=== PATIENT | female | born 1940 | race Hispanic/Latino ===

== ENCOUNTER 2017-03-04 10:47 | Inpatient (IN) | payer MEDICARE, MEDICAID ==
[2017-03-04 10:52] VITALS: BMI 25.7
[2017-03-04] MEDS ORDERED: Albuterol-Ipratrop 3 mg / 0.5 (3 ml) UD IH STA ×2 (10:59→11:00)
--- NOTE | 2017-03-04 11:05 | ED PDOC ---
HPI: SOB/CHF/COPD Time Seen by Provider: 03/04/17 10:54 Chief Complaint (Provider): shortness of breath History Per: Patient History/Exam Limitations: no limitations Additional Complaint(s): Jennifer Mendez is a 76 year old female, with a previous medical history of COPD, pneumonia, diabetes and cellulitis, who presents to the ED via EMS with complaints of shortness of breath associated with a cough productive of yellow sputum. Patient denies any fever, chills or chest pain. PMD: none provided Past Medical History Reviewed: Historical Data, Nursing Documentation, Vital Signs Vital Signs: Last Vital Signs Temp 98.7 F 03/04/17 10:52 Pulse 93 H 03/04/17 10:52 Resp 19 03/04/17 10:52 BP 161/71 H 03/04/17 10:52 Pulse Ox 95 03/04/17 11:09 - Medical History PMH: Arthritis, Asthma, Bronchitis, CAD, CHF, COPD, CVA, Diabetes, Emphysema, Fractures (Right arm fx), HTN, Hypercholesterolemia, TIA Denies: Chronic Kidney Disease - Surgical History Surgical History: Back Surgery (discectomy x 2), CABG (x 5; 2009), Cholecystectomy (), Coronary Stent - Family History Family History: States: Hypertension - Immunization History Hx Tetanus Toxoid Vaccination: No Hx Influenza Vaccination: No Hx Pneumococcal Vaccination: No - Home Medications Home Medications: Ambulatory Orders Medication Instructions Recorded ALPRAZolam [Xanax] 0.25 mg PO Q8H PRN 03/04/17 Acetaminophen [Tylenol 325mg tab] 650 mg PO Q4H PRN 03/04/17 Acetaminophen [Tylenol 325mg tab] 650 mg PO Q6H PRN 03/04/17 Albuterol 0.083% [Albuterol 0.083% 3 ml IH Q6H PRN 03/04/17 Inhal Suzan (2.5 mg/3 ml) UD] Arformoterol [Brovana] 15 mcg IH Q12H 03/04/17 Aspirin [Aspirin EC] 325 mg PO DAILY 03/04/17 Atorvastatin [Lipitor] 80 mg PO DAILY 03/04/17 Budesonide [Pulmicort Respules] 0.5 mg IH Q12H 03/04/17 Carvedilol [Coreg] 3.125 mg PO BID 03/04/17 Escitalopram [Lexapro] 10 mg PO DAILY 03/04/17 Ferrous Gluconate [Fergon] 324 mg PO DAILY 03/04/17 Furosemide [Lasix] 20 mg PO DAILY 03/04/17 Gabapentin [Neurontin] 100 mg PO TID 03/04/17 Heparin [Heparin (RENAL)] 5,000 unit SC Q12H 03/04/17 Insulin Detemir [Levemir] 20 unit SC Q12H 03/04/17 Insulin Human Regular [HumuLIN R] 1 - 7 unit SC QID 03/04/17 Lisinopril [Zestril] 2.5 mg PO DAILY 03/04/17 Loperamide HCl [Loperamide] 2 mg PO Q6H PRN 03/04/17 Loperamide HCl [Loperamide] 4 mg PO ONCE PRN 03/04/17 Mag Hydrox/Aluminum Hyd/Simeth 30 ml PO Q4H PRN 03/04/17 [Maalox Advanced Suspension] Magnesium Hydroxide [Milk Of 30 ml PO HS PRN 03/04/17 Magnesia] Meclizine [Antivert] 12.5 mg PO Q6H PRN 03/04/17 Ondansetron [Zofran Tab] 4 mg PO Q4H PRN 03/04/17 Pantoprazole Sodium [Protonix] 40 mg PO DAILY 03/04/17 Phenyleph/Mineral Oil/Petrolat 1 appl [place] TID PRN 03/04/17 [Preparation H Ointment] QUEtiapine [SEROquel] 50 mg PO HS 03/04/17 Quetiapine Fumarate [Seroquel] 50 mg PO BID 03/04/17 Tiotropium [Spiriva] 18 mcg IH DAILY 03/04/17 - Allergies Allergies/Adverse Reactions: Allergies Allergy/AdvReac Type Severity Reaction Status Date / Time shellfish derived Allergy SHORTNESS Verified 09/30/16 20:48 OF BREATH Review of Systems ROS Statement: Except As Marked, All Systems Reviewed And Found Negative Constitutional: Negative for: Fever, Chills Cardiovascular: Negative for: Chest Pain Respiratory: Positive for: Cough, Shortness of Breath, Sputum (yellow ) Physical Exam - Reviewed Nursing Documentation Reviewed: Yes Vital Signs Reviewed: Yes - Physical Exam Appears: Positive for: Non-toxic, In Acute Distress (respiratory ) Head Exam: Positive for: ATRAUMATIC, NORMAL INSPECTION, NORMOCEPHALIC Skin: Positive for: Normal Color, Warm, Dry Neck: Positive for: Normal, Painless ROM, Supple Cardiovascular/Chest: Positive for: Tachycardia Respiratory: Positive for: Rhonchi, Wheezing (expiratory), Respiratory Distress Gastrointestinal/Abdominal: Positive for: Normal Exam, Bowel Sounds, Soft Back: Positive for: Normal Inspection Extremity: Positive for: Normal ROM, Capillary Refill (< 2 seconds ), Other ( pretibial erythema. 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 Provider Scribe Attestation: All medical record entries made by the Scribe were at my direction and personally dictated by me. I have reviewed the chart and agree that the record accurately reflects my personal performance of the history, physical exam, medical decision making, and the department course for this patient. I have also personally directed, reviewed, and agree with the discharge instructions and disposition. Disposition - Clinical Impression Clinical Impression: CHF (congestive heart failure), COPD exacerbation, Pneumonia - Patient ED Disposition Is Patient to be Admitted: Yes - Disposition Disposition Time: 11:51 Condition: FAIR - Pt Status Changed To: Hospital Disposition Of: Inpatient - Admit Certification Admit to Inpatient:: After my assessment, the patient will require hospitalization for at least two midnights. This is because of the severity of symptoms shown, intensity of services needed, and/or the medical risk in this patient being treated as an outpatient. - POA Present On Arrival: None
[2017-03-04 11:35] LABS: HEMATOCRIT 38.9 % (34.0-47.0); LYMPH # 0.3 K/uL (1.0-4.3); LYMPH % 2.4 % (20.0-40.0); MEAN CELL VOLUME 89.7 fl (81.0-99.0); MEAN CORPUSCULAR HEMOGLOBIN 29.1 pg (27.0-31.0); MEAN CORPUSCULAR HGB CONC 32.5 g/dL (33.0-37.0); MEAN PLATELET VOLUME 9.1 fl (7.2-11.7); MONO # 0.9 K/uL (0.0-0.8); MONO % 7.8 % (0.0-10.0); NEUT # 10.6 K/uL (1.8-7.0); NEUT % 89.8 % (50.0-75.0); PLATELET COUNT 264 K/uL (130-400); RED CELL DISTRIBUTION WIDTH 16.7 % (11.5-14.5); WHITE BLOOD COUNT 11.8 K/uL (4.8-10.8)
[2017-03-04 11:45] LABS: ABG ALLEN TEST YES; ARTERIAL BLOOD GAS HCO3 32.7 mmol/L (21-28); ARTERIAL BLOOD GAS PO2 58 mm/Hg (80-100)
[2017-03-04] MEDS ORDERED: Piperacillin/Tazobact 3.375 GM in Sodium Chloride 0.9% 100 ML IVPB STA (11:46)
[2017-03-04] MEDS ORDERED: Albuterol-Ipratrop 3 mg / 0.5 (3 ml) UD ONE (12:09)
[2017-03-04] MEDS ORDERED: Vancomycin 1 g Inj ONE (12:09)
--- NOTE | 2017-03-04 12:13 | RAD ---
HISTORY: cough COMPARISON: 09/30/2016. FINDINGS: LUNGS: There is confluent airspace disease in the right upper lobe. There is also patchy airspace disease in the right lower lobe and left lung. PLEURA: Small right effusion. No significant left pleural effusion. No pneumothorax apparent. CARDIOVASCULAR: The heart is normal in size. Status post CABG. OSSEOUS STRUCTURES: No significant abnormalities. VISUALIZED UPPER ABDOMEN: Normal. OTHER FINDINGS: None. IMPRESSION: Findings are most compatible with multifocal pneumonia, worse in the right upper lobe. Small right pleural effusion. Follow-up after medical management is recommended to ensure complete resolution.
[2017-03-04 12:28] LABS: ALKALINE PHOSPHATASE 275 U/L (38-126); ALT/SGPT 208 U/L (9-52); AST/SGOT 185 U/L (14-36); BILIRUBIN,TOTAL 0.3 mg/dl (0.2-1.3); BLOOD UREA NITROGEN 43 mg/dl (7-17); CALCIUM 8.2 mg/dL (8.4-10.2); CARBON DIOXIDE 33 mmol/L (22-30); CHLORIDE 105 mmol/L (98-107); GFR AFRICAN-AMERICAN > 60; GLUCOSE,RANDOM 186 mg/dL (65-105); POTASSIUM 3.8 MMOL/L (3.6-5.0); SODIUM 143 mmol/l (132-148); TOTAL PROTEIN 5.6 G/DL (6.3-8.2)
[2017-03-04 12:54] LABS: NEUTROPHIL 87 % (42-75); TOTAL CELLS COUNTED 100
[2017-03-04 12:56] LABS: LARGE PLATELETS PRESENT
[2017-03-04] MEDS ORDERED: Piperacillin/Tazobact 3.375 gm Inj IVPB ONE (14:06)
[2017-03-04] MEDS ORDERED: Sodium Chloride 3% for Inhalation 4 ML VIAL.NEB IH PRN (15:53)
[2017-03-04] MEDS: Piperacillin/Tazobact 3.375 GM in Sodium Chloride 0.9% 100 ML IVPB SCH ×2 (16:32→21:34)
[2017-03-04] MEDS: Insulin Lispro (humaLOG) 100 Units/ml Inj SC SCH ×2 (16:56→21:44)
[2017-03-04] MEDS: Albuterol-Ipratrop 3 mg / 0.5 (3 ml) UD INH SCH (19:01)
[2017-03-04] MEDS ORDERED: Budesonide 0.5 mg/2 ml Inhal Susp UD IH SCH (23:45)
[2017-03-04] MEDS ORDERED: Alum-Mag Hydrox-Simethicone Susp (30 mL) PO PRN (23:53)
[2017-03-04] MEDS ORDERED: Magnesium Hydroxide Susp 30 ml UD PO PRN (23:53)
[2017-03-04] MEDS ORDERED: Albuterol 0.083% Inhal Sol (2.5 mg/3 mL) UD IH PRN (23:53)
[2017-03-04] MEDS ORDERED: [UNRECOGNIZED DRUG - OTHER] PR PRN (23:53)
[2017-03-04] MEDS ORDERED: PHENYLEPH PR PRN (23:53)
[2017-03-04] MEDS ORDERED: LOPERAMIDE HCL 2 MG PO PRN (23:53)
[2017-03-04] MEDS ORDERED: MINERAL OIL PR PRN (23:53)
[2017-03-05] MEDS: Insulin Detemir 100 Units/ml Inj SC SCH ×2 (01:15→12:43)
[2017-03-05] MEDS: Piperacillin/Tazobact 3.375 GM in Sodium Chloride 0.9% 100 ML IVPB SCH ×2 (04:56→09:35)
[2017-03-05] MEDS: Budesonide 0.5 mg/2 ml Inhal Susp UD IH SCH ×2 (07:16→19:06)
[2017-03-05] MEDS: Albuterol-Ipratrop 3 mg / 0.5 (3 ml) UD INH SCH ×3 (07:17→19:06)
[2017-03-05 07:19] LABS: HEMATOCRIT 38.3 % (34.0-47.0); LYMPH # 0.3 K/uL (1.0-4.3); LYMPH % 4.6 % (20.0-40.0); MEAN CELL VOLUME 90.2 fl (81.0-99.0); MEAN CORPUSCULAR HEMOGLOBIN 28.9 pg (27.0-31.0); MEAN PLATELET VOLUME 9.3 fl (7.2-11.7); MONO # 0.5 K/uL (0.0-0.8); MONO % 6.5 % (0.0-10.0); NEUT # 6.7 K/uL (1.8-7.0); NEUT % 88.9 % (50.0-75.0); RED CELL DISTRIBUTION WIDTH 16.7 % (11.5-14.5); WHITE BLOOD COUNT 7.6 K/uL (4.8-10.8)
[2017-03-05 07:27] LABS: BILIRUBIN,TOTAL 0.5 mg/dl (0.2-1.3); POTASSIUM 3.6 MMOL/L (3.6-5.0); TOTAL PROTEIN 5.2 G/DL (6.3-8.2)
[2017-03-05] MEDS: Aspirin 325 mg EC Tablets PO SCH (09:06)
[2017-03-05] MEDS: Pantoprazole 40 mg EC Tab PO SCH (09:07)
[2017-03-05] MEDS: Tiotropium 18 mcg Cap For Inhalation IH SCH (09:08)
[2017-03-05] MEDS: Insulin Regular 100 units/ml SC SCH ×2 (09:09→11:19)
--- NOTE | 2017-03-05 13:38 | CP.PCM.CON ---
History of Present Illness - History of Present Illness History of Present Illness: I was asked to evaluate patient by Dr. Zapata. Patient is a 76 year old female with PMH HTN, CAD s/p CABG, Diastolic dysfunction PAD, who presents with productive cough and dyspnea. The patient devleoped progressive symptoms over the last 2 to 3 days. She had a productive cough. There was yellowish sputum production. The patient's pro BNP was markedly elevated. Review of Systems - Constitutional Constitutional: absent: As Per HPI, Anorexia, Chills, Daytime Sleepiness, Excessive Sweating, Fatigue, Fever, Frequent Falls, Headache, Increased Appetite , Lethargy, Malaise, Night Sweats, Snoring, Sleep Apnea, Weight Gain, Weight Loss, Weakness, Other - EENT Eyes: absent: As Per HPI, Blind Spots, Blurred Vision, Change in Vision, Decreased Night Vision, Diplopia, Discharge, Dry Eye, Exophthalmos, Floaters, Irritation, Itchy Eyes, Loss of Peripheral Vision, Pain, Photophobia, Requires Corrective Lenses, Sees Flashes, Spots in Vision, Tunnel Vision, Other Visual Disturbances, Loss of Vision, Other Ears: absent: As Per HPI, Decreased Hearing, Ear Discharge, Ear Pain, Tinnitus, Abnormal Hearing, Disequilibrium, Dizziness, Other Nose/Mouth/Throat: absent: As Per HPI, Epistaxis, Nasal Congestion, Nasal Discharge, Nasal Obstruction, Nasal Trauma, Nose Pain, Post Nasal Drip, Sinus Pain, Sinus Pressure, Bleeding Gums, Change in Voice, Dental Pain, Dry Mouth, Dysphagia, Halitosis, Hoarsness, Lip Swelling, Mouth Lesions, Mouth Pain, Odynophagia, Sore Throat, Throat Swelling, Tongue Swelling, Facial Pain, Neck Pain, Neck Mass, Other - Breasts Breasts: absent: As Per HPI, Change in Shape, Mass, Pain, Nipple Discharge, Nipple Inversion, Skin Changes, Swelling, Other - Cardiovascular Cardiovascular: Dyspnea - Respiratory Respiratory: Cough, Dyspnea - Gastrointestinal Gastrointestinal: absent: As Per HPI, Abdominal Pain, Belching, Bloating, Change in Bowel Habits, Change in Stool Character, Coffee Ground Emesis, Constipation, Cramping, Diarrhea, Dyspepsia, Dysphagia, Early Satiety, Excessive Flatus, Fecal Incontinence, Heartburn, Hematemesis, Hematochezia, Loose Stools, Melena, Nausea, Odynophagia, Temesmus, Vomiting, Other - Genitourinary Genitourinary: absent: As Per HPI, Change in Urinary Stream, Difficulty Urinating, Dysuria, Flank Pain, Hematuria, Pyuria, Nocturia, Urinary Incontinence, Urinary Frequency, Urinary Hesitance, Urinary Urgency, Voiding Freq/Small Amts, Freq UTI, Hx Renal/Bladder Calculi, Hx /Renal Surgery, Bladder Distension, Other - Musculoskeletal Musculoskeletal: absent: As Per HPI, Abnormal Gait, Arthralgias, Atrophy, Back Pain, Deformity, Joint Swelling, Limited Range of Motion, Loss of Height, Muscle Cramps, Muscle Weakness, Myalgias, Neck Pain, Numbness, Radiating Pain into Limb, Stiffness, Tingling, Other - Integumentary Integumentary: absent: As Per HPI, Acne, Alopecia, Bleeding Lesions, Change in Hair, Change in Nails, Change in Pigmentation, Changing Lesions, Dry Skin, Erythema, Furuncle, Hirsutism, Lesions, New Lesions, Non-Healing Lesions, Photosensitivity, Pruritus, Rash, Skin Pain, Skin Ulcer, Sores, Striae, Swelling , Unusual Bruising, Wounds, Jaundice, Other - Neurological Neurological: absent: As Per HPI, Abnormal Gait, Abnormal Hearing, Abnormal Movements, Abnormal Speech, Behavioral Changes, Burning Sensations, Confusion, Convulsions, Disequilibrium, Dizziness, Numbness, Focal Weakness, Frequent Falls , Headaches, Lack of Coordination, Loss of Vision, Memory Loss, Paresthesias, Radicular Pain, Restless Legs, Sensory Deficit, Syncope, Tingling, Tremor, Vertigo, Weakness, Other Visual Disturbances, Other - Psychiatric Psychiatric: absent: As Per HPI, Abnormal Sleep Pattern, Anhedonia, Anxiety, Auditory Hallucinations, Behavioral Changes, Change in Appetite, Change in Libido, Confusion, Depression, Difficulty Concentrating, Hallucinations, Homicidal Ideation, Hopelessness, Irritability, Memory Loss, Mood Swings, Panic Attacks, Paranoia, Suicidal Ideation, Visual Hallucinations, Tactile Hallucinations, Other - Endocrine Endocrine: absent: As Per HPI, Change in Body Appearance, Change in Libido, Cold Intolorance, Deepening of Voice, Excessive Sweating, Fatigue, Flushing, Heat Intolorance, Increase in Ring/Shoe/Hat Size, Palpitations, Polydipsia, Polyphagia, Polyuria, Other - Hematologic/Lymphatic Hematologic: absent: As Per HPI, Easy Bleeding, Easy Bruising, Lymphadenopathy, Other Past Patient History - Infectious Disease Hx of Infectious Diseases: None - Past Medical History & Family History Past Medical History?: Yes - Past Social History Smoking Status: Former Smoker - CARDIAC Hx Congestive Heart Failure: Yes Hx Hypercholesterolemia: Yes Hx Hypertension: Yes - PULMONARY Hx Asthma: Yes Hx Bronchitis: Yes Hx Chronic Obstructive Pulmonary Disease (COPD): Yes Hx Emphysema: Yes - NEUROLOGICAL Hx Transient Ischemic Attacks (TIA): Yes - HEENT Hx HEENT Problems: Yes (Wears glasses) Hx Deafness: Yes ([place]: has hearing aids) - RENAL Hx Chronic Kidney Disease: No - ENDOCRINE/METABOLIC Hx Diabetes Mellitus Type 1: Yes - HEMATOLOGICAL/ONCOLOGICAL Hx Blood Disorders: No - INTEGUMENTARY Hx Dermatological Problems: Yes Hx Cellulitis: Yes (Since -August 2016) - MUSCULOSKELETAL/RHEUMATOLOGICAL Hx Arthritis: Yes Hx Falls: No Hx Fractures: Yes (Right arm fx) - GASTROINTESTINAL Hx Gastrointestinal Disorders: No - GENITOURINARY/GYNECOLOGICAL Hx Genitourinary Disorders: No - PSYCHIATRIC Hx Psychophysiologic Disorder: No Hx Substance Use: No - SURGICAL HISTORY Hx Cholecystectomy: Yes () Hx Coronary Artery Bypass Graft: Yes (x 5; 2009) Hx Coronary Stent: Yes - ANESTHESIA Hx Anesthesia Reactions: No Hx Malignant Hyperthermia: No Meds Allergies/Adverse Reactions: Allergies Allergy/AdvReac Type Severity Reaction Status Date / Time shellfish derived Allergy SHORTNESS Verified 09/30/16 20:48 OF BREATH - Medications Medications: Current Medications Acetaminophen (Tylenol 325mg Tab) 650 mg PO Q4H PRN PRN Reason: Temp 101 and above Al Hydrox/Mg Hydrox/Simethicone (Maalox Plus 30 Ml) 30 ml PO Q4H PRN PRN Reason: heartburn, nausea, indigestion Albuterol Sulfate (Albuterol 0.083% Inhal Suzan (2.5 Mg/3 Ml) Ud) 2.5 mg IH Q6H PRN PRN Reason: Shortness of Breath Albuterol/Ipratropium (Duoneb 3 Mg/0.5 Mg (3 Ml) Ud) 3 ml INH RTID TERRANCE Last Admin: 03/05/17 13:09 Dose: 3 ml Alprazolam (Xanax) 0.25 mg PO Q8H PRN PRN Reason: Anxiety Stop: 03/11/17 15:47 Last Admin: 03/04/17 23:13 Dose: 0.25 mg Aspirin (Ecotrin) 325 mg PO DAILY ON LICENSE OF [facility] Last Admin: 03/05/17 09:06 Dose: 325 mg Atorvastatin Calcium (Lipitor) 80 mg PO DAILY ON LICENSE OF [facility] Last Admin: 03/05/17 09:05 Dose: 80 mg Budesonide (Pulmicort Respules) 0.5 mg IH RBID ON LICENSE OF [facility] Last Admin: 03/05/17 07:16 Dose: 0.5 mg Carvedilol (Coreg) 3.125 mg PO BID ON LICENSE OF [facility] Last Admin: 03/05/17 09:05 Dose: 3.125 mg Escitalopram Oxalate (Lexapro) 10 mg PO DAILY ON LICENSE OF [facility] Last Admin: 03/05/17 09:05 Dose: 10 mg Ferrous Gluconate (Fergon) 324 mg PO DAILY ON LICENSE OF [facility] Last Admin: 03/05/17 09:05 Dose: 324 mg Furosemide (Lasix) 20 mg PO DAILY ON LICENSE OF [facility] Last Admin: 03/05/17 09:06 Dose: 20 mg Gabapentin (Neurontin) 100 mg PO TID ON LICENSE OF [facility] Last Admin: 03/05/17 12:43 Dose: 100 mg Heparin Sodium (Porcine) (Heparin) 5,000 units SC Q12H ON LICENSE OF [facility] PRN Reason: Protocol Last Admin: 03/05/17 04:57 Dose: 5,000 units Home Med (Arformoterol [Brovana]) 15 mcg IH Q12H ON LICENSE OF [facility] Home Med (Phenyleph/Mineral Oil/Petrolat [Preparation H Ointment]) 1 appl [place] TID PRN PRN Reason: Hemorrhoids Vancomycin HCl 1 gm/ Sodium (Chloride) 250 mls @ 166.667 mls/hr IVPB DAILY ON LICENSE OF [facility] Last Admin: 03/05/17 09:12 Dose: 166.667 mls/hr Piperacillin Sod/Tazobactam Sod (Zosyn 3.375 Gm Iv Premix) 3.375 gm in 50 mls @ 50 mls/hr IVPB Q6 ON LICENSE OF [facility] Insulin Detemir (Levemir) 20 units SC Q12H ON LICENSE OF [facility] Last Admin: 03/05/17 12:43 Dose: 20 u Insulin Human Lispro (Humalog) 0 units SC [facility] ON LICENSE OF [facility] PRN Reason: Protocol Last Admin: 03/04/17 21:44 Dose: Not Given Insulin Human Regular (Humulin R) 0 units SC [facility] ON LICENSE OF [facility] PRN Reason: Protocol Last Admin: 03/05/17 11:19 Dose: 6 units Lisinopril (Zestril) 2.5 mg PO DAILY ON LICENSE OF [facility] Last Admin: 03/05/17 09:13 Dose: 2.5 mg Loperamide HCl (Imodium) 2 mg PO Q6H PRN PRN Reason: Diarrhea Magnesium Hydroxide (Milk Of Magnesia) 30 ml PO HS PRN PRN Reason: Constipation Meclizine HCl (Antivert) 12.5 mg PO Q6H PRN PRN Reason: Dizziness Ondansetron HCl (Zofran Tab) 4 mg PO Q4H PRN PRN Reason: Nausea/Vomiting Pantoprazole Sodium (Protonix Ec Tab) 40 mg PO DAILY ON LICENSE OF [facility] Last Admin: 03/05/17 09:07 Dose: 40 mg Quetiapine Fumarate (Seroquel) 50 mg PO HS ON LICENSE OF [facility] Last Admin: 03/04/17 21:35 Dose: 50 mg Quetiapine Fumarate (Seroquel) 50 mg PO BID ON LICENSE OF [facility] Last Admin: 03/05/17 09:10 Dose: 50 mg Tiotropium [place] (Spiriva) 18 mcg IH DAILY ON LICENSE OF [facility] Last Admin: 03/05/17 09:08 Dose: 18 mcg Physical Exam - Constitutional Appears: Non-toxic - Head Exam Head Exam: NORMAL INSPECTION - Eye Exam Eye Exam: Normal appearance - ENT Exam ENT Exam: Mucous Membranes Moist - Neck Exam Neck exam: Positive for: Full Rom - Respiratory Exam Respiratory Exam: Decreased Breath Sounds - Cardiovascular Exam Cardiovascular Exam: REGULAR RHYTHM - GI/Abdominal Exam GI & Abdominal Exam: Normal Bowel Sounds - Rectal Exam Rectal Exam: Deferred - Extremities Exam Extremities exam: Positive for: pedal edema - Back Exam Back exam: NORMAL INSPECTION - Neurological Exam Neurological exam: Alert, Oriented x3 - Psychiatric Exam Psychiatric exam: Normal Affect - Skin Skin Exam: Normal Color Results - Vital Signs Recent Vital Signs: Last Vital Signs Temp 98.6 F 03/05/17 12:23 Pulse 82 03/05/17 12:23 Resp 19 03/05/17 13:10 BP 145/84 03/05/17 12:23 Pulse Ox 98 03/05/17 12:23 - Labs Result Diagrams: 03/05/17 05:30 03/05/17 05:30 Labs: Laboratory Results - last 24 hr 03/04/17 03/04/17 03/05/17 16:53 21:41 05:23 WBC RBC Hgb Hct MCV MCH MCHC RDW Plt Count MPV Neut % (Auto) Lymph % (Auto) Holt % (Auto) Eos % (Auto) Baso % (Auto) Neut # Lymph # Holt # Eos # Baso # Sodium Potassium Chloride Carbon Dioxide Anion Gap BUN Creatinine Est GFR ( Amer) Est GFR (Non-Af Amer) POC Glucose (mg/dL) 278 H 297 H 338 H Random Glucose Calcium Total Bilirubin AST ALT Alkaline Phosphatase Total Protein Albumin Globulin Albumin/Globulin Ratio 03/05/17 03/05/17 03/05/17 05:30 05:30 11:01 WBC 7.6 RBC 4.24 Hgb 12.2 Hct 38.3 MCV 90.2 MCH 28.9 MCHC 32.0 L RDW 16.7 H Plt Count 257 MPV 9.3 Neut % (Auto) 88.9 H Lymph % (Auto) 4.6 L Holt % (Auto) 6.5 Eos % (Auto) 0.0 Baso % (Auto) 0.0 Neut # 6.7 Lymph # 0.3 L Holt # 0.5 Eos # 0.0 Baso # 0.0 Sodium 142 Potassium 3.6 Chloride 104 Carbon Dioxide 32 H Anion Gap 10 BUN 47 H Creatinine 1.3 H Est GFR ( Amer) 48 Est GFR (Non-Af Amer) 40 POC Glucose (mg/dL) 334 H Random Glucose 295 H Calcium 8.0 L Total Bilirubin 0.5 AST 60 H D ALT 155 H D Alkaline Phosphatase 245 H Total Protein 5.2 L Albumin 2.6 L Globulin 2.6 Albumin/Globulin Ratio 1.0 - EKG Data EKG Interpreted by: Myself EKG shows normal: Sinus rhythm Assessment & Plan (1) CHF (congestive heart failure) Assessment and Plan: will need to assess systolic function givne elevated pro BNP. will schedule echocardiogram. continue diuresis and blood pressure control. Status: Acute (2) Coronary artery disease Assessment and Plan: previous cardiac cath reviewed. patent JHA to LAD. COntinue antiplatelet therapy Status: Acute (3) Diabetes mellitus Assessment and Plan: glucose management Status: Acute (4) Hypertension Assessment and Plan: blood pressure control Status: Acute
--- NOTE | 2017-03-05 13:50 | CARD ---
APPROVED REPORT EKG Measurement Heart [id number] MD [id number] <Conclusion> Sinus rhythm with occasional premature ventricular complexes Possible Left atrial enlargement Nonspecific ST abnormality Abnormal ECG
[2017-03-05] MEDS: Insulin Lispro (humaLOG) 100 Units/ml Inj SC SCH ×3 (16:50→22:00)
[2017-03-05] MEDS: Piperacill/Tazo 3.375gm in Dex 3.375 GM/50 ML BAG IVPB SCH ×2 (16:51→22:07)
--- NOTE | 2017-03-05 19:41 | CP.PCM.HP ---
History of Present Illness - History of Present Illness History of Present Illness: Jennifer Mendez is a 76 year old female, with a previous medical history of COPD, pneumonia, diabetes and cellulitis, who presents to the ED via EMS with complaints of shortness of breath associated with a cough productive of yellow sputum. Patient denies any fever, chills or chest pain. Present on Admission - Present on Admission Any Indicators Present on Admission: Yes Decubitus Ulcer Present: Yes Decubitus Ulcer Stage: Unstageable Review of Systems - Constitutional Constitutional: absent: As Per HPI, Anorexia, Chills, Daytime Sleepiness, Excessive Sweating, Fatigue, Fever, Frequent Falls, Headache, Increased Appetite , Lethargy, Malaise, Night Sweats, Snoring, Sleep Apnea, Weight Gain, Weight Loss, Weakness, Other - EENT Eyes: absent: As Per HPI, Blind Spots, Blurred Vision, Change in Vision, Decreased Night Vision, Diplopia, Discharge, Dry Eye, Exophthalmos, Floaters, Irritation, Itchy Eyes, Loss of Peripheral Vision, Pain, Photophobia, Requires Corrective Lenses, Sees Flashes, Spots in Vision, Tunnel Vision, Other Visual Disturbances, Loss of Vision, Other Ears: absent: As Per HPI, Decreased Hearing, Ear Discharge, Ear Pain, Tinnitus, Abnormal Hearing, Disequilibrium, Dizziness, Other - Cardiovascular Cardiovascular: absent: As Per HPI, Acrocyanosis, Chest Pain, Chest Pain at Rest , Chest Pain with Activity, Claudication, Diaphoresis, Dyspnea, Dyspnea on Exertion, Edema, Irregular Heart Rhythm, Pain Radiating to Arm/Neck/Jaw, Leg Edema, Leg Ulcers, Lightheadedness, Orthopnea, Palpitations, Paroxysmal Nocturnal Dyspnea, Pedal Edema, Radiating Pain, Rapid Heart Rate, Slow Heart Rate, Syncope, Other - Respiratory Respiratory: Dyspnea - Gastrointestinal Gastrointestinal: absent: As Per HPI, Abdominal Pain, Belching, Bloating, Change in Bowel Habits, Change in Stool Character, Coffee Ground Emesis, Constipation, Cramping, Diarrhea, Dyspepsia, Dysphagia, Early Satiety, Excessive Flatus, Fecal Incontinence, Heartburn, Hematemesis, Hematochezia, Loose Stools, Melena, Nausea, Odynophagia, Temesmus, Vomiting, Other - Musculoskeletal Musculoskeletal: absent: As Per HPI, Abnormal Gait, Arthralgias, Atrophy, Back Pain, Deformity, Joint Swelling, Limited Range of Motion, Loss of Height, Muscle Cramps, Muscle Weakness, Myalgias, Neck Pain, Numbness, Radiating Pain into Limb, Stiffness, Tingling, Other - Neurological Neurological: absent: As Per HPI, Abnormal Gait, Abnormal Hearing, Abnormal Movements, Abnormal Speech, Behavioral Changes, Burning Sensations, Confusion, Convulsions, Disequilibrium, Dizziness, Numbness, Focal Weakness, Frequent Falls , Headaches, Lack of Coordination, Loss of Vision, Memory Loss, Paresthesias, Radicular Pain, Restless Legs, Sensory Deficit, Syncope, Tingling, Tremor, Vertigo, Weakness, Other Visual Disturbances, Other Past Patient History - Infectious Disease Hx of Infectious Diseases: None - Past Medical History & Family History Past Medical History?: Yes - Past Social History Smoking Status: Former Smoker - CARDIAC Hx Congestive Heart Failure: Yes Hx Hypercholesterolemia: Yes Hx Hypertension: Yes - PULMONARY Hx Asthma: Yes Hx Bronchitis: Yes Hx Chronic Obstructive Pulmonary Disease (COPD): Yes Hx Emphysema: Yes - NEUROLOGICAL Hx Transient Ischemic Attacks (TIA): Yes - HEENT Hx HEENT Problems: Yes (Wears glasses) Hx Deafness: Yes ([place]: has hearing aids) - RENAL Hx Chronic Kidney Disease: No - ENDOCRINE/METABOLIC Hx Diabetes Mellitus Type 1: Yes - HEMATOLOGICAL/ONCOLOGICAL Hx Blood Disorders: No - INTEGUMENTARY Hx Dermatological Problems: Yes Hx Cellulitis: Yes (Since -August 2016) - MUSCULOSKELETAL/RHEUMATOLOGICAL Hx Arthritis: Yes Hx Falls: No Hx Fractures: Yes (Right arm fx) - GASTROINTESTINAL Hx Gastrointestinal Disorders: No - GENITOURINARY/GYNECOLOGICAL Hx Genitourinary Disorders: No - PSYCHIATRIC Hx Psychophysiologic Disorder: No Hx Substance Use: No - SURGICAL HISTORY Hx Cholecystectomy: Yes () Hx Coronary Artery Bypass Graft: Yes (x 5; 2009) Hx Coronary Stent: Yes - ANESTHESIA Hx Anesthesia Reactions: No Hx Malignant Hyperthermia: No Meds Allergies/Adverse Reactions: Allergies Allergy/AdvReac Type Severity Reaction Status Date / Time shellfish derived Allergy SHORTNESS Verified 09/30/16 20:48 OF BREATH Physical Exam - Constitutional Appears: Well, Non-toxic - Head Exam Head Exam: NORMAL INSPECTION - Eye Exam Eye Exam: Normal appearance Pupil Exam: NORMAL ACCOMODATION - ENT Exam ENT Exam: Mucous Membranes Moist - Respiratory Exam Respiratory Exam: Rales, Rhonchi - Cardiovascular Exam Cardiovascular Exam: REGULAR RHYTHM - GI/Abdominal Exam GI & Abdominal Exam: Normal Bowel Sounds, Soft - Skin Additional comments: 12/26 dec ulcer, unstageable Results - Vital Signs Recent Vital Signs: Last Vital Signs Temp 98.2 F 03/05/17 15:52 Pulse 75 03/05/17 16:49 Resp 17 03/05/17 19:06 BP 137/75 03/05/17 16:49 Pulse Ox 98 03/05/17 15:52 - Labs Result Diagrams: 03/05/17 05:30 03/05/17 05:30 Labs: Laboratory Results - last 24 hr 03/04/17 03/05/17 03/05/17 21:41 05:23 05:30 WBC RBC Hgb Hct MCV MCH MCHC RDW Plt Count MPV Neut % (Auto) Lymph % (Auto) [place] % (Auto) Eos % (Auto) Baso % (Auto) Neut # Lymph # [place] # Eos # Baso # Sodium 142 Potassium 3.6 Chloride 104 Carbon Dioxide 32 H Anion Gap 10 BUN 47 H Creatinine 1.3 H Est GFR ( Amer) 48 Est GFR (Non-Af Amer) 40 POC Glucose (mg/dL) 297 H 338 H Random Glucose 295 H Calcium 8.0 L Total Bilirubin 0.5 AST 60 H D ALT 155 H D Alkaline Phosphatase 245 H Total Protein 5.2 L Albumin 2.6 L Globulin 2.6 Albumin/Globulin Ratio 1.0 03/05/17 03/05/17 03/05/17 05:30 11:01 15:57 WBC 7.6 RBC 4.24 Hgb 12.2 Hct 38.3 MCV 90.2 MCH 28.9 MCHC 32.0 L RDW 16.7 H Plt Count 257 MPV 9.3 Neut % (Auto) 88.9 H Lymph % (Auto) 4.6 L [place] % (Auto) 6.5 Eos % (Auto) 0.0 Baso % (Auto) 0.0 Neut # 6.7 Lymph # 0.3 L [place] # 0.5 Eos # 0.0 Baso # 0.0 Sodium Potassium Chloride Carbon Dioxide Anion Gap BUN Creatinine Est GFR ( Amer) Est GFR (Non-Af Amer) POC Glucose (mg/dL) 334 H 254 H Random Glucose Calcium Total Bilirubin AST ALT Alkaline Phosphatase Total Protein Albumin Globulin Albumin/Globulin Ratio Assessment & Plan - Assessment and Plan (Free Text) Assessment: Jennifer Mendez is a 76 year old female, with a previous medical history of COPD, pneumonia, diabetes and cellulitis, who presents to the ED via EMS with complaints of shortness of breath associated with a cough productive of yellow sputum. Patient denies any fever, chills or chest pain. 1. Pneumonia cont vanc and zosyn follow labs repeat cxr on tuesday 2. CHF elev pro bnp cardio consulted echo ordered 3. copd cont meds 4. dm riss cont home meds 5. dvt px scd 6. dec ulcer wound care
[2017-03-05] MEDS ORDERED: Insulin Detemir 100 Units/ml Inj SC SCH (22:00)
[2017-03-06] MEDS: Piperacill/Tazo 3.375gm in Dex 3.375 GM/50 ML BAG IVPB SCH ×4 (03:52→21:30)
--- NOTE | 2017-03-06 04:10 | CON ---
DATE: HISTORY OF PRESENT ILLNESS: Ms. Mendez is a 76-year-old female who was admitted to telemetry because of shortness of breath, cough productive of yellow sputum, fever, but no chills or febrile episode prior to presentation. She does not offer much history. She is dyspneic at rest. PAST MEDICAL HISTORY: As per medical records, past medical history is remarkable for COPD, recurrent pneumonia, diabetes mellitus, and cellulitis of lower extremities. She also has a history of hypertension, coronary artery disease, and congestive heart failure. No other history is obtained. PHYSICAL EXAMINATION GENERAL: The patient is dyspneic at rest. VITAL SIGNS: Blood pressure 161/71 with a pulse of 93, respiratory rate 19 per minute, O2 sat 95% on high flow O2, temperature 98.7 degrees Fahrenheit. SKIN: Shows fair turgor. There is redness and cellulitis of lower extremities. HEENT: Mouth, fair hygiene with mucous engorgement of pharynx. NECK: JVP flat. LUNGS: Coarse rales. Scar of prior surgery over the anterior chest wall area. HEART: Regular. ABDOMEN: Soft, nontender, no organomegaly. EXTREMITIES: Shows cellulitis of lower extremities. CENTRAL NERVOUS SYSTEM: On exam, patient is responsive to verbal commands, able to answer yes to questions, but otherwise no gross deficits appreciated. LABORATORY DATA: Chest x-ray shows bilateral pneumonia. WBC 11.8, hemoglobin 12.6, platelet count of 264,000. Sodium 143, potassium 3.8, BUN 43, creatinine 1.0. AST 185, ALT 208. ProBNP 6400 EKG, apparently not present. IMPRESSION: Bilateral pneumonia, chronic obstructive pulmonary disease with exacerbation, cellulitis of lower extremities. One also has to rule out mild congestive heart failure in view of elevated proBNP. PLAN: Intravenous antibiotics, oxygen therapy. We will place patient on high flow oxygen because of hypoxemia, sputum culture is already ordered. Blood cultures also ordered. Aerosolized bronchodilators already given. I agree with cardiology evaluation. We will continue therapy as ordered. Final workup will depend on findings. Bairon Aggarwal MD
[2017-03-06] MEDS: Albuterol-Ipratrop 3 mg / 0.5 (3 ml) UD INH SCH ×3 (07:51→19:26)
[2017-03-06] MEDS: Budesonide 0.5 mg/2 ml Inhal Susp UD IH SCH ×2 (07:52→19:27)
[2017-03-06] MEDS: Aspirin 325 mg EC Tablets PO SCH (08:44)
[2017-03-06] MEDS: Insulin Lispro (humaLOG) 100 Units/ml Inj SC SCH ×6 (08:47→21:31)
[2017-03-06] MEDS: Pantoprazole 40 mg EC Tab PO SCH (08:49)
[2017-03-06] MEDS: Tiotropium 18 mcg Cap For Inhalation IH SCH (08:50)
[2017-03-06 08:57] LABS: BILIRUBIN,TOTAL 0.3 mg/dl (0.2-1.3); CALCIUM 7.9 mg/dL (8.4-10.2); MAGNESIUM 2.2 MG/DL (1.6-2.3); TOTAL PROTEIN 4.8 G/DL (6.3-8.2)
[2017-03-06 09:16] LABS: THYROID STIMULATING HORMONE 0.3 mIU/ML (0.46-4.68)
--- NOTE | 2017-03-06 09:30 | CP.PCM.PN ---
Subjective - Date & Time of Evaluation Date of Evaluation: 03/06/17 Time of Evaluation: 09:31 - Subjective Subjective: MORE AWAKE AND ALERT TODAY SOB IMPROVED O2 SAT ADEQUATE ON 60%FIO2 HIGH FLOW Objective - Vital Signs/Intake and Output Vital Signs (last 24 hours): Temp Pulse Resp BP Pulse Ox 97.9 F 61 20 149/70 98 03/06/17 08:08 03/06/17 08:46 03/06/17 08:10 03/06/17 08:49 03/06/17 08:08 - Medications Medications: Current Medications Acetaminophen (Tylenol 325mg Tab) 650 mg PO Q4H PRN PRN Reason: Temp 101 and above Al Hydrox/Mg Hydrox/Simethicone (Maalox Plus 30 Ml) 30 ml PO Q4H PRN PRN Reason: heartburn, nausea, indigestion Albuterol Sulfate (Albuterol 0.083% Inhal Suzan (2.5 Mg/3 Ml) Ud) 2.5 mg IH Q6H PRN PRN Reason: Shortness of Breath Albuterol/Ipratropium (Duoneb 3 Mg/0.5 Mg (3 Ml) Ud) 3 ml INH RTID [facility] Last Admin: 03/06/17 07:51 Dose: 3 ml Alprazolam (Xanax) 0.25 mg PO Q8H PRN PRN Reason: Anxiety Stop: 03/11/17 15:47 Last Admin: 03/04/17 23:13 Dose: 0.25 mg Aspirin (Ecotrin) 325 mg PO DAILY [facility] Last Admin: 03/06/17 08:44 Dose: 325 mg Atorvastatin Calcium (Lipitor) 80 mg PO DAILY [facility] Last Admin: 03/06/17 08:45 Dose: 80 mg Budesonide (Pulmicort Respules) 0.5 mg IH RBID [facility] Last Admin: 03/06/17 07:52 Dose: 0.5 mg Carvedilol (Coreg) 3.125 mg PO BID [facility] Last Admin: 03/06/17 08:46 Dose: 3.125 mg Escitalopram Oxalate (Lexapro) 10 mg PO DAILY [facility] Last Admin: 03/06/17 08:45 Dose: 10 mg Ferrous Gluconate (Fergon) 324 mg PO DAILY [facility] Last Admin: 03/06/17 08:45 Dose: 324 mg Furosemide (Lasix) 20 mg PO DAILY [facility] Last Admin: 03/06/17 08:49 Dose: 20 mg Gabapentin (Neurontin) 100 mg PO TID [facility] Last Admin: 03/06/17 08:45 Dose: 100 mg Heparin Sodium (Porcine) (Heparin) 5,000 units SC Q12H [facility] PRN Reason: Protocol Last Admin: 03/06/17 07:21 Dose: Not Given Home Med (Arformoterol [Brovana]) 15 mcg IH Q12H [facility] Home Med (Phenyleph/Mineral Oil/Petrolat [Preparation H Ointment]) 1 appl AL TID PRN PRN Reason: Hemorrhoids Vancomycin HCl 1 gm/ Sodium (Chloride) 250 mls @ 166.667 mls/hr IVPB DAILY [facility] Last Admin: 03/06/17 08:50 Dose: 166.667 mls/hr Piperacillin Sod/Tazobactam Sod (Zosyn 3.375 Gm Iv Premix) 3.375 gm in 50 mls @ 50 mls/hr IVPB Q6 [facility] Last Admin: 03/06/17 09:05 Dose: 50 mls/hr Insulin Detemir (Levemir) 40 units SC [facility] Last Admin: 03/05/17 22:08 Dose: 40 unit Insulin Human Lispro (Humalog) 12 units SC AC [facility] Last Admin: 03/06/17 08:47 Dose: 12 units Insulin Human Lispro (Humalog) 0 units SC [facility] PRN Reason: Protocol Last Admin: 03/06/17 08:48 Dose: Not Given Lisinopril (Zestril) 2.5 mg PO DAILY [facility] Last Admin: 03/05/17 09:13 Dose: 2.5 mg Loperamide HCl (Imodium) 2 mg PO Q6H PRN PRN Reason: Diarrhea Magnesium Hydroxide (Milk Of Magnesia) 30 ml PO HS PRN PRN Reason: Constipation Meclizine HCl (Antivert) 12.5 mg PO Q6H PRN PRN Reason: Dizziness Ondansetron HCl (Zofran Tab) 4 mg PO Q4H PRN PRN Reason: Nausea/Vomiting Pantoprazole Sodium (Protonix Ec Tab) 40 mg PO DAILY [facility] Last Admin: 03/06/17 08:49 Dose: 40 mg Quetiapine Fumarate (Seroquel) 50 mg PO [facility] Last Admin: 03/05/17 22:08 Dose: 50 mg Quetiapine Fumarate (Seroquel) 50 mg PO BID [facility] Last Admin: 03/06/17 08:46 Dose: 50 mg Tiotropium [place] (Spiriva) 18 mcg IH DAILY [facility] Last Admin: 03/06/17 08:50 Dose: 18 mcg - Labs Labs: 03/05/17 05:30 03/06/17 05:30 - Constitutional Appears: Chronically Ill - Head Exam Head Exam: ATRAUMATIC, NORMAL INSPECTION, NORMOCEPHALIC - Eye Exam Eye Exam: EOMI, Normal appearance, PERRL Pupil Exam: NORMAL ACCOMODATION, PERRL - ENT Exam ENT Exam: Mucous Membranes Moist, Normal Exam - Neck Exam Neck Exam: Full ROM, Normal Inspection. absent: Lymphadenopathy - Respiratory Exam Respiratory Exam: Decreased Breath Sounds, Prolonged Expiratory Phase, Rales, NORMAL BREATHING PATTERN - Cardiovascular Exam Cardiovascular Exam: REGULAR RHYTHM, +S1, +S2. absent: Murmur - GI/Abdominal Exam GI & Abdominal Exam: Soft, Normal Bowel Sounds. absent: Tenderness - Rectal Exam Rectal Exam: NORMAL INSPECTION - Extremities Exam Extremities Exam: Full ROM, Normal Capillary Refill, Normal Inspection. absent : Joint Swelling, Pedal Edema - Back Exam Back Exam: NORMAL INSPECTION - Neurological Exam Neurological Exam: Alert, Awake, CN II-XII Intact, Oriented x3 - Psychiatric Exam Psychiatric exam: Flat Affect - Skin Skin Exam: Dry, Intact, Normal Color, Warm Assessment and Plan - Assessment and Plan (Free Text) Assessment: PNEUMONIA HYPOXEMIA-IMPROVING HYPOKALEMIA Plan: CONTINUE SAME RX K+SUPPLEMENT
[2017-03-06] MEDS ORDERED: Potassium Chloride 20 mEq ER Tab PO ONE ×3 (09:31→14:32)
[2017-03-06] MEDS ORDERED: Insulin Lispro (humaLOG) 100 Units/ml Inj SC SCH (11:30)
--- NOTE | 2017-03-06 11:30 | CP.PCM.PN ---
Subjective - Date & Time of Evaluation Date of Evaluation: 03/06/17 Time of Evaluation: 11:20 - Subjective Subjective: patient is resting comfortably Objective - Vital Signs/Intake and Output Vital Signs (last 24 hours): Temp Pulse Resp BP Pulse Ox 97.9 F 61 20 149/70 98 03/06/17 08:08 03/06/17 09:36 03/06/17 08:10 03/06/17 09:36 03/06/17 08:08 - Medications Medications: Current Medications Acetaminophen (Tylenol 325mg Tab) 650 mg PO Q4H PRN PRN Reason: Temp 101 and above Al Hydrox/Mg Hydrox/Simethicone (Maalox Plus 30 Ml) 30 ml PO Q4H PRN PRN Reason: heartburn, nausea, indigestion Albuterol Sulfate (Albuterol 0.083% Inhal [place] (2.5 Mg/3 Ml) Ud) 2.5 mg IH Q6H PRN PRN Reason: Shortness of Breath Albuterol/Ipratropium (Duoneb 3 Mg/0.5 Mg (3 Ml) Ud) 3 ml INH RTID [facility] Last Admin: 03/06/17 07:51 Dose: 3 ml Alprazolam (Xanax) 0.25 mg PO Q8H PRN PRN Reason: Anxiety Stop: 03/11/17 15:47 Last Admin: 03/04/17 23:13 Dose: 0.25 mg Aspirin (Ecotrin) 325 mg PO DAILY [facility] Last Admin: 03/06/17 08:44 Dose: 325 mg Atorvastatin Calcium (Lipitor) 80 mg PO DAILY [facility] Last Admin: 03/06/17 08:45 Dose: 80 mg Budesonide (Pulmicort Respules) 0.5 mg IH RBID [facility] Last Admin: 03/06/17 07:52 Dose: 0.5 mg Carvedilol (Coreg) 3.125 mg PO BID [facility] Last Admin: 03/06/17 08:46 Dose: 3.125 mg Escitalopram Oxalate (Lexapro) 10 mg PO DAILY [facility] Last Admin: 03/06/17 08:45 Dose: 10 mg Ferrous Gluconate (Fergon) 324 mg PO DAILY [facility] Last Admin: 03/06/17 08:45 Dose: 324 mg Furosemide (Lasix) 20 mg PO DAILY [facility] Last Admin: 03/06/17 08:49 Dose: 20 mg Gabapentin (Neurontin) 100 mg PO TID [facility] Last Admin: 03/06/17 08:45 Dose: 100 mg Heparin Sodium (Porcine) (Heparin) 5,000 units SC Q12H [facility] PRN Reason: Protocol Last Admin: 03/06/17 07:21 Dose: Not Given Home Med (Arformoterol [Brovana]) 15 mcg IH Q12H [facility] Home Med (Phenyleph/Mineral Oil/Petrolat [Preparation H Ointment]) 1 appl MT TID PRN PRN Reason: Hemorrhoids Vancomycin HCl 1 gm/ Sodium (Chloride) 250 mls @ 166.667 mls/hr IVPB DAILY [facility] Last Admin: 03/06/17 08:50 Dose: 166.667 mls/hr Piperacillin Sod/Tazobactam Sod (Zosyn 3.375 Gm Iv Premix) 3.375 gm in 50 mls @ 50 mls/hr IVPB Q6 [facility] Last Admin: 03/06/17 09:05 Dose: 50 mls/hr Insulin Detemir (Levemir) [address] [facility] Insulin Human Lispro (Humalog) 0 units SC ACHS [facility] PRN Reason: Protocol Last Admin: 03/06/17 08:48 Dose: Not Given Insulin Human Lispro (Humalog) 8 units SC [facility] Lisinopril (Zestril) 2.5 mg PO DAILY [facility] Last Admin: 03/06/17 09:36 Dose: 2.5 mg Loperamide HCl (Imodium) 2 mg PO Q6H PRN PRN Reason: Diarrhea Magnesium Hydroxide (Milk Of Magnesia) 30 ml PO HS PRN PRN Reason: Constipation Meclizine HCl (Antivert) 12.5 mg PO Q6H PRN PRN Reason: Dizziness Ondansetron HCl (Zofran Tab) 4 mg PO Q4H PRN PRN Reason: Nausea/Vomiting Pantoprazole Sodium (Protonix Ec Tab) 40 mg PO DAILY [facility] Last Admin: 03/06/17 08:49 Dose: 40 mg Quetiapine Fumarate (Seroquel) 50 mg PO HS [facility] Last Admin: 03/05/17 22:08 Dose: 50 mg Quetiapine Fumarate (Seroquel) 50 mg PO BID [facility] Last Admin: 07/16/17 08:46 Dose: 50 mg Tiotropium [place] (Spiriva) 18 mcg IH DAILY [facility] Last Admin: 03/06/17 08:50 Dose: 18 mcg - Labs Labs: 03/05/17 05:30 03/06/17 05:30 - Constitutional Appears: Non-toxic - Head Exam Head Exam: NORMAL INSPECTION - Eye Exam Eye Exam: Normal appearance - ENT Exam ENT Exam: Mucous Membranes Moist - Neck Exam Neck Exam: Full ROM - Respiratory Exam Respiratory Exam: Decreased Breath Sounds - Cardiovascular Exam Cardiovascular Exam: REGULAR RHYTHM - GI/Abdominal Exam GI & Abdominal Exam: Normal Bowel Sounds - Rectal Exam Rectal Exam: Deferred - Extremities Exam Extremities Exam: absent: Pedal Edema - Back Exam Back Exam: NORMAL INSPECTION - Neurological Exam Neurological Exam: Alert - Psychiatric Exam Psychiatric exam: Normal Affect - Skin Skin Exam: Normal Color Assessment and Plan (1) CHF (congestive heart failure) Assessment & Plan: acute on chronic diastolic dysfunction. will need reevaluation of systolic function. await echocardiogram Status: Acute (2) Coronary artery disease Assessment & Plan: no angina Status: Acute (3) Diabetes mellitus Assessment & Plan: glucose control Status: Acute (4) Hypertension Assessment & Plan: increase Zestril Status: Acute
--- NOTE | 2017-03-06 14:00 | CP.PCM.PN ---
Subjective - Date & Time of Evaluation Date of Evaluation: 03/06/17 Time of Evaluation: 05:00 - Subjective Subjective: pt examined at bedside. sob improving no new complaints Objective - Vital Signs/Intake and Output Vital Signs (last 24 hours): Temp Pulse Resp BP Pulse Ox 98.3 F 62 20 127/69 97 03/06/17 12:03 03/06/17 12:03 03/06/17 13:41 03/06/17 12:03 03/06/17 12:03 - Medications Medications: Current Medications Acetaminophen (Tylenol 325mg Tab) 650 mg PO Q4H PRN PRN Reason: Temp 101 and above Al Hydrox/Mg Hydrox/Simethicone (Maalox Plus 30 Ml) 30 ml PO Q4H PRN PRN Reason: heartburn, nausea, indigestion Albuterol Sulfate (Albuterol 0.083% Inhal [place] (2.5 Mg/3 Ml) Ud) 2.5 mg IH Q6H PRN PRN Reason: Shortness of Breath Albuterol/Ipratropium (Duoneb 3 Mg/0.5 Mg (3 Ml) Ud) 3 ml INH RTID [facility] Last Admin: 03/06/17 13:33 Dose: 3 ml Alprazolam (Xanax) 0.25 mg PO Q8H PRN PRN Reason: Anxiety Stop: 03/11/17 15:47 Last Admin: 03/04/17 23:13 Dose: 0.25 mg Aspirin (Ecotrin) 325 mg PO DAILY [facility] Last Admin: 03/06/17 08:44 Dose: 325 mg Atorvastatin Calcium (Lipitor) 80 mg PO DAILY [facility] Last Admin: 03/06/17 08:45 Dose: 80 mg Budesonide (Pulmicort Respules) 0.5 mg IH RBID [facility] Last Admin: 03/06/17 07:52 Dose: 0.5 mg Carvedilol (Coreg) 3.125 mg PO BID [facility] Last Admin: 03/06/17 08:46 Dose: 3.125 mg Escitalopram Oxalate (Lexapro) 10 mg PO DAILY [facility] Last Admin: 03/06/17 08:45 Dose: 10 mg Ferrous Gluconate (Fergon) 324 mg PO DAILY [facility] Last Admin: 03/06/17 08:45 Dose: 324 mg Furosemide (Lasix) 20 mg PO DAILY [facility] Last Admin: 03/06/17 08:49 Dose: 20 mg Gabapentin (Neurontin) 100 mg PO TID [facility] Last Admin: 03/06/17 12:01 Dose: 100 mg Heparin Sodium (Porcine) (Heparin) 5,000 units SC Q12H [facility] PRN Reason: Protocol Last Admin: 03/06/17 07:21 Dose: Not Given Home Med (Arformoterol [Brovana]) 15 mcg IH Q12H [facility] Home Med (Phenyleph/Mineral Oil/Petrolat [Preparation H Ointment]) 1 appl NE TID PRN PRN Reason: Hemorrhoids Vancomycin HCl 1 gm/ Sodium (Chloride) 250 mls @ 166.667 mls/hr IVPB DAILY [facility] Last Admin: 03/06/17 08:50 Dose: 166.667 mls/hr Piperacillin Sod/Tazobactam Sod (Zosyn 3.375 Gm Iv Premix) 3.375 gm in 50 mls @ 50 mls/hr IVPB Q6 [facility] Last Admin: 03/06/17 09:05 Dose: 50 mls/hr Insulin Detemir (Levemir) 30 units SC [facility] Insulin Human Lispro (Humalog) 0 units SC ACHS [facility] PRN Reason: Protocol Last Admin: 03/06/17 11:54 Dose: Not Given Insulin Human Lispro (Humalog) 8 units SC [facility] Last Admin: 03/06/17 11:55 Dose: 8 units Lisinopril (Zestril) 2.5 mg PO DAILY [facility] Last Admin: 03/06/17 09:36 Dose: 2.5 mg Lisinopril (Zestril) 10 mg PO DAILY [facility] Last Admin: 03/06/17 11:56 Dose: 10 mg Loperamide HCl (Imodium) 2 mg PO Q6H PRN PRN Reason: Diarrhea Magnesium Hydroxide (Milk Of Magnesia) 30 ml PO HS PRN PRN Reason: Constipation Meclizine HCl (Antivert) 12.5 mg PO Q6H PRN PRN Reason: Dizziness Ondansetron HCl (Zofran Tab) 4 mg PO Q4H PRN PRN Reason: Nausea/Vomiting Pantoprazole Sodium (Protonix Ec Tab) 40 mg PO DAILY [facility] Last Admin: 03/06/17 08:49 Dose: 40 mg Quetiapine Fumarate (Seroquel) 50 mg PO HS [facility] Quetiapine Fumarate (Seroquel) 50 mg PO BID [facility] Tiotropium [place] (Spiriva) 18 mcg IH DAILY [facility] Last Admin: 03/06/17 08:50 Dose: 18 mcg - Labs Labs: 03/05/17 05:30 03/06/17 05:30 - Constitutional Appears: Well, Non-toxic - Head Exam Head Exam: ATRAUMATIC, NORMAL INSPECTION - Eye Exam Eye Exam: Normal appearance Pupil Exam: NORMAL ACCOMODATION - ENT Exam ENT Exam: Mucous Membranes Moist - Respiratory Exam Respiratory Exam: Rhonchi - Cardiovascular Exam Cardiovascular Exam: REGULAR RHYTHM, +S1, +S2 - GI/Abdominal Exam GI & Abdominal Exam: Normal Bowel Sounds - Extremities Exam Extremities Exam: Normal Inspection Additional comments: b/l edema - Skin Additional comments: pos decub ulcer 12/26 Assessment and Plan - Assessment and Plan (Free Text) Assessment: 1. Pneumonia cont abx cont nebs pt improving pulm on consult 2. CHF cont same meds echo pending f/u cardio 3. COPD cont nebs 4. DM cont same meds 5. hypoKalemia K supp 6. decub ulcer cont wound care 7. dvt px cont heparin.
[2017-03-06] MEDS ORDERED: Insulin Detemir 100 Units/ml Inj SC SCH ×2 (22:00)
--- NOTE | 2017-03-07 03:40 | PN ---
DATE: 03/06/2017 ROOM: 417, [facility]. This is a 76-year-old female with recent uncontrolled type 2 insulin-requiring diabetes, presenting here with an acute pneumonia and is now being followed closely for metabolic management. Her glycemic levels are fluctuating as her oral intake remains quite variable at this time. Her latest TSH level is 0.30 with chemistry values showing a BUN of 47, sodium 142, potassium 3.0, chloride 104, CO2 of 33, glucose 79 and creatinine of 1.2. Her glucose values have ranged from 69 to 125 and 195 mg/dL. So, at this time, we will modify her basal and bolus insulin regimen and lower the Levemir to 20 units subcutaneous at 10 a.m. daily at bedtime. We will also continue the low-dose correction scale using Humalog insulin as given to *------* hypoglycemia and detail orders have been given. We will also lower the Humalog, given preprandially at a dose of 4 units subcutaneous t.i.d. before meals is given. We will obtain serum chemistries and supplement accordingly as needed. We will follow. Oma Martines MD
[2017-03-07] MEDS: Piperacill/Tazo 3.375gm in Dex 3.375 GM/50 ML BAG IVPB SCH ×4 (03:45→22:21)
[2017-03-07] MEDS ORDERED: Dextrose 50% SYRINGE Inj (50 ml) ONE (04:21)
[2017-03-07] MEDS ORDERED: Dextrose 50% SYRINGE Inj (50 ml) IVP ONE (04:27)
[2017-03-07] MEDS: Insulin Lispro (humaLOG) 100 Units/ml Inj SC SCH ×5 (06:32→22:44)
[2017-03-07 06:56] LABS: BASO % 0.1 % (0.0-2.0); EOS # 0.4 K/uL (0.0-0.7); HEMATOCRIT 36.8 % (34.0-47.0); LYMPH # 1.1 K/uL (1.0-4.3); LYMPH % 8.7 % (20.0-40.0); MEAN CELL VOLUME 88.2 fl (81.0-99.0); MEAN CORPUSCULAR HEMOGLOBIN 29.1 pg (27.0-31.0); MEAN PLATELET VOLUME 8.6 fl (7.2-11.7); MONO # 1.1 K/uL (0.0-0.8); MONO % 8.9 % (0.0-10.0); NEUT # 9.9 K/uL (1.8-7.0); NEUT % 79.3 % (50.0-75.0); RED CELL DISTRIBUTION WIDTH 16.3 % (11.5-14.5); WHITE BLOOD COUNT 12.5 K/uL (4.8-10.8)
[2017-03-07 07:23] LABS: ALB/GLOB RATIO 0.9 (1.0-2.1); BILIRUBIN,TOTAL 0.3 mg/dl (0.2-1.3); CALCIUM 7.6 mg/dL (8.4-10.2); TOTAL PROTEIN 4.6 G/DL (6.3-8.2)
[2017-03-07] MEDS: Albuterol-Ipratrop 3 mg / 0.5 (3 ml) UD INH SCH ×3 (08:26→19:51)
[2017-03-07] MEDS: Budesonide 0.5 mg/2 ml Inhal Susp UD IH SCH ×2 (08:28→19:51)
--- NOTE | 2017-03-07 08:34 | CP.PCM.PN ---
Subjective - Date & Time of Evaluation Date of Evaluation: 03/07/17 Time of Evaluation: 08:32 - Subjective Subjective: pt lethargic, nonverbal but opens eyes to verbal/tactile stimuli. no f/c, n/v/ d. no complaitns. bw noted. elev lft and low k noted. hypoglycemia overnight noted. pt is us for elev lft Objective - Vital Signs/Intake and Output Vital Signs (last 24 hours): Temp Pulse Resp BP Pulse Ox 98.2 F 71 18 135/82 96 03/07/17 05:28 03/07/17 05:28 03/07/17 08:30 03/07/17 05:28 03/07/17 05:28 Intake and Output: 03/07/17 03/07/17 06:59 18:59 Output Total 600 Balance -600 - Medications Medications: Current Medications Acetaminophen (Tylenol 325mg Tab) 650 mg PO Q4H PRN PRN Reason: Temp 101 and above Al Hydrox/Mg Hydrox/Simethicone (Maalox Plus 30 Ml) 30 ml PO Q4H PRN PRN Reason: heartburn, nausea, indigestion Albuterol Sulfate (Albuterol 0.083% Inhal Suzan (2.5 Mg/3 Ml) Ud) 2.5 mg IH Q6H PRN PRN Reason: Shortness of Breath Albuterol/Ipratropium (Duoneb 3 Mg/0.5 Mg (3 Ml) Ud) 3 ml INH RTID [facility] Last Admin: 03/07/17 08:26 Dose: 3 ml Alprazolam (Xanax) 0.25 mg PO Q8H PRN PRN Reason: Anxiety Stop: 03/11/17 15:47 Last Admin: 03/04/17 23:13 Dose: 0.25 mg Aspirin (Ecotrin) 325 mg PO DAILY [facility] Last Admin: 03/06/17 08:44 Dose: 325 mg Atorvastatin Calcium (Lipitor) 80 mg PO DAILY [facility] Last Admin: 03/06/17 08:45 Dose: 80 mg Budesonide (Pulmicort Respules) 0.5 mg IH RBID [facility] Last Admin: 03/07/17 08:28 Dose: 0.5 mg Carvedilol (Coreg) 3.125 mg PO BID [facility] Last Admin: 03/06/17 16:25 Dose: 3.125 mg Escitalopram Oxalate (Lexapro) 10 mg PO DAILY [facility] Last Admin: 03/06/17 08:45 Dose: 10 mg Ferrous Gluconate (Fergon) 324 mg PO DAILY [facility] Last Admin: 03/06/17 08:45 Dose: 324 mg Furosemide (Lasix) 20 mg PO DAILY [facility] Last Admin: 03/06/17 08:49 Dose: 20 mg Gabapentin (Neurontin) 100 mg PO TID [facility] Last Admin: 03/06/17 16:24 Dose: 100 mg Heparin Sodium (Porcine) (Heparin) 5,000 units SC Q12H [facility] PRN Reason: Protocol Last Admin: 03/07/17 03:45 Dose: 5,000 units Home Med (Arformoterol [Brovana]) 15 mcg IH Q12H [facility] Home Med (Phenyleph/Mineral Oil/Petrolat [Preparation H Ointment]) 1 appl [place] TID PRN PRN Reason: Hemorrhoids Vancomycin HCl 1 gm/ Sodium (Chloride) 250 mls @ 166.667 mls/hr IVPB DAILY [facility] Last Admin: 03/06/17 08:50 Dose: 166.667 mls/hr Piperacillin Sod/Tazobactam Sod (Zosyn 3.375 Gm Iv Premix) 3.375 gm in 50 mls @ 50 mls/hr IVPB Q6 [facility] Last Admin: 03/07/17 03:45 Dose: 50 mls/hr Insulin Detemir (Levemir) 20 units SC HS [facility] Last Admin: 03/06/17 21:36 Dose: 20 units Insulin Human Lispro (Humalog) 0 units SC [facility] PRN Reason: Protocol Last Admin: 03/07/17 06:32 Dose: Not Given Insulin Human Lispro (Humalog) 4 units SC AC [facility] Last Admin: 03/06/17 16:24 Dose: 4 unit Lisinopril (Zestril) 2.5 mg PO DAILY [facility] Last Admin: 03/06/17 09:36 Dose: 2.5 mg Lisinopril (Zestril) 10 mg PO DAILY [facility] Last Admin: 03/06/17 11:56 Dose: 10 mg Loperamide HCl (Imodium) 2 mg PO Q6H PRN PRN Reason: Diarrhea Magnesium Hydroxide (Milk Of Magnesia) 30 ml PO HS PRN PRN Reason: Constipation Meclizine HCl (Antivert) 12.5 mg PO Q6H PRN PRN Reason: Dizziness Ondansetron HCl (Zofran Tab) 4 mg PO Q4H PRN PRN Reason: Nausea/Vomiting Pantoprazole Sodium (Protonix Ec Tab) 40 mg PO DAILY [facility] Last Admin: 03/06/17 08:49 Dose: 40 mg Potassium Chloride (K-Dur 20 Meq Er Tab) 40 meq PO DAILY [facility] Quetiapine Fumarate (Seroquel) 50 mg PO HS [facility] Last Admin: 03/06/17 21:30 Dose: 50 mg Quetiapine Fumarate (Seroquel) 50 mg PO BID [facility] Last Admin: 03/06/17 16:42 Dose: 50 mg Tiotropium [place] (Spiriva) 18 mcg IH DAILY [facility] Last Admin: 03/06/17 08:50 Dose: 18 mcg - Labs Labs: 03/07/17 05:45 03/07/17 05:45 - Constitutional Appears: Non-toxic, No Acute Distress, Confused, Chronically Ill - Head Exam Head Exam: ATRAUMATIC, NORMAL INSPECTION, NORMOCEPHALIC - Eye Exam Eye Exam: EOMI, Normal appearance, PERRL Pupil Exam: NORMAL ACCOMODATION, PERRL - ENT Exam ENT Exam: Mucous Membranes Moist, Normal Exam - Neck Exam Neck Exam: Full ROM, Normal Inspection. absent: Lymphadenopathy - Respiratory Exam Respiratory Exam: Clear to Ausculation Bilateral, NORMAL BREATHING PATTERN - Cardiovascular Exam Cardiovascular Exam: REGULAR RHYTHM, RRR, +S1, +S2. absent: Murmur - GI/Abdominal Exam GI & Abdominal Exam: Soft, Normal Bowel Sounds. absent: Tenderness - Extremities Exam Extremities Exam: Full ROM, Normal Capillary Refill, Normal Inspection. absent : Joint Swelling, Pedal Edema - Back Exam Back Exam: NORMAL INSPECTION - Neurological Exam Neurological Exam: Abnormal Gait, Altered, Awake, CN II-XII Intact - Psychiatric Exam Psychiatric exam: Flat Affect - Skin Skin Exam: Dry, Intact, Normal Color, Warm Assessment and Plan (1) CHF (congestive heart failure) Assessment & Plan: cardio cont meds lasix Status: Acute (2) COPD exacerbation Assessment & Plan: pulm anbx neb tx high flow o2 Status: Acute (3) Pneumonia Assessment & Plan: zosyn, vanco, high flow o2, pulm consult Status: Acute (4) DVT prophylaxis Assessment & Plan: scd and ae hose heparin Status: Acute (5) Type 2 diabetes mellitus with hyperglycemia Assessment & Plan: riss, homemeds, endo consult, fsbg Status: Acute
[2017-03-07] MEDS: Aspirin 325 mg EC Tablets PO SCH (09:15)
[2017-03-07] MEDS: Potassium Chloride 20 mEq ER Tab PO SCH (09:17)
[2017-03-07] MEDS: Pantoprazole 40 mg EC Tab PO SCH (09:19)
[2017-03-07] MEDS: Tiotropium 18 mcg Cap For Inhalation IH SCH (09:22)
--- NOTE | 2017-03-07 10:37 | US ---
HISTORY: lft COMPARISON: None. TECHNIQUE: Sonographic evaluation of the abdomen. Please note that the examination is technically limited. Patient was unable to cooperate for positioning or for deep or suspended respiration. FINDINGS: LIVER: Measures 16.7 cm. Diffusely increased echogenicity of the liver parenchyma. No mass. No intrahepatic bile duct dilatation. GALLBLADDER: Not visualized. Question is raised as to prior cholecystectomy. COMMON BILE DUCT: Measures 4 mm. No stones. No dilatation. PANCREAS: Limited visualization RIGHT KIDNEY: Measures 12.0cm. Normal cortical thickness and echogenicity. No calculus or hydronephrosis. Upper pole simple cortical cyst, 2.4 x 2.9 x 2.9 cm. No solid mass. LEFT KIDNEY: Could not be evaluated this limited examination. SPLEEN: Could not be evaluated in this limited examination. AORTA: Could not be visualized IVC: Unremarkable. OTHER FINDINGS: None. IMPRESSION: Limited examination. Spleen and left kidney could not be adequately evaluated. Mild fatty infiltration of the liver. 2.9 cm right upper pole renal cortical cyst. Nonvisualized gallbladder. Question is raised as to prior cholecystectomy. No biliary dilatation.
[2017-03-07] MEDS: Potassium CL 10mEq/100ml 100 ML IVPB SCH ×2 (12:38→16:52)
--- NOTE | 2017-03-07 12:43 | PQF GENQUE ---
This form is a permanent part of the medical record 03/07/17 David Hwang APN, Would you please clarify if there is an additional diagnosis to go along with the deaf interpreter findings. H&P with unstageable decubitus ulcer. Wound RN -Asked to assess patient who presented to unit with discoloration around buttocks. Assessment revealed, DTI to gluteal cleft region, purple base.Recommending nutrashield protective ointment to be applied 3x/day as a protective measure and to reposition frequently to optimize offloading Clarification of your documentation is requested to better reflect the severity of illness and intensity of treatment of your patient. Indicators present [] Specify: [] [] Specify: [] [] Specify: [] [] Specify: [] Location in the medical record that reflects the above clinical findings: [] Treatment Provided: [] PHYSICIAN'S RESPONSE Based on your medical judgment of the clinical indicators outlined above please clarify the following: [x] Practitioner response wound as noted by deaf interpreter [] If unable to determine, please check the box, sign and date. Present On Admission (POA) Indicator: [x] Present at the time of admission [] Not present at the time of admission [] Clinically Undetermined In responding to this query, please exercise your independent professional judgment. The fact that a question is asked does not imply that any particular answer is desired or expected. Thank you for your clarification on this documentation. If you have any questions please call:ext [phone] * Thank you, Keshia Vasquez RN [facility]
--- NOTE | 2017-03-07 14:03 | CP.PCM.PN ---
Subjective - Date & Time of Evaluation Date of Evaluation: 03/06/17 Time of Evaluation: 15:00 - Subjective Subjective: no overnight events Objective - Vital Signs/Intake and Output Vital Signs (last 24 hours): Temp Pulse Resp BP Pulse Ox 98.1 F 76 18 114/63 98 03/07/17 11:49 03/07/17 12:37 03/07/17 13:41 03/07/17 12:37 03/07/17 09:00 Intake and Output: 03/07/17 03/07/17 06:59 18:59 Intake Total 290 Output Total 600 Balance -600 290 - Medications Medications: Current Medications Acetaminophen (Tylenol 325mg Tab) 650 mg PO Q4H PRN PRN Reason: Temp 101 and above Al Hydrox/Mg Hydrox/Simethicone (Maalox Plus 30 Ml) 30 ml PO Q4H PRN PRN Reason: heartburn, nausea, indigestion Albuterol Sulfate (Albuterol 0.083% Inhal Suzan (2.5 Mg/3 Ml) Ud) 2.5 mg IH Q6H PRN PRN Reason: Shortness of Breath Albuterol/Ipratropium (Duoneb 3 Mg/0.5 Mg (3 Ml) Ud) 3 ml INH RTID [facility] Last Admin: 03/07/17 13:40 Dose: 3 ml Alprazolam (Xanax) 0.25 mg PO Q8H PRN PRN Reason: Anxiety Stop: 03/11/17 15:47 Last Admin: 03/04/17 23:13 Dose: 0.25 mg Aspirin (Ecotrin) 325 mg PO DAILY [facility] Last Admin: 03/07/17 09:15 Dose: 325 mg Atorvastatin Calcium (Lipitor) 80 mg PO DAILY [facility] Last Admin: 03/07/17 09:18 Dose: 80 mg Budesonide (Pulmicort Respules) 0.5 mg IH RBID [facility] Last Admin: 03/07/17 08:28 Dose: 0.5 mg Carvedilol (Coreg) 3.125 mg PO BID [facility] Last Admin: 03/07/17 09:14 Dose: 3.125 mg Escitalopram Oxalate (Lexapro) 10 mg PO DAILY [facility] Last Admin: 03/07/17 09:18 Dose: 10 mg Ferrous Gluconate (Fergon) 324 mg PO DAILY [facility] Last Admin: 03/07/17 09:15 Dose: 324 mg Furosemide (Lasix) 20 mg PO DAILY [facility] Last Admin: 03/07/17 09:17 Dose: 20 mg Gabapentin (Neurontin) 100 mg PO TID [facility] Last Admin: 03/07/17 12:40 Dose: 100 mg Heparin Sodium (Porcine) (Heparin) 5,000 units SC Q12H [facility] PRN Reason: Protocol Last Admin: 03/07/17 03:45 Dose: 5,000 units Home Med (Arformoterol [Brovana]) 15 mcg IH Q12H [facility] Home Med (Phenyleph/Mineral Oil/Petrolat [Preparation H Ointment]) 1 appl [place] TID PRN PRN Reason: Hemorrhoids Vancomycin HCl 1 gm/ Sodium (Chloride) 250 mls @ 166.667 mls/hr IVPB DAILY [facility] Last Admin: 03/07/17 12:36 Dose: 166.667 mls/hr Piperacillin Sod/Tazobactam Sod (Zosyn 3.375 Gm Iv Premix) 3.375 gm in 50 mls @ 50 mls/hr IVPB Q6 [facility] Last Admin: 03/07/17 09:23 Dose: 50 mls/hr Insulin Detemir (Levemir) 20 units SC HS [facility] Last Admin: 03/06/17 21:36 Dose: 20 units Insulin Human Lispro (Humalog) 0 units SC ACHS [facility] PRN Reason: Protocol Last Admin: 03/07/17 06:32 Dose: Not Given Insulin Human Lispro (Humalog) 4 units SC AC [facility] Last Admin: 03/07/17 12:39 Dose: 4 unit Lisinopril (Zestril) 10 mg PO DAILY [facility] Last Admin: 03/07/17 12:37 Dose: 10 mg Loperamide HCl (Imodium) 2 mg PO Q6H PRN PRN Reason: Diarrhea Magnesium Hydroxide (Milk Of Magnesia) 30 ml PO HS PRN PRN Reason: Constipation Meclizine HCl (Antivert) 12.5 mg PO Q6H PRN PRN Reason: Dizziness Ondansetron HCl (Zofran Tab) 4 mg PO Q4H PRN PRN Reason: Nausea/Vomiting Pantoprazole Sodium (Protonix Ec Tab) 40 mg PO DAILY [facility] Last Admin: 03/07/17 09:19 Dose: 40 mg Potassium Chloride (K-Dur 20 Meq Er Tab) 40 meq PO DAILY [facility] Last Admin: 03/07/17 09:17 Dose: 40 meq Quetiapine Fumarate (Seroquel) 50 mg PO HS [facility] Last Admin: 03/06/17 21:30 Dose: 50 mg Quetiapine Fumarate (Seroquel) 50 mg PO BID [facility] Last Admin: 03/07/17 09:22 Dose: 50 mg Tiotropium [place] (Spiriva) 18 mcg IH DAILY [facility] Last Admin: 03/07/17 09:22 Dose: 18 mcg - Labs Labs: 03/07/17 05:45 03/07/17 05:45 - GI/Abdominal Exam GI & Abdominal Exam: Soft, Normal Bowel Sounds Assessment and Plan - Assessment and Plan (Free Text) Assessment: 76 yo female with elevated lft likely congestive hepatopathy versus medication hep panel sonogram
--- NOTE | 2017-03-07 18:48 | CP.PCM.PN ---
Subjective - Date & Time of Evaluation Date of Evaluation: 03/08/17 Time of Evaluation: 18:00 - Subjective Subjective: Patient remains lethargic. Objective - Vital Signs/Intake and Output Vital Signs (last 24 hours): Temp Pulse Resp BP Pulse Ox 97.2 F L 68 20 122/74 93 L 03/07/17 15:51 03/07/17 16:49 03/07/17 15:51 03/07/17 16:49 03/07/17 15:51 Intake and Output: 03/07/17 03/07/17 06:59 18:59 Intake Total 540 Output Total 600 800 Balance -600 -260 - Medications Medications: Current Medications Acetaminophen (Tylenol 325mg Tab) 650 mg PO Q4H PRN PRN Reason: Temp 101 and above Al Hydrox/Mg Hydrox/Simethicone (Maalox Plus 30 Ml) 30 ml PO Q4H PRN PRN Reason: heartburn, nausea, indigestion Albuterol Sulfate (Albuterol 0.083% Inhal Suzan (2.5 Mg/3 Ml) Ud) 2.5 mg IH Q6H PRN PRN Reason: Shortness of Breath Albuterol/Ipratropium (Duoneb 3 Mg/0.5 Mg (3 Ml) Ud) 3 ml INH RTID [facility] Last Admin: 03/07/17 13:40 Dose: 3 ml Alprazolam (Xanax) 0.25 mg PO Q8H PRN PRN Reason: Anxiety Stop: 03/11/17 15:47 Last Admin: 03/04/17 23:13 Dose: 0.25 mg Aspirin (Ecotrin) 325 mg PO DAILY [facility] Last Admin: 03/07/17 09:15 Dose: 325 mg Atorvastatin Calcium (Lipitor) 80 mg PO DAILY [facility] Last Admin: 03/07/17 09:18 Dose: 80 mg Budesonide (Pulmicort Respules) 0.5 mg IH RBID [facility] Last Admin: 03/07/17 08:28 Dose: 0.5 mg Carvedilol (Coreg) 3.125 mg PO BID [facility] Last Admin: 03/07/17 16:49 Dose: 3.125 mg Escitalopram Oxalate (Lexapro) 10 mg PO DAILY [facility] Last Admin: 03/07/17 09:18 Dose: 10 mg Ferrous Gluconate (Fergon) 324 mg PO DAILY [facility] Last Admin: 03/07/17 09:15 Dose: 324 mg Furosemide (Lasix) 20 mg PO DAILY [facility] Last Admin: 03/07/17 09:17 Dose: 20 mg Gabapentin (Neurontin) 100 mg PO TID [facility] Last Admin: 03/07/17 16:51 Dose: 100 mg Heparin Sodium (Porcine) (Heparin) 5,000 units SC Q12H [facility] PRN Reason: Protocol Last Admin: 03/07/17 16:50 Dose: 5,000 units Home Med (Arformoterol [Brovana]) 15 mcg IH Q12H [facility] Home Med (Phenyleph/Mineral Oil/Petrolat [Preparation H Ointment]) 1 appl [place] TID PRN PRN Reason: Hemorrhoids Vancomycin HCl 1 gm/ Sodium (Chloride) 250 mls @ 166.667 mls/hr IVPB DAILY [facility] Last Admin: 03/07/17 12:36 Dose: 166.667 mls/hr Piperacillin Sod/Tazobactam Sod (Zosyn 3.375 Gm Iv Premix) 3.375 gm in 50 mls @ 50 mls/hr IVPB Q6 [facility] Last Admin: 03/07/17 16:54 Dose: 50 mls/hr Insulin Detemir (Levemir) 10 units SC [facility] Insulin Human Lispro (Humalog) 0 units SC ACHS [facility] PRN Reason: Protocol Last Admin: 03/07/17 16:50 Dose: Not Given Lisinopril (Zestril) 10 mg PO DAILY [facility] Last Admin: 03/07/17 12:37 Dose: 10 mg Loperamide HCl (Imodium) 2 mg PO Q6H PRN PRN Reason: Diarrhea Magnesium Hydroxide (Milk Of Magnesia) 30 ml PO HS PRN PRN Reason: Constipation Meclizine HCl (Antivert) 12.5 mg PO Q6H PRN PRN Reason: Dizziness Ondansetron HCl (Zofran Tab) 4 mg PO Q4H PRN PRN Reason: Nausea/Vomiting Pantoprazole Sodium (Protonix Ec Tab) 40 mg PO DAILY [facility] Last Admin: 03/07/17 09:19 Dose: 40 mg Potassium Chloride (K-Dur 20 Meq Er Tab) 40 meq PO DAILY [facility] Last Admin: 03/07/17 09:17 Dose: 40 meq Quetiapine Fumarate (Seroquel) 50 mg PO HS [facility] Last Admin: 03/06/17 21:30 Dose: 50 mg Quetiapine Fumarate (Seroquel) 50 mg PO BID [facility] Last Admin: 03/07/17 16:52 Dose: 50 mg Tiotropium [place] (Spiriva) 18 mcg IH DAILY [facility] Last Admin: 03/07/17 09:22 Dose: 18 mcg - Labs Labs: 03/07/17 05:45 03/07/17 05:45 - Constitutional Appears: Chronically Ill - Head Exam Head Exam: NORMAL INSPECTION - Eye Exam Eye Exam: Normal appearance - ENT Exam ENT Exam: Mucous Membranes Moist - Neck Exam Neck Exam: Full ROM - Respiratory Exam Respiratory Exam: Decreased Breath Sounds - Cardiovascular Exam Cardiovascular Exam: REGULAR RHYTHM - GI/Abdominal Exam GI & Abdominal Exam: Normal Bowel Sounds - Rectal Exam Rectal Exam: Deferred - Extremities Exam Extremities Exam: absent: Pedal Edema - Back Exam Back Exam: NORMAL INSPECTION - Neurological Exam Neurological Exam: Alert - Psychiatric Exam Psychiatric exam: Normal Affect - Skin Skin Exam: Normal Color Assessment and Plan (1) CHF (congestive heart failure) Assessment & Plan: Patient remains euvolemic. normal LV function Status: Acute (2) Coronary artery disease Assessment & Plan: no angina Status: Acute (3) Diabetes mellitus Assessment & Plan: glucose control Status: Acute (4) Hypertension Assessment & Plan: blood pressure control Status: Acute
--- NOTE | 2017-03-07 19:24 | CARD ---
APPROVED REPORT EXAM: Two-dimensional and M-mode echocardiogram with Doppler and color Doppler. Other Information Quality : AverageRhythm : NSR INDICATION Cardiac Disease: CAD Congestive Heart Failure Surgery/Intervention CABD DIMENSIONS IVSd1.08 (0.7-1.1cm)LVDd4.53 (3.9-5.9cm) PWd1.05 (0.7-1.1cm)IVSs1.07 (0.8-1.2cm) LVDs3.23 (2.5-4.0cm)FS (%) 28.7 % PWs1.15 (0.8-1.2cm)LVEF (%)55.0 (>50%) Mitral Valve E/A ratio0.0 TDI E/Lateral E'0.0E/Medial E'0.0 LEFT VENTRICLE The left ventricle is normal size. There is mild concentric left ventricular hypertrophy. The left ventricular function is normal. The left ventricular ejection fraction is within the normal range. There is normal LV segmental wall motion. Transmitral Doppler flow pattern is Grade I-abnormal relaxation pattern. RIGHT VENTRICLE The right ventricle is normal size. There is normal right ventricular wall thickness. The right ventricular systolic function is normal. ATRIA The left atrium size is normal. The right atrium size is normal. AORTIC VALVE The aortic valve is not well visualized. There is trace aortic regurgitation. There is no aortic valvular stenosis. MITRAL VALVE The mitral valve is moderately thickened. There is no mitral valve stenosis. Mitral regurgitation is mild. TRICUSPID VALVE The tricuspid valve is normal in structure There is mild tricuspid regurgitation. There is mild pulmonary hypertension. PULMONIC VALVE The pulmonary valve is normal in structure and function. There is no pulmonic valvular regurgitation. GREAT VESSELS The aortic root displays moderate to severe sclerocalcific changes of the aortic root. The IVC was not visualized. PERICARDIAL EFFUSION The pericardium appears normal. <Conclusion> Poor Echo window The left ventricle is normal size. There is mild concentric left ventricular hypertrophy. The left ventricular function is normal. The left ventricular ejection fraction is within the normal range. There is normal LV segmental wall motion. Transmitral Doppler flow pattern is Grade I-abnormal relaxation pattern. Mitral regurgitation is mild. There is mild tricuspid regurgitation. There is mild pulmonary hypertension.
[2017-03-07] MEDS ORDERED: Insulin Detemir 100 Units/ml Inj SC SCH (22:00)
--- NOTE | 2017-03-08 03:07 | PN ---
DATE: ENDO FOLLOWUP NOTE Room 417, [facility]. SUBJECTIVE: This is a 76-year-old female with recent uncontrolled type 2 insulin-requiring diabetes, being treated with acute pneumonitis and supervening congestive heart failure and is now being followed closely for metabolic management. Her oral intake has been variable, but apparently today had improved intake of her breakfast meal tray as per the nursing staff. However, she has had supervening hypoglycemic episodes overnight as noted and the glucose values today have ranged from 29 early this morning to 149 at 0500 a.m. and then it was 79 at the lunchtime today as noted. LABORATORY DATA: Her latest chemistry showed the BUN of 41, sodium 142, potassium 3.0, chloride 105, CO2 of 35, glucose 70, and creatinine 1.2. Her proBNP is 5550. ASSESSMENT AND PLAN: So at this time, we will modify her current basal and bolus insulin regimen and we will actually discontinue the Humalog given as 4 units t.i.d. before each meal as ordered. We will lower her basal insulin with Levemir given as 10 units subcutaneous at bedtime daily to start tonight. We will continue the low-dose correction scale using Humalog insulin as given. We will titrate incremental as indicated to optimize metabolic control. We will follow and advice accordingly. Oma Martines MD
[2017-03-08] MEDS: Piperacill/Tazo 3.375gm in Dex 3.375 GM/50 ML BAG IVPB SCH ×4 (04:05→21:01)
[2017-03-08 06:57] LABS: CALCIUM 7.6 mg/dL (8.4-10.2); POTASSIUM 3.7 MMOL/L (3.6-5.0)
[2017-03-08 07:08] LABS: BASO % 0.1 % (0.0-2.0); EOS # 0.2 K/uL (0.0-0.7); EOS % 1.3 % (0.0-4.0); HEMATOCRIT 36.2 % (34.0-47.0); LYMPH # 0.9 K/uL (1.0-4.3); MEAN CELL VOLUME 88.8 fl (81.0-99.0); MEAN CORPUSCULAR HEMOGLOBIN 28.6 pg (27.0-31.0); MEAN CORPUSCULAR HGB CONC 32.2 g/dL (33.0-37.0); MEAN PLATELET VOLUME 8.7 fl (7.2-11.7); MONO # 0.6 K/uL (0.0-0.8); MONO % 4.5 % (0.0-10.0); NEUT # 11.4 K/uL (1.8-7.0); NEUT % 87.1 % (50.0-75.0); PLATELET COUNT 264 K/uL (130-400); RED CELL DISTRIBUTION WIDTH 16.2 % (11.5-14.5); WHITE BLOOD COUNT 13.1 K/uL (4.8-10.8)
--- NOTE | 2017-03-08 07:28 | CP.PCM.PN ---
Subjective - Date & Time of Evaluation Date of Evaluation: 03/08/17 Time of Evaluation: 07:28 - Subjective Subjective: pt appears more lethargic and pale. no distress. resps slightly labored but w/o distress. minimal urinary outpt. nof/c, n/v/d. bw noted. case d/c w/ son and dr knutson. Objective - Vital Signs/Intake and Output Vital Signs (last 24 hours): Temp Pulse Resp BP Pulse Ox 98 F 64 18 141/80 97 03/08/17 05:03 03/08/17 05:03 03/08/17 05:03 03/08/17 05:03 03/08/17 05:03 - Medications Medications: Current Medications Acetaminophen (Tylenol 325mg Tab) 650 mg PO Q4H PRN PRN Reason: Temp 101 and above Al Hydrox/Mg Hydrox/Simethicone (Maalox Plus 30 Ml) 30 ml PO Q4H PRN PRN Reason: heartburn, nausea, indigestion Albuterol Sulfate (Albuterol 0.083% Inhal Suzan (2.5 Mg/3 Ml) Ud) 2.5 mg IH Q6H PRN PRN Reason: Shortness of Breath Last Admin: 03/07/17 21:53 Dose: 2.5 mg Albuterol/Ipratropium (Duoneb 3 Mg/0.5 Mg (3 Ml) Ud) 3 ml INH RTID [facility] Last Admin: 03/07/17 19:51 Dose: 3 ml Alprazolam (Xanax) 0.25 mg PO Q8H PRN PRN Reason: Anxiety Stop: 03/11/17 15:47 Last Admin: 03/04/17 23:13 Dose: 0.25 mg Aspirin (Ecotrin) 325 mg PO DAILY [facility] Last Admin: 03/07/17 09:15 Dose: 325 mg Atorvastatin Calcium (Lipitor) 80 mg PO DAILY [facility] Last Admin: 03/07/17 09:18 Dose: 80 mg Budesonide (Pulmicort Respules) 0.5 mg IH RBID [facility] Last Admin: 03/07/17 19:51 Dose: 0.5 mg Carvedilol (Coreg) 3.125 mg PO BID [facility] Last Admin: 03/07/17 16:49 Dose: 3.125 mg Escitalopram Oxalate (Lexapro) 10 mg PO DAILY [facility] Last Admin: 03/07/17 09:18 Dose: 10 mg Ferrous Gluconate (Fergon) 324 mg PO DAILY [facility] Last Admin: 03/07/17 09:15 Dose: 324 mg Furosemide (Lasix) 20 mg PO DAILY [facility] Last Admin: 03/07/17 09:17 Dose: 20 mg Gabapentin (Neurontin) 100 mg PO TID [facility] Last Admin: 03/07/17 16:51 Dose: 100 mg Heparin Sodium (Porcine) (Heparin) 5,000 units SC Q12H [facility] PRN Reason: Protocol Last Admin: 03/08/17 04:06 Dose: 5,000 units Home Med (Arformoterol [Brovana]) 15 mcg IH Q12H [facility] Home Med (Phenyleph/Mineral Oil/Petrolat [Preparation H Ointment]) 1 appl [place] TID PRN PRN Reason: Hemorrhoids Vancomycin HCl 1 gm/ Sodium (Chloride) 250 mls @ 166.667 mls/hr IVPB DAILY [facility] Last Admin: 03/07/17 12:36 Dose: 166.667 mls/hr Piperacillin Sod/Tazobactam Sod (Zosyn 3.375 Gm Iv Premix) 3.375 gm in 50 mls @ 50 mls/hr IVPB Q6 [facility] Last Admin: 03/08/17 04:05 Dose: 50 mls/hr Insulin Detemir (Levemir) 10 units SC HS [facility] Last Admin: 03/07/17 22:22 Dose: 10 unit Insulin Human Lispro (Humalog) 0 units SC ACHS [facility] PRN Reason: Protocol Last Admin: 03/07/17 22:44 Dose: Not Given Lisinopril (Zestril) 10 mg PO DAILY [facility] Last Admin: 03/07/17 12:37 Dose: 10 mg Loperamide HCl (Imodium) 2 mg PO Q6H PRN PRN Reason: Diarrhea Magnesium Hydroxide (Milk Of Magnesia) 30 ml PO HS PRN PRN Reason: Constipation Meclizine HCl (Antivert) 12.5 mg PO Q6H PRN PRN Reason: Dizziness Ondansetron HCl (Zofran Tab) 4 mg PO Q4H PRN PRN Reason: Nausea/Vomiting Pantoprazole Sodium (Protonix Ec Tab) 40 mg PO DAILY [facility] Last Admin: 03/07/17 09:19 Dose: 40 mg Potassium Chloride (K-Dur 20 Meq Er Tab) 40 meq PO DAILY [facility] Last Admin: 03/07/17 09:17 Dose: 40 meq Quetiapine Fumarate (Seroquel) 50 mg PO BID [facility] Last Admin: 03/07/17 16:52 Dose: 50 mg Quetiapine Fumarate (Seroquel) 50 mg PO HS [facility] Last Admin: 03/08/17 01:53 Dose: 50 mg Tiotropium [place] (Spiriva) 18 mcg IH DAILY [facility] Last Admin: 03/07/17 09:22 Dose: 18 mcg - Labs Labs: 03/08/17 05:10 03/08/17 05:10 - Constitutional Appears: Chronically Ill - Head Exam Head Exam: ATRAUMATIC, NORMAL INSPECTION, NORMOCEPHALIC - Eye Exam Eye Exam: EOMI, Normal appearance, PERRL Pupil Exam: NORMAL ACCOMODATION, PERRL - ENT Exam ENT Exam: Mucous Membranes Moist, Normal Exam - Neck Exam Neck Exam: Full ROM, Normal Inspection. absent: Lymphadenopathy - Respiratory Exam Respiratory Exam: Clear to Ausculation Bilateral, NORMAL BREATHING PATTERN - Cardiovascular Exam Cardiovascular Exam: REGULAR RHYTHM, RRR, +S1, +S2. absent: Murmur - GI/Abdominal Exam GI & Abdominal Exam: Soft, Normal Bowel Sounds. absent: Tenderness - Extremities Exam Extremities Exam: Full ROM, Normal Capillary Refill, Normal Inspection. absent : Joint Swelling, Pedal Edema - Back Exam Back Exam: NORMAL INSPECTION - Neurological Exam Neurological Exam: Abnormal Gait, Awake, CN II-XII Intact - Psychiatric Exam Psychiatric exam: Normal Affect, Normal Mood - Skin Skin Exam: Dry, Intact, Normal Color, Warm Assessment and Plan (1) CHF (congestive heart failure) Status: Acute (2) COPD exacerbation Status: Acute (3) Pneumonia Status: Acute (4) DVT prophylaxis Status: Acute (5) Type 2 diabetes mellitus with hyperglycemia Status: Acute - Assessment and Plan (Free Text) Assessment: (1) CHF (congestive heart failure) Assessment & Plan: cardio cont meds lasix Status: Acute (2) COPD exacerbation Assessment & Plan: pulm anbx neb tx high flow o2 Status: Acute (3) Pneumonia Assessment & Plan: zosyn, vanco, high flow o2, pulm consult, Id consult Status: Acute (4) DVT prophylaxis Assessment & Plan: scd and ae hose heparin Status: Acute (5) Type 2 diabetes mellitus with hyperglycemia Assessment & Plan: riss, homemeds, endo consult, fsbg Status: Acute [id number], ct head [id number], echo noted, tsh
[2017-03-08] MEDS: Budesonide 0.5 mg/2 ml Inhal Susp UD IH SCH ×2 (07:50→19:19)
[2017-03-08] MEDS: Albuterol-Ipratrop 3 mg / 0.5 (3 ml) UD INH SCH ×3 (07:50→19:19)
[2017-03-08] MEDS: Insulin Lispro (humaLOG) 100 Units/ml Inj SC SCH ×4 (08:42→21:36)
[2017-03-08] MEDS: Tiotropium 18 mcg Cap For Inhalation IH SCH (09:03)
[2017-03-08] MEDS: Aspirin 325 mg EC Tablets PO SCH (09:03)
[2017-03-08] MEDS: Pantoprazole 40 mg EC Tab PO SCH (09:03)
--- NOTE | 2017-03-08 09:26 | CP.PCM.PN ---
Subjective - Date & Time of Evaluation Date of Evaluation: 03/08/17 Time of Evaluation: 09:26 - Subjective Subjective: LETHARGIC EASILY AROUSABLE MILD RESPIRATORY DISTRESS STILL ON HIGH FLOW O2 Objective - Vital Signs/Intake and Output Vital Signs (last 24 hours): Temp Pulse Resp BP Pulse Ox 97.7 F 67 18 161/80 H 97 03/08/17 08:17 03/08/17 09:03 03/08/17 08:17 03/08/17 09:03 03/08/17 08:17 - Medications Medications: Current Medications Acetaminophen (Tylenol 325mg Tab) 650 mg PO Q4H PRN PRN Reason: Temp 101 and above Al Hydrox/Mg Hydrox/Simethicone (Maalox Plus 30 Ml) 30 ml PO Q4H PRN PRN Reason: heartburn, nausea, indigestion Albuterol Sulfate (Albuterol 0.083% Inhal Suzan (2.5 Mg/3 Ml) Ud) 2.5 mg IH Q6H PRN PRN Reason: Shortness of Breath Last Admin: 03/07/17 21:53 Dose: 2.5 mg Albuterol/Ipratropium (Duoneb 3 Mg/0.5 Mg (3 Ml) Ud) 3 ml INH RTID [facility] Last Admin: 03/08/17 07:50 Dose: 3 ml Alprazolam (Xanax) 0.25 mg PO Q8H PRN PRN Reason: Anxiety Stop: 03/11/17 15:47 Last Admin: 03/04/17 23:13 Dose: 0.25 mg Aspirin (Ecotrin) 325 mg PO DAILY [facility] Last Admin: 03/08/17 09:03 Dose: 325 mg Atorvastatin Calcium (Lipitor) 80 mg PO DAILY [facility] Last Admin: 03/08/17 09:02 Dose: 80 mg Budesonide (Pulmicort Respules) 0.5 mg IH RBID [facility] Last Admin: 03/07/17 19:51 Dose: 0.5 mg Carvedilol (Coreg) 3.125 mg PO BID [facility] Last Admin: 03/08/17 09:01 Dose: 3.125 mg Escitalopram Oxalate (Lexapro) 10 mg PO DAILY [facility] Last Admin: 03/08/17 08:58 Dose: 10 mg Ferrous Gluconate (Fergon) 324 mg PO DAILY [facility] Last Admin: 03/08/17 09:02 Dose: 324 mg Furosemide (Lasix) 20 mg PO DAILY [facility] Last Admin: 03/08/17 08:59 Dose: 20 mg Gabapentin (Neurontin) 100 mg PO TID [facility] Last Admin: 03/08/17 09:02 Dose: 100 mg Heparin Sodium (Porcine) (Heparin) 5,000 units SC Q12H [facility] PRN Reason: Protocol Last Admin: 03/08/17 04:06 Dose: 5,000 units Home Med (Arformoterol [Brovana]) 15 mcg IH Q12H [facility] Home Med (Phenyleph/Mineral Oil/Petrolat [Preparation H Ointment]) 1 appl [place] TID PRN PRN Reason: Hemorrhoids Vancomycin HCl 1 gm/ Sodium (Chloride) 250 mls @ 166.667 mls/hr IVPB DAILY [facility] Last Admin: 03/08/17 08:22 Dose: Not Given Piperacillin Sod/Tazobactam Sod (Zosyn 3.375 Gm Iv Premix) 3.375 gm in 50 mls @ 50 mls/hr IVPB Q6 [facility] Last Admin: 03/08/17 04:05 Dose: 50 mls/hr Insulin Detemir (Levemir) 10 units SC HS [facility] Last Admin: 03/07/17 22:22 Dose: 10 unit Insulin Human Lispro (Humalog) 0 units SC ACHS [facility] PRN Reason: Protocol Last Admin: 03/08/17 08:42 Dose: Not Given Lisinopril (Zestril) 10 mg PO DAILY [facility] Last Admin: 03/08/17 09:03 Dose: 10 mg Loperamide HCl (Imodium) 2 mg PO Q6H PRN PRN Reason: Diarrhea Magnesium Hydroxide (Milk Of Magnesia) 30 ml PO HS PRN PRN Reason: Constipation Meclizine HCl (Antivert) 12.5 mg PO Q6H PRN PRN Reason: Dizziness Ondansetron HCl (Zofran Tab) 4 mg PO Q4H PRN PRN Reason: Nausea/Vomiting Pantoprazole Sodium (Protonix Ec Tab) 40 mg PO DAILY [facility] Last Admin: 03/08/17 09:03 Dose: 40 mg Potassium Chloride (K-Dur 20 Meq Er Tab) 40 meq PO DAILY [facility] Last Admin: 03/07/17 09:17 Dose: 40 meq Quetiapine Fumarate (Seroquel) 50 mg PO BID [facility] Last Admin: 03/07/17 16:52 Dose: 50 mg Quetiapine Fumarate (Seroquel) 50 mg PO HS [facility] Last Admin: 03/08/17 01:53 Dose: 50 mg Tiotropium [place] (Spiriva) 18 mcg IH DAILY [facility] Last Admin: 03/08/17 09:03 Dose: 18 mcg - Labs Labs: 03/08/17 05:10 03/08/17 05:10 - Constitutional Appears: Chronically Ill - Head Exam Head Exam: ATRAUMATIC, NORMAL INSPECTION, NORMOCEPHALIC - Eye Exam Eye Exam: EOMI, Normal appearance, PERRL Pupil Exam: NORMAL ACCOMODATION, PERRL - ENT Exam ENT Exam: Mucous Membranes Moist, Normal Exam - Neck Exam Neck Exam: Full ROM, Normal Inspection. absent: Lymphadenopathy - Respiratory Exam Respiratory Exam: Decreased Breath Sounds, Prolonged Expiratory Phase, Rales - Cardiovascular Exam Cardiovascular Exam: REGULAR RHYTHM, +S1, +S2. absent: Murmur - GI/Abdominal Exam GI & Abdominal Exam: Soft, Normal Bowel Sounds. absent: Tenderness - Rectal Exam Rectal Exam: NORMAL INSPECTION - Extremities Exam Extremities Exam: Full ROM, Normal Capillary Refill, Normal Inspection, Pedal Edema. absent: Joint Swelling - Back Exam Back Exam: NORMAL INSPECTION - Psychiatric Exam Psychiatric exam: Normal Affect, Normal Mood - Skin Skin Exam: Dry, Intact, Normal Color, Warm Assessment and Plan - Assessment and Plan (Free Text) Assessment: CHF PNEUMONIA COPD Plan: CONTINUE PRESENT RX OBTAIN CXR AND ABGS PROGNOSIS IS POOR
[2017-03-08] MEDS: Potassium Chloride 20 mEq ER Tab PO SCH (09:58)
[2017-03-08 10:14] LABS: EOSINOPHIL 1 % (0-7); NEUTROPHIL 87 % (42-75); TOTAL CELLS COUNTED 100
--- NOTE | 2017-03-08 11:09 | CP.PCM.CON ---
History of Present Illness - History of Present Illness History of Present Illness: 76 yo female with complex PMH is admitted with CHF/ exac COPD and Pneumonia Has been bed bound at [facility] s/p [facility] visity 1 1/2 mos ago Unable to provide Hx Opens eyes Lethargic Recognizes visitors On high flow O2 ID consulted for antibiotic management PMH- DM CAD s/p CABG HTN Obesity OA CHF COPD Review of Systems - Review of Systems Systems not reviewed;Unavailable: Altered Mental Status - Constitutional Constitutional: As Per HPI - EENT Eyes: absent: As Per HPI, Blind Spots, Blurred Vision, Change in Vision, Decreased Night Vision, Diplopia, Discharge, Dry Eye, Exophthalmos, Floaters, Irritation, Itchy Eyes, Loss of Peripheral Vision, Pain, Photophobia, Requires Corrective Lenses, Sees Flashes, Spots in Vision, Tunnel Vision, Other Visual Disturbances, Loss of Vision, Other Ears: absent: As Per HPI, Decreased Hearing, Ear Discharge, Ear Pain, Tinnitus, Abnormal Hearing, Disequilibrium, Dizziness, Other Nose/Mouth/Throat: absent: As Per HPI, Epistaxis, Nasal Congestion, Nasal Discharge, Nasal Obstruction, Nasal Trauma, Nose Pain, Post Nasal Drip, Sinus Pain, Sinus Pressure, Bleeding Gums, Change in Voice, Dental Pain, Dry Mouth, Dysphagia, Halitosis, Hoarsness, Lip Swelling, Mouth Lesions, Mouth Pain, Odynophagia, Sore Throat, Throat Swelling, Tongue Swelling, Facial Pain, Neck Pain, Neck Mass, Other - Breasts Breasts: absent: As Per HPI, Change in Shape, Mass, Pain, Nipple Discharge, Nipple Inversion, Skin Changes, Swelling, Other - Cardiovascular Cardiovascular: As Per HPI. absent: Acrocyanosis, Chest Pain, Chest Pain at Rest, Chest Pain with Activity, Claudication, Diaphoresis, Dyspnea, Dyspnea on Exertion, Edema, Irregular Heart Rhythm, Pain Radiating to Arm/Neck/Jaw, Leg Edema, Leg Ulcers, Lightheadedness, Orthopnea, Palpitations, Paroxysmal Nocturnal Dyspnea, Pedal Edema, Radiating Pain, Rapid Heart Rate, Slow Heart Rate, Syncope, Other - Respiratory Respiratory: As Per HPI, Cough, Dyspnea, Dyspnea on Exertion, Chest Congestion. absent: Hemoptysis - Gastrointestinal Gastrointestinal: absent: As Per HPI, Abdominal Pain, Belching, Bloating, Change in Bowel Habits, Change in Stool Character, Coffee Ground Emesis, Constipation, Cramping, Diarrhea, Dyspepsia, Dysphagia, Early Satiety, Excessive Flatus, Fecal Incontinence, Heartburn, Hematemesis, Hematochezia, Loose Stools, Melena, Nausea, Odynophagia, Temesmus, Vomiting, Other - Genitourinary Genitourinary: absent: As Per HPI, Change in Urinary Stream, Difficulty Urinating, Dysuria, Flank Pain, Hematuria, Pyuria, Nocturia, Urinary Incontinence, Urinary Frequency, Urinary Hesitance, Urinary Urgency, Voiding Freq/Small Amts, Freq UTI, Hx Renal/Bladder Calculi, Hx /Renal Surgery, Bladder Distension, Other - Reproductive: Female Reproductive:Female: absent: As Per HPI, Amenorrhea, Amenorrhea/ Control, Currently Menstual, Cycle <21 Days, Cycle >35 Days, Cycle Variable, Menses 1-7 Days, Menses >/= 8 Days, Menses Variable, Cycle > 4 Weeks Between, No Menses for 6 Months, Heavy Menses, Light Menses, Normal Menses, Spotting Between Cycles , S/P Hysterectomy, Menopausal, Post Menopausal, Premenarche, Abnormal Vaginal Bleeding, Dysmenorrhea, Dyspareunia, Genital Lesions, Genital Pruritis, Pelvic Pain, Prolapse Symptoms, Sexual Dysfunction, Vaginal Discharge, Vaginal Dryness , Vaginal Odor, Vaginal Pruritis, Other - Menstruation Menstruation: absent: As Per HPI, Amenorrhea, Amenorrhea/ Control, Currently Menstual, Cycle <21 Days, Cycle >35 Days, Cycle Variable, Menses 1-7 Days, Menses >/= 8 Days, Menses Variable, Cycle > 4 Weeks Between, No Menses for 6 Months, Heavy Menses, Light Menses, Normal Menses, Spotting Between Cycles , S/P Hysterectomy, Menopausal, Post Menopausal, Premenarche, Abnormal Vaginal Bleeding, Dysmenorrhea, Other - Musculoskeletal Musculoskeletal: As Per HPI - Integumentary Integumentary: As Per HPI - Neurological Neurological: As Per HPI - Psychiatric Psychiatric: absent: As Per HPI, Abnormal Sleep Pattern, Anhedonia, Anxiety, Auditory Hallucinations, Behavioral Changes, Change in Appetite, Change in Libido, Confusion, Depression, Difficulty Concentrating, Hallucinations, Homicidal Ideation, Hopelessness, Irritability, Memory Loss, Mood Swings, Panic Attacks, Paranoia, Suicidal Ideation, Visual Hallucinations, Tactile Hallucinations, Other - Endocrine Endocrine: absent: As Per HPI, Change in Body Appearance, Change in Libido, Cold Intolorance, Deepening of Voice, Excessive Sweating, Fatigue, Flushing, Heat Intolorance, Increase in Ring/Shoe/Hat Size, Palpitations, Polydipsia, Polyphagia, Polyuria, Other - Hematologic/Lymphatic Hematologic: absent: As Per HPI, Easy Bleeding, Easy Bruising, Lymphadenopathy, Other Past Patient History - Infectious Disease Hx of Infectious Diseases: None - Past Medical History & Family History Past Medical History?: Yes - Past Social History Smoking Status: Former Smoker - CARDIAC Hx Congestive Heart Failure: Yes Hx Hypercholesterolemia: Yes Hx Hypertension: Yes - PULMONARY Hx Asthma: Yes Hx Bronchitis: Yes Hx Chronic Obstructive Pulmonary Disease (COPD): Yes Hx Emphysema: Yes - NEUROLOGICAL Hx Transient Ischemic Attacks (TIA): Yes - HEENT Hx HEENT Problems: Yes (Wears glasses) Hx Deafness: Yes ([place]: has hearing aids) - RENAL Hx Chronic Kidney Disease: No - ENDOCRINE/METABOLIC Hx Diabetes Mellitus Type 1: Yes - HEMATOLOGICAL/ONCOLOGICAL Hx Blood Disorders: No - INTEGUMENTARY Hx Dermatological Problems: Yes Hx Cellulitis: Yes (Since mid-August 2016) - MUSCULOSKELETAL/RHEUMATOLOGICAL Hx Arthritis: Yes Hx Falls: No Hx Fractures: Yes (Right arm fx) - GASTROINTESTINAL Hx Gastrointestinal Disorders: No - GENITOURINARY/GYNECOLOGICAL Hx Genitourinary Disorders: No - PSYCHIATRIC Hx Psychophysiologic Disorder: No Hx Substance Use: No - SURGICAL HISTORY Hx Cholecystectomy: Yes () Hx Coronary Artery Bypass Graft: Yes (x 5; 2009) Hx Coronary Stent: Yes - ANESTHESIA Hx Anesthesia Reactions: No Hx Malignant Hyperthermia: No Meds Allergies/Adverse Reactions: Allergies Allergy/AdvReac Type Severity Reaction Status Date / Time shellfish derived Allergy SHORTNESS Verified 09/30/16 20:48 OF BREATH - Medications Medications: Current Medications Acetaminophen (Tylenol 325mg Tab) 650 mg PO Q4H PRN PRN Reason: Temp 101 and above Al Hydrox/Mg Hydrox/Simethicone (Maalox Plus 30 Ml) 30 ml PO Q4H PRN PRN Reason: heartburn, nausea, indigestion Albuterol Sulfate (Albuterol 0.083% Inhal Suzan (2.5 Mg/3 Ml) Ud) 2.5 mg IH Q6H PRN PRN Reason: Shortness of Breath Last Admin: 03/07/17 21:53 Dose: 2.5 mg Albuterol/Ipratropium (Duoneb 3 Mg/0.5 Mg (3 Ml) Ud) 3 ml INH RTID [facility] Last Admin: 03/08/17 07:50 Dose: 3 ml Alprazolam (Xanax) 0.25 mg PO Q8H PRN PRN Reason: Anxiety Stop: 03/11/17 15:47 Last Admin: 03/04/17 23:13 Dose: 0.25 mg Aspirin (Ecotrin) 325 mg PO DAILY [facility] Last Admin: 03/08/17 09:03 Dose: 325 mg Atorvastatin Calcium (Lipitor) 80 mg PO DAILY [facility] Last Admin: 03/08/17 09:02 Dose: 80 mg Budesonide (Pulmicort Respules) 0.5 mg IH RBID [facility] Last Admin: 03/07/17 19:51 Dose: 0.5 mg Carvedilol (Coreg) 3.125 mg PO BID [facility] Last Admin: 03/08/17 09:01 Dose: 3.125 mg Escitalopram Oxalate (Lexapro) 10 mg PO DAILY [facility] Last Admin: 03/08/17 08:58 Dose: 10 mg Ferrous Gluconate (Fergon) 324 mg PO DAILY [facility] Last Admin: 03/08/17 09:02 Dose: 324 mg Furosemide (Lasix) 20 mg PO DAILY [facility] Last Admin: 03/08/17 08:59 Dose: 20 mg Gabapentin (Neurontin) 100 mg PO TID [facility] Last Admin: 03/08/17 09:02 Dose: 100 mg Heparin Sodium (Porcine) (Heparin) 5,000 units SC Q12H [facility] PRN Reason: Protocol Last Admin: 03/08/17 04:06 Dose: 5,000 units Home Med (Arformoterol [Brovana]) 15 mcg IH Q12H [facility] Home Med (Phenyleph/Mineral Oil/Petrolat [Preparation H Ointment]) 1 appl [place] TID PRN PRN Reason: Hemorrhoids Vancomycin HCl 1 gm/ Sodium (Chloride) 250 mls @ 166.667 mls/hr IVPB DAILY [facility] Last Admin: 03/08/17 08:22 Dose: Not Given Piperacillin Sod/Tazobactam Sod (Zosyn 3.375 Gm Iv Premix) 3.375 gm in 50 mls @ 50 mls/hr IVPB Q6 [facility] Last Admin: 03/08/17 04:05 Dose: 50 mls/hr Insulin Detemir (Levemir) 10 units SC [facility] Last Admin: 03/07/17 22:22 Dose: 10 unit Insulin Human Lispro (Humalog) 0 units SC ACHS [facility] PRN Reason: Protocol Last Admin: 03/08/17 08:42 Dose: Not Given Lisinopril (Zestril) 10 mg PO DAILY [facility] Last Admin: 03/08/17 09:03 Dose: 10 mg Loperamide HCl (Imodium) 2 mg PO Q6H PRN PRN Reason: Diarrhea Magnesium Hydroxide (Milk Of Magnesia) 30 ml PO HS PRN PRN Reason: Constipation Meclizine HCl (Antivert) 12.5 mg PO Q6H PRN PRN Reason: Dizziness Ondansetron HCl (Zofran Tab) 4 mg PO Q4H PRN PRN Reason: Nausea/Vomiting Pantoprazole Sodium (Protonix Ec Tab) 40 mg PO DAILY [facility] Last Admin: 03/08/17 09:03 Dose: 40 mg Potassium Chloride (K-Dur 20 Meq Er Tab) 40 meq PO DAILY [facility] Last Admin: 03/07/17 09:17 Dose: 40 meq Quetiapine Fumarate (Seroquel) 50 mg PO BID [facility] Last Admin: 03/07/17 16:52 Dose: 50 mg Quetiapine Fumarate (Seroquel) 50 mg PO HS [facility] Last Admin: 03/08/17 01:53 Dose: 50 mg Tiotropium [place] (Spiriva) 18 mcg IH DAILY [facility] Last Admin: 03/08/17 09:03 Dose: 18 mcg Physical Exam - Constitutional Appears: Non-toxic, Confused, Chronically Ill - Head Exam Head Exam: ATRAUMATIC, NORMAL INSPECTION, NORMOCEPHALIC - Eye Exam Eye Exam: EOMI, PERRL. absent: Scleral icterus - ENT Exam ENT Exam: Mucous Membranes Dry, Normal External Ear Exam, Normal Oropharynx - Neck Exam Neck exam: Negative for: Lymphadenopathy, Thyromegaly - Respiratory Exam Respiratory Exam: Decreased Breath Sounds, Prolonged Expiratory Phase, Rales, Rhonchi - Cardiovascular Exam Cardiovascular Exam: Tachycardia, REGULAR RHYTHM, +S1, +S2 - GI/Abdominal Exam GI & Abdominal Exam: Diminished Bowel Sounds, Distended, Soft. absent: Guarding , Rebound, Rigid, Tenderness - Rectal Exam Rectal Exam: Deferred - Exam Exam: NORMAL INSPECTION - Extremities Exam Extremities exam: Positive for: pedal edema, pedal pulses present. Negative for : calf tenderness, tenderness - Back Exam Back exam: absent: CVA tenderness (L), CVA tenderness (R), paraspinal tenderness - Neurological Exam Neurological exam: Alert, Altered, CN II-XII Intact, Reflexes Normal - Psychiatric Exam Psychiatric exam: Depressed - Skin Skin Exam: Dry Results - Vital Signs Recent Vital Signs: Last Vital Signs Temp 97.7 F 03/08/17 08:17 Pulse 67 03/08/17 09:03 Resp 18 03/08/17 08:17 BP 161/80 H 03/08/17 09:03 Pulse Ox 97 03/08/17 08:17 - Labs Result Diagrams: 03/08/17 05:10 03/08/17 05:10 Labs: Laboratory Results - last 24 hr 03/06/17 03/07/17 03/07/17 16:00 11:32 16:04 WBC RBC Hgb Hct MCV MCH MCHC RDW Plt Count MPV Neut % (Auto) Lymph % (Auto) [place] % (Auto) Eos % (Auto) Baso % (Auto) Neut # Lymph # [place] # Eos # Baso # Neutrophils % (Manual) Band Neutrophils % Lymphocytes % (Manual) Monocytes % (Manual) Eosinophils % (Manual) Platelet Estimate Hypochromasia (manual) Anisocytosis (manual) Ovalocytes Sodium Potassium Chloride Carbon Dioxide Anion Gap BUN Creatinine Est GFR ( Amer) Est GFR (Non-Af Amer) POC Glucose (mg/dL) 79 94 Random Glucose Calcium TSH 3rd Generation Vancomycin Trough Hepatitis A IgM Ab Negative Hep Bs Antigen Negative Hep B Core IgM Ab Negative Hepatitis C Antibody Negative 03/07/17 03/08/17 03/08/17 21:38 00:10 05:10 WBC RBC Hgb Hct MCV MCH MCHC RDW Plt Count MPV Neut % (Auto) Lymph % (Auto) [place] % (Auto) Eos % (Auto) Baso % (Auto) Neut # Lymph # [place] # Eos # Baso # Neutrophils % (Manual) Band Neutrophils % Lymphocytes % (Manual) Monocytes % (Manual) Eosinophils % (Manual) Platelet Estimate Hypochromasia (manual) Anisocytosis (manual) Ovalocytes Sodium 142 Potassium 3.7 Chloride 105 Carbon Dioxide 34 H Anion Gap 7 L BUN 35 H Creatinine 1.2 Est GFR ( Amer) 53 Est GFR (Non-Af Amer) 43 POC Glucose (mg/dL) 124 H 116 H Random Glucose 62 L Calcium 7.6 L TSH 3rd Generation Vancomycin Trough Hepatitis A IgM Ab Hep Bs Antigen Hep B Core IgM Ab Hepatitis C Antibody 03/08/17 03/08/17 03/08/17 05:10 05:10 05:30 WBC 13.1 H RBC 4.08 Hgb 11.7 L Hct 36.2 MCV 88.8 MCH 28.6 MCHC 32.2 L RDW 16.2 H Plt Count 264 MPV 8.7 Neut % (Auto) 87.1 H Lymph % (Auto) 7.0 L [place] % (Auto) 4.5 Eos % (Auto) 1.3 Baso % (Auto) 0.1 Neut # 11.4 H Lymph # 0.9 L [place] # 0.6 Eos # 0.2 Baso # 0.0 Neutrophils % (Manual) 87 H Band Neutrophils % 1 Lymphocytes % (Manual) 8 L Monocytes % (Manual) 3 Eosinophils % (Manual) 1 Platelet Estimate Normal Hypochromasia (manual) Slight Anisocytosis (manual) Slight Ovalocytes Slight Sodium Potassium Chloride Carbon Dioxide Anion Gap BUN Creatinine Est GFR ( Amer) Est GFR (Non-Af Amer) POC Glucose (mg/dL) 71 Random Glucose Calcium TSH 3rd Generation Vancomycin Trough 15.2 H Hepatitis A IgM Ab Hep Bs Antigen Hep B Core IgM Ab Hepatitis C Antibody 03/08/17 08:59 WBC RBC Hgb Hct MCV MCH MCHC RDW Plt Count MPV Neut % (Auto) Lymph % (Auto) [place] % (Auto) Eos % (Auto) Baso % (Auto) Neut # Lymph # [place] # Eos # Baso # Neutrophils % (Manual) Band Neutrophils % Lymphocytes % (Manual) Monocytes % (Manual) Eosinophils % (Manual) Platelet Estimate Hypochromasia (manual) Anisocytosis (manual) Ovalocytes Sodium Potassium Chloride Carbon Dioxide Anion Gap BUN Creatinine Est GFR ( Amer) Est GFR (Non-Af Amer) POC Glucose (mg/dL) Random Glucose Calcium TSH 3rd Generation 0.96 Vancomycin Trough Hepatitis A IgM Ab Hep Bs Antigen Hep B Core IgM Ab Hepatitis C Antibody Assessment & Plan (1) CHF (congestive heart failure) Status: Acute (2) COPD exacerbation Status: Acute (3) Pneumonia Status: Acute - Assessment and Plan (Free Text) Assessment: cont vanco /zosyn for HAP
[2017-03-08] MEDS ORDERED: Sodium Chloride 3% for Inhalation 4 ML VIAL.NEB IH PRN (11:11)
--- NOTE | 2017-03-08 11:25 | CT ---
PROCEDURE: CT HEAD WITHOUT CONTRAST. HISTORY: lethargy COMPARISON: None available. TECHNIQUE: Axial computed tomography images were obtained through the head/brain without intravenous contrast. Radiation dose: Total exam DLP = 787.12 mGy-cm. This CT exam was performed using one or more of the following dose reduction techniques: Automated exposure control, adjustment of the mA and/or kV according to patient size, and/or use of iterative reconstruction technique. FINDINGS: HEMORRHAGE: No intracranial hemorrhage. BRAIN: No mass effect or edema. Mild to moderate diffuse atrophy consistent with patient age. No evidence of acute infarct. Old left cerebellar hemispheric infarct extending in to the left cerebellar peduncle. Old lacunar infarcts in the caudate nucleus bilaterally and in the left thalamus. Moderate to severe periventricular, deep and subcortical white matter lucency consistent with age related microvascular ischemic change. VENTRICLES: Unremarkable. No hydrocephalus. CALVARIUM: No calvarial fracture. Small calcified sebaceous cyst high right frontal scalp. PARANASAL SINUSES: Unremarkable as visualized. No significant inflammatory changes. MASTOID AIR CELLS: Minimal right mastoid effusion. Small amount of fluid in right middle ear cavity. There is left mastoid effusion. There is fluid in the left middle ear cavity. Please correlate clinically. OTHER FINDINGS: None. IMPRESSION: No intracranial mass, hemorrhage or evidence of acute infarct. Extensive white matter ischemic change. 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 Bilateral old basal ganglia lacunar infarcts.
--- NOTE | 2017-03-08 12:27 | RAD ---
PROCEDURE: CHEST RADIOGRAPH, 1 VIEW HISTORY: pna COMPARISON: 03/04/2017 FINDINGS: LUNGS: Persistent confluent opacity in right apex. Opacity at right lung base new compared to prior. PLEURA: Probable small right pleural effusion. No left pleural effusion. No pneumothorax. CARDIOVASCULAR: Status post CABG. OSSEOUS STRUCTURES: No significant abnormalities. VISUALIZED UPPER ABDOMEN: Normal. OTHER FINDINGS: None. IMPRESSION: Persistent right apical opacity and new right basilar opacity. Probable small right pleural effusion.
--- NOTE | 2017-03-08 13:13 | CP.PCM.PN ---
Subjective - Date & Time of Evaluation Date of Evaluation: 03/08/17 Time of Evaluation: 13:00 - Subjective Subjective: sleeping Objective - Vital Signs/Intake and Output Vital Signs (last 24 hours): Temp Pulse Resp BP Pulse Ox 98.1 F 69 18 138/76 96 03/08/17 12:12 03/08/17 12:12 03/08/17 12:12 03/08/17 12:12 03/08/17 12:12 - Medications Medications: Current Medications Acetaminophen (Tylenol 325mg Tab) 650 mg PO Q4H PRN PRN Reason: Temp 101 and above Al Hydrox/Mg Hydrox/Simethicone (Maalox Plus 30 Ml) 30 ml PO Q4H PRN PRN Reason: heartburn, nausea, indigestion Albuterol Sulfate (Albuterol 0.083% Inhal Suzan (2.5 Mg/3 Ml) Ud) 2.5 mg IH Q6H PRN PRN Reason: Shortness of Breath Last Admin: 03/07/17 21:53 Dose: 2.5 mg Albuterol/Ipratropium (Duoneb 3 Mg/0.5 Mg (3 Ml) Ud) 3 ml INH RTID [facility] Last Admin: 03/08/17 07:50 Dose: 3 ml Alprazolam (Xanax) 0.25 mg PO Q8H PRN PRN Reason: Anxiety Stop: 03/11/17 15:47 Last Admin: 03/04/17 23:13 Dose: 0.25 mg Aspirin (Ecotrin) 325 mg PO DAILY [facility] Last Admin: 03/08/17 09:03 Dose: 325 mg Atorvastatin Calcium (Lipitor) 80 mg PO DAILY [facility] Last Admin: 03/08/17 09:02 Dose: 80 mg Budesonide (Pulmicort Respules) 0.5 mg IH RBID [facility] Last Admin: 03/08/17 07:50 Dose: 0.5 mg Carvedilol (Coreg) 3.125 mg PO BID [facility] Last Admin: 03/08/17 09:01 Dose: 3.125 mg Escitalopram Oxalate (Lexapro) 10 mg PO DAILY [facility] Last Admin: 03/08/17 08:58 Dose: 10 mg Ferrous Gluconate (Fergon) 324 mg PO DAILY [facility] Last Admin: 03/08/17 09:02 Dose: 324 mg Furosemide (Lasix) 20 mg PO DAILY [facility] Last Admin: 03/08/17 08:59 Dose: 20 mg Gabapentin (Neurontin) 100 mg PO TID [facility] Last Admin: 03/08/17 09:02 Dose: 100 mg Heparin Sodium (Porcine) (Heparin) 5,000 units SC Q12H [facility] PRN Reason: Protocol Last Admin: 03/08/17 04:06 Dose: 5,000 units Home Med (Arformoterol [Brovana]) 15 mcg IH Q12H [facility] Home Med (Phenyleph/Mineral Oil/Petrolat [Preparation H Ointment]) 1 appl [place] TID PRN PRN Reason: Hemorrhoids Vancomycin HCl 1 gm/ Sodium (Chloride) 250 mls @ 166.667 mls/hr IVPB DAILY [facility] Last Admin: 03/08/17 08:22 Dose: Not Given Piperacillin Sod/Tazobactam Sod (Zosyn 3.375 Gm Iv Premix) 3.375 gm in 50 mls @ 50 mls/hr IVPB Q6 [facility] Last Admin: 03/08/17 13:00 Dose: Not Given Insulin Detemir (Levemir) 10 units SC [facility] Last Admin: 03/07/17 22:22 Dose: 10 unit Insulin Human Lispro (Humalog) 0 units SC ACHS [facility] PRN Reason: Protocol Last Admin: 03/08/17 12:57 Dose: Not Given Lisinopril (Zestril) 10 mg PO DAILY [facility] Last Admin: 03/08/17 09:03 Dose: 10 mg Loperamide HCl (Imodium) 2 mg PO Q6H PRN PRN Reason: Diarrhea Magnesium Hydroxide (Milk Of Magnesia) 30 ml PO HS PRN PRN Reason: Constipation Meclizine HCl (Antivert) 12.5 mg PO Q6H PRN PRN Reason: Dizziness Ondansetron HCl (Zofran Tab) 4 mg PO Q4H PRN PRN Reason: Nausea/Vomiting Pantoprazole Sodium (Protonix Ec Tab) 40 mg PO DAILY [facility] Last Admin: 03/08/17 09:03 Dose: 40 mg Potassium Chloride (K-Dur 20 Meq Er Tab) 40 meq PO DAILY [facility] Last Admin: 03/08/17 09:58 Dose: 40 meq Quetiapine Fumarate (Seroquel) 50 mg PO BID [facility] Last Admin: 03/08/17 09:59 Dose: 50 mg Quetiapine Fumarate (Seroquel) 50 mg PO HS [facility] Last Admin: 03/08/17 01:53 Dose: 50 mg Tiotropium [place] (Spiriva) 18 mcg IH DAILY [facility] Last Admin: 03/08/17 09:03 Dose: 18 mcg - Labs Labs: 03/08/17 05:10 03/08/17 05:10 - GI/Abdominal Exam GI & Abdominal Exam: Soft, Normal Bowel Sounds Assessment and Plan - Assessment and Plan (Free Text) Assessment: 76 yo female with elevated lft likely secondary to hepatic congestion lft trending down
--- NOTE | 2017-03-08 14:59 | CON ---
LOCATION: Room #417, [facility] SUBJECTIVE: This is a 76-year-old female with known history of COPD and prior nicotine dependence, and has now been admitted with progressive shortness of breath and evaluated for an acute exacerbation of COPD with supervening congestive heart failure and is now being referred for diabetic evaluation and management. PAST MEDICAL HISTORY: History of type 2 insulin-requiring diabetes, on a combination of Levemir given at 20 units subcu every 12 hours with Humulin regular insulin given at a variable dose of 1 to 7 units 4 times a day as indicated. History of hypertensive cardiovascular disease and dyslipidemia, history of diabetic retinopathy and polyneuropathy, history of coronary artery disease and previous admissions for congestive heart failure with underlying ischemic cardiomyopathy, history of chronic obstructive lung disease with underlying emphysema and chronic bronchitis. FAMILY HISTORY: Positive for diabetes and hypertension. SOCIAL HISTORY: The patient has supportive family. There is positive history of nicotine dependence, but quit a few years ago. REVIEW OF SYSTEMS: As mentioned above, admits to generalized body weakness with easy fatigability and tiredness and suboptimal energy level. No chest pains, but admits to pleuritic chest pain with bronchorrhea and productive cough. Also admits to progressive shortness of breath, initially with exertion and then at rest with paroxysmal nocturnal dyspnea. Her oral intake is variable and suboptimal with nausea, dyspepsia, and vague upper abdominal pains. Also admits to marked polyuria and nocturia noted. PHYSICAL EXAMINATION GENERAL: This is an overweight female, in no apparent distress. VITAL SIGNS: Blood pressure of 150/90, pulse of 100 beats per minute and regular, temperature 99, respirations 20, height is 5 feet 7 inches, weight is 196 pounds. HEENT: Head normocephalic. Eyes anicteric with pink conjunctivae. Funduscopy not possible at this time. Ears, nose, and throat otherwise normal. NECK: Supple. Thyroid gland is normal size. No carotid bruits or any cervical adenopathy. CARDIOPULMONARY: Adynamic precordium. S1 and S2 are rapid and regular. LUNGS: Show scattered rhonchi. ABDOMEN: Flat, soft with positive bowel sounds. EXTREMITIES: No peripheral edema. Pulses are +2 bilaterally. LABORATORY DATA: Initially showed BUN of 43, sodium 143, potassium 3.8, chloride 105, CO2 of 33, glucose 186, and creatinine 1.0. Her proBNP was 6400 with elevated liver transaminases. ASSESSMENT: This is a 76-year-old female with uncontrolled and decompensated type 2 insulin-requiring diabetes with extremes of glycemic fluctuations as expected with intercurrent physical stressors which *------* increased insulin resistance and further impaired glucose tolerance thereof. Plan of management was discussed with the patient. The staff will modify her current insulin regimen. I will start her actually on basal and bolus insulin drug combination with Humalog given as 4 units subcu t.i.d. before meals and Levemir given as 20 units subcu at bedtime daily as ordered. We will titrate incremental as indicated to optimize metabolic control. Hemoglobin A1c is *------* glycemic control, and baseline thyroid function studies and lipid panel will be ordered. We will be obtain serial chemistries and supplement as needed. We will follow this. Oma Martines MD
--- NOTE | 2017-03-08 17:13 | CP.PCM.PN ---
Subjective - Date & Time of Evaluation Date of Evaluation: 03/08/17 Time of Evaluation: 17:00 - Subjective Subjective: Patient has no chest pain or dyspnea at this time Objective - Vital Signs/Intake and Output Vital Signs (last 24 hours): Temp Pulse Resp BP Pulse Ox 97.8 F 69 18 138/76 97 03/08/17 16:00 03/08/17 16:33 03/08/17 16:38 03/08/17 16:33 03/08/17 16:00 - Medications Medications: Current Medications Acetaminophen (Tylenol 325mg Tab) 650 mg PO Q4H PRN PRN Reason: Temp 101 and above Al Hydrox/Mg Hydrox/Simethicone (Maalox Plus 30 Ml) 30 ml PO Q4H PRN PRN Reason: heartburn, nausea, indigestion Albuterol Sulfate (Albuterol 0.083% Inhal Suzan (2.5 Mg/3 Ml) Ud) 2.5 mg IH Q6H PRN PRN Reason: Shortness of Breath Last Admin: 03/07/17 21:53 Dose: 2.5 mg Albuterol/Ipratropium (Duoneb 3 Mg/0.5 Mg (3 Ml) Ud) 3 ml INH RTID [facility] Last Admin: 03/08/17 14:00 Dose: 3 ml Alprazolam (Xanax) 0.25 mg PO Q8H PRN PRN Reason: Anxiety Stop: 03/11/17 15:47 Last Admin: 03/04/17 23:13 Dose: 0.25 mg Aspirin (Ecotrin) 325 mg PO DAILY [facility] Last Admin: 03/08/17 09:03 Dose: 325 mg Atorvastatin Calcium (Lipitor) 80 mg PO DAILY [facility] Last Admin: 03/08/17 09:02 Dose: 80 mg Budesonide (Pulmicort Respules) 0.5 mg IH RBID [facility] Last Admin: 03/08/17 07:50 Dose: 0.5 mg Carvedilol (Coreg) 3.125 mg PO BID [facility] Last Admin: 03/08/17 16:33 Dose: 3.125 mg Escitalopram Oxalate (Lexapro) 10 mg PO DAILY [facility] Last Admin: 03/08/17 08:58 Dose: 10 mg Ferrous Gluconate (Fergon) 324 mg PO DAILY [facility] Last Admin: 03/08/17 09:02 Dose: 324 mg Furosemide (Lasix) 20 mg PO DAILY [facility] Last Admin: 03/08/17 08:59 Dose: 20 mg Gabapentin (Neurontin) 100 mg PO TID [facility] Last Admin: 03/08/17 16:35 Dose: 100 mg Heparin Sodium (Porcine) (Heparin) 5,000 units SC Q12H [facility] PRN Reason: Protocol Last Admin: 03/08/17 16:35 Dose: 5,000 units Home Med (Arformoterol [Brovana]) 15 mcg IH Q12H [facility] Home Med (Phenyleph/Mineral Oil/Petrolat [Preparation H Ointment]) 1 appl ME TID PRN PRN Reason: Hemorrhoids Vancomycin HCl 1 gm/ Sodium (Chloride) 250 mls @ 166.667 mls/hr IVPB DAILY [facility] Last Admin: 03/08/17 08:22 Dose: Not Given Piperacillin Sod/Tazobactam Sod (Zosyn 3.375 Gm Iv Premix) 3.375 gm in 50 mls @ 50 mls/hr IVPB Q6 [facility] Last Admin: 03/08/17 16:36 Dose: 50 mls/hr Insulin Detemir (Levemir) 4 units SC HS [facility] Insulin Human Lispro (Humalog) 0 units SC ACHS [facility] PRN Reason: Protocol Last Admin: 03/08/17 16:34 Dose: Not Given Lisinopril (Zestril) 10 mg PO DAILY [facility] Last Admin: 03/08/17 09:03 Dose: 10 mg Loperamide HCl (Imodium) 2 mg PO Q6H PRN PRN Reason: Diarrhea Magnesium Hydroxide (Milk Of Magnesia) 30 ml PO HS PRN PRN Reason: Constipation Meclizine HCl (Antivert) 12.5 mg PO Q6H PRN PRN Reason: Dizziness Ondansetron HCl (Zofran Tab) 4 mg PO Q4H PRN PRN Reason: Nausea/Vomiting Pantoprazole Sodium (Protonix Ec Tab) 40 mg PO DAILY [facility] Last Admin: 03/08/17 09:03 Dose: 40 mg Potassium Chloride (K-Dur 20 Meq Er Tab) 40 meq PO DAILY [facility] Last Admin: 03/08/17 09:58 Dose: 40 meq Quetiapine Fumarate (Seroquel) 50 mg PO BID [facility] Last Admin: 03/08/17 16:35 Dose: 50 mg Quetiapine Fumarate (Seroquel) 50 mg PO HS [facility] Last Admin: 03/08/17 01:53 Dose: 50 mg Tiotropium [place] (Spiriva) 18 mcg IH DAILY [facility] Last Admin: 03/08/17 09:03 Dose: 18 mcg - Labs Labs: 03/08/17 05:10 03/08/17 05:10 - Constitutional Appears: Chronically Ill - Head Exam Head Exam: NORMAL INSPECTION - Eye Exam Eye Exam: Normal appearance - ENT Exam ENT Exam: Mucous Membranes Moist - Neck Exam Neck Exam: Full ROM - Respiratory Exam Respiratory Exam: Decreased Breath Sounds - Cardiovascular Exam Cardiovascular Exam: REGULAR RHYTHM - GI/Abdominal Exam GI & Abdominal Exam: Normal Bowel Sounds - Rectal Exam Rectal Exam: Deferred - Extremities Exam Extremities Exam: absent: Pedal Edema - Back Exam Back Exam: NORMAL INSPECTION - Neurological Exam Neurological Exam: Alert - Psychiatric Exam Psychiatric exam: Normal Affect - Skin Skin Exam: Normal Color Assessment and Plan (1) CHF (congestive heart failure) Assessment & Plan: euvolemic. normal left ventricular function Status: Acute (2) Coronary artery disease Assessment & Plan: no angina Status: Acute (3) Diabetes mellitus Assessment & Plan: control blood sugar Status: Acute (4) Hypertension Status: Acute
--- NOTE | 2017-03-08 20:21 | CON ---
NEUROLOGY CONSULTATION DATE OF SERVICE: 03/08/2017 CHIEF COMPLAINT: Altered mental status. HISTORY OF PRESENT ILLNESS: This is a 76-year-old woman with history of COPD, history of pneumonia, history of type 2 diabetes mellitus uncontrolled, history of cellulitis, history of CHF, who presented initially to the hospital with shortness of breath associated with productive yellow sputum, cough, and is currently being managed for multifocal pneumonia especially in the right upper lobe. I was consulted for increased lethargy. She had episodes of hypoglycemia. To be exact date, she had a glucose on 03/07/2017 at 4:18 a.m. of 29 and another episode of hypoglycemia on 03/08/2017 at 5:10 in the morning. Her A1c is 8.8 indicating poorly controlled diabetes and also elevated BUN and creatine indicating some mild dehydration. A CT of the head showed no acute intracranial abnormality. There are extensive chronic ischemic changes of an old left cerebellar hemispheric infarct of the cerebellar peduncle and old basal ganglial bilateral infracts. She is currently on antibiotics for her underlying pneumonia. She is more alert at this time. She is on aspirin 325 and Lipitor 80 mg for stroke prevention as well as cardiac. Her blood pressures are stable. PAST MEDICAL HISTORY: COPD, hypertension, dyslipidemia, coronary artery disease, type 2 diabetes mellitus, CHF, pneumonia. REVIEW OF SYSTEMS: A 14-point of review of systems is negative except in HPI. ALLERGIES: *------* FAMILY HISTORY: Noncontributory. MEDICATIONS: Reviewed by nurse practitioner, see reconciliation sheet. PHYSICAL EXAMINATION: GENERAL: The patient is seen up in bed, in no acute distress, mildly drowsy but following commands. VITAL SIGNS: Temperature 97.8, pulse rate is 69, blood pressure 138/76, respiratory rate of 18. HEENT: Head is atraumatic and normocephalic. PERRLA. Extraocular muscles are intact. NECK: Supple. No JVD. No adenopathy noted. LUNGS: Clear to auscultation. No adventitious sounds. HEART: S1 and S2, normal rate and rhythm. No murmurs, rubs, or gallops. ABDOMEN: Soft, nontender, and nondistended. Bowel sounds are present. EXTREMITIES: No clubbing. No cyanosis. Peripheral pulses are 2+ felt bilaterally. NEUROLOGIC: The patient is drowsy, in no acute distress. Speech is fluent without any errors. She is hard of hearing at baseline. Cranial nerves II through XII are intact. She has poor attention span. Motor, moves all extremities equally. Slight increased tone on the left compared to the right. Sensory, withdraws to localized noxious stimulus. Light touch and pinprick decreased up to the calves bilaterally. Decreased vibration of the toes. DTRs are 1+ and absent at the knees and ankles. Coordination, [id number] intact. No tremors noted. Gait deferred for now. LABORATORY DATA: Sodium is 142, potassium 3.7, chloride 105, carbon dioxide 34, BUN of 35, creatinine 1.2, and random glucose 62. ASSESSMENT: This is a 76-year-old woman with history of coronary artery disease, hypertension, dyslipidemia, congestive heart failure, uncontrolled diabetes, history of pneumonia, and chronic obstructive pulmonary disease, who presented to the hospital with shortness of breath and productive yellow sputum, has multifocal pneumonia especially in the right upper lobe, is currently on antibiotics. I was consulted for lethargy. She was found to have hypoglycemic episode with blood glucose of 29 as well as blood glucose of 62,as well as mildly dehydrated. At this time, CT head showed no acute intracranial abnormalities. There are chronic ischemic changes and bilateral old chronic lacunar infarcts. Increased lethargy is secondary to toxic metabolic encephalopathy likely from hypoglycemic episodes as well as underlying pneumonia. RECOMMENDATIONS: At this time: 1. Monitor electrolytes and correct accordingly and gentle hydration. 2. Monitor blood glucose levels and keep her blood sugars between 140 to 180 and avoid hypoglycemic events. She needs diabetic education and medication adjustments given that she has uncontrolled diabetes with A1c of 8.8. 3. Continue with aspirin 325 mg and Lipitor of 80 for stroke prevention. 4. Get PT assessment. At this time, continue current present medical management. No further neurological workup at this time. She is neurologically stable. Thank you for this consult. Ronald Monroe MD
[2017-03-08] MEDS ORDERED: Insulin Detemir 100 Units/ml Inj SC SCH (22:00)
--- NOTE | 2017-03-09 03:01 | CON ---
DATE: 03/04/2017 REFERRING DOCTOR: Dr. Hwang REASON FOR CONSULTATION: Elevated LFTs. HISTORY OF PRESENT ILLNESS: This is a very abhijeet 76-year-old female who essentially comes in with shortness of breath and productive cough, history of COPD, pneumonia, diabetes, and cellulitis. Essentially, GI is called for elevation of LFTs. The patient is a poor historian. History was obtained via the chart and staff. Currently, the patient is lethargic, lying in bed comfortably, in no apparent distress. PAST MEDICAL HISTORY: As above. PAST SURGICAL HISTORY: As above. MEDICATIONS: Have been reviewed. REVIEW OF SYSTEMS: Unable to obtain as the patient is a poor historian. PHYSICAL EXAMINATION: GENERAL: A pleasant, elderly-looking female, lying in bed comfortably, in no apparent distress. VITAL SIGNS: During the hospitalization, grossly unremarkable. HEENT: Head, normocephalic, atraumatic. Eyes: Pupils are equally reactive to light. No conjunctival pallor or icterus. NECK: Supple. Normal range of motion. No lymphadenopathy appreciated. LUNGS: Coarse breath sounds bilaterally. HEART: S1 and S2. Regular rate and rhythm. No murmurs appreciated. ABDOMEN: Soft and nondistended. Bowel sounds present *------*. RECTAL: Deferred. EXTREMITIES: Pulses present bilaterally. SKIN: Warm, dry, and intact. NEUROLOGIC: A and O x2. LABORATORY DATA: Reviewed. WBC 11.0, hemoglobin 12.6, hematocrit of 38.9. BUN is 43. Bilirubin is 0.3, AST and ALT 185 and 208, alk phos of 278. BNP is 6400. ASSESSMENT AND PLAN: This is a 76-year-old female with elevated LFTs. I suspect this is all secondary to congestive hepatopathy given her history of congestive heart failure. I will get a hepatitis A, B and C panel, as well as an ultrasound. Trend LFTs for now and avoid hepatotoxic drugs. Thank you for the consult. Donavan Vasques MD/ PhD cc: Dr. Hwang
[2017-03-09] MEDS: Piperacill/Tazo 3.375gm in Dex 3.375 GM/50 ML BAG IVPB SCH ×4 (03:47→21:24)
--- NOTE | 2017-03-09 06:03 | PN ---
DATE: ROOM: [facility], [facility]. SUBJECTIVE: This is a 76-year-old female with recent uncontrolled type 2 insulin requiring diabetes presenting here with an acute pneumonitis and supervening congestive heart failure and is now being referred closely both clinically and hemodynamically as noted. Her glycemic levels are on the low side of normal. Her oral intake is very poor and suboptimal at this time. Her glucose levels have ranged from 71 to 73 and 116 mg/dL. Her latest chemistry showed the BUN of 35, sodium 142, potassium 3.7, chloride 105, CO2 is 34, glucose 62, creatinine 1.2. Her pro-BNP is 5550. At this time, we will modify her basal and bolus insulin regimen and actually discontinued Humalog, which was given as 4 units t.i.d. and also discontinue the Levemir, which was given as 10 units subcutaneous at bedtime daily. We will observe the glycemic fluctuation and restart her on a smaller dose of basal and bolus insulin regimen as her oral intake improves there. We will obtain chemistry and supplement accordingly as needed. We will follow her. Oma Martines MD
[2017-03-09] MEDS: Insulin Lispro (humaLOG) 100 Units/ml Inj SC SCH ×4 (06:34→22:12)
[2017-03-09 07:36] LABS: BASO % 0.1 % (0.0-2.0); EOS % 0.2 % (0.0-4.0); LYMPH # 0.8 K/uL (1.0-4.3); MEAN CELL VOLUME 88.5 fl (81.0-99.0); MEAN CORPUSCULAR HGB CONC 32.8 g/dL (33.0-37.0); MEAN PLATELET VOLUME 8.9 fl (7.2-11.7); MONO # 0.4 K/uL (0.0-0.8); MONO % 3.2 % (0.0-10.0); NEUT # 11.8 K/uL (1.8-7.0); NEUT % 90.5 % (50.0-75.0); PLATELET COUNT 312 K/uL (130-400); RED CELL DISTRIBUTION WIDTH 16.1 % (11.5-14.5)
[2017-03-09 07:58] LABS: ALB/GLOB RATIO 0.9 (1.0-2.1); ALKALINE PHOSPHATASE 207 U/L (38-126); ALT/SGPT 87 U/L (9-52); AST/SGOT 55 U/L (14-36); BILIRUBIN,TOTAL 0.3 mg/dl (0.2-1.3); BLOOD UREA NITROGEN 29 mg/dl (7-17); CALCIUM 7.6 mg/dL (8.4-10.2); CARBON DIOXIDE 34 mmol/L (22-30); CHLORIDE 104 mmol/L (98-107); GFR AFRICAN-AMERICAN > 60; GLUCOSE,RANDOM 166 mg/dL (65-105); POTASSIUM 3.6 MMOL/L (3.6-5.0); SODIUM 142 mmol/l (132-148); TOTAL PROTEIN 4.9 G/DL (6.3-8.2)
[2017-03-09] MEDS: Albuterol-Ipratrop 3 mg / 0.5 (3 ml) UD INH SCH ×3 (08:00→19:29)
[2017-03-09] MEDS: Budesonide 0.5 mg/2 ml Inhal Susp UD IH SCH ×2 (08:00→19:45)
[2017-03-09] MEDS: Pantoprazole 40 mg EC Tab PO SCH ×2 (09:00→12:30)
[2017-03-09] MEDS: Potassium Chloride 20 mEq ER Tab PO SCH ×2 (09:00→12:23)
[2017-03-09] MEDS: Tiotropium 18 mcg Cap For Inhalation IH SCH (09:02)
--- NOTE | 2017-03-09 09:51 | CP.PCM.PN ---
Subjective - Date & Time of Evaluation Date of Evaluation: 03/09/17 Time of Evaluation: 09:50 - Subjective Subjective: pt still lethargic. had luicd period yesterday. no f/c, n/v/d. bw noted. worsening kidney/liver function noted. all consults appriciated. will d/c poc w/ family. case d/c w/ all speicialists and family Objective - Vital Signs/Intake and Output Vital Signs (last 24 hours): Temp Pulse Resp BP Pulse Ox 98.6 F 79 18 109/71 96 03/09/17 08:20 03/09/17 08:20 03/09/17 08:20 03/09/17 08:20 03/09/17 08:20 - Medications Medications: Current Medications Acetaminophen (Tylenol 325mg Tab) 650 mg PO Q4H PRN PRN Reason: Temp 101 and above Al Hydrox/Mg Hydrox/Simethicone (Maalox Plus 30 Ml) 30 ml PO Q4H PRN PRN Reason: heartburn, nausea, indigestion Albuterol Sulfate (Albuterol 0.083% Inhal Suzan (2.5 Mg/3 Ml) Ud) 2.5 mg IH Q6H PRN PRN Reason: Shortness of Breath Last Admin: 03/07/17 21:53 Dose: 2.5 mg Albuterol/Ipratropium (Duoneb 3 Mg/0.5 Mg (3 Ml) Ud) 3 ml INH RTID [facility] Last Admin: 03/09/17 08:00 Dose: 3 ml Alprazolam (Xanax) 0.25 mg PO Q8H PRN PRN Reason: Anxiety Stop: 03/11/17 15:47 Last Admin: 03/04/17 23:13 Dose: 0.25 mg Aspirin (Ecotrin) 325 mg PO DAILY [facility] Last Admin: 03/08/17 09:03 Dose: 325 mg Atorvastatin Calcium (Lipitor) 80 mg PO DAILY [facility] Last Admin: 03/08/17 09:02 Dose: 80 mg Budesonide (Pulmicort Respules) 0.5 mg IH RBID [facility] Last Admin: 03/09/17 08:00 Dose: 0.5 mg Carvedilol (Coreg) 3.125 mg PO BID [facility] Last Admin: 03/08/17 16:33 Dose: 3.125 mg Escitalopram Oxalate (Lexapro) 10 mg PO DAILY [facility] Last Admin: 03/08/17 08:58 Dose: 10 mg Ferrous Gluconate (Fergon) 324 mg PO DAILY [facility] Last Admin: 03/08/17 09:02 Dose: 324 mg Furosemide (Lasix) 20 mg PO DAILY [facility] Last Admin: 03/08/17 08:59 Dose: 20 mg Gabapentin (Neurontin) 100 mg PO TID [facility] Last Admin: 03/08/17 16:35 Dose: 100 mg Heparin Sodium (Porcine) (Heparin) 5,000 units SC Q12H [facility] PRN Reason: Protocol Last Admin: 03/09/17 03:47 Dose: 5,000 units Home Med (Arformoterol [Brovana]) 15 mcg IH Q12H [facility] Home Med (Phenyleph/Mineral Oil/Petrolat [Preparation H Ointment]) 1 appl UT TID PRN PRN Reason: Hemorrhoids Vancomycin HCl 1 gm/ Sodium (Chloride) 250 mls @ 166.667 mls/hr IVPB DAILY [facility] Last Admin: 03/08/17 08:22 Dose: Not Given Piperacillin Sod/Tazobactam Sod (Zosyn 3.375 Gm Iv Premix) 3.375 gm in 50 mls @ 50 mls/hr IVPB Q6 [facility] Last Admin: 03/09/17 09:03 Dose: 50 mls/hr Insulin Detemir (Levemir) 4 units SC HS [facility] Last Admin: 03/08/17 21:38 Dose: 4 units Insulin Human Lispro (Humalog) 0 units SC ACHS [facility] PRN Reason: Protocol Last Admin: 03/09/17 06:34 Dose: Not Given Lisinopril (Zestril) 10 mg PO DAILY [facility] Last Admin: 03/08/17 09:03 Dose: 10 mg Loperamide HCl (Imodium) 2 mg PO Q6H PRN PRN Reason: Diarrhea Magnesium Hydroxide (Milk Of Magnesia) 30 ml PO HS PRN PRN Reason: Constipation Meclizine HCl (Antivert) 12.5 mg PO Q6H PRN PRN Reason: Dizziness Ondansetron HCl (Zofran Tab) 4 mg PO Q4H PRN PRN Reason: Nausea/Vomiting Pantoprazole Sodium (Protonix Ec Tab) 40 mg PO DAILY [facility] Last Admin: 03/08/17 09:03 Dose: 40 mg Potassium Chloride (K-Dur 20 Meq Er Tab) 40 meq PO DAILY [facility] Last Admin: 03/08/17 09:58 Dose: 40 meq Quetiapine Fumarate (Seroquel) 50 mg PO HS [facility] Last Admin: 03/08/17 21:02 Dose: 50 mg Quetiapine Fumarate (Seroquel) 50 mg PO BID [facility] Tiotropium [place] (Spiriva) 18 mcg IH DAILY [facility] Last Admin: 03/09/17 09:02 Dose: 18 mcg - Labs Labs: 03/09/17 06:50 03/09/17 06:50 - Constitutional Appears: Non-toxic, Chronically Ill - Head Exam Head Exam: ATRAUMATIC, NORMAL INSPECTION, NORMOCEPHALIC - Eye Exam Eye Exam: EOMI, Normal appearance, PERRL Pupil Exam: NORMAL ACCOMODATION, PERRL - ENT Exam ENT Exam: Mucous Membranes Moist, Normal Exam - Neck Exam Neck Exam: Full ROM, Normal Inspection. absent: Lymphadenopathy - Respiratory Exam Respiratory Exam: Clear to Ausculation Bilateral, NORMAL BREATHING PATTERN - Cardiovascular Exam Cardiovascular Exam: REGULAR RHYTHM, RRR, +S1, +S2. absent: Murmur - GI/Abdominal Exam GI & Abdominal Exam: Soft, Normal Bowel Sounds. absent: Tenderness - Extremities Exam Extremities Exam: Full ROM, Normal Capillary Refill, Normal Inspection, Pedal Edema. absent: Joint Swelling - Back Exam Back Exam: NORMAL INSPECTION - Neurological Exam Neurological Exam: CN II-XII Intact - Psychiatric Exam Psychiatric exam: Normal Affect, Normal Mood - Skin Skin Exam: Dry, Intact, Normal Color, Warm Assessment and Plan (1) CHF (congestive heart failure) Status: Acute (2) COPD exacerbation Status: Acute (3) Pneumonia Status: Acute (4) DVT prophylaxis Status: Acute (5) Type 2 diabetes mellitus with hyperglycemia Status: Acute - Assessment and Plan (Free Text) Assessment: (1) CHF (congestive heart failure) Assessment & Plan: cardio cont meds lasix Status: Acute (2) COPD exacerbation Assessment & Plan: pulm anbx neb tx high flow o2 Status: Acute (3) Pneumonia Assessment & Plan: zosyn, vanco, high flow o2, pulm consult, Id consult Status: Acute (4) DVT prophylaxis Assessment & Plan: scd and ae hose heparin Status: Acute (5) Type 2 diabetes mellitus with hyperglycemia Assessment & Plan: riss, homemeds, endo consult, fsbg Status: Acute [id number], ct head-negative [id number], echo noted, tsh prognosis poor, pt w/ periods of lethargy. woke up yesterday. will speak to family about poc.
[2017-03-09 09:58] LABS: NEUTROPHIL 91 % (42-75); TOTAL CELLS COUNTED 100
[2017-03-09] MEDS: Aspirin 325 mg EC Tablets PO SCH ×2 (10:00→12:20)
--- NOTE | 2017-03-09 12:33 | CP.PCM.PN ---
Subjective - Date & Time of Evaluation Date of Evaluation: 03/09/17 Time of Evaluation: 08:00 - Subjective Subjective: afebrile less cough and less sob cultures neg thus far iv rx renewed Objective - Vital Signs/Intake and Output Vital Signs (last 24 hours): Temp Pulse Resp BP Pulse Ox 98.6 F 83 22 164/84 H 96 03/09/17 08:20 03/09/17 12:30 03/09/17 10:00 03/09/17 12:30 03/09/17 08:20 - Medications Medications: Current Medications Acetaminophen (Tylenol 325mg Tab) 650 mg PO Q4H PRN PRN Reason: Temp 101 and above Al Hydrox/Mg Hydrox/Simethicone (Maalox Plus 30 Ml) 30 ml PO Q4H PRN PRN Reason: heartburn, nausea, indigestion Albuterol Sulfate (Albuterol 0.083% Inhal Suzan (2.5 Mg/3 Ml) Ud) 2.5 mg IH Q6H PRN PRN Reason: Shortness of Breath Last Admin: 03/07/17 21:53 Dose: 2.5 mg Albuterol/Ipratropium (Duoneb 3 Mg/0.5 Mg (3 Ml) Ud) 3 ml INH RTID [facility] Last Admin: 03/09/17 08:00 Dose: 3 ml Alprazolam (Xanax) 0.25 mg PO Q8H PRN PRN Reason: Anxiety Stop: 03/11/17 15:47 Last Admin: 03/04/17 23:13 Dose: 0.25 mg Aspirin (Ecotrin) 325 mg PO DAILY [facility] Last Admin: 03/09/17 12:20 Dose: 325 mg Atorvastatin Calcium (Lipitor) 80 mg PO DAILY [facility] Last Admin: 03/09/17 12:28 Dose: 80 mg Budesonide (Pulmicort Respules) 0.5 mg IH RBID [facility] Last Admin: 03/09/17 08:00 Dose: 0.5 mg Carvedilol (Coreg) 3.125 mg PO BID [facility] Last Admin: 03/09/17 09:00 Dose: Not Given Escitalopram Oxalate (Lexapro) 10 mg PO DAILY [facility] Last Admin: 03/09/17 12:27 Dose: 10 mg Ferrous Gluconate (Fergon) 324 mg PO DAILY [facility] Last Admin: 03/09/17 12:22 Dose: 324 mg Furosemide (Lasix) 20 mg PO DAILY [facility] Last Admin: 03/09/17 12:24 Dose: 20 mg Gabapentin (Neurontin) 100 mg PO TID [facility] Last Admin: 03/09/17 12:29 Dose: 100 mg Heparin Sodium (Porcine) (Heparin) 5,000 units SC Q12H [facility] PRN Reason: Protocol Last Admin: 03/09/17 03:47 Dose: 5,000 units Home Med (Arformoterol [Brovana]) 15 mcg IH Q12H [facility] Home Med (Phenyleph/Mineral Oil/Petrolat [Preparation H Ointment]) 1 appl [place] TID PRN PRN Reason: Hemorrhoids Vancomycin HCl 1 gm/ Sodium (Chloride) 250 mls @ 166.667 mls/hr IVPB DAILY [facility] Last Admin: 03/08/17 08:22 Dose: Not Given Piperacillin Sod/Tazobactam Sod (Zosyn 3.375 Gm Iv Premix) 3.375 gm in 50 mls @ 50 mls/hr IVPB Q6 [facility] Last Admin: 03/09/17 09:03 Dose: 50 mls/hr Insulin Detemir (Levemir) 4 units SC HS [facility] Last Admin: 03/08/17 21:38 Dose: 4 units Insulin Human Lispro (Humalog) 0 units SC ACHS [facility] PRN Reason: Protocol Last Admin: 03/09/17 12:13 Dose: Not Given Lisinopril (Zestril) 10 mg PO DAILY [facility] Last Admin: 03/09/17 12:30 Dose: 10 mg Loperamide HCl (Imodium) 2 mg PO Q6H PRN PRN Reason: Diarrhea Magnesium Hydroxide (Milk Of Magnesia) 30 ml PO HS PRN PRN Reason: Constipation Meclizine HCl (Antivert) 12.5 mg PO Q6H PRN PRN Reason: Dizziness Ondansetron HCl (Zofran Tab) 4 mg PO Q4H PRN PRN Reason: Nausea/Vomiting Pantoprazole Sodium (Protonix Ec Tab) 40 mg PO DAILY [facility] Last Admin: 03/09/17 12:30 Dose: 40 mg Potassium Chloride (K-Dur 20 Meq Er Tab) 40 meq PO DAILY [facility] Last Admin: 03/09/17 09:00 Dose: Not Given Quetiapine Fumarate (Seroquel) 50 mg PO HS [facility] Last Admin: 03/08/17 21:02 Dose: 50 mg Quetiapine Fumarate (Seroquel) 50 mg PO BID [facility] Last Admin: 03/09/17 09:00 Dose: Not Given Tiotropium [place] (Spiriva) 18 mcg IH DAILY [facility] Last Admin: 03/09/17 09:02 Dose: 18 mcg - Labs Labs: 03/09/17 06:50 03/09/17 06:50 - Constitutional Appears: Non-toxic, Chronically Ill - Head Exam Head Exam: NORMOCEPHALIC - Eye Exam Eye Exam: PERRL - ENT Exam ENT Exam: Mucous Membranes Dry, Normal External Ear Exam - Neck Exam Neck Exam: absent: Lymphadenopathy - Respiratory Exam Respiratory Exam: Decreased Breath Sounds, Rhonchi - Cardiovascular Exam Cardiovascular Exam: REGULAR RHYTHM - GI/Abdominal Exam GI & Abdominal Exam: Distended, Soft Assessment and Plan (1) CHF (congestive heart failure) Status: Acute (2) COPD exacerbation Status: Acute (3) Pneumonia Status: Acute
--- NOTE | 2017-03-09 17:04 | CP.PCM.PN ---
Subjective - Date & Time of Evaluation Date of Evaluation: 03/09/17 Time of Evaluation: 17:00 - Subjective Subjective: more alert today Objective - Vital Signs/Intake and Output Vital Signs (last 24 hours): Temp Pulse Resp BP Pulse Ox 97.0 F L 80 20 125/75 94 L 03/09/17 16:08 03/09/17 16:31 03/09/17 16:08 03/09/17 16:31 03/09/17 16:08 - Medications Medications: Current Medications Acetaminophen (Tylenol 325mg Tab) 650 mg PO Q4H PRN PRN Reason: Temp 101 and above Al Hydrox/Mg Hydrox/Simethicone (Maalox Plus 30 Ml) 30 ml PO Q4H PRN PRN Reason: heartburn, nausea, indigestion Albuterol Sulfate (Albuterol 0.083% Inhal Suzan (2.5 Mg/3 Ml) Ud) 2.5 mg IH Q6H PRN PRN Reason: Shortness of Breath Last Admin: 03/07/17 21:53 Dose: 2.5 mg Albuterol/Ipratropium (Duoneb 3 Mg/0.5 Mg (3 Ml) Ud) 3 ml INH RTID [facility] Last Admin: 03/09/17 14:35 Dose: 3 ml Alprazolam (Xanax) 0.25 mg PO Q8H PRN PRN Reason: Anxiety Stop: 03/11/17 15:47 Last Admin: 03/04/17 23:13 Dose: 0.25 mg Aspirin (Ecotrin) 325 mg PO DAILY [facility] Last Admin: 03/09/17 12:20 Dose: 325 mg Atorvastatin Calcium (Lipitor) 80 mg PO DAILY [facility] Last Admin: 03/09/17 12:28 Dose: 80 mg Budesonide (Pulmicort Respules) 0.5 mg IH RBID [facility] Last Admin: 03/09/17 08:00 Dose: 0.5 mg Carvedilol (Coreg) 3.125 mg PO BID [facility] Last Admin: 03/09/17 16:31 Dose: 3.125 mg Escitalopram Oxalate (Lexapro) 10 mg PO DAILY [facility] Last Admin: 03/09/17 12:27 Dose: 10 mg Ferrous Gluconate (Fergon) 324 mg PO DAILY [facility] Last Admin: 03/09/17 12:22 Dose: 324 mg Furosemide (Lasix) 20 mg PO DAILY [facility] Last Admin: 03/09/17 12:24 Dose: 20 mg Gabapentin (Neurontin) 100 mg PO TID [facility] Last Admin: 03/09/17 16:33 Dose: 100 mg Heparin Sodium (Porcine) (Heparin) 5,000 units SC Q12H [facility] PRN Reason: Protocol Last Admin: 03/09/17 16:31 Dose: 5,000 units Home Med (Arformoterol [Brovana]) 15 mcg IH Q12H [facility] Home Med (Phenyleph/Mineral Oil/Petrolat [Preparation H Ointment]) 1 appl LA TID PRN PRN Reason: Hemorrhoids Vancomycin HCl 1 gm/ Sodium (Chloride) 250 mls @ 166.667 mls/hr IVPB DAILY [facility] Last Admin: 03/08/17 08:22 Dose: Not Given Piperacillin Sod/Tazobactam Sod (Zosyn 3.375 Gm Iv Premix) 3.375 gm in 50 mls @ 50 mls/hr IVPB Q6 [facility] Last Admin: 03/09/17 16:37 Dose: 50 mls/hr Insulin Detemir (Levemir) 6 units SC HS [facility] Insulin Human Lispro (Humalog) 0 units SC [facility] PRN Reason: Protocol Last Admin: 03/09/17 16:32 Dose: Not Given Lisinopril (Zestril) 10 mg PO DAILY [facility] Last Admin: 03/09/17 12:30 Dose: 10 mg Loperamide HCl (Imodium) 2 mg PO Q6H PRN PRN Reason: Diarrhea Magnesium Hydroxide (Milk Of Magnesia) 30 ml PO HS PRN PRN Reason: Constipation Meclizine HCl (Antivert) 12.5 mg PO Q6H PRN PRN Reason: Dizziness Ondansetron HCl (Zofran Tab) 4 mg PO Q4H PRN PRN Reason: Nausea/Vomiting Pantoprazole Sodium (Protonix Ec Tab) 40 mg PO DAILY [facility] Last Admin: 03/09/17 12:30 Dose: 40 mg Potassium Chloride (K-Dur 20 Meq Er Tab) 40 meq PO DAILY [facility] Last Admin: 03/09/17 09:00 Dose: Not Given Quetiapine Fumarate (Seroquel) 50 mg PO [facility] Last Admin: 03/08/17 21:02 Dose: 50 mg Quetiapine Fumarate (Seroquel) 50 mg PO BID [facility] Last Admin: 03/09/17 16:34 Dose: 50 mg Tiotropium [place] (Spiriva) 18 mcg IH DAILY [facility] Last Admin: 03/09/17 09:02 Dose: 18 mcg - Labs Labs: 03/09/17 06:50 03/09/17 06:50 - GI/Abdominal Exam GI & Abdominal Exam: Soft Assessment and Plan - Assessment and Plan (Free Text) Assessment: 76 yo female with elevated lft trend lft doing better
--- NOTE | 2017-03-09 20:32 | PN ---
DATE: SUBJECTIVE: This is a 76-year-old female with recent uncontrolled type 2 insulin requiring diabetes now being followed closely for metabolic management. She also has ongoing IV antibiotics for a recent pneumonitis and is improving both physically and hemodynamically as noted thereof. LABORATORY DATA: Her latest chemistry showed a BUN of 29, sodium 142, potassium 3.6, chloride 104, CO2 of 34, glucose 166 and creatinine 1.0. Her glucose levels ranged from 170 to 184 mg/dL. ASSESSMENT AND PLAN: So, at this time, we will continue the very low dose basal insulin with Levemir to be modified to 6 units subcutaneous at bedtime daily to start tonight. We will also continue the low dose correction scale using Humalog insulin as given. We will also obtain serial chemistries and supplement ____ as needed. We will follow and advise accordingly. Oma Martines MD
[2017-03-09] MEDS ORDERED: Insulin Detemir 100 Units/ml Inj SC SCH (22:00)
[2017-03-10] MEDS: Piperacill/Tazo 3.375gm in Dex 3.375 GM/50 ML BAG IVPB SCH ×2 (04:07→09:44)
[2017-03-10] MEDS: Insulin Lispro (humaLOG) 100 Units/ml Inj SC SCH ×5 (06:36→22:06)
--- NOTE | 2017-03-10 07:12 | CP.PCM.PN ---
Subjective - Date & Time of Evaluation Date of Evaluation: 03/10/17 Time of Evaluation: 07:11 - Subjective Subjective: pt remains lethargic w/ periods of lucidity. no f/c, n/v/d. am labs reviewed. no new complaitns. still on high flow o2. Objective - Vital Signs/Intake and Output Vital Signs (last 24 hours): Temp Pulse Resp BP Pulse Ox 99.3 F 90 20 130/85 95 03/10/17 05:00 03/10/17 05:00 03/10/17 05:00 03/10/17 05:00 03/10/17 05:00 Intake and Output: 03/10/17 03/10/17 06:59 18:59 Intake Total 220 Output Total 800 Balance -580 - Medications Medications: Current Medications Acetaminophen (Tylenol 325mg Tab) 650 mg PO Q4H PRN PRN Reason: Temp 101 and above Al Hydrox/Mg Hydrox/Simethicone (Maalox Plus 30 Ml) 30 ml PO Q4H PRN PRN Reason: heartburn, nausea, indigestion Albuterol Sulfate (Albuterol 0.083% Inhal Suzan (2.5 Mg/3 Ml) Ud) 2.5 mg IH Q6H PRN PRN Reason: Shortness of Breath Last Admin: 03/07/17 21:53 Dose: 2.5 mg Albuterol/Ipratropium (Duoneb 3 Mg/0.5 Mg (3 Ml) Ud) 3 ml INH RTID [facility] Last Admin: 03/09/17 19:29 Dose: 3 ml Alprazolam (Xanax) 0.25 mg PO Q8H PRN PRN Reason: Anxiety Stop: 03/11/17 15:47 Last Admin: 03/04/17 23:13 Dose: 0.25 mg Aspirin (Ecotrin) 325 mg PO DAILY [facility] Last Admin: 03/09/17 12:20 Dose: 325 mg Atorvastatin Calcium (Lipitor) 80 mg PO DAILY [facility] Last Admin: 03/09/17 12:28 Dose: 80 mg Budesonide (Pulmicort Respules) 0.5 mg IH RBID [facility] Last Admin: 03/09/17 08:00 Dose: 0.5 mg Carvedilol (Coreg) 3.125 mg PO BID [facility] Last Admin: 03/09/17 16:31 Dose: 3.125 mg Escitalopram Oxalate (Lexapro) 10 mg PO DAILY [facility] Last Admin: 03/09/17 12:27 Dose: 10 mg Ferrous Gluconate (Fergon) 324 mg PO DAILY [facility] Last Admin: 03/09/17 12:22 Dose: 324 mg Furosemide (Lasix) 20 mg PO DAILY [facility] Last Admin: 03/09/17 12:24 Dose: 20 mg Gabapentin (Neurontin) 100 mg PO TID [facility] Last Admin: 03/09/17 16:33 Dose: 100 mg Heparin Sodium (Porcine) (Heparin) 5,000 units SC Q12H [facility] PRN Reason: Protocol Last Admin: 03/10/17 04:07 Dose: 5,000 units Home Med (Arformoterol [Brovana]) 15 mcg IH Q12H [facility] Home Med (Phenyleph/Mineral Oil/Petrolat [Preparation H Ointment]) 1 appl NM TID PRN PRN Reason: Hemorrhoids Vancomycin HCl 1 gm/ Sodium (Chloride) 250 mls @ 166.667 mls/hr IVPB DAILY [facility] Last Admin: 03/08/17 08:22 Dose: Not Given Piperacillin Sod/Tazobactam Sod (Zosyn 3.375 Gm Iv Premix) 3.375 gm in 50 mls @ 50 mls/hr IVPB Q6 [facility] Last Admin: 03/10/17 04:07 Dose: 50 mls/hr Insulin Detemir (Levemir) 6 units SC HS [facility] Last Admin: 03/09/17 21:30 Dose: 6 units Insulin Human Lispro (Humalog) 0 units SC ACHS [facility] PRN Reason: Protocol Last Admin: 03/10/17 06:36 Dose: 4 units Lisinopril (Zestril) 10 mg PO DAILY [facility] Last Admin: 03/09/17 12:30 Dose: 10 mg Loperamide HCl (Imodium) 2 mg PO Q6H PRN PRN Reason: Diarrhea Magnesium Hydroxide (Milk Of Magnesia) 30 ml PO HS PRN PRN Reason: Constipation Meclizine HCl (Antivert) 12.5 mg PO Q6H PRN PRN Reason: Dizziness Ondansetron HCl (Zofran Tab) 4 mg PO Q4H PRN PRN Reason: Nausea/Vomiting Pantoprazole Sodium (Protonix Ec Tab) 40 mg PO DAILY [facility] Last Admin: 03/09/17 12:30 Dose: 40 mg Potassium Chloride (K-Dur 20 Meq Er Tab) 40 meq PO DAILY [facility] Last Admin: 03/09/17 09:00 Dose: Not Given Quetiapine Fumarate (Seroquel) 50 mg PO HS [facility] Last Admin: 03/09/17 21:25 Dose: 50 mg Quetiapine Fumarate (Seroquel) 50 mg PO BID [facility] Last Admin: 03/09/17 16:34 Dose: 50 mg Tiotropium [place] (Spiriva) 18 mcg IH DAILY [facility] Last Admin: 03/09/17 09:02 Dose: 18 mcg - Labs Labs: 03/09/17 06:50 03/09/17 06:50 - Constitutional Appears: Non-toxic, No Acute Distress, Chronically Ill - Head Exam Head Exam: ATRAUMATIC, NORMAL INSPECTION, NORMOCEPHALIC - Eye Exam Eye Exam: EOMI, Normal appearance, PERRL Pupil Exam: NORMAL ACCOMODATION, PERRL - ENT Exam ENT Exam: Mucous Membranes Moist, Normal Exam - Neck Exam Neck Exam: Full ROM, Normal Inspection. absent: Lymphadenopathy - Respiratory Exam Respiratory Exam: Clear to Ausculation Bilateral, NORMAL BREATHING PATTERN - Cardiovascular Exam Cardiovascular Exam: REGULAR RHYTHM, RRR, +S1, +S2. absent: Murmur - GI/Abdominal Exam GI & Abdominal Exam: Soft, Normal Bowel Sounds. absent: Tenderness - Extremities Exam Extremities Exam: Full ROM, Normal Capillary Refill, Normal Inspection, Pedal Edema. absent: Joint Swelling Additional comments: difuse body edema - Back Exam Back Exam: NORMAL INSPECTION - Neurological Exam Neurological Exam: Abnormal Gait, Altered, CN II-XII Intact - Psychiatric Exam Psychiatric exam: Normal Affect, Normal Mood - Skin Skin Exam: Dry, Intact, Normal Color, Warm Assessment and Plan (1) CHF (congestive heart failure) Status: Acute (2) COPD exacerbation Status: Acute (3) Pneumonia Status: Acute (4) DVT prophylaxis Status: Acute (5) Type 2 diabetes mellitus with hyperglycemia Status: Acute - Assessment and Plan (Free Text) Assessment: (1) CHF (congestive heart failure) Assessment & Plan: cardio cont meds lasix Status: Acute (2) COPD exacerbation Assessment & Plan: pulm anbx neb tx high flow o2 Status: Acute (3) Pneumonia Assessment & Plan: zosyn, vanco, high flow o2, pulm consult, Id consult Status: Acute (4) DVT prophylaxis Assessment & Plan: scd and ae hose heparin Status: Acute (5) Type 2 diabetes mellitus with hyperglycemia Assessment & Plan: riss, homemeds, endo consult, fsbg Status: Acute [id number], ct head-negative [id number], echo noted, tsh-wnl prognosis poor, pt w/ periods of lethargy. woke up yesterday. will speak to family about poc.
[2017-03-10 07:13] LABS: HEMATOCRIT 40.1 % (34.0-47.0); MEAN CELL VOLUME 88.1 fl (81.0-99.0); MEAN CORPUSCULAR HEMOGLOBIN 28.8 pg (27.0-31.0); MEAN CORPUSCULAR HGB CONC 32.7 g/dL (33.0-37.0); RED CELL DISTRIBUTION WIDTH 16.1 % (11.5-14.5); WHITE BLOOD COUNT 12.8 K/uL (4.8-10.8)
[2017-03-10 07:26] LABS: BLOOD UREA NITROGEN 31 mg/dl (7-17); CALCIUM 7.7 mg/dL (8.4-10.2); CARBON DIOXIDE 35 mmol/L (22-30); CHLORIDE 102 mmol/L (98-107); GFR AFRICAN-AMERICAN > 60; GLUCOSE,RANDOM 376 mg/dL (65-105); POTASSIUM 3.5 MMOL/L (3.6-5.0); SODIUM 142 mmol/l (132-148)
[2017-03-10] MEDS: Albuterol-Ipratrop 3 mg / 0.5 (3 ml) UD INH SCH ×3 (07:48→20:19)
[2017-03-10] MEDS: Budesonide 0.5 mg/2 ml Inhal Susp UD IH SCH ×2 (08:04→20:19)
--- NOTE | 2017-03-10 09:26 | CP.PCM.PN ---
Subjective - Date & Time of Evaluation Date of Evaluation: 03/10/17 Time of Evaluation: 09:27 - Subjective Subjective: STILL LETHARGIC SOB PERSISTS ON HIGH FLOW O2 DIFFUSE EDEMA OF EXTREMITIES Objective - Vital Signs/Intake and Output Vital Signs (last 24 hours): Temp Pulse Resp BP Pulse Ox 98.5 F 91 H 18 118/75 97 03/10/17 08:14 03/10/17 08:14 03/10/17 08:14 03/10/17 08:14 03/10/17 08:14 Intake and Output: 03/10/17 03/10/17 06:59 18:59 Intake Total 220 Output Total 800 Balance -580 - Medications Medications: Current Medications Acetaminophen (Tylenol 325mg Tab) 650 mg PO Q4H PRN PRN Reason: Temp 101 and above Al Hydrox/Mg Hydrox/Simethicone (Maalox Plus 30 Ml) 30 ml PO Q4H PRN PRN Reason: heartburn, nausea, indigestion Albuterol Sulfate (Albuterol 0.083% Inhal Suzan (2.5 Mg/3 Ml) Ud) 2.5 mg IH Q6H PRN PRN Reason: Shortness of Breath Last Admin: 03/07/17 21:53 Dose: 2.5 mg Albuterol/Ipratropium (Duoneb 3 Mg/0.5 Mg (3 Ml) Ud) 3 ml INH RTID [facility] Last Admin: 03/10/17 07:48 Dose: 3 ml Alprazolam (Xanax) 0.25 mg PO Q8H PRN PRN Reason: Anxiety Stop: 03/11/17 15:47 Last Admin: 03/04/17 23:13 Dose: 0.25 mg Aspirin (Ecotrin) 325 mg PO DAILY [facility] Last Admin: 03/09/17 12:20 Dose: 325 mg Atorvastatin Calcium (Lipitor) 80 mg PO DAILY [facility] Last Admin: 03/09/17 12:28 Dose: 80 mg Budesonide (Pulmicort Respules) 0.5 mg IH RBID [facility] Last Admin: 03/10/17 08:04 Dose: 0.5 mg Carvedilol (Coreg) 3.125 mg PO BID [facility] Last Admin: 03/09/17 16:31 Dose: 3.125 mg Escitalopram Oxalate (Lexapro) 10 mg PO DAILY [facility] Last Admin: 03/09/17 12:27 Dose: 10 mg Ferrous Gluconate (Fergon) 324 mg PO DAILY [facility] Last Admin: 03/09/17 12:22 Dose: 324 mg Furosemide (Lasix) 20 mg PO DAILY [facility] Last Admin: 03/09/17 12:24 Dose: 20 mg Gabapentin (Neurontin) 100 mg PO TID [facility] Last Admin: 03/09/17 16:33 Dose: 100 mg Heparin Sodium (Porcine) (Heparin) 5,000 units SC Q12H [facility] PRN Reason: Protocol Last Admin: 03/10/17 04:07 Dose: 5,000 units Home Med (Arformoterol [Brovana]) 15 mcg IH Q12H [facility] Home Med (Phenyleph/Mineral Oil/Petrolat [Preparation H Ointment]) 1 appl OR TID PRN PRN Reason: Hemorrhoids Vancomycin HCl 1 gm/ Sodium (Chloride) 250 mls @ 166.667 mls/hr IVPB DAILY [facility] Last Admin: 03/08/17 08:22 Dose: Not Given Piperacillin Sod/Tazobactam Sod (Zosyn 3.375 Gm Iv Premix) 3.375 gm in 50 mls @ 50 mls/hr IVPB Q6 [facility] Last Admin: 03/10/17 04:07 Dose: 50 mls/hr Insulin Detemir (Levemir) 6 units SC HS [facility] Last Admin: 03/09/17 21:30 Dose: 6 units Insulin Human Lispro (Humalog) 0 units SC ACHS [facility] PRN Reason: Protocol Last Admin: 03/10/17 06:36 Dose: 4 units Lisinopril (Zestril) 10 mg PO DAILY [facility] Last Admin: 03/09/17 12:30 Dose: 10 mg Loperamide HCl (Imodium) 2 mg PO Q6H PRN PRN Reason: Diarrhea Magnesium Hydroxide (Milk Of Magnesia) 30 ml PO HS PRN PRN Reason: Constipation Meclizine HCl (Antivert) 12.5 mg PO Q6H PRN PRN Reason: Dizziness Ondansetron HCl (Zofran Tab) 4 mg PO Q4H PRN PRN Reason: Nausea/Vomiting Pantoprazole Sodium (Protonix Ec Tab) 40 mg PO DAILY [facility] Last Admin: 03/09/17 12:30 Dose: 40 mg Potassium Chloride (K-Dur 20 Meq Er Tab) 40 meq PO DAILY [facility] Last Admin: 03/09/17 09:00 Dose: Not Given Quetiapine Fumarate (Seroquel) 50 mg PO HS [facility] Last Admin: 03/09/17 21:25 Dose: 50 mg Quetiapine Fumarate (Seroquel) 50 mg PO BID [facility] Last Admin: 03/09/17 16:34 Dose: 50 mg Tiotropium [employer] (Spiriva) 18 mcg IH DAILY [facility] Last Admin: 03/09/17 09:02 Dose: 18 mcg - Labs Labs: 03/10/17 05:00 03/10/17 05:00 - Constitutional Appears: Chronically Ill - Head Exam Head Exam: ATRAUMATIC, NORMAL INSPECTION, NORMOCEPHALIC - Eye Exam Eye Exam: EOMI, Normal appearance, PERRL Pupil Exam: NORMAL ACCOMODATION, PERRL - ENT Exam ENT Exam: Mucous Membranes Moist, Normal Exam - Neck Exam Neck Exam: Full ROM, Normal Inspection. absent: Lymphadenopathy - Respiratory Exam Respiratory Exam: Decreased Breath Sounds, Prolonged Expiratory Phase, Rales, Wheezes - Cardiovascular Exam Cardiovascular Exam: REGULAR RHYTHM, +S1, +S2. absent: Murmur - GI/Abdominal Exam GI & Abdominal Exam: Soft, Normal Bowel Sounds. absent: Tenderness - Rectal Exam Rectal Exam: NORMAL INSPECTION - Extremities Exam Extremities Exam: Full ROM, Normal Capillary Refill, Normal Inspection, Pedal Edema. absent: Joint Swelling - Back Exam Back Exam: NORMAL INSPECTION - Skin Skin Exam: Dry, Intact, Normal Color, Warm Assessment and Plan - Assessment and Plan (Free Text) Assessment: CHF ?SUPERIMPOSED PNEUMONIA Plan: CONTINUE O2,DIURESES AND ANTIBIOTIC RX PROGNOSIS IS POOR
[2017-03-10] MEDS: Tiotropium 18 mcg Cap For Inhalation IH SCH ×2 (09:45→10:06)
[2017-03-10] MEDS: Pantoprazole 40 mg EC Tab PO SCH (09:46)
[2017-03-10] MEDS: Potassium Chloride 20 mEq ER Tab PO SCH (09:47)
[2017-03-10] MEDS ORDERED: Potassium Chloride 20 mEq/15 ml LIQ UD PO ONE (10:00)
--- NOTE | 2017-03-10 10:41 | CON ---
DATE: ROOM 417. HISTORY OF PRESENT ILLNESS: This is a 76-year-old female with diabetes and also *------*concern *------*. *------* who presents with progressive shortness of breath and associated productive cough and has been evaluated for acute pneumonia, with concomitant congestive heart failure, and remarkably elevated Pro-BNP levels as noted. She has been referred now for diabetic evaluation because of *------* hyperglycemic episode *------*. PAST MEDICAL HISTORY: History of type 2 insulin requiring diabetes, currently on combination with Levemir of 10 units subcu q. 12h. with regular insulin, ------ dose of 1 to 7 units *------*. *------* dyslipidemia, history of chronic obstructive lung disease with ankle edema and chronic bronchitis, history of coronary artery disease *------* coronary artery bypass graft surgery, also history of *------*. FAMILY HISTORY: Positive for diabetes, hypertension. SOCIAL HISTORY: The patient *------*. PHYSICAL EXAMINATION: GENERAL: *------* female in no apparent distress. VITAL SIGNS: Blood pressure 160/100, pulse of 106 per minute and regular, temperature *------*. NECK: *------*. CARDIOPULMONARY: *------*. LUNGS: *------*. ABDOMEN: *------*. EXTREMITIES: *------*. LABORATORY DATA: *------*. ASSESSMENT AND PLAN: *------*. Oma Martines MD cc:
[2017-03-10] MEDS: Ferrous Sulfate 300 mg/5 mL Liq UD PO SCH (11:47)
[2017-03-10] MEDS ORDERED: Sodium Chloride 3% for Inhalation 4 ML VIAL.NEB IH PRN (12:58)
[2017-03-10] MEDS ORDERED: Barium Sulfate Susp 0.1% w/v, 0.1% w/w 450 mL Bottle PO ONE (13:25)
--- NOTE | 2017-03-10 14:03 | RAD ---
HISTORY: fever COMPARISON: 03/08/2017 TECHNIQUE: Chest PA and lateral FINDINGS: LUNGS: No significant change in the right basilar and right apical infiltrates. The left lung is clear PLEURA: No significant pleural effusion identified. No pneumothorax apparent. CARDIOVASCULAR: Normal. OSSEOUS STRUCTURES: Sternal wires VISUALIZED UPPER ABDOMEN: Normal. OTHER FINDINGS: None. IMPRESSION: No significant change in right basilar and right apical infiltrates
--- NOTE | 2017-03-10 14:56 | PN ---
ENDOCRINOLOGY FOLLOWUP NOTE DATE: LOCATION: Room 417. This is a 76-year-old female with recent uncontrolled type II insulin requiring diabetes, now with supervening marked hyperglycemic accelerations overnight and glucose values raising from 405 to 463 mg/dL. Her latest chemistry showed a BUN of 31, sodium 142, potassium 3.5, chloride 102, CO2 35, glucose 376 and creatinine 1.0. So at this time, we will modify her current insulin regimen and switch her over to a more physiologic basal and bolus insulin regimen and add Humalog 10 units subQ t.i.d. before meals to start at dinnertime as ordered. We will also increase the Levemir to 20 units subQ at bedtime daily to start tonight. We will titrate incremental optimize metabolic control. We will also continue the IV hydration that was given to optimize the fluid and electrolyte losses as noted. We will follow her and advise accordingly. Oma Martines MD
[2017-03-10 16:18] LABS: ABG ALLEN TEST YES; ABG MECHANICAL RATE 18; ARTERIAL BLOOD GAS MODE BiPAP; ARTERIAL BLOOD GAS O2 CAPACITY 5.2 mL/dL (16-24); ARTERIAL BLOOD GAS O2 CONTENT 5.2 ML/dL (15-23); ARTERIAL BLOOD GAS PH 7.59 (7.35-7.45); ARTERIAL BLOOD GAS PO2 77 mm/Hg (80-100); ARTERIAL BLOOD HGB O2 SAT 95.8 % (95.0-98.0); CARBOXYHEMOGLOBIN 1.6 % (0.5-1.5); HHB 0.8 % (0.0-5.0); METHEMOGLOBIN 1.8 % (0.0-3.0)
[2017-03-10 17:17] LABS: ABG ALLEN TEST YES; ARTERIAL BLOOD FLOW 40; ARTERIAL BLOOD GAS HCO3 36.9 mmol/L (21-28); ARTERIAL BLOOD GAS MODE HIGH FLOW LPM; ARTERIAL BLOOD GAS O2 CONTENT 17.5 ML/dL (15-23); ARTERIAL BLOOD GAS PH 7.55 (7.35-7.45); ARTERIAL BLOOD GAS PO2 53 mm/Hg (80-100); ARTERIAL BLOOD HGB O2 SAT 89.2 % (95.0-98.0); CARBOXYHEMOGLOBIN 1.5 % (0.5-1.5); HHB 7.6 % (0.0-5.0); METHEMOGLOBIN 1.7 % (0.0-3.0)
[2017-03-10 17:21] LABS: ABG ALLEN TEST YES; ARTERIAL BLOOD GAS HCO3 35.2 mmol/L (21-28); ARTERIAL BLOOD GAS MODE HIGH FLOW LPM40; ARTERIAL BLOOD GAS PH 7.54 (7.35-7.45); ARTERIAL BLOOD GAS PO2 55 mm/Hg (80-100)
[2017-03-10] MEDS: Meropenem 500 MG in Sodium Chloride 0.9% 100 ML IVPB SCH ×2 (17:21→22:07)
--- NOTE | 2017-03-10 17:53 | PCM.RRTMUL ---
RN POST PARTUM Nurse Assessment - Situation RN POST PARTUM Responder Arrival Time:: 16:57 Location:: [address] [place] [address] Room Number:: 417 RN POST PARTUM Reason for Call: Change in Mental Status RN POST PARTUM Called By: RN - IV IV Inserted during RN POST PARTUM?: No IV Fluids Initiated During RN POST PARTUM?: No - Respiratory Oxygen Delivery Method:: Nasal Cannula Received Nebulizer Treatments:: No Was the Patient Ventilated with Bag/Mask 100% O2?: No - Ventilator Settings FIO2 (% Oxygen):: 35 - Diagnostic Test Ordered EKG:: No Chest X-Ray:: No CT Scan:: No Other Diagnostic Test Ordered:: ABG - Stat Labs Ordered RN POST PARTUM Stat Labs Ordered:: ABG CPR started during RN POST PARTUM?: No - Vital Signs Blood Pressure:: 116/69 Pulse Rate:: 75 - Alysia Coma Scale Coma Scale Eye Opening:: Spontaneous Coma Scale Motor:: Obeys Commands Movement - Time RN POST PARTUM Ended Time RN POST PARTUM Ended:: 17:20 - Vital Signs at end of RN POST PARTUM Blood Pressure:: 116/67 Pulse Rate:: 75 Respiratory Rate:: 20 - Recommendations 5) RN POST PARTUM Level of Care Recommendations: Transfer to ICU I.Reason for RN POST PARTUM - A) Acute Change in Patient: Subjective: Pt is unresponsive - A) Initial Vital Signs: Blood Pressure: 116/67 Pulse Rate: 75 Respiratory Rate: 20 Finger Stick Blood Glucose: 421 - B) Neurological Status (Select all that apply): Lethargic - C) Respiratory Oxygen Delivery Method: Nasal Cannula @L/min - Constitutional Appears: Toxic - Head Head Exam: NORMOCEPHALIC - Respiratory Exam Respiratory Exam: Rhonchi - Cardiovascular Exam Cardiovascular Exam: REGULAR RHYTHM, +S1, +S2 - Neurological Exam Neurological Exam: absent: Awake - Extremities Exam Extremities Exam: Pedal Edema Plan - A. End of RN POST PARTUM Vital Signs: Blood Pressure: 116/67 Pulse Rate: 75 Respiratory Rate: 20 - B. Assessment of Findings&Treatment Plan 76 y/o male with an extensive medical history admitted for pneumonia, now unresponsive on telemetry. pt is now being transferred to ICU awaiting ABG results
--- NOTE | 2017-03-10 18:59 | CP.PCM.PN ---
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- febrile and hypoxic IV Merrem added Objective - Vital Signs/Intake and Output Vital Signs (last 24 hours): Temp Pulse Resp BP Pulse Ox 100.6 F H 75 20 116/67 100 03/10/17 18:00 03/10/17 18:05 03/10/17 18:05 03/10/17 18:05 03/10/17 18:00 Intake and Output: 03/10/17 03/10/17 06:59 18:59 Intake Total 220 Output Total 800 Balance -580 - Medications Medications: Current Medications Acetaminophen (Tylenol 325mg Tab) 650 mg PO Q4H PRN PRN Reason: Temp 101 and above Last Admin: 03/10/17 11:44 Dose: 650 mg Acetaminophen (Tylenol 325 Mg Supp) 325 mg [place] Q4 PRN PRN Reason: Fever >100.4 F Al Hydrox/Mg Hydrox/Simethicone (Maalox Plus 30 Ml) 30 ml PO Q4H PRN PRN Reason: heartburn, nausea, indigestion Albuterol Sulfate (Albuterol 0.083% Inhal Suzan (2.5 Mg/3 Ml) Ud) 2.5 mg IH Q6H PRN PRN Reason: Shortness of Breath Last Admin: 03/07/17 21:53 Dose: 2.5 mg Albuterol/Ipratropium (Duoneb 3 Mg/0.5 Mg (3 Ml) Ud) 3 ml INH RTID [facility] Last Admin: 03/10/17 07:48 Dose: 3 ml Alprazolam (Xanax) 0.25 mg PO Q8H PRN PRN Reason: Anxiety Stop: 03/11/17 15:47 Last Admin: 03/04/17 23:13 Dose: 0.25 mg Aspirin (Aspirin) 325 mg PO DAILY [facility] Last Admin: 03/10/17 11:58 Dose: 325 mg Atorvastatin Calcium (Lipitor) 80 mg PO DAILY [facility] Last Admin: 03/10/17 09:46 Dose: 80 mg Budesonide (Pulmicort Respules) 0.5 mg IH RBID [facility] Last Admin: 03/10/17 08:04 Dose: 0.5 mg Carvedilol (Coreg) 3.125 mg PO BID [facility] Last Admin: 03/10/17 16:40 Dose: Not Given Escitalopram Oxalate (Lexapro) 10 mg PO DAILY [facility] Last Admin: 03/10/17 09:46 Dose: 10 mg Ferrous Sulfate (Feosol Liq) 300 mg PO DAILY [facility] Last Admin: 03/10/17 11:47 Dose: 300 mg Furosemide (Lasix) 20 mg PO DAILY [facility] Last Admin: 03/10/17 09:47 Dose: 20 mg Gabapentin (Neurontin) 100 mg PO TID [facility] Last Admin: 03/10/17 16:43 Dose: Not Given Heparin Sodium (Porcine) (Heparin) 5,000 units SC Q12H [facility] PRN Reason: Protocol Last Admin: 03/10/17 16:39 Dose: 5,000 units Home Med (Arformoterol [Brovana]) 15 mcg IH Q12H [facility] Home Med (Phenyleph/Mineral Oil/Petrolat [Preparation H Ointment]) 1 appl MI TID PRN PRN Reason: Hemorrhoids Vancomycin HCl 1 gm/ Sodium (Chloride) 250 mls @ 166.667 mls/hr IVPB DAILY [facility] Last Admin: 03/10/17 09:49 Dose: 166.667 mls/hr Meropenem 500 mg/ Sodium (Chloride) 100 mls @ 100 mls/hr IVPB Q6 [facility] Last Admin: 03/10/17 17:21 Dose: 100 mls/hr Insulin Detemir (Levemir) 20 units SC HS [facility] Insulin Human Lispro (Humalog) 0 units SC ACHS [facility] PRN Reason: Protocol Last Admin: 03/10/17 16:41 Dose: 4 units Insulin Human Lispro (Humalog) 10 units SC AC [facility] Last Admin: 03/10/17 16:42 Dose: 10 units Lisinopril (Zestril) 10 mg PO DAILY [facility] Last Admin: 03/10/17 09:43 Dose: 10 mg Loperamide HCl (Imodium) 2 mg PO Q6H PRN PRN Reason: Diarrhea Magnesium Hydroxide (Milk Of Magnesia) 30 ml PO HS PRN PRN Reason: Constipation Meclizine HCl (Antivert) 12.5 mg PO Q6H PRN PRN Reason: Dizziness Ondansetron HCl (Zofran Tab) 4 mg PO Q4H PRN PRN Reason: Nausea/Vomiting Pantoprazole Sodium (Protonix Ec Tab) 40 mg PO DAILY [facility] Last Admin: 03/10/17 09:46 Dose: 40 mg Potassium Chloride (K-Dur 20 Meq Er Tab) 40 meq PO DAILY [facility] Last Admin: 03/10/17 09:47 Dose: Not Given Quetiapine Fumarate (Seroquel) 50 mg PO HS [facility] Last Admin: 03/09/17 21:25 Dose: 50 mg Quetiapine Fumarate (Seroquel) 50 mg PO BID [facility] Last Admin: 03/10/17 16:43 Dose: Not Given Tiotropium [place] (Spiriva) 18 mcg IH DAILY [facility] Last Admin: 03/10/17 10:06 Dose: Not Given - Labs Labs: 03/10/17 05:00 03/10/17 05:00 Assessment and Plan (1) CHF (congestive heart failure) Status: Acute (2) COPD exacerbation Status: Acute (3) Pneumonia Status: Acute
--- NOTE | 2017-03-10 19:10 | CP.CCUPN ---
CCU Subjective - Physician Review Subjective (Free Text): Consultation for ICU Transfer and management: 76F transferred form [place] 6 days ago for SOB and found to have multifocal pneumonia, and CHF. 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 Responsive with facial grimacing only to deep pain stimuli and moving arms purposeflully. ROS: as above, other symptoms unobtainable due to sedation. Other PMFSH: HTN, CAD/CABG 2009-5 vessel, with diastolic dysfx, COPD, TIA. Otherwise, unobtainable, All other Nursing and Physician documentation reviewed and no new pertinent information relevant to current problems. CXR: (my interp)- Bibasilar interstitial changes, worse on the Right. 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 EKG: sinus 89, no acute ischemic changes. ECHO 03/07 results reviewed. Abd US: no remarkable findings. MAJOR IMPRESSIONS / PLAN: 1. AMS 2 Sedative-Hypnotic meds 2. Acute Resp insuff 2 Hypercarbia and Pneumonia 3. Dehydration 4. Uncontrolled DM II 5. Dementia with hyperactive psychomotor activity PLAN: 1. Neurochecks, seizure precutions. 2. Stop Lexapro and Seroquel. Cautiously resume at a later time if severe psychomotor agitations apparent. Gabapentin may need discontinuation as well since it has CONTENT ASSISTANT effects. 3. Jefferson MV support for airway protection. Too lethargic for BiPAP. Will continue with HFNC support. 4. IVF hydration, ECHO normal. Make Lasix prn. 5. Follow serial Lactates. 6. Maintain normoglycemia. 7. Clarify and Advance Directives. So far, Full Code status noted, but family wishes to not have tube feeds. CCU Objective - Vital Signs / Intake & Output Vital Signs (Last 4 hours): Vital Signs Temp Pulse Resp BP Pulse Ox 03/10/17 18:51 100.6 F H 77 10 L 100 03/10/17 18:05 75 20 116/67 03/10/17 18:00 100.6 F H 81 10 L 149/71 100 03/10/17 16:40 75 116/69 03/10/17 16:33 100.4 F H 75 20 116/69 03/10/17 16:27 88 03/10/17 15:43 100.4 F H 75 20 116/69 93 L Intake and Output (Last 8hrs): Intake & Output 03/10/17 03/10/17 03/10/17 06:59 14:59 22:59 Intake Total 220 Output Total 800 Balance -580 Weight 197 lb 197 lb Intake: Intake, Piggyback 100 Oral 120 Output: Urine 800 Urethral (Sanders) 800 - Physical Exam Physical Exam Limitations: Positive for: Altered Mental Status Head: Positive for: Normocephalic Pupils: Positive for: PERRL Extroacular Muscles: Positive for: EOMI. Negative for: Gaze Palsy Conjunctiva: Negative for: Injected, Icteric Ears: Positive for: Normal Mouth: Positive for: Moist Mucous Membranes Neck: Positive for: Normal Range of Motion. Negative for: Meningeal Signs, JVD , Lymphadenopathy Respiratory/Chest: Positive for: Decreased Breath Sounds. Negative for: Wheezes , Rhonchi Cardiovascular: Positive for: Regular Rate and Rhythm. Negative for: Murmurs, Rub Abdomen: Positive for: Normal Bowel Sounds. Negative for: Tenderness, Distention Upper Extremity: Positive for: Edema Lower Extremity: Positive for: Edema (+2), NORMAL PULSES. Negative for: CALF TENDERNESS (GCS= 5 (E1 V1 M3)), Cyanosis Skin: Positive for: Warm. Negative for: Rashes - Medications Active Medications: Active Medications Generic Name Dose Route Start Last Admin Trade Name Freq PRN Reason Stop Dose Admin Acetaminophen 650 mg 03/04/17 15:46 03/10/17 11:44 Tylenol 325mg Tab PO 650 mg Q4H PRN Administration Temp 101 and above Acetaminophen 325 mg 03/10/17 14:33 Tylenol 325 Mg Supp TN Q4 PRN Fever >100.4 F Al Hydrox/Mg Hydrox/Simethicone 30 ml 03/04/17 23:53 Maalox Plus 30 Ml PO Q4H PRN heartburn, nausea, indigestion Albuterol Sulfate 2.5 mg 03/04/17 23:53 03/07/17 21:53 Albuterol 0.083% Inhal Suzan (2.5 Mg/3 Ml) Ud IH 2.5 mg Q6H PRN Administration Shortness of Breath Albuterol/Ipratropium 3 ml 03/04/17 20:00 03/10/17 07:48 Duoneb 3 Mg/0.5 Mg (3 Ml) Ud INH 3 ml RTID [facility] Administration Alprazolam 0.25 mg 03/04/17 15:46 03/04/17 23:13 Xanax PO 03/11/17 15:47 0.25 mg Q8H PRN Administration Anxiety Aspirin 325 mg 03/10/17 10:00 03/10/17 11:58 Aspirin PO 325 mg DAILY [facility] Administration Atorvastatin Calcium 80 mg 03/05/17 09:00 03/10/17 09:46 Lipitor PO 80 mg DAILY [facility] Administration Budesonide 0.5 mg 03/05/17 08:00 03/10/17 08:04 Pulmicort Respules IH 0.5 mg RBID [facility] Administration Carvedilol 3.125 mg 03/04/17 17:00 03/10/17 16:40 Coreg PO Not Given BID [facility] Escitalopram Oxalate 10 mg 03/05/17 09:00 03/10/17 09:46 Lexapro PO 10 mg DAILY [facility] Administration Ferrous Sulfate 300 mg 03/10/17 10:15 03/10/17 11:47 Feosol Liq PO 300 mg DAILY [facility] Administration Furosemide 20 mg 03/05/17 09:00 03/10/17 09:47 Lasix PO 20 mg DAILY [facility] Administration Gabapentin 100 mg 03/04/17 17:00 03/10/17 16:43 Neurontin PO Not Given TID [facility] Heparin Sodium (Porcine) 5,000 units 03/04/17 16:00 03/10/17 16:39 Heparin SC 5,000 units Q12H [facility] Administration Protocol Home Med 15 mcg 03/04/17 23:45 Arformoterol [Brovana] IH Q12H [facility] Home Med 1 appl 03/04/17 23:53 Phenyleph/Mineral Oil/Petrolat [Preparation H Ointment] TN TID PRN Hemorrhoids Vancomycin HCl 1 gm/ Sodium 250 mls @ 166.667 mls/hr 03/05/17 09:00 03/10/17 09:49 Chloride IVPB 166.667 mls/hr DAILY [facility] Administration Meropenem 500 mg/ Sodium 100 mls @ 100 mls/hr 03/10/17 16:00 03/10/17 17:21 Chloride IVPB 100 mls/hr Q6 [facility] Administration Insulin Detemir 20 units 03/10/17 22:00 Levemir SC HS [facility] Insulin Human Lispro 0 units 03/05/17 16:30 03/10/17 16:41 Humalog SC 4 units ACHS [facility] Administration Protocol Insulin Human Lispro 10 units 03/10/17 16:30 03/10/17 16:42 Humalog SC 10 units AC [facility] Administration Lisinopril 10 mg 03/06/17 11:30 03/10/17 09:43 Zestril PO 10 mg DAILY [facility] Administration Loperamide HCl 2 mg 03/05/17 00:01 Imodium PO Q6H PRN Diarrhea Magnesium Hydroxide 30 ml 03/04/17 23:53 Milk Of Magnesia PO HS PRN Constipation Meclizine HCl 12.5 mg 03/04/17 15:46 Antivert PO Q6H PRN Dizziness Ondansetron HCl 4 mg 03/04/17 15:46 Zofran Tab PO Q4H PRN Nausea/Vomiting Pantoprazole Sodium 40 mg 03/05/17 09:00 03/10/17 09:46 Protonix Ec Tab PO 40 mg DAILY [facility] Administration Potassium Chloride 40 meq 03/07/17 09:00 03/10/17 09:47 K-Dur 20 Meq Er Tab PO Not Given DAILY [facility] Quetiapine Fumarate 50 mg 03/08/17 00:15 03/09/17 21:25 Seroquel PO 50 mg HS [facility] Administration Quetiapine Fumarate 50 mg 03/09/17 09:00 03/10/17 16:43 Seroquel PO Not Given BID [facility] Tiotropium [place] 18 mcg 03/05/17 09:00 03/10/17 10:06 Spiriva IH Not Given DAILY [facility] - Patient Studies Lab Studies: Lab Studies 03/10/17 03/10/17 03/10/17 Range/Units 17:10 17:10 16:13 WBC (4.8-10.8) K/uL RBC (3.80-5.20) Mil/uL Hgb (12.0-16.0) g/dL Hct (34.0-47.0) % MCV (81.0-99.0) fl MCH (27.0-31.0) pg MCHC (33.0-37.0) g/dL RDW (11.5-14.5) % Plt Count (130-400) K/uL pCO2 46 H 44 43 (35-45) mm/Hg pO2 53 L 55 L 77 L (80-100) mm/Hg HCO3 36.9 H 35.2 H 39.0 H (21-28) mmol/L ABG pH 7.55 H 7.54 H 7.59 H (7.35-7.45) ABG Total CO2 41.6 H 39.0 H 42.6 H (22-28) mmol/L ABG O2 Saturation 92.1 L 92.0 L 99.2 H (95-98) % ABG O2 Content 17.5 5.2 L (15-23) ML/dL ABG Base Excess 15.7 H 13.4 H 18.0 H (-2.0-3.0) mmol/L ABG Hemoglobin 14.0 3.7 L (11.7-17.4) g/dL ABG Carboxyhemoglobin 1.5 1.6 H (0.5-1.5) % POC ABG HHb (Measured) 7.6 H 0.8 (0.0-5.0) % ABG Methemoglobin 1.7 1.8 (0.0-3.0) % ABG O2 Capacity 19.0 5.2 L (16-24) mL/dL Rock Test Yes Yes Yes ABG Potassium 3.5 L (3.6-5.2) mmol/L A-a O2 Difference 139.0 140.0 119.0 mm/Hg Hgb O2 Saturation 89.2 L 95.8 (95.0-98.0) % Glucose 421 H* D (65-105) mg/dL Lactate 1.6 (0.7-2.1) mmol/L Liter Flow 40 Vent Mode High flow lpm High flow lpm40 Bipap Mechanical Rate 18 FiO2 35.0 35.0 35.0 % Inspiratory BiPAP 12 Expiratory BiPAP 6 Blood Gas Comments Hand delivered Crit Value Called To Dr nohelia rodas Crit Value Called By Isma Crit Value Read Back Y Blood Gas Notified Time 9305 Sodium 143.0 (132-148) mmol/l Potassium (3.6-5.0) MMOL/L Chloride 104.0 (98-107) mmol/L Carbon Dioxide (22-30) mmol/L Anion Gap (10-20) BUN (7-17) mg/dl Creatinine (0.7-1.2) mg/dL Est GFR ( Amer) Est GFR (Non-Af Amer) POC Glucose (mg/dL) (65-110) mg/dL Random Glucose (65-105) mg/dL Calcium (8.4-10.2) mg/dL Arterial Blood Potassium 3.5 L (3.6-5.2) mmol/L 03/10/17 03/10/17 03/10/17 Range/Units 16:08 13:52 11:26 WBC (4.8-10.8) K/uL RBC (3.80-5.20) Mil/uL Hgb (12.0-16.0) g/dL Hct (34.0-47.0) % MCV (81.0-99.0) fl MCH (27.0-31.0) pg MCHC (33.0-37.0) g/dL RDW (11.5-14.5) % Plt Count (130-400) K/uL pCO2 (35-45) mm/Hg pO2 (80-100) mm/Hg HCO3 (21-28) mmol/L ABG pH (7.35-7.45) ABG Total CO2 (22-28) mmol/L ABG O2 Saturation (95-98) % ABG O2 Content (15-23) ML/dL ABG Base Excess (-2.0-3.0) mmol/L ABG Hemoglobin (11.7-17.4) g/dL ABG Carboxyhemoglobin (0.5-1.5) % POC ABG HHb (Measured) (0.0-5.0) % ABG Methemoglobin (0.0-3.0) % ABG O2 Capacity (16-24) mL/dL Rock Test ABG Potassium (3.6-5.2) mmol/L A-a O2 Difference mm/Hg Hgb O2 Saturation (95.0-98.0) % Glucose (65-105) mg/dL Lactate (0.7-2.1) mmol/L Liter Flow Vent Mode Mechanical Rate FiO2 % Inspiratory BiPAP Expiratory BiPAP Blood Gas Comments Crit Value Called To Crit Value Called By Crit Value Read Back Blood Gas Notified Time Sodium (132-148) mmol/l Potassium (3.6-5.0) MMOL/L Chloride (98-107) mmol/L Carbon Dioxide (22-30) mmol/L Anion Gap (10-20) BUN (7-17) mg/dl Creatinine (0.7-1.2) mg/dL Est GFR ( Amer) Est GFR (Non-Af Amer) POC Glucose (mg/dL) 421 H* 387 H 478 H* (65-110) mg/dL Random Glucose (65-105) mg/dL Calcium (8.4-10.2) mg/dL Arterial Blood Potassium (3.6-5.2) mmol/L 03/10/17 03/10/17 03/10/17 Range/Units 05:27 05:00 05:00 WBC 12.8 H (4.8-10.8) K/uL RBC 4.55 (3.80-5.20) Mil/uL Hgb 13.1 (12.0-16.0) g/dL Hct 40.1 (34.0-47.0) % MCV 88.1 (81.0-99.0) fl MCH 28.8 (27.0-31.0) pg MCHC 32.7 L (33.0-37.0) g/dL RDW 16.1 H (11.5-14.5) % Plt Count 352 (130-400) K/uL pCO2 (35-45) mm/Hg pO2 (80-100) mm/Hg HCO3 (21-28) mmol/L ABG pH (7.35-7.45) ABG Total CO2 (22-28) mmol/L ABG O2 Saturation (95-98) % ABG O2 Content (15-23) ML/dL ABG Base Excess (-2.0-3.0) mmol/L ABG Hemoglobin (11.7-17.4) g/dL ABG Carboxyhemoglobin (0.5-1.5) % POC ABG HHb (Measured) (0.0-5.0) % ABG Methemoglobin (0.0-3.0) % ABG O2 Capacity (16-24) mL/dL Rock Test ABG Potassium (3.6-5.2) mmol/L A-a O2 Difference mm/Hg Hgb O2 Saturation (95.0-98.0) % Glucose (65-105) mg/dL Lactate (0.7-2.1) mmol/L Liter Flow Vent Mode Mechanical Rate FiO2 % Inspiratory BiPAP Expiratory BiPAP Blood Gas Comments Crit Value Called To Crit Value Called By Crit Value Read Back Blood Gas Notified Time Sodium 142 (132-148) mmol/l Potassium 3.5 L (3.6-5.0) MMOL/L Chloride 102 (98-107) mmol/L Carbon Dioxide 35 H (22-30) mmol/L Anion Gap 9 L (10-20) BUN 31 H (7-17) mg/dl Creatinine 1.0 (0.7-1.2) mg/dL Est GFR ( Amer) > 60 Est GFR (Non-Af Amer) 54 POC Glucose (mg/dL) 405 H* (65-110) mg/dL Random Glucose 376 H (65-105) mg/dL Calcium 7.7 L (8.4-10.2) mg/dL Arterial Blood Potassium (3.6-5.2) mmol/L 03/09/17 Range/Units 21:49 WBC (4.8-10.8) K/uL RBC (3.80-5.20) Mil/uL Hgb (12.0-16.0) g/dL Hct (34.0-47.0) % MCV (81.0-99.0) fl MCH (27.0-31.0) pg MCHC (33.0-37.0) g/dL RDW (11.5-14.5) % Plt Count (130-400) K/uL pCO2 (35-45) mm/Hg pO2 (80-100) mm/Hg HCO3 (21-28) mmol/L ABG pH (7.35-7.45) ABG Total CO2 (22-28) mmol/L ABG O2 Saturation (95-98) % ABG O2 Content (15-23) ML/dL ABG Base Excess (-2.0-3.0) mmol/L ABG Hemoglobin (11.7-17.4) g/dL ABG Carboxyhemoglobin (0.5-1.5) % POC ABG HHb (Measured) (0.0-5.0) % ABG Methemoglobin (0.0-3.0) % ABG O2 Capacity (16-24) mL/dL Rock Test ABG Potassium (3.6-5.2) mmol/L A-a O2 Difference mm/Hg Hgb O2 Saturation (95.0-98.0) % Glucose (65-105) mg/dL Lactate (0.7-2.1) mmol/L Liter Flow Vent Mode Mechanical Rate FiO2 % Inspiratory BiPAP Expiratory BiPAP Blood Gas Comments Crit Value Called To Crit Value Called By Crit Value Read Back Blood Gas Notified Time Sodium (132-148) mmol/l Potassium (3.6-5.0) MMOL/L Chloride (98-107) mmol/L Carbon Dioxide (22-30) mmol/L Anion Gap (10-20) BUN (7-17) mg/dl Creatinine (0.7-1.2) mg/dL Est GFR ( Amer) Est GFR (Non-Af Amer) POC Glucose (mg/dL) 463 H* (65-110) mg/dL Random Glucose (65-105) mg/dL Calcium (8.4-10.2) mg/dL Arterial Blood Potassium (3.6-5.2) mmol/L Laboratory Results - last 24 hr 03/09/17 03/10/17 03/10/17 21:49 05:00 05:00 WBC 12.8 H RBC 4.55 Hgb 13.1 Hct 40.1 MCV 88.1 MCH 28.8 MCHC 32.7 L RDW 16.1 H Plt Count 352 pCO2 pO2 HCO3 ABG pH ABG Total CO2 ABG O2 Saturation ABG O2 Content ABG Base Excess ABG Hemoglobin ABG Carboxyhemoglobin POC ABG HHb (Measured) ABG Methemoglobin ABG O2 Capacity [place]ck Test ABG Potassium A-a O2 Difference Hgb O2 Saturation Glucose Lactate Liter Flow Vent Mode Mechanical Rate FiO2 Inspiratory BiPAP Expiratory BiPAP Blood Gas Comments Crit Value Called To Crit Value Called By Crit Value Read Back Blood Gas Notified Time Sodium 142 Potassium 3.5 L Chloride 102 Carbon Dioxide 35 H Anion Gap 9 L BUN 31 H Creatinine 1.0 Est GFR ( Amer) > 60 Est GFR (Non-Af Amer) 54 POC Glucose (mg/dL) 463 H* Random Glucose 376 H Calcium 7.7 L Arterial Blood Potassium 03/10/17 03/10/17 03/10/17 05:27 11:26 13:52 WBC RBC Hgb Hct MCV MCH MCHC RDW Plt Count pCO2 pO2 HCO3 ABG pH ABG Total CO2 ABG O2 Saturation ABG O2 Content ABG Base Excess ABG Hemoglobin ABG Carboxyhemoglobin POC ABG HHb (Measured) ABG Methemoglobin ABG O2 Capacity Rock Test ABG Potassium A-a O2 Difference Hgb O2 Saturation Glucose Lactate Liter Flow Vent Mode Mechanical Rate FiO2 Inspiratory BiPAP Expiratory BiPAP Blood Gas Comments Crit Value Called To Crit Value Called By Crit Value Read Back Blood Gas Notified Time Sodium Potassium Chloride Carbon Dioxide Anion Gap BUN Creatinine Est GFR ( Amer) Est GFR (Non-Af Amer) POC Glucose (mg/dL) 405 H* 478 H* 387 H Random Glucose Calcium Arterial Blood Potassium 03/10/17 03/10/17 03/10/17 16:08 16:13 17:10 WBC RBC Hgb Hct MCV MCH MCHC RDW Plt Count pCO2 43 44 pO2 77 L 55 L HCO3 39.0 H 35.2 H ABG pH 7.59 H 7.54 H ABG Total CO2 42.6 H 39.0 H ABG O2 Saturation 99.2 H 92.0 L ABG O2 Content 5.2 L ABG Base Excess 18.0 H 13.4 H ABG Hemoglobin 3.7 L ABG Carboxyhemoglobin 1.6 H POC ABG HHb (Measured) 0.8 ABG Methemoglobin 1.8 ABG O2 Capacity 5.2 L Rock Test Yes Yes ABG Potassium 3.5 L A-a O2 Difference 119.0 140.0 Hgb O2 Saturation 95.8 Glucose 421 H* D Lactate 1.6 Liter Flow Vent Mode Bipap High flow lpm40 Mechanical Rate 18 FiO2 35.0 35.0 Inspiratory BiPAP 12 Expiratory BiPAP 6 Blood Gas Comments Hand delivered Crit Value Called To Dr nohelia rodas Crit Value Called By 62 Crit Value Read Back Y Blood Gas Notified Time 1715 Sodium 143.0 Potassium Chloride 104.0 Carbon Dioxide Anion Gap BUN Creatinine Est GFR ( Amer) Est GFR (Non-Af Amer) POC Glucose (mg/dL) 421 H* Random Glucose Calcium Arterial Blood Potassium 3.5 L 03/10/17 17:10 WBC RBC Hgb Hct MCV MCH MCHC RDW Plt Count pCO2 46 H pO2 53 L HCO3 36.9 H ABG pH 7.55 H ABG Total CO2 41.6 H ABG O2 Saturation 92.1 L ABG O2 Content 17.5 ABG Base Excess 15.7 H ABG Hemoglobin 14.0 ABG Carboxyhemoglobin 1.5 POC ABG HHb (Measured) 7.6 H ABG Methemoglobin 1.7 ABG O2 Capacity 19.0 Rock Test Yes ABG Potassium A-a O2 Difference 139.0 Hgb O2 Saturation 89.2 L Glucose Lactate Liter Flow 40 Vent Mode High flow lpm Mechanical Rate FiO2 35.0 Inspiratory BiPAP Expiratory BiPAP Blood Gas Comments Crit Value Called To Crit Value Called By Crit Value Read Back Blood Gas Notified Time Sodium Potassium Chloride Carbon Dioxide Anion Gap BUN Creatinine Est GFR ( Amer) Est GFR (Non-Af Amer) POC Glucose (mg/dL) Random Glucose Calcium Arterial Blood Potassium Fingerstick Blood Sugar Results: 421 Critical Care Progress Note - Extremities/Vascular Does the Patient have a Central Venous Catheter?: No Does the Patient need a Central Venous Catheter?: No Does the Patient have a Sanders Catheter?: Yes Does the Patient need a Sanders Catheter?: Yes Catheter Insertion Criteria: Need for accurate measurement of output in critically ill patient - Prophylaxis GI Prophylaxis GI: PPI - Prophylaxis DVT Prophylaxis DVT: Heparin SQ - Nutrition Nutrition: Nutrition Category Date Time Status Dysphagia/Modified Consistency Diet [DIET] Diets 03/09/17 Breakfast Active
[2017-03-10] MEDS ORDERED: Insulin Detemir 100 Units/ml Inj SC SCH (22:00)
[2017-03-11] MEDS: Meropenem 500 MG in Sodium Chloride 0.9% 100 ML IVPB SCH ×4 (03:57→21:12)
[2017-03-11 05:37] LABS: BASO % 0.2 % (0.0-2.0); HEMATOCRIT 43.3 % (34.0-47.0); LYMPH # 0.9 K/uL (1.0-4.3); MEAN CELL VOLUME 88.6 fl (81.0-99.0); MEAN CORPUSCULAR HEMOGLOBIN 28.6 pg (27.0-31.0); MEAN CORPUSCULAR HGB CONC 32.3 g/dL (33.0-37.0); MEAN PLATELET VOLUME 8.5 fl (7.2-11.7); MONO # 0.4 K/uL (0.0-0.8); MONO % 3.6 % (0.0-10.0); NEUT % 89.2 % (50.0-75.0); RED CELL DISTRIBUTION WIDTH 15.9 % (11.5-14.5); WHITE BLOOD COUNT 12.4 K/uL (4.8-10.8)
[2017-03-11 05:38] LABS: ABG ALLEN TEST YES; ARTERIAL BLOOD FLOW 40; ARTERIAL BLOOD GAS HCO3 36.8 mmol/L (21-28); ARTERIAL BLOOD GAS O2 CAPACITY 19.9 mL/dL (16-24); ARTERIAL BLOOD GAS PH 7.54 (7.35-7.45); ARTERIAL BLOOD GAS PO2 64 mm/Hg (80-100); ARTERIAL BLOOD HGB O2 SAT 92.4 % (95.0-98.0); CARBOXYHEMOGLOBIN 1.8 % (0.5-1.5); HHB 4.4 % (0.0-5.0); METHEMOGLOBIN 1.4 % (0.0-3.0)
[2017-03-11 05:41] LABS: ALB/GLOB RATIO 0.9 (1.0-2.1); BILIRUBIN,TOTAL 0.4 mg/dl (0.2-1.3); CALCIUM 7.6 mg/dL (8.4-10.2); POTASSIUM 3.1 MMOL/L (3.6-5.0); TOTAL PROTEIN 5.2 G/DL (6.3-8.2)
[2017-03-11] MEDS: Insulin Lispro (humaLOG) 100 Units/ml Inj SC SCH ×6 (06:44→21:18)
[2017-03-11] MEDS: Albuterol-Ipratrop 3 mg / 0.5 (3 ml) UD INH SCH ×3 (07:21→19:24)
[2017-03-11] MEDS: Budesonide 0.5 mg/2 ml Inhal Susp UD IH SCH ×2 (07:24→19:24)
[2017-03-11] MEDS ORDERED: Enoxaparin 40 mg Syringe SC SCH (09:00)
[2017-03-11] MEDS: Ferrous Sulfate 300 mg/5 mL Liq UD PO SCH (10:45)
[2017-03-11] MEDS: Potassium Chloride 20 mEq ER Tab PO SCH (10:46)
[2017-03-11] MEDS: Pantoprazole 40 mg EC Tab PO SCH (10:48)
[2017-03-11] MEDS: Tiotropium 18 mcg Cap For Inhalation IH SCH (10:49)
--- NOTE | 2017-03-11 10:50 | RAD ---
HISTORY: f/u [facility] COMPARISON: 03/10/2017 FINDINGS: LUNGS: Minimal bibasilar infiltrates. No significant change PLEURA: No significant pleural effusion identified, no pneumothorax apparent. CARDIOVASCULAR: Normal. OSSEOUS STRUCTURES: Sternal wires VISUALIZED UPPER ABDOMEN: Normal. OTHER FINDINGS: None. IMPRESSION: Minimal bibasilar infiltrates
--- NOTE | 2017-03-11 11:27 | CP.PCM.PN ---
Subjective - Date & Time of Evaluation Date of Evaluation: 03/11/17 Time of Evaluation: 11:24 - Subjective Subjective: pt moved to icu for incr persistent lethargy. still w/ low grade fevers. no n/v/ d. on high flow at 45%. spoke w/ daughters who are considering hospice but son who is poa is not available. pt is full code as per documentation. per social director there was hospice discussion yesterday all naprapath medication was d/c yesterday Objective - Vital Signs/Intake and Output Vital Signs (last 24 hours): Temp Pulse Resp BP Pulse Ox 100.5 F H 86 24 139/82 99 03/11/17 08:00 03/11/17 10:49 03/11/17 08:00 03/11/17 10:49 03/11/17 08:00 Intake and Output: 03/11/17 03/11/17 06:59 18:59 Intake Total 890 Output Total 1050 Balance -160 - Medications Medications: Current Medications Acetaminophen (Tylenol 325mg Tab) 650 mg PO Q4H PRN PRN Reason: Temp 101 and above Last Admin: 03/10/17 11:44 Dose: 650 mg Acetaminophen (Tylenol 325 Mg Supp) 325 mg [place] Q4 PRN PRN Reason: Fever >100.4 F Last Admin: 03/11/17 05:54 Dose: 325 mg Al Hydrox/Mg Hydrox/Simethicone (Maalox Plus 30 Ml) 30 ml PO Q4H PRN PRN Reason: heartburn, nausea, indigestion Albuterol Sulfate (Albuterol 0.083% Inhal Suzan (2.5 Mg/3 Ml) Ud) 2.5 mg IH Q6H PRN PRN Reason: Shortness of Breath Last Admin: 03/07/17 21:53 Dose: 2.5 mg Albuterol/Ipratropium (Duoneb 3 Mg/0.5 Mg (3 Ml) Ud) 3 ml INH RTID [facility] Last Admin: 03/11/17 07:21 Dose: 3 ml Aspirin (Aspirin) 325 mg PO DAILY [facility] Last Admin: 03/11/17 10:44 Dose: Not Given Atorvastatin Calcium (Lipitor) 80 mg PO DAILY [facility] Last Admin: 03/11/17 10:47 Dose: Not Given Budesonide (Pulmicort Respules) 0.5 mg IH RBID [facility] Last Admin: 03/11/17 07:24 Dose: 0.5 mg Carvedilol (Coreg) 3.125 mg PO BID [facility] Last Admin: 03/11/17 10:44 Dose: Not Given Enoxaparin Sodium (Lovenox) 40 mg SC DAILY [facility] PRN Reason: Protocol Last Admin: 03/11/17 10:48 Dose: Not Given Ferrous Sulfate (Feosol Liq) 300 mg PO DAILY [facility] Last Admin: 03/11/17 10:45 Dose: Not Given Furosemide (Lasix) 20 mg PO DAILY [facility] Last Admin: 03/11/17 10:47 Dose: Not Given Heparin Sodium (Porcine) (Heparin) 5,000 units SC Q12H [facility] PRN Reason: Protocol Last Admin: 03/11/17 03:56 Dose: 5,000 units Home Med (Arformoterol [Brovana]) 15 mcg IH Q12H [facility] Home Med (Phenyleph/Mineral Oil/Petrolat [Preparation H Ointment]) 1 appl [place] TID PRN PRN Reason: Hemorrhoids Vancomycin HCl 1 gm/ Sodium (Chloride) 250 mls @ 166.667 mls/hr IVPB DAILY [facility] Last Admin: 03/11/17 08:21 Dose: 166.667 mls/hr Meropenem 500 mg/ Sodium (Chloride) 100 mls @ 100 mls/hr IVPB Q6 [facility] Last Admin: 03/11/17 03:57 Dose: 100 mls/hr Insulin Detemir (Levemir) 20 units SC HS [facility] Last Admin: 03/10/17 22:05 Dose: 20 units Insulin Human Lispro (Humalog) 0 units SC ACHS [facility] PRN Reason: Protocol Last Admin: 03/11/17 06:44 Dose: 3 units Insulin Human Lispro (Humalog) 10 units SC AC [facility] Last Admin: 03/11/17 10:45 Dose: Not Given Lisinopril (Zestril) 10 mg PO DAILY [facility] Last Admin: 03/11/17 10:49 Dose: Not Given Loperamide HCl (Imodium) 2 mg PO Q6H PRN PRN Reason: Diarrhea Magnesium Hydroxide (Milk Of Magnesia) 30 ml PO HS PRN PRN Reason: Constipation Meclizine HCl (Antivert) 12.5 mg PO Q6H PRN PRN Reason: Dizziness Ondansetron HCl (Zofran Tab) 4 mg PO Q4H PRN PRN Reason: Nausea/Vomiting Pantoprazole Sodium (Protonix Ec Tab) 40 mg PO DAILY [facility] Last Admin: 03/11/17 10:48 Dose: Not Given Potassium Chloride (K-Dur 20 Meq Er Tab) 40 meq PO DAILY [facility] Last Admin: 03/11/17 10:46 Dose: Not Given Tiotropium [place] (Spiriva) 18 mcg IH DAILY [facility] Last Admin: 03/11/17 10:49 Dose: Not Given - Labs Labs: 03/11/17 04:40 03/11/17 04:40 - Constitutional Appears: No Acute Distress, Older Than Stated Age, Chronically Ill - Head Exam Head Exam: ATRAUMATIC, NORMAL INSPECTION, NORMOCEPHALIC - Eye Exam Eye Exam: EOMI, Normal appearance, PERRL Pupil Exam: NORMAL ACCOMODATION, PERRL - ENT Exam ENT Exam: Mucous Membranes Moist, Normal Exam - Neck Exam Neck Exam: Full ROM, Normal Inspection. absent: Lymphadenopathy - Respiratory Exam Respiratory Exam: Clear to Ausculation Bilateral, NORMAL BREATHING PATTERN - Cardiovascular Exam Cardiovascular Exam: REGULAR RHYTHM, RRR, +S1, +S2. absent: Murmur - GI/Abdominal Exam GI & Abdominal Exam: Soft, Normal Bowel Sounds. absent: Tenderness - Rectal Exam Rectal Exam: NORMAL INSPECTION - Extremities Exam Extremities Exam: Full ROM, Normal Capillary Refill, Normal Inspection. absent : Joint Swelling, Pedal Edema - Back Exam Back Exam: Full ROM, NORMAL INSPECTION - Neurological Exam Neurological Exam: Abnormal Gait, Altered, CN II-XII Intact - Psychiatric Exam Psychiatric exam: Normal Affect, Normal Mood - Skin Skin Exam: Dry, Intact, Normal Color, Warm Assessment and Plan (1) CHF (congestive heart failure) Status: Acute (2) COPD exacerbation Status: Acute (3) Pneumonia Status: Acute (4) DVT prophylaxis Status: Acute (5) Type 2 diabetes mellitus with hyperglycemia Status: Acute - Assessment and Plan (Free Text) Assessment: (1) CHF (congestive heart failure) Assessment & Plan: cardio cont meds lasix Status: Acute (2) COPD exacerbation Assessment & Plan: pulm anbx neb tx high flow o2 Status: Acute (3) Pneumonia Assessment & Plan: zosyn, vanco, high flow o2, pulm consult, Id consult, merrem added yesterday Status: Acute (4) DVT prophylaxis Assessment & Plan: scd and ae hose heparin Status: Acute (5) Type 2 diabetes mellitus with hyperglycemia Assessment & Plan: riss, homemeds, endo consult, fsbg Status: Acute [id number], ct head-negative [id number], echo noted, tsh-wnl prognosis poor, pt w/ periods of lethargy all naprapath meds held. woke up yesterday. will speak to family about poc. finalidze code status, ?? hospice
--- NOTE | 2017-03-11 12:14 | CP.PCM.PN ---
Subjective - Date & Time of Evaluation Date of Evaluation: 03/11/17 Time of Evaluation: 12:15 - Subjective Subjective: STILL LETHARGIC RESPONDS TO PAINFUL STIMULI ON HIGH FLOW O2 Objective - Vital Signs/Intake and Output Vital Signs (last 24 hours): Temp Pulse Resp BP Pulse Ox 100.5 F H 100 H 89 H 109/60 100 03/11/17 12:00 03/11/17 12:00 03/11/17 12:00 03/11/17 12:00 03/11/17 12:00 Intake and Output: 03/11/17 03/11/17 06:59 18:59 Intake Total 890 0 Output Total 1050 60 Balance -160 -60 - Medications Medications: Current Medications Acetaminophen (Tylenol 325mg Tab) 650 mg PO Q4H PRN PRN Reason: Temp 101 and above Last Admin: 03/10/17 11:44 Dose: 650 mg Acetaminophen (Tylenol 325 Mg Supp) 325 mg [place] Q4 PRN PRN Reason: Fever >100.4 F Last Admin: 03/11/17 05:54 Dose: 325 mg Al Hydrox/Mg Hydrox/Simethicone (Maalox Plus 30 Ml) 30 ml PO Q4H PRN PRN Reason: heartburn, nausea, indigestion Albuterol Sulfate (Albuterol 0.083% Inhal Suzan (2.5 Mg/3 Ml) Ud) 2.5 mg IH Q6H PRN PRN Reason: Shortness of Breath Last Admin: 03/07/17 21:53 Dose: 2.5 mg Albuterol/Ipratropium (Duoneb 3 Mg/0.5 Mg (3 Ml) Ud) 3 ml INH RTID [facility] Last Admin: 03/11/17 07:21 Dose: 3 ml Aspirin (Aspirin) 325 mg PO DAILY [facility] Last Admin: 03/11/17 10:44 Dose: Not Given Atorvastatin Calcium (Lipitor) 80 mg PO DAILY [facility] Last Admin: 03/11/17 10:47 Dose: Not Given Budesonide (Pulmicort Respules) 0.5 mg IH RBID [facility] Last Admin: 03/11/17 07:24 Dose: 0.5 mg Carvedilol (Coreg) 3.125 mg PO BID [facility] Last Admin: 03/11/17 10:44 Dose: Not Given Enoxaparin Sodium (Lovenox) 40 mg SC DAILY [facility] PRN Reason: Protocol Last Admin: 03/11/17 10:48 Dose: Not Given Ferrous Sulfate (Feosol Liq) 300 mg PO DAILY [facility] Last Admin: 03/11/17 10:45 Dose: Not Given Furosemide (Lasix) 20 mg PO DAILY [facility] Last Admin: 03/11/17 10:47 Dose: Not Given Heparin Sodium (Porcine) (Heparin) 5,000 units SC Q12H [facility] PRN Reason: Protocol Last Admin: 03/11/17 03:56 Dose: 5,000 units Home Med (Arformoterol [Brovana]) 15 mcg IH Q12H [facility] Home Med (Phenyleph/Mineral Oil/Petrolat [Preparation H Ointment]) 1 appl [place] TID PRN PRN Reason: Hemorrhoids Vancomycin HCl 1 gm/ Sodium (Chloride) 250 mls @ 166.667 mls/hr IVPB DAILY [facility] Last Admin: 03/11/17 08:21 Dose: 166.667 mls/hr Meropenem 500 mg/ Sodium (Chloride) 100 mls @ 100 mls/hr IVPB Q6 [facility] Last Admin: 03/11/17 03:57 Dose: 100 mls/hr Insulin Detemir (Levemir) 26 units SC HS [facility] Insulin Human Lispro (Humalog) 0 units SC ACHS [facility] PRN Reason: Protocol Last Admin: 03/11/17 11:56 Dose: Not Given Insulin Human Lispro (Humalog) 14 units SC AC [facility] Lisinopril (Zestril) 10 mg PO DAILY [facility] Last Admin: 03/11/17 10:49 Dose: Not Given Loperamide HCl (Imodium) 2 mg PO Q6H PRN PRN Reason: Diarrhea Magnesium Hydroxide (Milk Of Magnesia) 30 ml PO HS PRN PRN Reason: Constipation Meclizine HCl (Antivert) 12.5 mg PO Q6H PRN PRN Reason: Dizziness Ondansetron HCl (Zofran Tab) 4 mg PO Q4H PRN PRN Reason: Nausea/Vomiting Pantoprazole Sodium (Protonix Ec Tab) 40 mg PO DAILY [facility] Last Admin: 03/11/17 10:48 Dose: Not Given Potassium Chloride (K-Dur 20 Meq Er Tab) 40 meq PO DAILY [facility] Last Admin: 03/11/17 10:46 Dose: Not Given Tiotropium [place] (Spiriva) 18 mcg IH DAILY [facility] Last Admin: 03/11/17 10:49 Dose: Not Given - Labs Labs: 03/11/17 04:40 03/11/17 04:40 - Constitutional Appears: Chronically Ill - Head Exam Head Exam: ATRAUMATIC, NORMAL INSPECTION, NORMOCEPHALIC - Eye Exam Eye Exam: EOMI, Normal appearance, PERRL Pupil Exam: NORMAL ACCOMODATION, PERRL - ENT Exam ENT Exam: Mucous Membranes Moist, Normal Exam - Neck Exam Neck Exam: Full ROM, Normal Inspection. absent: Lymphadenopathy - Respiratory Exam Respiratory Exam: Decreased Breath Sounds, Rales, Respiratory Distress - Cardiovascular Exam Cardiovascular Exam: REGULAR RHYTHM, +S1, +S2. absent: Murmur - GI/Abdominal Exam GI & Abdominal Exam: Soft, Normal Bowel Sounds. absent: Tenderness - Rectal Exam Rectal Exam: NORMAL INSPECTION - Extremities Exam Extremities Exam: Pedal Edema. absent: Joint Swelling - Back Exam Back Exam: NORMAL INSPECTION - Skin Skin Exam: Dry, Intact, Normal Color, Warm Assessment and Plan - Assessment and Plan (Free Text) Assessment: CHF PNEUMONIA RESPIRATORY FAILURE Plan: SUGGEST SUPPORTIVE CARE PROGNOSIS IS POOR
[2017-03-11] MEDS: Potassium CL 10mEq/100ml 100 ML IVPB SCH ×3 (13:30→18:02)
--- NOTE | 2017-03-11 13:46 | CP.PCM.PN ---
Subjective - Date & Time of Evaluation Date of Evaluation: 03/11/17 Time of Evaluation: 08:00 - Subjective Subjective: REMAINS RESPONSIVE ONLY TO PAIN FEVERS PERSIST CXR SHOWING BIBASILAR INFILTRATES CULTURES NEG THUS FAR ADDED COVERAGE FOR [employer] Objective - Vital Signs/Intake and Output Vital Signs (last 24 hours): Temp Pulse Resp BP Pulse Ox 100.5 F H 100 H 89 H 109/60 100 03/11/17 12:00 03/11/17 12:00 03/11/17 12:00 03/11/17 12:00 03/11/17 12:00 Intake and Output: 03/11/17 03/11/17 06:59 18:59 Intake Total 890 350 Output Total 1050 180 Balance -160 170 - Medications Medications: Current Medications Acetaminophen (Tylenol 325mg Tab) 650 mg PO Q4H PRN PRN Reason: Temp 101 and above Last Admin: 03/10/17 11:44 Dose: 650 mg Acetaminophen (Tylenol 325 Mg Supp) 325 mg [place] Q4 PRN PRN Reason: Fever >100.4 F Last Admin: 03/11/17 05:54 Dose: 325 mg Albuterol Sulfate (Albuterol 0.083% Inhal Suzan (2.5 Mg/3 Ml) Ud) 2.5 mg IH Q6H PRN PRN Reason: Shortness of Breath Last Admin: 03/07/17 21:53 Dose: 2.5 mg Albuterol/Ipratropium (Duoneb 3 Mg/0.5 Mg (3 Ml) Ud) 3 ml INH RTID [facility] Last Admin: 03/11/17 13:35 Dose: 3 ml Aspirin (Aspirin) 325 mg PO DAILY [facility] Last Admin: 03/11/17 10:44 Dose: Not Given Atorvastatin Calcium (Lipitor) 80 mg PO DAILY [facility] Last Admin: 03/11/17 10:47 Dose: Not Given Budesonide (Pulmicort Respules) 0.5 mg IH RBID [facility] Last Admin: 03/11/17 07:24 Dose: 0.5 mg Carvedilol (Coreg) 3.125 mg PO BID [facility] Last Admin: 03/11/17 10:44 Dose: Not Given Enoxaparin Sodium (Lovenox) 40 mg SC DAILY [facility] PRN Reason: Protocol Last Admin: 03/11/17 10:48 Dose: Not Given Ferrous Sulfate (Feosol Liq) 300 mg PO DAILY [facility] Last Admin: 03/11/17 10:45 Dose: Not Given Heparin Sodium (Porcine) (Heparin) 5,000 units SC Q12H [facility] PRN Reason: Protocol Last Admin: 03/11/17 03:56 Dose: 5,000 units Home Med (Arformoterol [Brovana]) 15 mcg IH Q12H [facility] Home Med (Phenyleph/Mineral Oil/Petrolat [Preparation H Ointment]) 1 appl [place] TID PRN PRN Reason: Hemorrhoids Vancomycin HCl 1 gm/ Sodium (Chloride) 250 mls @ 166.667 mls/hr IVPB DAILY [facility] Last Admin: 03/11/17 08:21 Dose: 166.667 mls/hr Meropenem 500 mg/ Sodium (Chloride) 100 mls @ 100 mls/hr IVPB Q6 [facility] Last Admin: 03/11/17 12:32 Dose: 100 mls/hr Potassium Chloride (Potassium Chloride 10 Meq/100 Ml) 100 mls @ 100 mls/hr IVPB Q1 [facility] Stop: 03/11/17 15:59 Insulin Detemir (Levemir) 26 units SC HS [facility] Insulin Human Lispro (Humalog) 0 units SC ACHS [facility] PRN Reason: Protocol Last Admin: 03/11/17 11:56 Dose: Not Given Insulin Human Lispro (Humalog) 14 units SC AC [facility] Lisinopril (Zestril) 10 mg PO DAILY [facility] Last Admin: 03/11/17 10:49 Dose: Not Given Loperamide HCl (Imodium) 2 mg PO Q6H PRN PRN Reason: Diarrhea Magnesium Hydroxide (Milk Of Magnesia) 30 ml PO HS PRN PRN Reason: Constipation Meclizine HCl (Antivert) 12.5 mg PO Q6H PRN PRN Reason: Dizziness Ondansetron HCl (Zofran Tab) 4 mg PO Q4H PRN PRN Reason: Nausea/Vomiting Tiotropium [place] (Spiriva) 18 mcg IH DAILY [facility] Last Admin: 03/11/17 10:49 Dose: Not Given - Labs Labs: 03/11/17 04:40 03/11/17 04:40 - Constitutional Appears: Non-toxic, Confused, Chronically Ill - Head Exam Head Exam: ATRAUMATIC, NORMAL INSPECTION, NORMOCEPHALIC - Eye Exam Eye Exam: PERRL. absent: Scleral icterus - ENT Exam ENT Exam: Mucous Membranes Dry - Neck Exam Neck Exam: absent: Lymphadenopathy, Thyromegaly - Respiratory Exam Respiratory Exam: Decreased Breath Sounds, Prolonged Expiratory Phase, Rhonchi - Cardiovascular Exam Cardiovascular Exam: REGULAR RHYTHM, +S1, +S2 - GI/Abdominal Exam GI & Abdominal Exam: Distended, Soft. absent: Tenderness - Rectal Exam Rectal Exam: Deferred - Exam Exam: NORMAL INSPECTION - Extremities Exam Extremities Exam: Pedal Edema. absent: Calf Tenderness, Tenderness - Back Exam Back Exam: absent: CVA tenderness (L), CVA tenderness (R) - Neurological Exam Neurological Exam: Altered - Psychiatric Exam Psychiatric exam: Depressed - Skin Skin Exam: Dry Assessment and Plan (1) CHF (congestive heart failure) Status: Acute (2) COPD exacerbation Status: Acute (3) Pneumonia Status: Acute - Assessment and Plan (Free Text) Assessment: AWAIT MRI BRAIN ADD [employer] COVERAGE OVERALL POOR PROGNOSIS CONSIDER EEG , LP IF MRI NEG AND FEVER PERSISTS
--- NOTE | 2017-03-11 15:47 | PN ---
LOCATION: Room #425 This is a 76-year-old female with recent uncontrolled type 2 insulin requiring diabetes, now being managed for acute pneumonitis and is also being followed closely for metabolic management. Her glycemic levels are fluctuating as noted and have ranged from 276 to 350 mg/dL today as noted. Her latest chemistry showed a BUN of 36, sodium 146, potassium 3.1, chloride 107, CO2 of 34, glucose 321 and creatinine 1.1. So at this time, we will modify her basal and bolus insulin regimen and increase the Levemir to 26 units subQ at bedtime daily to start tonight as ordered. We will also add Humalog given at 14 units subQ t.i.d. before meals to start at dinner time today as ordered. We will titrate incremental as indicated to optimize metabolic control. We will follow. Oma Martines MD
--- NOTE | 2017-03-11 15:57 | MRI ---
PROCEDURE: MRI BRAIN WITHOUT CONTRAST HISTORY: ams COMPARISON: None. TECHNIQUE: Multiplanar, multisequence MR images of the brain were obtained without intravenous contrast enhancement. FINDINGS: HEMORRHAGE: Likely chronic hematoma of the left cerebellar peduncle and left cerebellum where hemosiderin is quite prominent on the gradient echo axial series. An element of restricted diffusion difficult to exclude here and may reflect superimposed acute to subacute brain. DWI: Described in separate section below. BRAIN PARENCHYMA: A tiny acute lacunar infarct in the left temporoparietal region lateral to the left lateral ventricle atrium with no definite additional acute infarction identified otherwise. There is no mass effect. There is no suspicious extra-axial fluid collection identified. Expanded ventricular sulcal sternal spaces are identified compatible diffuse cerebral atrophy and there is extensive chronic microangiopathy appreciated as well. A chronic lacune is seen at the left frontal lobe with additional chronic lacune is seen at the epps radiata at the parietal lobe superiorly. VENTRICLES: Unremarkable. No hydrocephalus. CRANIUM: Unremarkable. ORBITS: Grossly unremarkable. PARANASAL SINUSES/MASTOIDS: Clear VASCULAR SYSTEM: Skull base flow voids intact. OTHER FINDINGS: Partially calcified space cyst is seen at the right frontal scalp at the vertex, better proven in prior CT than the current MR sequences. IMPRESSION: 1. Cystic encephalomalacia at the left cerebellar peduncle and anterior to central left cerebellum associated with chronic hemorrhage. Hemosiderin distorts the diffusion-weighted examination here however an element of acute or subacute infarction is not excluded here. An acute lacune infarctions identified at the left temporoparietal region lateral to the left lateral ventricle atrium. 2. Relatively extensive age-related neuro degenerative changes, likely age-appropriate.
[2017-03-11] MEDS ORDERED: Insulin Lispro (humaLOG) 100 Units/ml Inj SC SCH (16:30)
--- NOTE | 2017-03-11 17:27 | US ---
PROCEDURE: Bilateral lower extremity venous duplex Doppler. HISTORY: Assess for DVT COMPARISON: None available. TECHNIQUE: Bilateral common femoral, superficial femoral, popliteal and posterior tibial veins were evaluated. Flow was assessed with color Doppler, compressibility, assessment of phasic flow and augmentation response. FINDINGS: COMMON FEMORAL VEIN: Right CFV: Unremarkable. Left CFV: Unremarkable. SUPERFICIAL FEMORAL VEIN: Right SFV: Unremarkable. Please note that distal aspect of right superior femoral vein could not be adequately visualized. Left SFV: Unremarkable. POPLITEAL VEIN: Right Popliteal: Unremarkable. Left Popliteal: Unremarkable. POSTERIOR TIBIAL VEIN: Right PTV: Unremarkable. Left PTV: Unremarkable. OTHER FINDINGS: Bilateral diffuse subcutaneous edema, nonspecific. IMPRESSION: No evidence of deep venous thrombosis of the right or left lower extremity. .
--- NOTE | 2017-03-11 17:45 | CP.CCUPN ---
CCU Subjective - Physician Review Subjective (Free Text): Remains lethargic, on HFNC, has facial grimacing only to deep pain stimuli, but moving arms purposefully; when awakened, will not open eyes, but answers yes or no, otherwise not much more interactive than this. Does not appear distressed, SPO2 100% on HFNC ROS: as above, other symptoms unobtainable due to sedation. Other PMFSH: All other Nursing and Physician documentation reviewed and no new pertinent information relevant to current problems. MAJOR IMPRESSIONS / PLAN: 1. AMS 2 Sedative-Hypnotic meds, r/o Acute CVA 2. Acute Resp insuff 2 Hypercarbia and Pneumonia 3. Dehydration 4. Uncontrolled DM II 5. h/o Dementia with hyperactive psychomotor activity- none manifest now. PLAN: 1. Neurochecks, seizure precutions. Neurology F/U. Consider MRU Brain imaging. 2. Stop Lexapro and Seroquel; Gabapentin all have adverse [employer] OPERATOR effects. 3. [place] MV support for airway protection. Too lethargic for BiPAP. Will continue with HFNC support. 4. IVF hydration, ECHO normal. Make Lasix prn. 5. Follow serial Lactates. 6. Maintain normoglycemia. 7. Clarify and Advance Directives. Discussed with PMD: Hospice eval already ordered yesterday. CCU Objective - Vital Signs / Intake & Output Intake and Output (Last 8hrs): Intake & Output 03/11/17 03/11/17 03/11/17 06:59 14:59 22:59 Intake Total 100 350 Output Total 550 180 Balance -450 170 Intake: IV 350 Intake, Piggyback 100 Oral 0 0 Output: Urine 550 180 Urethral (Sanders) 550 180 - Physical Exam Head: Positive for: Normocephalic Pupils: Positive for: PERRL Extroacular Muscles: Positive for: EOMI. Negative for: Gaze Palsy Conjunctiva: Negative for: Injected, Icteric Ears: Positive for: Normal Mouth: Positive for: Moist Mucous Membranes Neck: Positive for: Normal Range of Motion. Negative for: Meningeal Signs, JVD , Lymphadenopathy Respiratory/Chest: Positive for: Decreased Breath Sounds. Negative for: Wheezes , Rhonchi Cardiovascular: Positive for: Regular Rate and Rhythm. Negative for: Murmurs, Rub Abdomen: Positive for: Normal Bowel Sounds. Negative for: Tenderness, Distention Upper Extremity: Positive for: Edema Lower Extremity: Positive for: Edema (+2), NORMAL PULSES. Negative for: CALF TENDERNESS (GCS= 5 (E1 V1 M3)), Cyanosis Skin: Positive for: Warm. Negative for: Rashes Psychiatric: Positive for: Lethargic - Medications Active Medications: Active Medications Generic Name Dose Route Start Last Admin Trade Name Freq PRN Reason Stop Dose Admin Acetaminophen 650 mg 03/04/17 15:46 03/10/17 11:44 Tylenol 325mg Tab PO 650 mg Q4H PRN Administration Temp 101 and above Acetaminophen 325 mg 03/10/17 14:33 03/11/17 05:54 Tylenol 325 Mg Supp [place] 325 mg Q4 PRN Administration Fever >100.4 F Albuterol Sulfate 2.5 mg 03/04/17 23:53 03/07/17 21:53 Albuterol 0.083% Inhal Suzan (2.5 Mg/3 Ml) Ud IH 2.5 mg Q6H PRN Administration Shortness of Breath Albuterol/Ipratropium 3 ml 03/04/17 20:00 03/11/17 13:35 Duoneb 3 Mg/0.5 Mg (3 Ml) Ud INH 3 ml RTID [facility] Administration Aspirin 325 mg 03/10/17 10:00 03/11/17 10:44 Aspirin PO Not Given DAILY [facility] Atorvastatin Calcium 80 mg 03/05/17 09:00 03/11/17 10:47 Lipitor PO Not Given DAILY [facility] Budesonide 0.5 mg 03/05/17 08:00 03/11/17 07:24 Pulmicort Respules IH 0.5 mg RBID [facility] Administration Carvedilol 3.125 mg 03/04/17 17:00 03/11/17 10:44 Coreg PO Not Given BID [facility] Enoxaparin Sodium 40 mg 03/11/17 09:00 03/11/17 10:48 Lovenox SC Not Given DAILY [facility] Protocol Ferrous Sulfate 300 mg 03/10/17 10:15 03/11/17 10:45 Feosol Liq PO Not Given DAILY [facility] Heparin Sodium (Porcine) 5,000 units 03/04/17 16:00 03/11/17 17:31 Heparin SC 5,000 units Q12H [facility] Administration Protocol Home Med 15 mcg 03/04/17 23:45 Arformoterol [Brovana] IH Q12H [facility] Home Med 1 appl 03/04/17 23:53 Phenyleph/Mineral Oil/Petrolat [Preparation H Ointment] NV TID PRN Hemorrhoids Vancomycin HCl 1 gm/ Sodium 250 mls @ 166.667 mls/hr 03/05/17 09:00 03/11/17 08:21 Chloride IVPB 166.667 mls/hr DAILY [facility] Administration Meropenem 500 mg/ Sodium 100 mls @ 100 mls/hr 03/10/17 16:00 03/11/17 17:33 Chloride IVPB 100 mls/hr Q6 [facility] Administration Acyclovir 500 mg/ Sodium 100 mls @ 100 mls/hr 03/11/17 14:00 Chloride IVPB Q12H [facility] Azithromycin 500 mg/ Sodium 250 mls @ 250 mls/hr 03/11/17 14:00 Chloride IVPB DAILY [facility] Insulin Detemir 26 units 03/11/17 22:00 Levemir SC HS [facility] Insulin Human Lispro 0 units 03/05/17 16:30 03/11/17 17:31 Humalog SC Not Given ACHS [facility] Protocol Insulin Human Lispro 14 units 03/11/17 16:30 03/11/17 17:32 Humalog SC Not Given AC [facility] Lisinopril 10 mg 03/06/17 11:30 03/11/17 10:49 Zestril PO Not Given DAILY [facility] Loperamide HCl 2 mg 03/05/17 00:01 Imodium PO Q6H PRN Diarrhea Magnesium Hydroxide 30 ml 03/04/17 23:53 Milk Of Magnesia PO HS PRN Constipation Meclizine HCl 12.5 mg 03/04/17 15:46 Antivert PO Q6H PRN Dizziness Tiotropium [place] 18 mcg 03/05/17 09:00 03/11/17 10:49 Spiriva IH Not Given DAILY [facility] - Patient Studies Lab Studies: Microbiology Studies 03/10/17 18:19 Urine Culture - Final Urine,Sanders No Growth (<1,000 CFU/ML) 03/10/17 03:10 Blood Culture - Preliminary Blood NO GROWTH AFTER 24 HOURS 03/10/17 02:45 Blood Culture - Preliminary Blood NO GROWTH AFTER 24 HOURS Lab Studies 03/11/17 03/11/17 03/11/17 Range/Units 17:03 14:42 11:28 WBC (4.8-10.8) K/uL RBC (3.80-5.20) Mil/uL Hgb (12.0-16.0) g/dL Hct (34.0-47.0) % MCV (81.0-99.0) fl MCH (27.0-31.0) pg MCHC (33.0-37.0) g/dL RDW (11.5-14.5) % Plt Count (130-400) K/uL MPV (7.2-11.7) fl Neut % (Auto) (50.0-75.0) % Lymph % (Auto) (20.0-40.0) % [place] % (Auto) (0.0-10.0) % Eos % (Auto) (0.0-4.0) % Baso % (Auto) (0.0-2.0) % Neut # (1.8-7.0) K/uL Lymph # (1.0-4.3) K/uL [place] # (0.0-0.8) K/uL Eos # (0.0-0.7) K/uL Baso # (0.0-0.2) K/uL pCO2 (35-45) mm/Hg pO2 (80-100) mm/Hg HCO3 (21-28) mmol/L ABG pH (7.35-7.45) ABG Total CO2 (22-28) mmol/L ABG O2 Saturation (95-98) % ABG O2 Content (15-23) ML/dL ABG Base Excess (-2.0-3.0) mmol/L ABG Hemoglobin (11.7-17.4) g/dL ABG Carboxyhemoglobin (0.5-1.5) % POC ABG HHb (Measured) (0.0-5.0) % ABG Methemoglobin (0.0-3.0) % ABG O2 Capacity (16-24) mL/dL Rock Test A-a O2 Difference mm/Hg Hgb O2 Saturation (95.0-98.0) % Liter Flow FiO2 % Sodium (132-148) mmol/l Potassium (3.6-5.0) MMOL/L Chloride (98-107) mmol/L Carbon Dioxide (22-30) mmol/L Anion Gap (10-20) BUN (7-17) mg/dl Creatinine (0.7-1.2) mg/dL Est GFR ( Amer) Est GFR (Non-Af Amer) POC Glucose (mg/dL) 291 H 271 H (65-110) mg/dL Random Glucose (65-105) mg/dL Serum Osmolality (272-300) mosm/kg Lactic Acid (0.7-2.1) MMOL/L Calcium (8.4-10.2) mg/dL Total Bilirubin (0.2-1.3) mg/dl AST (14-36) U/L ALT (9-52) U/L Alkaline Phosphatase (38-126) U/L Ammonia 21 (11-51) umo/L Total Protein (6.3-8.2) G/DL Albumin (3.5-5.0) g/dL Globulin (2.2-3.9) gm/dL Albumin/Globulin Ratio (1.0-2.1) 03/11/17 03/11/17 03/11/17 Range/Units 05:44 05:34 04:40 WBC (4.8-10.8) K/uL RBC (3.80-5.20) Mil/uL Hgb (12.0-16.0) g/dL Hct (34.0-47.0) % MCV (81.0-99.0) fl MCH (27.0-31.0) pg MCHC (33.0-37.0) g/dL RDW (11.5-14.5) % Plt Count (130-400) K/uL MPV (7.2-11.7) fl Neut % (Auto) (50.0-75.0) % Lymph % (Auto) (20.0-40.0) % [place] % (Auto) (0.0-10.0) % Eos % (Auto) (0.0-4.0) % Baso % (Auto) (0.0-2.0) % Neut # (1.8-7.0) K/uL Lymph # (1.0-4.3) K/uL [place] # (0.0-0.8) K/uL Eos # (0.0-0.7) K/uL Baso # (0.0-0.2) K/uL pCO2 47 H (35-45) mm/Hg pO2 64 L (80-100) mm/Hg HCO3 36.8 H (21-28) mmol/L ABG pH 7.54 H (7.35-7.45) ABG Total CO2 41.6 H (22-28) mmol/L ABG O2 Saturation 95.5 (95-98) % ABG O2 Content 19.0 (15-23) ML/dL ABG Base Excess 15.4 H (-2.0-3.0) mmol/L ABG Hemoglobin 14.6 (11.7-17.4) g/dL ABG Carboxyhemoglobin 1.8 H (0.5-1.5) % POC ABG HHb (Measured) 4.4 (0.0-5.0) % ABG Methemoglobin 1.4 (0.0-3.0) % ABG O2 Capacity 19.9 (16-24) mL/dL Rock Test Yes A-a O2 Difference 127.0 mm/Hg Hgb O2 Saturation 92.4 L (95.0-98.0) % Liter Flow 40 FiO2 35.0 % Sodium (132-148) mmol/l Potassium (3.6-5.0) MMOL/L Chloride (98-107) mmol/L Carbon Dioxide (22-30) mmol/L Anion Gap (10-20) BUN (7-17) mg/dl Creatinine (0.7-1.2) mg/dL Est GFR ( Amer) Est GFR (Non-Af Amer) POC Glucose (mg/dL) 350 H (65-110) mg/dL Random Glucose (65-105) mg/dL Serum Osmolality (272-300) mosm/kg Lactic Acid 1.0 (0.7-2.1) MMOL/L Calcium (8.4-10.2) mg/dL Total Bilirubin (0.2-1.3) mg/dl AST (14-36) U/L ALT (9-52) U/L Alkaline Phosphatase (38-126) U/L Ammonia (11-51) umo/L Total Protein (6.3-8.2) G/DL Albumin (3.5-5.0) g/dL Globulin (2.2-3.9) gm/dL Albumin/Globulin Ratio (1.0-2.1) 03/11/17 03/11/17 03/11/17 Range/Units 04:40 04:40 04:40 WBC 12.4 H (4.8-10.8) K/uL RBC 4.89 (3.80-5.20) Mil/uL Hgb 14.0 (12.0-16.0) g/dL Hct 43.3 (34.0-47.0) % MCV 88.6 (81.0-99.0) fl MCH 28.6 (27.0-31.0) pg MCHC 32.3 L (33.0-37.0) g/dL RDW 15.9 H (11.5-14.5) % Plt Count 359 (130-400) K/uL MPV 8.5 (7.2-11.7) fl Neut % (Auto) 89.2 H (50.0-75.0) % Lymph % (Auto) 7.0 L (20.0-40.0) % [place] % (Auto) 3.6 (0.0-10.0) % Eos % (Auto) 0.0 (0.0-4.0) % Baso % (Auto) 0.2 (0.0-2.0) % Neut # 11.0 H (1.8-7.0) K/uL Lymph # 0.9 L (1.0-4.3) K/uL [place] # 0.4 (0.0-0.8) K/uL Eos # 0.0 (0.0-0.7) K/uL Baso # 0.0 (0.0-0.2) K/uL pCO2 (35-45) mm/Hg pO2 (80-100) mm/Hg HCO3 (21-28) mmol/L ABG pH (7.35-7.45) ABG Total CO2 (22-28) mmol/L ABG O2 Saturation (95-98) % ABG O2 Content (15-23) ML/dL ABG Base Excess (-2.0-3.0) mmol/L ABG Hemoglobin (11.7-17.4) g/dL ABG Carboxyhemoglobin (0.5-1.5) % POC ABG HHb (Measured) (0.0-5.0) % ABG Methemoglobin (0.0-3.0) % ABG O2 Capacity (16-24) mL/dL Rock Test A-a O2 Difference mm/Hg Hgb O2 Saturation (95.0-98.0) % Liter Flow FiO2 % Sodium 146 (132-148) mmol/l Potassium 3.1 L (3.6-5.0) MMOL/L Chloride 107 (98-107) mmol/L Carbon Dioxide 34 H (22-30) mmol/L Anion Gap 8 L (10-20) BUN 36 H (7-17) mg/dl Creatinine 1.1 (0.7-1.2) mg/dL Est GFR ( Amer) 58 Est GFR (Non-Af Amer) 48 POC Glucose (mg/dL) (65-110) mg/dL Random Glucose 321 H (65-105) mg/dL Serum Osmolality 332 H (272-300) mosm/kg Lactic Acid (0.7-2.1) MMOL/L Calcium 7.6 L (8.4-10.2) mg/dL Total Bilirubin 0.4 (0.2-1.3) mg/dl AST 64 H (14-36) U/L ALT 82 H (9-52) U/L Alkaline Phosphatase 274 H D (38-126) U/L Ammonia (11-51) umo/L Total Protein 5.2 L (6.3-8.2) G/DL Albumin 2.4 L (3.5-5.0) g/dL Globulin 2.8 (2.2-3.9) gm/dL Albumin/Globulin Ratio 0.9 L (1.0-2.1) 03/10/17 Range/Units 21:37 WBC (4.8-10.8) K/uL RBC (3.80-5.20) Mil/uL Hgb (12.0-16.0) g/dL Hct (34.0-47.0) % MCV (81.0-99.0) fl MCH (27.0-31.0) pg MCHC (33.0-37.0) g/dL RDW (11.5-14.5) % Plt Count (130-400) K/uL MPV (7.2-11.7) fl Neut % (Auto) (50.0-75.0) % Lymph % (Auto) (20.0-40.0) % [place] % (Auto) (0.0-10.0) % Eos % (Auto) (0.0-4.0) % Baso % (Auto) (0.0-2.0) % Neut # (1.8-7.0) K/uL Lymph # (1.0-4.3) K/uL [place] # (0.0-0.8) K/uL Eos # (0.0-0.7) K/uL Baso # (0.0-0.2) K/uL pCO2 (35-45) mm/Hg pO2 (80-100) mm/Hg HCO3 (21-28) mmol/L ABG pH (7.35-7.45) ABG Total CO2 (22-28) mmol/L ABG O2 Saturation (95-98) % ABG O2 Content (15-23) ML/dL ABG Base Excess (-2.0-3.0) mmol/L ABG Hemoglobin (11.7-17.4) g/dL ABG Carboxyhemoglobin (0.5-1.5) % POC ABG HHb (Measured) (0.0-5.0) % ABG Methemoglobin (0.0-3.0) % ABG O2 Capacity (16-24) mL/dL Rock Test A-a O2 Difference mm/Hg Hgb O2 Saturation (95.0-98.0) % Liter Flow FiO2 % Sodium (132-148) mmol/l Potassium (3.6-5.0) MMOL/L Chloride (98-107) mmol/L Carbon Dioxide (22-30) mmol/L Anion Gap (10-20) BUN (7-17) mg/dl Creatinine (0.7-1.2) mg/dL Est GFR ( Amer) Est GFR (Non-Af Amer) POC Glucose (mg/dL) 326 H (65-110) mg/dL Random Glucose (65-105) mg/dL Serum Osmolality (272-300) mosm/kg Lactic Acid (0.7-2.1) MMOL/L Calcium (8.4-10.2) mg/dL Total Bilirubin (0.2-1.3) mg/dl AST (14-36) U/L ALT (9-52) U/L Alkaline Phosphatase (38-126) U/L Ammonia (11-51) umo/L Total Protein (6.3-8.2) G/DL Albumin (3.5-5.0) g/dL Globulin (2.2-3.9) gm/dL Albumin/Globulin Ratio (1.0-2.1) Laboratory Results - last 24 hr 03/10/17 03/11/17 03/11/17 21:37 04:40 04:40 WBC 12.4 H RBC 4.89 Hgb 14.0 Hct 43.3 MCV 88.6 MCH 28.6 MCHC 32.3 L RDW 15.9 H Plt Count 359 MPV 8.5 Neut % (Auto) 89.2 H Lymph % (Auto) 7.0 L [place] % (Auto) 3.6 Eos % (Auto) 0.0 Baso % (Auto) 0.2 Neut # 11.0 H Lymph # 0.9 L [place] # 0.4 Eos # 0.0 Baso # 0.0 pCO2 pO2 HCO3 ABG pH ABG Total CO2 ABG O2 Saturation ABG O2 Content ABG Base Excess ABG Hemoglobin ABG Carboxyhemoglobin POC ABG HHb (Measured) ABG Methemoglobin ABG O2 Capacity Rock Test A-a O2 Difference Hgb O2 Saturation Liter Flow FiO2 Sodium 146 Potassium 3.1 L Chloride 107 Carbon Dioxide 34 H Anion Gap 8 L BUN 36 H Creatinine 1.1 Est GFR ( Amer) 58 Est GFR (Non-Af Amer) 48 POC Glucose (mg/dL) 326 H Random Glucose 321 H Serum Osmolality Lactic Acid Calcium 7.6 L Total Bilirubin 0.4 AST 64 H ALT 82 H Alkaline Phosphatase 274 H D Ammonia Total Protein 5.2 L Albumin 2.4 L Globulin 2.8 Albumin/Globulin Ratio 0.9 L 03/11/17 03/11/17 03/11/17 04:40 04:40 05:34 WBC RBC Hgb Hct MCV MCH MCHC RDW Plt Count MPV Neut % (Auto) Lymph % (Auto) [place] % (Auto) Eos % (Auto) Baso % (Auto) Neut # Lymph # [place] # Eos # Baso # pCO2 47 H pO2 64 L HCO3 36.8 H ABG pH 7.54 H ABG Total CO2 41.6 H ABG O2 Saturation 95.5 ABG O2 Content 19.0 ABG Base Excess 15.4 H ABG Hemoglobin 14.6 ABG Carboxyhemoglobin 1.8 H POC ABG HHb (Measured) 4.4 ABG Methemoglobin 1.4 ABG O2 Capacity 19.9 Rock Test Yes A-a O2 Difference 127.0 Hgb O2 Saturation 92.4 L Liter Flow 40 FiO2 35.0 Sodium Potassium Chloride Carbon Dioxide Anion Gap BUN Creatinine Est GFR ( Amer) Est GFR (Non-Af Amer) POC Glucose (mg/dL) Random Glucose Serum Osmolality 332 H Lactic Acid 1.0 Calcium Total Bilirubin AST ALT Alkaline Phosphatase Ammonia Total Protein Albumin Globulin Albumin/Globulin Ratio 03/11/17 03/11/17 03/11/17 05:44 11:28 14:42 WBC RBC Hgb Hct MCV MCH MCHC RDW Plt Count MPV Neut % (Auto) Lymph % (Auto) [place] % (Auto) Eos % (Auto) Baso % (Auto) Neut # Lymph # [place] # Eos # Baso # pCO2 pO2 HCO3 ABG pH ABG Total CO2 ABG O2 Saturation ABG O2 Content ABG Base Excess ABG Hemoglobin ABG Carboxyhemoglobin POC ABG HHb (Measured) ABG Methemoglobin ABG O2 Capacity Rock Test A-a O2 Difference Hgb O2 Saturation Liter Flow FiO2 Sodium Potassium Chloride Carbon Dioxide Anion Gap BUN Creatinine Est GFR ( Amer) Est GFR (Non-Af Amer) POC Glucose (mg/dL) 350 H 271 H Random Glucose Serum Osmolality Lactic Acid Calcium Total Bilirubin AST ALT Alkaline Phosphatase Ammonia 21 Total Protein Albumin Globulin Albumin/Globulin Ratio 03/11/17 17:03 WBC RBC Hgb Hct MCV MCH MCHC RDW Plt Count MPV Neut % (Auto) Lymph % (Auto) [place] % (Auto) Eos % (Auto) Baso % (Auto) Neut # Lymph # [place] # Eos # Baso # pCO2 pO2 HCO3 ABG pH ABG Total CO2 ABG O2 Saturation ABG O2 Content ABG Base Excess ABG Hemoglobin ABG Carboxyhemoglobin POC ABG HHb (Measured) ABG Methemoglobin ABG O2 Capacity Rock Test A-a O2 Difference Hgb O2 Saturation Liter Flow FiO2 Sodium Potassium Chloride Carbon Dioxide Anion Gap BUN Creatinine Est GFR ( Amer) Est GFR (Non-Af Amer) POC Glucose (mg/dL) 291 H Random Glucose Serum Osmolality Lactic Acid Calcium Total Bilirubin AST ALT Alkaline Phosphatase Ammonia Total Protein Albumin Globulin Albumin/Globulin Ratio Fingerstick Blood Sugar Results: 291 Critical Care Progress Note - Nutrition Nutrition: Nutrition Category Date Time Status Dysphagia/Modified Consistency Diet [DIET] Diets 03/09/17 Breakfast Active
[2017-03-11] MEDS: Azithromycin 500 MG in Sodium Chloride 0.9% 250 ML IVPB SCH (18:00)
[2017-03-11] MEDS: Acyclovir 500 MG in Sodium Chloride 0.9% 100 ML IVPB SCH (18:01)
[2017-03-11] MEDS ORDERED: Insulin Lispro (humaLOG) 100 Units/ml Inj SC ONE (18:45)
[2017-03-11] MEDS ORDERED: Sodium Chloride 0.45% 1,000 ML IV SCH (21:00)
[2017-03-11] MEDS: Insulin Detemir 100 Units/ml Inj SC SCH (21:14)
[2017-03-11] MEDS ORDERED: Insulin Detemir 100 Units/ml Inj SC SCH (22:00)
[2017-03-12] MEDS: Acyclovir 500 MG in Sodium Chloride 0.9% 100 ML IVPB SCH ×2 (01:16→17:17)
[2017-03-12] MEDS: Meropenem 500 MG in Sodium Chloride 0.9% 100 ML IVPB SCH ×4 (03:17→21:10)
[2017-03-12 04:30] LABS: ABG ALLEN TEST YES; ARTERIAL BLOOD GAS HCO3 37.5 mmol/L (21-28); ARTERIAL BLOOD GAS MODE HIGH FLOW LPM; ARTERIAL BLOOD GAS PH 7.57 (7.35-7.45); ARTERIAL BLOOD GAS PO2 60 mm/Hg (80-100)
[2017-03-12] MEDS: Insulin Lispro (humaLOG) 100 Units/ml Inj SC SCH ×4 (06:44→22:00)
[2017-03-12 07:17] LABS: BASO % 0.1 % (0.0-2.0); LYMPH % 7.6 % (20.0-40.0); MEAN CELL VOLUME 88.5 fl (81.0-99.0); MEAN CORPUSCULAR HEMOGLOBIN 28.8 pg (27.0-31.0); MEAN CORPUSCULAR HGB CONC 32.5 g/dL (33.0-37.0); MEAN PLATELET VOLUME 8.6 fl (7.2-11.7); MONO # 0.7 K/uL (0.0-0.8); MONO % 5.4 % (0.0-10.0); NEUT # 11.2 K/uL (1.8-7.0); NEUT % 86.9 % (50.0-75.0); NRBC % 0.1 % (0.0-0.0); PLATELET COUNT 281 K/uL (130-400); RED CELL DISTRIBUTION WIDTH 16.2 % (11.5-14.5); WHITE BLOOD COUNT 12.9 K/uL (4.8-10.8)
[2017-03-12 07:29] LABS: ALB/GLOB RATIO 0.9 (1.0-2.1); ALKALINE PHOSPHATASE 217 U/L (38-126); ALT/SGPT 87 U/L (9-52); AST/SGOT 76 U/L (14-36); BILIRUBIN,TOTAL 0.4 mg/dl (0.2-1.3); BLOOD UREA NITROGEN 36 mg/dl (7-17); CALCIUM 7.4 mg/dL (8.4-10.2); CARBON DIOXIDE 34 mmol/L (22-30); CHLORIDE 111 mmol/L (98-107); GFR AFRICAN-AMERICAN > 60; GLUCOSE,RANDOM 188 mg/dL (65-105); SODIUM 147 mmol/l (132-148); TOTAL PROTEIN 4.5 G/DL (6.3-8.2)
--- NOTE | 2017-03-12 07:34 | CP.PCM.PN ---
Subjective - Date & Time of Evaluation Date of Evaluation: 03/12/17 Time of Evaluation: 07:33 - Subjective Subjective: still very somnolent, no awoken by tactile/verbal stimuli. still w/ low grade temps. no n/v/d sats low 90s on high flow. remains icu mri demonstrates acute infarts as per neuro son unwilling to sign onto hospice at this time Objective - Vital Signs/Intake and Output Vital Signs (last 24 hours): Temp Pulse Resp BP Pulse Ox 100.5 F H 85 19 113/71 99 03/12/17 04:00 03/12/17 06:00 03/12/17 06:00 03/12/17 06:00 03/12/17 06:00 Intake and Output: 03/12/17 03/12/17 06:59 18:59 Intake Total 900 Output Total 450 Balance 450 - Medications Medications: Current Medications Acetaminophen (Tylenol 325mg Tab) 650 mg PO Q4H PRN PRN Reason: Temp 101 and above Last Admin: 03/10/17 11:44 Dose: 650 mg Acetaminophen (Tylenol 325 Mg Supp) 325 mg ND Q4 PRN PRN Reason: Fever >100.4 F Last Admin: 03/11/17 05:54 Dose: 325 mg Albuterol Sulfate (Albuterol 0.083% Inhal Suzan (2.5 Mg/3 Ml) Ud) 2.5 mg IH Q6H PRN PRN Reason: Shortness of Breath Last Admin: 03/07/17 21:53 Dose: 2.5 mg Albuterol/Ipratropium (Duoneb 3 Mg/0.5 Mg (3 Ml) Ud) 3 ml INH RTID [facility] Last Admin: 03/11/17 19:24 Dose: 3 ml Aspirin (Aspirin) 325 mg PO DAILY [facility] Last Admin: 03/11/17 10:44 Dose: Not Given Atorvastatin Calcium (Lipitor) 80 mg PO DAILY [facility] Last Admin: 03/11/17 10:47 Dose: Not Given Budesonide (Pulmicort Respules) 0.5 mg IH RBID [facility] Last Admin: 03/11/17 19:24 Dose: 0.5 mg Carvedilol (Coreg) 3.125 mg PO BID [facility] Last Admin: 03/11/17 10:44 Dose: Not Given Ferrous Sulfate (Feosol Liq) 300 mg PO DAILY [facility] Last Admin: 03/11/17 10:45 Dose: Not Given Heparin Sodium (Porcine) (Heparin) 5,000 units SC Q12H [facility] PRN Reason: Protocol Last Admin: 03/12/17 03:16 Dose: 5,000 units Home Med (Arformoterol [Brovana]) 15 mcg IH Q12H [facility] Home Med (Phenyleph/Mineral Oil/Petrolat [Preparation H Ointment]) 1 appl ND TID PRN PRN Reason: Hemorrhoids Vancomycin HCl 1 gm/ Sodium (Chloride) 250 mls @ 166.667 mls/hr IVPB DAILY [facility] Last Admin: 03/11/17 08:21 Dose: 166.667 mls/hr Meropenem 500 mg/ Sodium (Chloride) 100 mls @ 100 mls/hr IVPB Q6 [facility] Last Admin: 03/12/17 03:17 Dose: 100 mls/hr Acyclovir 500 mg/ Sodium (Chloride) 100 mls @ 100 mls/hr IVPB Q12H [facility] Last Admin: 03/12/17 01:16 Dose: 100 mls/hr Azithromycin 500 mg/ Sodium (Chloride) 250 mls @ 250 mls/hr IVPB DAILY [facility] Last Admin: 03/11/17 18:00 Dose: 250 mls/hr Insulin Detemir (Levemir) 30 units SC Q12 [facility] Last Admin: 03/11/17 21:14 Dose: 30 units Insulin Human Lispro (Humalog) 0 units SC ACHS [facility] PRN Reason: Protocol Last Admin: 03/12/17 06:44 Dose: Not Given Lisinopril (Zestril) 10 mg PO DAILY [facility] Last Admin: 03/11/17 10:49 Dose: Not Given Loperamide HCl (Imodium) 2 mg PO Q6H PRN PRN Reason: Diarrhea Magnesium Hydroxide (Milk Of Magnesia) 30 ml PO HS PRN PRN Reason: Constipation Meclizine HCl (Antivert) 12.5 mg PO Q6H PRN PRN Reason: Dizziness Tiotropium [place] (Spiriva) 18 mcg IH DAILY [facility] Last Admin: 03/11/17 10:49 Dose: Not Given - Labs Labs: 03/12/17 06:56 03/11/17 04:40 - Constitutional Appears: No Acute Distress, Chronically Ill - Head Exam Head Exam: ATRAUMATIC, NORMAL INSPECTION, NORMOCEPHALIC - Eye Exam Eye Exam: EOMI, Normal appearance, PERRL Pupil Exam: NORMAL ACCOMODATION, PERRL - ENT Exam ENT Exam: Mucous Membranes Moist, Normal Exam - Neck Exam Neck Exam: Full ROM, Normal Inspection. absent: Lymphadenopathy - Respiratory Exam Respiratory Exam: Rhonchi, NORMAL BREATHING PATTERN - Cardiovascular Exam Cardiovascular Exam: REGULAR RHYTHM, RRR, +S1, +S2. absent: Murmur - GI/Abdominal Exam GI & Abdominal Exam: Soft, Normal Bowel Sounds. absent: Tenderness - Extremities Exam Extremities Exam: Full ROM, Normal Capillary Refill, Normal Inspection. absent : Joint Swelling, Pedal Edema - Back Exam Back Exam: NORMAL INSPECTION - Neurological Exam Neurological Exam: Alert, Awake, CN II-XII Intact, Normal Gait, Oriented x3 - Psychiatric Exam Psychiatric exam: Normal Affect, Normal Mood - Skin Skin Exam: Dry, Intact, Normal Color, Warm Assessment and Plan (1) CHF (congestive heart failure) Status: Acute (2) COPD exacerbation Status: Acute (3) Pneumonia Status: Acute (4) DVT prophylaxis Status: Acute (5) Type 2 diabetes mellitus with hyperglycemia Status: Acute - Assessment and Plan (Free Text) Assessment: (1) CHF (congestive heart failure) Assessment & Plan: cardio cont meds lasix Status: Acute (2) COPD exacerbation Assessment & Plan: pulm anbx neb tx high flow o2 Status: Acute (3) Pneumonia Assessment & Plan: zosyn, vanco, high flow o2, pulm consult, Id consult, merrem added yesterday, acyclovir added- Status: Acute (4) DVT prophylaxis Assessment & Plan: scd and ae hose heparin Status: Acute (5) Type 2 diabetes mellitus with hyperglycemia Assessment & Plan: riss, homemeds, endo consult, fsbg, tight glycemic control Status: Acute [id number], ct head-negative [id number], echo noted, tsh-wnl prognosis poor, pt 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 woke up yesterday. will speak to family about poc. finalidze code status, ?? hospice-son refused 8-acute infarct id by dr de la paz, pr asa started.
[2017-03-12] MEDS: Albuterol-Ipratrop 3 mg / 0.5 (3 ml) UD INH SCH ×3 (07:44→19:08)
[2017-03-12] MEDS: Budesonide 0.5 mg/2 ml Inhal Susp UD IH SCH ×2 (07:44→19:08)
[2017-03-12] MEDS: Insulin Detemir 100 Units/ml Inj SC SCH (08:47)
--- NOTE | 2017-03-12 09:51 | CP.CCUPN ---
CCU Subjective - Physician Review Events Since Last Encounter (Free Text): 03/12/17 09:46 Pt remain unresponsive, BP has been stable , son wants full code and everything to be done, MRI was done, nuerologist following. P/E Neck No JVD Lungs: rt basal crackles Abdomen soft Ext: No edema Heart: no gallop Neuro; unresponsive. CCU Objective - Vital Signs / Intake & Output Vital Signs (Last 4 hours): Vital Signs Temp Pulse Resp BP Pulse Ox 03/12/17 08:15 99.1 F 86 17 107/64 98 03/12/17 07:44 14 03/12/17 06:00 85 19 113/71 99 Intake and Output (Last 8hrs): Intake & Output 03/11/17 03/12/17 03/12/17 22:59 06:59 14:59 Intake Total 750 800 Output Total 720 450 Balance 30 350 Intake: IV 100 600 Intake, Piggyback 650 200 Oral 0 Output: Urine 720 450 Urethral (Sanders) 720 450 Other: # Bowel Movements 1 1 - Physical Exam Physical Exam Limitations: Positive for: Altered Mental Status Head: Positive for: Normocephalic Pupils: Positive for: PERRL, Other Extroacular Muscles: Positive for: EOMI. Negative for: Gaze Palsy Conjunctiva: Negative for: Injected, Icteric Ears: Positive for: Normal Mouth: Positive for: Moist Mucous Membranes Pharnyx: Positive for: Normal Neck: Positive for: Normal Range of Motion. Negative for: Meningeal Signs, JVD , Lymphadenopathy Respiratory/Chest: Positive for: Decreased Breath Sounds. Negative for: Wheezes , Rhonchi Cardiovascular: Positive for: Regular Rate and Rhythm. Negative for: Murmurs, Rub Abdomen: Positive for: Normal Bowel Sounds. Negative for: Tenderness, Distention Upper Extremity: Positive for: Normal Inspection, Edema Lower Extremity: Positive for: Edema (+2), NORMAL PULSES. Negative for: CALF TENDERNESS (GCS= 5 (E1 V1 M3)), Cyanosis Skin: Positive for: Warm. Negative for: Rashes Psychiatric: Positive for: Lethargic - Medications Active Medications: Active Medications Generic Name Dose Route Start Last Admin Trade Name Freq PRN Reason Stop Dose Admin Acetaminophen 650 mg 03/04/17 15:46 03/10/17 11:44 Tylenol 325mg Tab PO 650 mg Q4H PRN Administration Temp 101 and above Acetaminophen 325 mg 03/10/17 14:33 03/11/17 05:54 Tylenol 325 Mg Supp SD 325 mg Q4 PRN Administration Fever >100.4 F Albuterol Sulfate 2.5 mg 03/04/17 23:53 03/07/17 21:53 Albuterol 0.083% Inhal Suzan (2.5 Mg/3 Ml) Ud IH 2.5 mg Q6H PRN Administration Shortness of Breath Albuterol/Ipratropium 3 ml 03/04/17 20:00 03/12/17 07:44 Duoneb 3 Mg/0.5 Mg (3 Ml) Ud INH 3 ml RTID [facility] Administration Aspirin 325 mg 03/10/17 10:00 03/11/17 10:44 Aspirin PO Not Given DAILY [facility] Atorvastatin Calcium 80 mg 03/05/17 09:00 03/11/17 10:47 Lipitor PO Not Given DAILY [facility] Budesonide 0.5 mg 03/05/17 08:00 03/12/17 07:44 Pulmicort Respules IH 0.5 mg RBID [facility] Administration Carvedilol 3.125 mg 03/04/17 17:00 03/11/17 10:44 Coreg PO Not Given BID [facility] Ferrous Sulfate 300 mg 03/10/17 10:15 03/11/17 10:45 Feosol Liq PO Not Given DAILY [facility] Heparin Sodium (Porcine) 5,000 units 03/04/17 16:00 03/12/17 03:16 Heparin SC 5,000 units Q12H [facility] Administration Protocol Home Med 15 mcg 03/04/17 23:45 Arformoterol [Brovana] IH Q12H [facility] Home Med 1 appl 03/04/17 23:53 Phenyleph/Mineral Oil/Petrolat [Preparation H Ointment] SD TID PRN Hemorrhoids Vancomycin HCl 1 gm/ Sodium 250 mls @ 166.667 mls/hr 03/05/17 09:00 03/12/17 08:56 Chloride IVPB 166.667 mls/hr DAILY [facility] Administration Meropenem 500 mg/ Sodium 100 mls @ 100 mls/hr 03/10/17 16:00 03/12/17 03:17 Chloride IVPB 100 mls/hr Q6 [facility] Administration Acyclovir 500 mg/ Sodium 100 mls @ 100 mls/hr 03/11/17 14:00 03/12/17 01:16 Chloride IVPB 100 mls/hr Q12H [facility] Administration Azithromycin 500 mg/ Sodium 250 mls @ 250 mls/hr 03/11/17 14:00 03/11/17 18: 00 Chloride IVPB 250 mls/hr DAILY [facility] Administration Insulin Detemir 30 units 03/11/17 21:00 03/11/17 21:14 Levemir SC 30 units Q12 [facility] Administration Insulin Human Lispro 0 units 03/05/17 16:30 03/12/17 06:44 Humalog SC Not Given ACHS [facility] Protocol Lisinopril 10 mg 03/06/17 11:30 03/11/17 10:49 Zestril PO Not Given DAILY [facility] Loperamide HCl 2 mg 03/05/17 00:01 Imodium PO Q6H PRN Diarrhea Magnesium Hydroxide 30 ml 03/04/17 23:53 Milk Of Magnesia PO HS PRN Constipation Meclizine HCl 12.5 mg 03/04/17 15:46 Antivert PO Q6H PRN Dizziness Tiotropium [place] 18 mcg 03/05/17 09:00 03/11/17 10:49 Spiriva IH Not Given DAILY [facility] - Patient Studies Lab Studies: Microbiology Studies 03/10/17 18:50 MRSA Culture (Admit) - Final Nose MRSA NOT DETECTED 03/10/17 18:19 Urine Culture - Final Urine,Sanders No Growth (<1,000 CFU/ML) 03/10/17 03:10 Blood Culture - Preliminary Blood NO GROWTH AFTER 24 HOURS 03/10/17 02:45 Blood Culture - Preliminary Blood NO GROWTH AFTER 24 HOURS Lab Studies 03/12/17 03/12/17 03/12/17 Range/Units 06:56 06:56 06:56 WBC 12.9 H (4.8-10.8) K/uL RBC 4.52 (3.80-5.20) Mil/uL Hgb 13.0 (12.0-16.0) g/dL Hct 40.0 (34.0-47.0) % MCV 88.5 (81.0-99.0) fl MCH 28.8 (27.0-31.0) pg MCHC 32.5 L (33.0-37.0) g/dL RDW 16.2 H (11.5-14.5) % Plt Count 281 (130-400) K/uL MPV 8.6 (7.2-11.7) fl Neut % (Auto) 86.9 H (50.0-75.0) % Lymph % (Auto) 7.6 L (20.0-40.0) % Wallace % (Auto) 5.4 (0.0-10.0) % Eos % (Auto) 0.0 (0.0-4.0) % Baso % (Auto) 0.1 (0.0-2.0) % Neut # 11.2 H (1.8-7.0) K/uL Lymph # 1.0 (1.0-4.3) K/uL Wallace # 0.7 (0.0-0.8) K/uL Eos # 0.0 (0.0-0.7) K/uL Baso # 0.0 (0.0-0.2) K/uL pCO2 (35-45) mm/Hg pO2 (80-100) mm/Hg HCO3 (21-28) mmol/L ABG pH (7.35-7.45) ABG Total CO2 (22-28) mmol/L ABG O2 Saturation (95-98) % ABG Base Excess (-2.0-3.0) mmol/L Rock Test ABG Potassium (3.6-5.2) mmol/L A-a O2 Difference mm/Hg Sodium 147 (132-148) mmol/L Chloride 111 H (98-107) mmol/L Glucose (65-105) mg/dL Lactate (0.7-2.1) mmol/L Vent Mode FiO2 % Potassium 3.0 L (3.6-5.0) MMOL/L Carbon Dioxide 34 H (22-30) mmol/L Anion Gap 5 L (10-20) BUN 36 H (7-17) mg/dl Creatinine 1.0 (0.7-1.2) mg/dL Est GFR ( Amer) > 60 Est GFR (Non-Af Amer) 54 POC Glucose (mg/dL) (65-110) mg/dL Random Glucose 188 H (65-105) mg/dL Calcium 7.4 L (8.4-10.2) mg/dL Total Bilirubin 0.4 (0.2-1.3) mg/dl AST 76 H (14-36) U/L ALT 87 H (9-52) U/L Alkaline Phosphatase 217 H D (38-126) U/L Ammonia (11-51) umo/L Total Protein 4.5 L (6.3-8.2) G/DL Albumin 2.1 L (3.5-5.0) g/dL Globulin 2.4 (2.2-3.9) gm/dL Albumin/Globulin Ratio 0.9 L (1.0-2.1) Procalcitonin (0.19-0.49) NG/ML Arterial Blood Potassium (3.6-5.2) mmol/L Vancomycin Trough 14.0 H (5.0-10.0) ug/mL 03/12/17 03/12/17 03/11/17 Range/Units 06:11 04:28 21:16 WBC (4.8-10.8) K/uL RBC (3.80-5.20) Mil/uL Hgb (12.0-16.0) g/dL Hct (34.0-47.0) % MCV (81.0-99.0) fl MCH (27.0-31.0) pg MCHC (33.0-37.0) g/dL RDW (11.5-14.5) % Plt Count (130-400) K/uL MPV (7.2-11.7) fl Neut % (Auto) (50.0-75.0) % Lymph % (Auto) (20.0-40.0) % Wallace % (Auto) (0.0-10.0) % Eos % (Auto) (0.0-4.0) % Baso % (Auto) (0.0-2.0) % Neut # (1.8-7.0) K/uL Lymph # (1.0-4.3) K/uL Wallace # (0.0-0.8) K/uL Eos # (0.0-0.7) K/uL Baso # (0.0-0.2) K/uL pCO2 44 (35-45) mm/Hg pO2 60 L (80-100) mm/Hg HCO3 37.5 H (21-28) mmol/L ABG pH 7.57 H (7.35-7.45) ABG Total CO2 41.7 H (22-28) mmol/L ABG O2 Saturation 94.6 L (95-98) % ABG Base Excess 16.3 H (-2.0-3.0) mmol/L Rock Test Yes ABG Potassium 3.2 L (3.6-5.2) mmol/L A-a O2 Difference 206.0 mm/Hg Sodium 149.0 H (132-148) mmol/L Chloride 112.0 H (98-107) mmol/L Glucose 208 H (65-105) mg/dL Lactate 0.8 (0.7-2.1) mmol/L Vent Mode High flow lpm FiO2 45.0 % Potassium (3.6-5.0) MMOL/L Carbon Dioxide (22-30) mmol/L Anion Gap (10-20) BUN (7-17) mg/dl Creatinine (0.7-1.2) mg/dL Est GFR ( Amer) Est GFR (Non-Af Amer) POC Glucose (mg/dL) 215 H 262 H (65-110) mg/dL Random Glucose (65-105) mg/dL Calcium (8.4-10.2) mg/dL Total Bilirubin (0.2-1.3) mg/dl AST (14-36) U/L ALT (9-52) U/L Alkaline Phosphatase (38-126) U/L Ammonia (11-51) umo/L Total Protein (6.3-8.2) G/DL Albumin (3.5-5.0) g/dL Globulin (2.2-3.9) gm/dL Albumin/Globulin Ratio (1.0-2.1) Procalcitonin (0.19-0.49) NG/ML Arterial Blood Potassium 3.2 L (3.6-5.2) mmol/L Vancomycin Trough (5.0-10.0) ug/mL 03/11/17 03/11/17 03/11/17 Range/Units 17:03 16:35 14:42 WBC (4.8-10.8) K/uL RBC (3.80-5.20) Mil/uL Hgb (12.0-16.0) g/dL Hct (34.0-47.0) % MCV (81.0-99.0) fl MCH (27.0-31.0) pg MCHC (33.0-37.0) g/dL RDW (11.5-14.5) % Plt Count (130-400) K/uL MPV (7.2-11.7) fl Neut % (Auto) (50.0-75.0) % Lymph % (Auto) (20.0-40.0) % Wallace % (Auto) (0.0-10.0) % Eos % (Auto) (0.0-4.0) % Baso % (Auto) (0.0-2.0) % Neut # (1.8-7.0) K/uL Lymph # (1.0-4.3) K/uL Wallace # (0.0-0.8) K/uL Eos # (0.0-0.7) K/uL Baso # (0.0-0.2) K/uL pCO2 (35-45) mm/Hg pO2 (80-100) mm/Hg HCO3 (21-28) mmol/L ABG pH (7.35-7.45) ABG Total CO2 (22-28) mmol/L ABG O2 Saturation (95-98) % ABG Base Excess (-2.0-3.0) mmol/L Rock Test ABG Potassium (3.6-5.2) mmol/L A-a O2 Difference mm/Hg Sodium (132-148) mmol/L Chloride (98-107) mmol/L Glucose (65-105) mg/dL Lactate (0.7-2.1) mmol/L Vent Mode FiO2 % Potassium (3.6-5.0) MMOL/L Carbon Dioxide (22-30) mmol/L Anion Gap (10-20) BUN (7-17) mg/dl Creatinine (0.7-1.2) mg/dL Est GFR ( Amer) Est GFR (Non-Af Amer) POC Glucose (mg/dL) 291 H (65-110) mg/dL Random Glucose (65-105) mg/dL Calcium (8.4-10.2) mg/dL Total Bilirubin (0.2-1.3) mg/dl AST (14-36) U/L ALT (9-52) U/L Alkaline Phosphatase (38-126) U/L Ammonia 21 (11-51) umo/L Total Protein (6.3-8.2) G/DL Albumin (3.5-5.0) g/dL Globulin (2.2-3.9) gm/dL Albumin/Globulin Ratio (1.0-2.1) Procalcitonin 0.42 (0.19-0.49) NG/ML Arterial Blood Potassium (3.6-5.2) mmol/L Vancomycin Trough (5.0-10.0) ug/mL 03/11/17 Range/Units 11:28 WBC (4.8-10.8) K/uL RBC (3.80-5.20) Mil/uL Hgb (12.0-16.0) g/dL Hct (34.0-47.0) % MCV (81.0-99.0) fl MCH (27.0-31.0) pg MCHC (33.0-37.0) g/dL RDW (11.5-14.5) % Plt Count (130-400) K/uL MPV (7.2-11.7) fl Neut % (Auto) (50.0-75.0) % Lymph % (Auto) (20.0-40.0) % Wallace % (Auto) (0.0-10.0) % Eos % (Auto) (0.0-4.0) % Baso % (Auto) (0.0-2.0) % Neut # (1.8-7.0) K/uL Lymph # (1.0-4.3) K/uL Wallace # (0.0-0.8) K/uL Eos # (0.0-0.7) K/uL Baso # (0.0-0.2) K/uL pCO2 (35-45) mm/Hg pO2 (80-100) mm/Hg HCO3 (21-28) mmol/L ABG pH (7.35-7.45) ABG Total CO2 (22-28) mmol/L ABG O2 Saturation (95-98) % ABG Base Excess (-2.0-3.0) mmol/L Rock Test ABG Potassium (3.6-5.2) mmol/L A-a O2 Difference mm/Hg Sodium (132-148) mmol/L Chloride (98-107) mmol/L Glucose (65-105) mg/dL Lactate (0.7-2.1) mmol/L Vent Mode FiO2 % Potassium (3.6-5.0) MMOL/L Carbon Dioxide (22-30) mmol/L Anion Gap (10-20) BUN (7-17) mg/dl Creatinine (0.7-1.2) mg/dL Est GFR ( Amer) Est GFR (Non-Af Amer) POC Glucose (mg/dL) 271 H (65-110) mg/dL Random Glucose (65-105) mg/dL Calcium (8.4-10.2) mg/dL Total Bilirubin (0.2-1.3) mg/dl AST (14-36) U/L ALT (9-52) U/L Alkaline Phosphatase (38-126) U/L Ammonia (11-51) umo/L Total Protein (6.3-8.2) G/DL Albumin (3.5-5.0) g/dL Globulin (2.2-3.9) gm/dL Albumin/Globulin Ratio (1.0-2.1) Procalcitonin (0.19-0.49) NG/ML Arterial Blood Potassium (3.6-5.2) mmol/L Vancomycin Trough (5.0-10.0) ug/mL Laboratory Results - last 24 hr 03/11/17 03/11/17 03/11/17 11:28 14:42 16:35 WBC RBC Hgb Hct MCV MCH MCHC RDW Plt Count MPV Neut % (Auto) Lymph % (Auto) Wallace % (Auto) Eos % (Auto) Baso % (Auto) Neut # Lymph # Wallace # Eos # Baso # pCO2 pO2 HCO3 ABG pH ABG Total CO2 ABG O2 Saturation ABG Base Excess Rock Test ABG Potassium A-a O2 Difference Sodium Chloride Glucose Lactate Vent Mode FiO2 Potassium Carbon Dioxide Anion Gap BUN Creatinine Est GFR ( Amer) Est GFR (Non-Af Amer) POC Glucose (mg/dL) 271 H Random Glucose Calcium Total Bilirubin AST ALT Alkaline Phosphatase Ammonia 21 Total Protein Albumin Globulin Albumin/Globulin Ratio Procalcitonin 0.42 Arterial Blood Potassium Vancomycin Trough 03/11/17 03/11/17 03/12/17 17:03 21:16 04:28 WBC RBC Hgb Hct MCV MCH MCHC RDW Plt Count MPV Neut % (Auto) Lymph % (Auto) Wallace % (Auto) Eos % (Auto) Baso % (Auto) Neut # Lymph # Wallace # Eos # Baso # pCO2 44 pO2 60 L HCO3 37.5 H ABG pH 7.57 H ABG Total CO2 41.7 H ABG O2 Saturation 94.6 L ABG Base Excess 16.3 H Rock Test Yes ABG Potassium 3.2 L A-a O2 Difference 206.0 Sodium 149.0 H Chloride 112.0 H Glucose 208 H Lactate 0.8 Vent Mode High flow lpm FiO2 45.0 Potassium Carbon Dioxide Anion Gap BUN Creatinine Est GFR ( Amer) Est GFR (Non-Af Amer) POC Glucose (mg/dL) 291 H 262 H Random Glucose Calcium Total Bilirubin AST ALT Alkaline Phosphatase Ammonia Total Protein Albumin Globulin Albumin/Globulin Ratio Procalcitonin Arterial Blood Potassium 3.2 L Vancomycin Trough 03/12/17 03/12/17 03/12/17 06:11 06:56 06:56 WBC 12.9 H RBC 4.52 Hgb 13.0 Hct 40.0 MCV 88.5 MCH 28.8 MCHC 32.5 L RDW 16.2 H Plt Count 281 MPV 8.6 Neut % (Auto) 86.9 H Lymph % (Auto) 7.6 L Wallace % (Auto) 5.4 Eos % (Auto) 0.0 Baso % (Auto) 0.1 Neut # 11.2 H Lymph # 1.0 Wallace # 0.7 Eos # 0.0 Baso # 0.0 pCO2 pO2 HCO3 ABG pH ABG Total CO2 ABG O2 Saturation ABG Base Excess Rock Test ABG Potassium A-a O2 Difference Sodium 147 Chloride 111 H Glucose Lactate Vent Mode FiO2 Potassium 3.0 L Carbon Dioxide 34 H Anion Gap 5 L BUN 36 H Creatinine 1.0 Est GFR ( Amer) > 60 Est GFR (Non-Af Amer) 54 POC Glucose (mg/dL) 215 H Random Glucose 188 H Calcium 7.4 L Total Bilirubin 0.4 AST 76 H ALT 87 H Alkaline Phosphatase 217 H D Ammonia Total Protein 4.5 L Albumin 2.1 L Globulin 2.4 Albumin/Globulin Ratio 0.9 L Procalcitonin Arterial Blood Potassium Vancomycin Trough 03/12/17 06:56 WBC RBC Hgb Hct MCV MCH MCHC RDW Plt Count MPV Neut % (Auto) Lymph % (Auto) Wallace % (Auto) Eos % (Auto) Baso % (Auto) Neut # Lymph # Wallace # Eos # Baso # pCO2 pO2 HCO3 ABG pH ABG Total CO2 ABG O2 Saturation ABG Base Excess Rock Test ABG Potassium A-a O2 Difference Sodium Chloride Glucose Lactate Vent Mode FiO2 Potassium Carbon Dioxide Anion Gap BUN Creatinine Est GFR ( Amer) Est GFR (Non-Af Amer) POC Glucose (mg/dL) Random Glucose Calcium Total Bilirubin AST ALT Alkaline Phosphatase Ammonia Total Protein Albumin Globulin Albumin/Globulin Ratio Procalcitonin Arterial Blood Potassium Vancomycin Trough 14.0 H Fingerstick Blood Sugar Results: 215 Critical Care Progress Note - Nutrition Nutrition: Nutrition Category Date Time Status Dysphagia/Modified Consistency Diet [DIET] Diets 03/09/17 Breakfast Active Assessment/Plan - Assessment and Plan (Free Text) Assessment: MAJOR IMPRESSIONS / PLAN: 1. AMS 2 Sedative-Hypnotic meds, r/o Acute CVA, no improvement in MS. 2. Acute Resp insuff 2 Hypercarbia and Pneumonia 3. Dehydration: improving 4- Hypokalemia 5. DM II 6 h/o Dementia with hyperactive psychomotor activity- none manifest now. PLAN: 1. Neurochecks, seizure precutions. Neurology F/U. Neurology following 2. Stop Lexapro and Seroquel; Gabapentin all have adverse INSTRUMENT TECH effects. 3. No need for MV support at this point, will continue to monitor in ICU. Will continue with HFNC support. 4. Will change IVF with Kcl 5. NGT and start feedinga and Kcl 6. Maintain normoglycemia. 7. Pt is full code, as per son. .
[2017-03-12] MEDS ORDERED: Potassium Chloride 20 mEq/15 ml LIQ UD PO ONE (10:01)
[2017-03-12] MEDS ORDERED: Chlorhexidine Gluconate 1 APPL/PKT TP ONE ×3 (10:38→19:53)
--- NOTE | 2017-03-12 11:37 | CP.PCM.PN ---
Subjective - Date & Time of Evaluation Date of Evaluation: 03/12/17 Time of Evaluation: 11:37 - Subjective Subjective: LETHARGIC NO NEW CLINICAL FINDINGS FAMILY WANTS A FULL CODE Objective - Vital Signs/Intake and Output Vital Signs (last 24 hours): Temp Pulse Resp BP Pulse Ox 99.1 F 87 9 L 95/59 L 100 03/12/17 08:15 03/12/17 10:00 03/12/17 10:00 03/12/17 10:00 03/12/17 10:00 Intake and Output: 03/12/17 03/12/17 06:59 18:59 Intake Total 900 Output Total 450 Balance 450 - Medications Medications: Current Medications Acetaminophen (Tylenol 325mg Tab) 650 mg PO Q4H PRN PRN Reason: Temp 101 and above Last Admin: 03/10/17 11:44 Dose: 650 mg Acetaminophen (Tylenol 325 Mg Supp) [address] Q4 PRN PRN Reason: Fever >100.4 F Last Admin: 03/11/17 05:54 Dose: 325 mg Albuterol Sulfate (Albuterol 0.083% Inhal Suzan (2.5 Mg/3 Ml) Ud) 2.5 mg IH Q6H PRN PRN Reason: Shortness of Breath Last Admin: 03/07/17 21:53 Dose: 2.5 mg Albuterol/Ipratropium (Duoneb 3 Mg/0.5 Mg (3 Ml) Ud) 3 ml INH RTID [facility] Last Admin: 03/12/17 07:44 Dose: 3 ml Aspirin (Aspirin) 325 mg PO DAILY [facility] Last Admin: 03/11/17 10:44 Dose: Not Given Atorvastatin Calcium (Lipitor) 80 mg PO DAILY [facility] Last Admin: 03/11/17 10:47 Dose: Not Given Budesonide (Pulmicort Respules) 0.5 mg IH RBID [facility] Last Admin: 03/12/17 07:44 Dose: 0.5 mg Carvedilol (Coreg) 3.125 mg PO BID [facility] Last Admin: 03/11/17 10:44 Dose: Not Given Ferrous Sulfate (Feosol Liq) 300 mg PO DAILY [facility] Last Admin: 03/11/17 10:45 Dose: Not Given Heparin Sodium (Porcine) (Heparin) 5,000 units SC Q12H [facility] PRN Reason: Protocol Last Admin: 03/12/17 03:16 Dose: 5,000 units Home Med (Arformoterol [Brovana]) 15 mcg IH Q12H [facility] Home Med (Phenyleph/Mineral Oil/Petrolat [Preparation H Ointment]) [address] TID PRN PRN Reason: Hemorrhoids Vancomycin HCl 1 gm/ Sodium (Chloride) 250 mls @ 166.667 mls/hr IVPB DAILY [facility] Last Admin: 03/12/17 08:56 Dose: 166.667 mls/hr Meropenem 500 mg/ Sodium (Chloride) 100 mls @ 100 mls/hr IVPB Q6 [facility] Last Admin: 03/12/17 11:26 Dose: 100 mls/hr Acyclovir 500 mg/ Sodium (Chloride) 100 mls @ 100 mls/hr IVPB Q12H [facility] Last Admin: 03/12/17 01:16 Dose: 100 mls/hr Azithromycin 500 mg/ Sodium (Chloride) 250 mls @ 250 mls/hr IVPB DAILY [facility] Last Admin: 03/11/17 18:00 Dose: 250 mls/hr Potassium Chloride 40 meq/ (Sodium Chloride) 1,020 mls @ 60 mls/hr IV .Q17H [facility] Stop: 03/13/17 09:59 Insulin Detemir (Levemir) 30 units SC Q12 [facility] Last Admin: 03/12/17 08:47 Dose: 30 units Insulin Human Lispro (Humalog) 0 units SC ACHS [facility] PRN Reason: Protocol Last Admin: 03/12/17 11:25 Dose: Not Given Lisinopril (Zestril) 10 mg PO DAILY [facility] Last Admin: 03/11/17 10:49 Dose: Not Given Loperamide HCl (Imodium) 2 mg PO Q6H PRN PRN Reason: Diarrhea Magnesium Hydroxide (Milk Of Magnesia) 30 ml PO HS PRN PRN Reason: Constipation Meclizine HCl (Antivert) 12.5 mg PO Q6H PRN PRN Reason: Dizziness Tiotropium [place] (Spiriva) 18 mcg IH DAILY [facility] Last Admin: 03/11/17 10:49 Dose: Not Given - Labs Labs: 03/12/17 06:56 03/12/17 06:56 - Constitutional Appears: Chronically Ill - Head Exam Head Exam: ATRAUMATIC, NORMAL INSPECTION, NORMOCEPHALIC - Eye Exam Eye Exam: EOMI, Normal appearance, PERRL Pupil Exam: NORMAL ACCOMODATION, PERRL - ENT Exam ENT Exam: Mucous Membranes Moist, Normal Exam - Neck Exam Neck Exam: Full ROM, Normal Inspection. absent: Lymphadenopathy - Respiratory Exam Respiratory Exam: Decreased Breath Sounds, Rales - Cardiovascular Exam Cardiovascular Exam: REGULAR RHYTHM, +S1, +S2. absent: Murmur - GI/Abdominal Exam GI & Abdominal Exam: Soft, Normal Bowel Sounds. absent: Tenderness - Rectal Exam Rectal Exam: NORMAL INSPECTION - Extremities Exam Extremities Exam: Full ROM, Normal Capillary Refill, Normal Inspection. absent : Joint Swelling, Pedal Edema - Back Exam Back Exam: NORMAL INSPECTION - Psychiatric Exam Psychiatric exam: Normal Affect, Normal Mood - Skin Skin Exam: Dry, Intact, Normal Color, Warm Assessment and Plan - Assessment and Plan (Free Text) Assessment: CHF PNEUMONIA Plan: CONTINUE PRESENT RX FAMILY WANTS AGGRESSIVE MEDICAL INTERVENTION PROGNOSIS IS POOR
[2017-03-12 11:48] LABS: NEUTROPHIL 89 % (42-75); TOTAL CELLS COUNTED 100
[2017-03-12] MEDS: Potassium Chloride 40 MEQ in Sodium Chloride 0.45% 1,000 ML IV SCH (12:16)
[2017-03-12] MEDS: Azithromycin 500 MG in Sodium Chloride 0.9% 250 ML IVPB SCH (12:17)
[2017-03-12] MEDS: Tiotropium 18 mcg Cap For Inhalation IH SCH (12:17)
--- NOTE | 2017-03-12 13:45 | PN ---
ENDOCRINOLOGY FOLLOWUP NOTE LOCATION: ICU Room 425. SUBJECTIVE: This is a 76-year-old female who was admitted with acute pneumonitis, supervening congestive heart failure and is now being followed closely for metabolic management. She remains hypersomnolence and lethargic at this time. LABORATORY DATA: Her latest glucose values are fluctuating and rising from 215 to 262 mg/dL. Her latest chemistries showed BUN of 36, sodium of 146, potassium of 3.1, chloride of 107, CO2 of 34, glucose of 321, and creatinine of 1.1. IMPRESSION AND PLAN: So at this time, we will modify her basal insulin to increase the Levemir to 30 units subcutaneously at 10:00 a.m. and 10:00 p.m. daily is given. We continue the low dose using Humalog insulin as ordered. We will obtain as needed. We will follow. Oma Martines MD
[2017-03-12] MEDS: Potassium CL 10mEq/100ml 100 ML IVPB SCH ×3 (14:37→20:51)
[2017-03-12] MEDS ORDERED: Dextrose 50% SYRINGE Inj (50 ml) ONE (17:25)
[2017-03-12] MEDS ORDERED: Dextrose 50% SYRINGE Inj (50 ml) IVP ONE (18:36)
[2017-03-13] MEDS: Acyclovir 500 MG in Sodium Chloride 0.9% 100 ML IVPB SCH ×2 (01:11→17:21)
[2017-03-13] MEDS: Meropenem 500 MG in Sodium Chloride 0.9% 100 ML IVPB SCH ×4 (04:26→21:09)
[2017-03-13] MEDS ORDERED: Dextrose 50% SYRINGE Inj (50 ml) IVP ONE ×2 (05:45→11:11)
[2017-03-13] MEDS: Insulin Lispro (humaLOG) 100 Units/ml Inj SC SCH ×4 (07:02→21:16)
[2017-03-13] MEDS: Potassium Chloride 40 MEQ in Sodium Chloride 0.45% 1,000 ML IV SCH (07:02)
[2017-03-13] MEDS: Albuterol-Ipratrop 3 mg / 0.5 (3 ml) UD INH SCH ×3 (07:30→19:05)
[2017-03-13] MEDS: Budesonide 0.5 mg/2 ml Inhal Susp UD IH SCH ×2 (07:30→19:05)
[2017-03-13] MEDS ORDERED: Chlorhexidine Gluconate 1 APPL/PKT TP ONE (08:15)
[2017-03-13 08:58] LABS: CHLORIDE 113 mmol/L (98-107)
[2017-03-13 08:59] LABS: SODIUM 144 mmol/l (132-148)
[2017-03-13 09:01] LABS: ALB/GLOB RATIO 0.8 (1.0-2.1); AST/SGOT 116 U/L (14-36); BILIRUBIN,TOTAL 0.5 mg/dl (0.2-1.3); CARBON DIOXIDE 32 mmol/L (22-30); GFR AFRICAN-AMERICAN > 60; TOTAL PROTEIN 4.4 G/DL (6.3-8.2)
[2017-03-13 09:02] LABS: ALKALINE PHOSPHATASE 192 U/L (38-126); ALT/SGPT 103 U/L (9-52); BLOOD UREA NITROGEN 32 mg/dl (7-17); CALCIUM 7.1 mg/dL (8.4-10.2); GLUCOSE,RANDOM 83 mg/dL (65-105)
[2017-03-13] MEDS: Tiotropium 18 mcg Cap For Inhalation IH SCH (09:50)
--- NOTE | 2017-03-13 09:50 | CP.CCUPN ---
CCU Subjective - Physician Review Events Since Last Encounter (Free Text): 03/13/17 09:47 Still not awake and responsive, has not been eating much , although her daughter said she was able to feed her . Nurses tried to put NGT twice yesterday , unsuccessful, will try again now,. K is normal now, but had low BS, will change IVF to d5w. BP has been stable and saturation is good on HFNC. CCU Objective - Vital Signs / Intake & Output Vital Signs (Last 4 hours): Vital Signs Temp Pulse Resp BP Pulse Ox 03/13/17 08:00 99.6 F 88 21 116/76 100 03/13/17 07:24 19 03/13/17 06:00 86 22 110/65 100 Intake and Output (Last 8hrs): Intake & Output 03/12/17 03/13/17 03/13/17 22:59 06:59 14:59 Intake Total 2390 560 Output Total 450 425 Balance 1940 135 Weight 200 lb 14.4 oz Intake: IV 1200 360 Intake, Piggyback 950 200 Oral 240 Output: Urine 450 425 Urethral (Sanders) 450 425 Other: # Bowel Movements 1 - Physical Exam Narrative Physical Exam (Free Text): 03/13/17 09:49 P.E Neck: No JVD Lungs: decreased breath sounds in bases, Ext: No edema heart: No gallop neuro: Ams , decreased responsiveness. Head: Positive for: Normocephalic Pupils: Positive for: PERRL, Other Extroacular Muscles: Positive for: EOMI. Negative for: Gaze Palsy Conjunctiva: Negative for: Injected, Icteric Ears: Positive for: Normal Mouth: Positive for: Moist Mucous Membranes Pharnyx: Positive for: Normal Neck: Positive for: Normal Range of Motion. Negative for: Meningeal Signs, JVD , Lymphadenopathy Respiratory/Chest: Positive for: Decreased Breath Sounds. Negative for: Wheezes , Rhonchi Cardiovascular: Positive for: Regular Rate and Rhythm. Negative for: Murmurs, Rub Abdomen: Positive for: Normal Bowel Sounds. Negative for: Tenderness, Distention Upper Extremity: Positive for: Normal Inspection, Edema Lower Extremity: Positive for: Edema (+2), NORMAL PULSES. Negative for: CALF TENDERNESS (GCS= 5 (E1 V1 M3)), Cyanosis Skin: Positive for: Warm. Negative for: Rashes Psychiatric: Positive for: Lethargic - Medications Active Medications: Active Medications Generic Name Dose Route Start Last Admin Trade Name Freq PRN Reason Stop Dose Admin Acetaminophen 650 mg 03/04/17 15:46 03/10/17 11:44 Tylenol 325mg Tab PO 650 mg Q4H PRN Administration Temp 101 and above Acetaminophen 650 mg 03/12/17 20:03 03/12/17 19:45 Tylenol 650 Mg Supp [place] 650 mg Q4 PRN Administration Fever >100.4 F Albuterol Sulfate 2.5 mg 03/04/17 23:53 03/07/17 21:53 Albuterol 0.083% Inhal Suzan (2.5 Mg/3 Ml) Ud IH 2.5 mg Q6H PRN Administration Shortness of Breath Albuterol/Ipratropium 3 ml 03/04/17 20:00 03/12/17 19:08 Duoneb 3 Mg/0.5 Mg (3 Ml) Ud INH 3 ml RTID [facility] Administration Aspirin 325 mg 03/10/17 10:00 03/11/17 10:44 Aspirin PO Not Given DAILY [facility] Atorvastatin Calcium 80 mg 03/05/17 09:00 03/11/17 10:47 Lipitor PO Not Given DAILY [facility] Budesonide 0.5 mg 03/05/17 08:00 03/12/17 19:08 Pulmicort Respules IH 0.5 mg RBID [facility] Administration Carvedilol 3.125 mg 03/04/17 17:00 03/11/17 10:44 Coreg PO Not Given BID [facility] Ferrous Sulfate 300 mg 03/10/17 10:15 03/11/17 10:45 Feosol Liq PO Not Given DAILY [facility] Heparin Sodium (Porcine) 5,000 units 03/04/17 16:00 03/13/17 04:28 Heparin SC 5,000 units Q12H [facility] Administration Protocol Home Med 15 mcg 03/04/17 23:45 Arformoterol [Brovana] IH Q12H [facility] Home Med 1 appl 03/04/17 23:53 Phenyleph/Mineral Oil/Petrolat [Preparation H Ointment] [place] TID PRN Hemorrhoids Vancomycin HCl 1 gm/ Sodium 250 mls @ 166.667 mls/hr 03/05/17 09:00 03/12/17 08:56 Chloride IVPB 166.667 mls/hr DAILY [facility] Administration Meropenem 500 mg/ Sodium 100 mls @ 100 mls/hr 03/10/17 16:00 03/13/17 04:26 Chloride IVPB 100 mls/hr Q6 [facility] Administration Acyclovir 500 mg/ Sodium 100 mls @ 100 mls/hr 03/11/17 14:00 03/13/17 01:11 Chloride IVPB 100 mls/hr Q12H [facility] Administration Azithromycin 500 mg/ Sodium 250 mls @ 250 mls/hr 03/11/17 14:00 03/12/17 12: 17 Chloride IVPB 250 mls/hr DAILY [facility] Administration Potassium Chloride 40 meq/ 1,020 mls @ 60 mls/hr 03/12/17 10:00 03/13/17 07: 02 Sodium Chloride IV 03/13/17 09:59 Not Given .Q17H [facility] Potassium Chloride/Dextrose 1,000 mls @ 60 mls/hr 03/13/17 09:45 Potassium Chl 20 Meq In D5w IV 03/14/17 09:43 .[id number] [facility] Insulin Human Lispro 0 units 03/05/17 16:30 03/13/17 07:02 Humalog SC Not Given ACHS [facility] Protocol Lisinopril 10 mg 03/06/17 11:30 03/11/17 10:49 Zestril PO Not Given DAILY [facility] Loperamide HCl 2 mg 03/05/17 00:01 Imodium PO Q6H PRN Diarrhea Magnesium Hydroxide 30 ml 03/04/17 23:53 Milk Of Magnesia PO HS PRN Constipation Meclizine HCl 12.5 mg 03/04/17 15:46 Antivert PO Q6H PRN Dizziness Tiotropium [place] 18 mcg 03/05/17 09:00 03/12/17 12:17 Spiriva IH Not Given DAILY [facility] - Patient Studies Lab Studies: Microbiology Studies 03/10/17 03:10 Blood Culture - Preliminary Blood NO GROWTH AFTER 48 HOURS 03/10/17 02:45 Blood Culture - Preliminary Blood NO GROWTH AFTER 48 HOURS Lab Studies 03/13/17 03/13/17 03/13/17 Range/Units 06:02 05:42 05:30 Neutrophils % (Manual) (42-75) % Band Neutrophils % (0-2) % Lymphocytes % (Manual) (20-50) % Monocytes % (Manual) (0-10) % Platelet Estimate (NORMAL) Anisocytosis (manual) Ovalocytes Sodium 144 (132-148) mmol/l Potassium 4.0 (3.6-5.0) MMOL/L Chloride 113 H (98-107) mmol/L Carbon Dioxide 32 H (22-30) mmol/L Anion Gap 3 L (10-20) BUN 32 H (7-17) mg/dl Creatinine 0.9 (0.7-1.2) mg/dL Est GFR ( Amer) > 60 Est GFR (Non-Af Amer) > 60 POC Glucose (mg/dL) 143 H 41 L (65-110) mg/dL Random Glucose 83 (65-105) mg/dL Calcium 7.1 L (8.4-10.2) mg/dL Total Bilirubin 0.5 (0.2-1.3) mg/dl AST 116 H D (14-36) U/L ALT 103 H (9-52) U/L Alkaline Phosphatase 192 H (38-126) U/L Total Protein 4.4 L (6.3-8.2) G/DL Albumin 1.9 L (3.5-5.0) g/dL Globulin 2.5 (2.2-3.9) gm/dL Albumin/Globulin Ratio 0.8 L (1.0-2.1) 03/12/17 03/12/17 03/12/17 Range/Units 22:19 18:42 17:12 Neutrophils % (Manual) (42-75) % Band Neutrophils % (0-2) % Lymphocytes % (Manual) (20-50) % Monocytes % (Manual) (0-10) % Platelet Estimate (NORMAL) Anisocytosis (manual) Ovalocytes Sodium (132-148) mmol/l Potassium (3.6-5.0) MMOL/L Chloride (98-107) mmol/L Carbon Dioxide (22-30) mmol/L Anion Gap (10-20) BUN (7-17) mg/dl Creatinine (0.7-1.2) mg/dL Est GFR ( Amer) Est GFR (Non-Af Amer) POC Glucose (mg/dL) 163 H 169 H 66 (65-110) mg/dL Random Glucose (65-105) mg/dL Calcium (8.4-10.2) mg/dL Total Bilirubin (0.2-1.3) mg/dl AST (14-36) U/L ALT (9-52) U/L Alkaline Phosphatase (38-126) U/L Total Protein (6.3-8.2) G/DL Albumin (3.5-5.0) g/dL Globulin (2.2-3.9) gm/dL Albumin/Globulin Ratio (1.0-2.1) 03/12/17 03/12/17 Range/Units 10:53 06:56 Neutrophils % (Manual) 89 H (42-75) % Band Neutrophils % 1 (0-2) % Lymphocytes % (Manual) 5 L (20-50) % Monocytes % (Manual) 5 (0-10) % Platelet Estimate Normal (NORMAL) Anisocytosis (manual) Slight Ovalocytes Slight Sodium (132-148) mmol/l Potassium (3.6-5.0) MMOL/L Chloride (98-107) mmol/L Carbon Dioxide (22-30) mmol/L Anion Gap (10-20) BUN (7-17) mg/dl Creatinine (0.7-1.2) mg/dL Est GFR ( Amer) Est GFR (Non-Af Amer) POC Glucose (mg/dL) 135 H (65-110) mg/dL Random Glucose (65-105) mg/dL Calcium (8.4-10.2) mg/dL Total Bilirubin (0.2-1.3) mg/dl AST (14-36) U/L ALT (9-52) U/L Alkaline Phosphatase (38-126) U/L Total Protein (6.3-8.2) G/DL Albumin (3.5-5.0) g/dL Globulin (2.2-3.9) gm/dL Albumin/Globulin Ratio (1.0-2.1) Laboratory Results - last 24 hr 03/12/17 03/12/17 03/12/17 06:56 10:53 17:12 Neutrophils % (Manual) 89 H Band Neutrophils % 1 Lymphocytes % (Manual) 5 L Monocytes % (Manual) 5 Platelet Estimate Normal Anisocytosis (manual) Slight Ovalocytes Slight Sodium Potassium Chloride Carbon Dioxide Anion Gap BUN Creatinine Est GFR ( Amer) Est GFR (Non-Af Amer) POC Glucose (mg/dL) 135 H 66 Random Glucose Calcium Total Bilirubin AST ALT Alkaline Phosphatase Total Protein Albumin Globulin Albumin/Globulin Ratio 03/12/17 03/12/17 03/13/17 18:42 22:19 05:30 Neutrophils % (Manual) Band Neutrophils % Lymphocytes % (Manual) Monocytes % (Manual) Platelet Estimate Anisocytosis (manual) Ovalocytes Sodium 144 Potassium 4.0 Chloride 113 H Carbon Dioxide 32 H Anion Gap 3 L BUN 32 H Creatinine 0.9 Est GFR ( Amer) > 60 Est GFR (Non-Af Amer) > 60 POC Glucose (mg/dL) 169 H 163 H Random Glucose 83 Calcium 7.1 L Total Bilirubin 0.5 AST 116 H D ALT 103 H Alkaline Phosphatase 192 H Total Protein 4.4 L Albumin 1.9 L Globulin 2.5 Albumin/Globulin Ratio 0.8 L 03/13/17 03/13/17 05:42 06:02 Neutrophils % (Manual) Band Neutrophils % Lymphocytes % (Manual) Monocytes % (Manual) Platelet Estimate Anisocytosis (manual) Ovalocytes Sodium Potassium Chloride Carbon Dioxide Anion Gap BUN Creatinine Est GFR ( Amer) Est GFR (Non-Af Amer) POC Glucose (mg/dL) 41 L 143 H Random Glucose Calcium Total Bilirubin AST ALT Alkaline Phosphatase Total Protein Albumin Globulin Albumin/Globulin Ratio Fingerstick Blood Sugar Results: 143 Critical Care Progress Note - Nutrition Nutrition: Nutrition Category Date Time Status Dysphagia/Modified Consistency Diet [DIET] Diets 03/09/17 Breakfast Active Assessment/Plan - Assessment and Plan (Free Text) Assessment: MAJOR IMPRESSIONS / PLAN: 1. AMS 2 Sedative-Hypnotic meds, r/o Acute CVA, small improvement in MS. 2. Acute Resp insuff 2 Hypercarbia and Pneumonia: improving 3. Dehydration: improved 4- Hypokalemia: improved 5. DM II 6 h/o Dementia with hyperactive psychomotor activity- none manifest now. PLAN: 1. Neurochecks, seizure precutions. Neurology F/U. Neurology following 2. Stop Lexapro and Seroquel; Gabapentin all have adverse SPECTROGRAPHER effects. 3. No need for MV support at this point, will continue to monitor in ICU. Will continue with HFNC support. 4. Will change IVF to D5w with Kcl to avoid hypoglycemia. 5. NGT and start feeding, try again today. 6. Maintain normoglycemia. 7. Pt is full code, as per son. .
[2017-03-13] MEDS: Azithromycin 500 MG in Sodium Chloride 0.9% 250 ML IVPB SCH (09:51)
--- NOTE | 2017-03-13 10:13 | CP.PCM.PN ---
Subjective - Date & Time of Evaluation Date of Evaluation: 03/13/17 Time of Evaluation: 10:11 - Subjective Subjective: no chnge in pts status. bw noted, still w/ variations noted to glucose. pt remains unresponsive, although nursing reports family was able to get some food into her yesterdya 2x attempts at ngt unsuccesful-will d/c w/ son-poa further feeding possibilities. all c/s negative. still had low grade temps yesterday Objective - Vital Signs/Intake and Output Vital Signs (last 24 hours): Temp Pulse Resp BP Pulse Ox 99.6 F 88 21 116/76 100 03/13/17 08:00 03/13/17 08:00 03/13/17 08:00 03/13/17 08:00 03/13/17 08:00 Intake and Output: 03/13/17 03/13/17 06:59 18:59 Intake Total 940 600 Output Total 425 Balance 515 600 - Medications Medications: Current Medications Acetaminophen (Tylenol 325mg Tab) 650 mg PO Q4H PRN PRN Reason: Temp 101 and above Last Admin: 03/10/17 11:44 Dose: 650 mg Acetaminophen (Tylenol 650 Mg Supp) 650 mg [place] Q4 PRN PRN Reason: Fever >100.4 F Last Admin: 03/12/17 19:45 Dose: 650 mg Albuterol Sulfate (Albuterol 0.083% Inhal Suzan (2.5 Mg/3 Ml) Ud) 2.5 mg IH Q6H PRN PRN Reason: Shortness of Breath Last Admin: 03/07/17 21:53 Dose: 2.5 mg Albuterol/Ipratropium (Duoneb 3 Mg/0.5 Mg (3 Ml) Ud) 3 ml INH RTID [facility] Last Admin: 03/13/17 07:30 Dose: 3 ml Aspirin (Aspirin) 325 mg PO DAILY [facility] Last Admin: 03/11/17 10:44 Dose: Not Given Atorvastatin Calcium (Lipitor) 80 mg PO DAILY [facility] Last Admin: 03/11/17 10:47 Dose: Not Given Budesonide (Pulmicort Respules) 0.5 mg IH RBID [facility] Last Admin: 03/13/17 07:30 Dose: 0.5 mg Carvedilol (Coreg) 3.125 mg PO BID [facility] Last Admin: 03/11/17 10:44 Dose: Not Given Ferrous Sulfate (Feosol Liq) 300 mg PO DAILY [facility] Last Admin: 03/11/17 10:45 Dose: Not Given Heparin Sodium (Porcine) (Heparin) 5,000 units SC Q12H [facility] PRN Reason: Protocol Last Admin: 03/13/17 04:28 Dose: 5,000 units Home Med (Arformoterol [Brovana]) 15 mcg IH Q12H [facility] Home Med (Phenyleph/Mineral Oil/Petrolat [Preparation H Ointment]) 1 appl [place] TID PRN PRN Reason: Hemorrhoids Vancomycin HCl 1 gm/ Sodium (Chloride) 250 mls @ 166.667 mls/hr IVPB DAILY [facility] Last Admin: 03/13/17 09:51 Dose: 166.667 mls/hr Meropenem 500 mg/ Sodium (Chloride) 100 mls @ 100 mls/hr IVPB Q6 [facility] Last Admin: 03/13/17 09:50 Dose: 100 mls/hr Acyclovir 500 mg/ Sodium (Chloride) 100 mls @ 100 mls/hr IVPB Q12H [facility] Last Admin: 03/13/17 01:11 Dose: 100 mls/hr Azithromycin 500 mg/ Sodium (Chloride) 250 mls @ 250 mls/hr IVPB DAILY [facility] Last Admin: 03/13/17 09:51 Dose: 250 mls/hr Potassium Chloride/Dextrose (Potassium Chl 20 Meq In D5w) 1,000 mls @ 60 mls/ hr IV .[id number] [facility] Stop: 03/14/17 09:43 Insulin Human Lispro (Humalog) 0 units SC ACHS [facility] PRN Reason: Protocol Last Admin: 03/13/17 07:02 Dose: Not Given Lisinopril (Zestril) 10 mg PO DAILY [facility] Last Admin: 03/11/17 10:49 Dose: Not Given Loperamide HCl (Imodium) 2 mg PO Q6H PRN PRN Reason: Diarrhea Magnesium Hydroxide (Milk Of Magnesia) 30 ml PO HS PRN PRN Reason: Constipation Meclizine HCl (Antivert) 12.5 mg PO Q6H PRN PRN Reason: Dizziness Tiotropium [place] (Spiriva) 18 mcg IH DAILY [facility] Last Admin: 03/13/17 09:50 Dose: Not Given - Labs Labs: 07/22/17 06:56 03/13/17 05:30 - Constitutional Appears: Well, Non-toxic, No Acute Distress - Head Exam Head Exam: ATRAUMATIC, NORMAL INSPECTION, NORMOCEPHALIC - Eye Exam Eye Exam: EOMI, Normal appearance, PERRL Pupil Exam: NORMAL ACCOMODATION, PERRL - ENT Exam ENT Exam: Mucous Membranes Moist, Normal Exam - Neck Exam Neck Exam: Full ROM, Normal Inspection. absent: Lymphadenopathy - Respiratory Exam Respiratory Exam: Clear to Ausculation Bilateral, Rhonchi, NORMAL BREATHING PATTERN Additional comments: some rhonshi in bases, clear apex - Cardiovascular Exam Cardiovascular Exam: REGULAR RHYTHM, RRR, +S1, +S2. absent: Murmur - GI/Abdominal Exam GI & Abdominal Exam: Soft, Normal Bowel Sounds. absent: Tenderness - Extremities Exam Extremities Exam: Full ROM, Normal Capillary Refill, Normal Inspection. absent : Joint Swelling, Pedal Edema - Back Exam Back Exam: NORMAL INSPECTION - Neurological Exam Neurological Exam: CN II-XII Intact - Psychiatric Exam Psychiatric exam: Normal Affect, Normal Mood - Skin Skin Exam: Dry, Intact, Normal Color, Warm Assessment and Plan (1) CHF (congestive heart failure) Status: Acute (2) COPD exacerbation Status: Acute (3) Pneumonia Status: Acute (4) DVT prophylaxis Status: Acute (5) Type 2 diabetes mellitus with hyperglycemia Status: Acute - Assessment and Plan (Free Text) Assessment: (1) CHF (congestive heart failure) Assessment & Plan: cardio cont meds lasix Status: Acute (2) COPD exacerbation Assessment & Plan: pulm anbx neb tx high flow o2 Status: Acute (3) Pneumonia Assessment & Plan: zosyn, vanco, high flow o2, pulm consult, Id consult, merrem added, acyclovir added- Status: Acute (4) DVT prophylaxis Assessment & Plan: scd and ae hose heparin Status: Acute (5) Type 2 diabetes mellitus with hyperglycemia Assessment & Plan: riss, homemeds, endo consult, fsbg, tight glycemic control Status: Acute 4-ethngdgs-ussdt, ct head-negative [id number], echo noted, tsh-wnl 8-acute infarct id by dr de la paz, pr asa started. 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 woke up yesterday. sons wants full code and tube feedings unrepsonsive but w/ good sats on high flow, bp controlled, glucose variable.
[2017-03-13 11:19] LABS: HEMATOCRIT 43.1 % (34.0-47.0); MEAN CELL VOLUME 90.2 fl (81.0-99.0); MEAN CORPUSCULAR HEMOGLOBIN 28.7 pg (27.0-31.0); MEAN CORPUSCULAR HGB CONC 31.8 g/dL (33.0-37.0); RED CELL DISTRIBUTION WIDTH 16.5 % (11.5-14.5); WHITE BLOOD COUNT 10.8 K/uL (4.8-10.8)
[2017-03-13] MEDS: Potassium Chl 20mEq & D5W 1,000 ML IV SCH (11:19)
--- NOTE | 2017-03-13 13:59 | CP.PCM.PN ---
Subjective - Date & Time of Evaluation Date of Evaluation: 03/13/17 Time of Evaluation: 07:00 - Subjective Subjective: remains bed bound recognizes family still stuporous Objective - Vital Signs/Intake and Output Vital Signs (last 24 hours): Temp Pulse Resp BP Pulse Ox 99.8 F H 84 19 104/69 100 03/13/17 12:00 03/13/17 12:00 03/13/17 12:00 03/13/17 12:00 03/13/17 12:00 Intake and Output: 03/13/17 03/13/17 06:59 18:59 Intake Total 940 600 Output Total 425 Balance 515 600 - Medications Medications: Current Medications Acetaminophen (Tylenol 325mg Tab) 650 mg PO Q4H PRN PRN Reason: Temp 101 and above Last Admin: 03/10/17 11:44 Dose: 650 mg Acetaminophen (Tylenol 650 Mg Supp) 650 mg [place] Q4 PRN PRN Reason: Fever >100.4 F Last Admin: 03/12/17 19:45 Dose: 650 mg Albuterol Sulfate (Albuterol 0.083% Inhal Suzan (2.5 Mg/3 Ml) Ud) 2.5 mg IH Q6H PRN PRN Reason: Shortness of Breath Last Admin: 03/07/17 21:53 Dose: 2.5 mg Albuterol/Ipratropium (Duoneb 3 Mg/0.5 Mg (3 Ml) Ud) 3 ml INH RTID [facility] Last Admin: 03/13/17 07:30 Dose: 3 ml Aspirin (Aspirin) 325 mg PO DAILY [facility] Last Admin: 03/11/17 10:44 Dose: Not Given Atorvastatin Calcium (Lipitor) 80 mg PO DAILY [facility] Last Admin: 03/11/17 10:47 Dose: Not Given Budesonide (Pulmicort Respules) 0.5 mg IH RBID [facility] Last Admin: 03/13/17 07:30 Dose: 0.5 mg Carvedilol (Coreg) 3.125 mg PO BID [facility] Last Admin: 03/11/17 10:44 Dose: Not Given Ferrous Sulfate (Feosol Liq) 300 mg PO DAILY [facility] Last Admin: 03/11/17 10:45 Dose: Not Given Heparin Sodium (Porcine) (Heparin) 5,000 units SC Q12H [facility] PRN Reason: Protocol Last Admin: 03/13/17 04:28 Dose: 5,000 units Home Med (Arformoterol [Brovana]) 15 mcg IH Q12H [facility] Home Med (Phenyleph/Mineral Oil/Petrolat [Preparation H Ointment]) 1 appl [place] TID PRN PRN Reason: Hemorrhoids Vancomycin HCl 1 gm/ Sodium (Chloride) 250 mls @ 166.667 mls/hr IVPB DAILY [facility] Last Admin: 03/13/17 09:51 Dose: 166.667 mls/hr Meropenem 500 mg/ Sodium (Chloride) 100 mls @ 100 mls/hr IVPB Q6 [facility] Last Admin: 03/13/17 09:50 Dose: 100 mls/hr Acyclovir 500 mg/ Sodium (Chloride) 100 mls @ 100 mls/hr IVPB Q12H [facility] Last Admin: 03/13/17 01:11 Dose: 100 mls/hr Azithromycin 500 mg/ Sodium (Chloride) 250 mls @ 250 mls/hr IVPB DAILY [facility] Last Admin: 03/13/17 09:51 Dose: 250 mls/hr Potassium Chloride/Dextrose (Potassium Chl 20 Meq In D5w) 1,000 mls @ 60 mls/ hr IV .[id number] [facility] Stop: 03/14/17 09:43 Last Admin: 03/13/17 11:19 Dose: 60 mls/hr Insulin Human Lispro (Humalog) 0 units SC ACHS [facility] PRN Reason: Protocol Last Admin: 03/13/17 11:20 Dose: Not Given Lisinopril (Zestril) 10 mg PO DAILY [facility] Last Admin: 03/11/17 10:49 Dose: Not Given Loperamide HCl (Imodium) 2 mg PO Q6H PRN PRN Reason: Diarrhea Magnesium Hydroxide (Milk Of Magnesia) 30 ml PO HS PRN PRN Reason: Constipation Meclizine HCl (Antivert) 12.5 mg PO Q6H PRN PRN Reason: Dizziness Tiotropium [place] (Spiriva) 18 mcg IH DAILY [facility] Last Admin: 03/13/17 09:50 Dose: Not Given - Labs Labs: 03/13/17 05:30 03/13/17 05:30 - Constitutional Appears: Non-toxic, Cachectic, Chronically Ill - Head Exam Head Exam: NORMOCEPHALIC - Eye Exam Eye Exam: PERRL. absent: Scleral icterus - ENT Exam ENT Exam: Mucous Membranes Dry - Neck Exam Neck Exam: absent: Lymphadenopathy, Thyromegaly - Respiratory Exam Respiratory Exam: Decreased Breath Sounds, Rhonchi - Cardiovascular Exam Cardiovascular Exam: REGULAR RHYTHM, +S1, +S2 - GI/Abdominal Exam GI & Abdominal Exam: Distended, Soft - Rectal Exam Rectal Exam: Deferred - Exam Exam: NORMAL INSPECTION - Extremities Exam Extremities Exam: absent: Pedal Edema - Back Exam Back Exam: absent: CVA tenderness (L), CVA tenderness (R) - Neurological Exam Neurological Exam: Altered - Psychiatric Exam Psychiatric exam: Depressed - Skin Skin Exam: Dry Assessment and Plan (1) CHF (congestive heart failure) Status: Acute (2) COPD exacerbation Status: Acute (3) Pneumonia Status: Acute - Assessment and Plan (Free Text) Plan: cont rx as ordered poor prognosis
--- NOTE | 2017-03-13 18:17 | PN ---
LOCATION: In ICU Room #425. SUBJECTIVE: This is a 76-year-old female with recent uncontrolled type II insulin requiring diabetes, now being followed closely for metabolic management. Her glycemic levels are fluctuating but improved as noted. She remains somnolent and lethargic and being followed closely for hemodynamic monitor in the ICU because of recent hypotension. Her latest chemistry showed a BUN of 36, sodium 147, potassium 3.0, chloride 111, CO2 of 34, glucose 188 and creatinine 1.0, so at this time we will continue the low dose correction scale Humalog insulin as given. She has been taken off both basal and bolus insulin regimen as she remains quite lethargic and somnolent with no oral intake at this time. We will obtain serial chemistry and supplement accordingly as needed. We will obtain ____ so we will resume the basal insulin if hyperglycemic levels supervened as indicated. We will follow with you. Oma Martines MD
[2017-03-14] MEDS: Acyclovir 500 MG in Sodium Chloride 0.9% 100 ML IVPB SCH ×2 (01:14→16:36)
[2017-03-14] MEDS: Meropenem 500 MG in Sodium Chloride 0.9% 100 ML IVPB SCH ×4 (03:44→21:28)
[2017-03-14] MEDS: Insulin Lispro (humaLOG) 100 Units/ml Inj SC SCH ×4 (06:32→21:30)
[2017-03-14] MEDS ORDERED: Pneumococcal 23-Valent Vaccine IM ONE (07:21)
--- NOTE | 2017-03-14 07:32 | CP.PCM.PN ---
Subjective - Date & Time of Evaluation Date of Evaluation: 03/14/17 Time of Evaluation: 07:32 - Subjective Subjective: pt repains unresponsive, moaning to some tactile stimuli. bw noted, more tightly controlled glucose noted. per son, shayne, peg tube to be ordered. gi contacted by farooq rivera Objective - Vital Signs/Intake and Output Vital Signs (last 24 hours): Temp Pulse Resp BP Pulse Ox 99.8 F H 87 19 129/85 100 03/14/17 04:00 03/14/17 06:00 03/14/17 06:00 03/14/17 06:00 03/14/17 06:00 Intake and Output: 03/14/17 03/14/17 06:59 18:59 Intake Total 760 Output Total 600 Balance 160 - Medications Medications: Current Medications Acetaminophen (Tylenol 325mg Tab) 650 mg PO Q4H PRN PRN Reason: Temp 101 and above Last Admin: 03/10/17 11:44 Dose: 650 mg Acetaminophen (Tylenol 650 Mg Supp) 650 mg [place] Q4 PRN PRN Reason: Fever >100.4 F Last Admin: 03/12/17 19:45 Dose: 650 mg Albuterol Sulfate (Albuterol 0.083% Inhal Suzan (2.5 Mg/3 Ml) Ud) 2.5 mg IH Q6H PRN PRN Reason: Shortness of Breath Last Admin: 03/07/17 21:53 Dose: 2.5 mg Albuterol/Ipratropium (Duoneb 3 Mg/0.5 Mg (3 Ml) Ud) 3 ml INH RTID [facility] Last Admin: 03/13/17 19:05 Dose: 3 ml Aspirin (Aspirin) 325 mg PO DAILY [facility] Last Admin: 03/11/17 10:44 Dose: Not Given Atorvastatin Calcium (Lipitor) 80 mg PO DAILY [facility] Last Admin: 03/11/17 10:47 Dose: Not Given Budesonide (Pulmicort Respules) 0.5 mg IH RBID [facility] Last Admin: 03/13/17 19:05 Dose: 0.5 mg Carvedilol (Coreg) 3.125 mg PO BID [facility] Last Admin: 03/11/17 10:44 Dose: Not Given Ferrous Sulfate (Feosol Liq) 300 mg PO DAILY [facility] Last Admin: 03/11/17 10:45 Dose: Not Given Heparin Sodium (Porcine) (Heparin) 5,000 units SC Q12H [facility] PRN Reason: Protocol Last Admin: 03/14/17 04:15 Dose: 5,000 units Home Med (Arformoterol [Brovana]) 15 mcg IH Q12H [facility] Home Med (Phenyleph/Mineral Oil/Petrolat [Preparation H Ointment]) 1 appl WA TID PRN PRN Reason: Hemorrhoids Vancomycin HCl 1 gm/ Sodium (Chloride) 250 mls @ 166.667 mls/hr IVPB DAILY [facility] Last Admin: 03/13/17 09:51 Dose: 166.667 mls/hr Meropenem 500 mg/ Sodium (Chloride) 100 mls @ 100 mls/hr IVPB Q6 [facility] Last Admin: 03/14/17 03:44 Dose: 100 mls/hr Acyclovir 500 mg/ Sodium (Chloride) 100 mls @ 100 mls/hr IVPB Q12H [facility] Last Admin: 03/14/17 01:14 Dose: 100 mls/hr Azithromycin 500 mg/ Sodium (Chloride) 250 mls @ 250 mls/hr IVPB DAILY [facility] Last Admin: 03/13/17 09:51 Dose: 250 mls/hr Potassium Chloride/Dextrose (Potassium Chl 20 Meq In D5w) 1,000 mls @ 60 mls/ hr IV .[id number] [facility] Stop: 03/14/17 09:43 Last Admin: 03/13/17 11:19 Dose: 60 mls/hr Insulin Human Lispro (Humalog) 0 units SC ACHS [facility] PRN Reason: Protocol Last Admin: 03/14/17 06:32 Dose: Not Given Lisinopril (Zestril) 10 mg PO DAILY [facility] Last Admin: 03/11/17 10:49 Dose: Not Given Loperamide HCl (Imodium) 2 mg PO Q6H PRN PRN Reason: Diarrhea Magnesium Hydroxide (Milk Of Magnesia) 30 ml PO HS PRN PRN Reason: Constipation Meclizine HCl (Antivert) 12.5 mg PO Q6H PRN PRN Reason: Dizziness Tiotropium [place] (Spiriva) 18 mcg IH DAILY [facility] Last Admin: 03/13/17 09:50 Dose: Not Given - Labs Labs: 03/13/17 05:30 03/13/17 05:30 - Constitutional Appears: Non-toxic, No Acute Distress, Chronically Ill - Head Exam Head Exam: ATRAUMATIC, NORMAL INSPECTION, NORMOCEPHALIC - Eye Exam Eye Exam: EOMI, Normal appearance, PERRL Pupil Exam: NORMAL ACCOMODATION, PERRL - ENT Exam ENT Exam: Mucous Membranes Moist, Normal Exam - Neck Exam Neck Exam: Full ROM, Normal Inspection. absent: Lymphadenopathy - Respiratory Exam Respiratory Exam: Clear to Ausculation Bilateral, NORMAL BREATHING PATTERN - Cardiovascular Exam Cardiovascular Exam: REGULAR RHYTHM, RRR, +S1, +S2. absent: Murmur - GI/Abdominal Exam GI & Abdominal Exam: Soft, Normal Bowel Sounds. absent: Tenderness - Extremities Exam Extremities Exam: Full ROM, Normal Capillary Refill, Normal Inspection. absent : Joint Swelling, Pedal Edema - Back Exam Back Exam: NORMAL INSPECTION - Neurological Exam Neurological Exam: CN II-XII Intact - Psychiatric Exam Psychiatric exam: Normal Affect, Normal Mood - Skin Skin Exam: Dry, Intact, Normal Color, Warm Assessment and Plan (1) CHF (congestive heart failure) Status: Acute (2) COPD exacerbation Status: Acute (3) Pneumonia Status: Acute (4) DVT prophylaxis Status: Acute (5) Type 2 diabetes mellitus with hyperglycemia Status: Acute - Assessment and Plan (Free Text) Assessment: (1) CHF (congestive heart failure) Assessment & Plan: cardio cont meds lasix Status: Acute (2) COPD exacerbation Assessment & Plan: pulm anbx neb tx high flow o2 Status: Acute (3) Pneumonia Assessment & Plan: zosyn, vanco, high flow o2, pulm consult, Id consult, merrem, acyclovir Status: Acute (4) DVT prophylaxis Assessment & Plan: scd and ae hose heparin Status: Acute (5) Type 2 diabetes mellitus with hyperglycemia Assessment & Plan: riss, homemeds, endo consult, fsbg, tight glycemic control Status: Acute [id number], ct head-negative, mri w/ small infarct [id number], echo noted, tsh-wnl 8-acute infarct id by dr de la paz, pr asa started. prognosis poor, pt w/ periods of lethargy all [employer] meds held. onlym oans in response to tactile stimuli sons wants full code and tube feedings-gi for peg tube unrepsonsive but w/ good sats on high flow, bp controlled, glucose variable. ltach
[2017-03-14] MEDS: Albuterol-Ipratrop 3 mg / 0.5 (3 ml) UD INH SCH ×4 (07:50→19:43)
[2017-03-14] MEDS: Budesonide 0.5 mg/2 ml Inhal Susp UD IH SCH (07:50)
[2017-03-14 08:29] LABS: HEMATOCRIT 41.5 % (34.0-47.0); MEAN CELL VOLUME 89.9 fl (81.0-99.0); MEAN CORPUSCULAR HEMOGLOBIN 29.3 pg (27.0-31.0); MEAN CORPUSCULAR HGB CONC 32.6 g/dL (33.0-37.0); RED CELL DISTRIBUTION WIDTH 16.1 % (11.5-14.5); WHITE BLOOD COUNT 15.6 K/uL (4.8-10.8)
--- NOTE | 2017-03-14 08:40 | CON ---
DATE: 03/11/2017 CHIEF COMPLAINT: Fall, altered mental status. SUBJECTIVE: The patient seen and examined at bedside. She still has hyperglycemic accelerations of blood sugars varying from 300s to 400s. Has electrolyte derangement. She has also elevated temperature. She had an MRI of the brain, which showed a cystic *------* of the left cerebellar peduncle and anterior to the central left cerebellum associated with chronic hemorrhage, which is old, but she has a small tiny lacunar infarction *------* left temporoparietal region lateral to the left ventricle and atrium secondary from underlying risk factors of atherosclerotic disease. Currently, *------* speech is hypophonic, but is a little bit more alert today. PAST MEDICAL HISTORY: COPD, hypertension, dyslipidemia, coronary artery disease, type 2 diabetes mellitus, CHF, and pneumonia. REVIEW OF SYSTEMS: Fourteen-point review of systems negative except as stated in the HPI. FAMILY HISTORY: Noncontributory. MEDICATIONS: Reviewed by nurse per reconciliation sheet. ALLERGIES: *------* PHYSICAL EXAMINATION VITAL SIGNS: Temperature of 100, pulse rate of 100, blood pressure 109/60, respiratory rate of *---01:40---*. GENERAL: The patient is drowsy, in no acute distress. HEENT: Atraumatic, normocephalic. PERRLA. Extraocular muscles intact. NECK: Supple. No JVD. No adenopathy noted. LUNGS: Decreased breath sounds bilaterally. HEART: S1 and S2. Normal rate and rhythm. No murmur, rubs, or gallops. ABDOMEN: Soft, nontender, nondistended. Bowel sounds are present. EXTREMITIES: No clubbing. No cyanosis. Peripheral pulses 2+ felt bilaterally. NEUROLOGIC: The patient is drowsy, no acute distress. Speech is hyperphonic. She is hard of hearing at baseline. Cranial nerves II through XII intact. Motor exam: Moves all extremities equally. Slightly decreased tone in the left, compared to the right. Sensory exam: Withdraws to localized noxious stimulus. Light touch and pin prick are decreased at the calves bilaterally. *------* DTRs are 1+ throughout and absent at the knees and ankles. Coordination and gait deferred for now. LABORATORY DATA: Sodium is 146, potassium 3.1, chloride of 24, BUN of 36, creatinine 1.1, random glucose 321. ASSESSMENT AND PLAN: This is a 76-year-old woman with history of coronary artery disease, hypertension, dyslipidemia, congestive heart failure, uncontrolled diabetes, history of pneumonia, history of chronic obstructive pulmonary disease, presented initially to the hospital for shortness of breath, productive yellow sputum, has multifocal pneumonia, especially on the right upper lobe and is on antibiotics, thought to be increased lethargy. She had transient hypoglycemic events and has had glucose of 29 and glucose of 62 and was mildly dehydrated which was being corrected. Now she is having periods of hyperglycemic accelerations and found to have small acute tiny lacunar infarct in the left temporoparietal region to the left lateral ventricle and atrium. Her tiny lacunar infarct in the left lateral temporoparietal region is secondary to diffuse atherosclerotic disease *------* uncontrolled diabetes and hypertension, dyslipidemia. Her overall altered mental status and increased lethargy is secondary to diffuse toxic metabolic encephalopathy from metabolic derangement because of hypoglycemic and hyperglycemic accelerations associated with underlying pneumonia superimposed on small tiny acute lacunar infarct in the left temporal parietal region. At this time, I recommend: 1. Rectal aspirin 325 and Lipitor 80 mg for stroke prevention. 2. Monitor blood glucose and keep her blood sugars between 140 to 180 and avoid hypoglycemic events and avoid hyperglycemic accelerations. 3. Avoid all sedative medications. 4. Avoid nighttime interruptions and do frequent interactions throughout the day and continue current present medical management. Case discussed with family at bedside as well as the ICU team. Thank you for this followup. Ronald Monroe MD
--- NOTE | 2017-03-14 08:59 | CP.PCM.PN ---
Subjective - Date & Time of Evaluation Date of Evaluation: 03/14/17 Time of Evaluation: 08:59 - Subjective Subjective: LETHARGIC STILL HAVING DYSPNEA AT REST ON HIGH FLOW O2 Objective - Vital Signs/Intake and Output Vital Signs (last 24 hours): Temp Pulse Resp BP Pulse Ox 99 F 92 H 23 118/74 100 03/14/17 08:00 03/14/17 08:00 03/14/17 08:00 03/14/17 08:00 03/14/17 08:00 Intake and Output: 03/14/17 03/14/17 06:59 18:59 Intake Total 760 Output Total 600 Balance 160 - Medications Medications: Current Medications Acetaminophen (Tylenol 325mg Tab) 650 mg PO Q4H PRN PRN Reason: Temp 101 and above Last Admin: 03/10/17 11:44 Dose: 650 mg Acetaminophen (Tylenol 650 Mg Supp) 650 mg [place] Q4 PRN PRN Reason: Fever >100.4 F Last Admin: 03/12/17 19:45 Dose: 650 mg Albuterol Sulfate (Albuterol 0.083% Inhal Suzan (2.5 Mg/3 Ml) Ud) 2.5 mg IH Q6H PRN PRN Reason: Shortness of Breath Last Admin: 03/07/17 21:53 Dose: 2.5 mg Albuterol/Ipratropium (Duoneb 3 Mg/0.5 Mg (3 Ml) Ud) 3 ml INH RTID [facility] Last Admin: 03/14/17 07:50 Dose: 3 ml Aspirin (Aspirin) 325 mg PO DAILY [facility] Last Admin: 03/11/17 10:44 Dose: Not Given Atorvastatin Calcium (Lipitor) 80 mg PO DAILY [facility] Last Admin: 03/11/17 10:47 Dose: Not Given Budesonide (Pulmicort Respules) 0.5 mg IH RBID [facility] Last Admin: 03/14/17 07:50 Dose: 0.5 mg Carvedilol (Coreg) 3.125 mg PO BID [facility] Last Admin: 03/11/17 10:44 Dose: Not Given Ferrous Sulfate (Feosol Liq) 300 mg PO DAILY [facility] Last Admin: 03/11/17 10:45 Dose: Not Given Home Med (Arformoterol [Brovana]) 15 mcg IH Q12H [facility] Home Med (Phenyleph/Mineral Oil/Petrolat [Preparation H Ointment]) 1 appl [place] TID PRN PRN Reason: Hemorrhoids Vancomycin HCl 1 gm/ Sodium (Chloride) 250 mls @ 166.667 mls/hr IVPB DAILY [facility] Last Admin: 03/13/17 09:51 Dose: 166.667 mls/hr Meropenem 500 mg/ Sodium (Chloride) 100 mls @ 100 mls/hr IVPB Q6 [facility] Last Admin: 03/14/17 03:44 Dose: 100 mls/hr Acyclovir 500 mg/ Sodium (Chloride) 100 mls @ 100 mls/hr IVPB Q12H [facility] Last Admin: 03/14/17 01:14 Dose: 100 mls/hr Azithromycin 500 mg/ Sodium (Chloride) 250 mls @ 250 mls/hr IVPB DAILY [facility] Last Admin: 03/13/17 09:51 Dose: 250 mls/hr Potassium Chloride/Dextrose (Potassium Chl 20 Meq In D5w) 1,000 mls @ 60 mls/ hr IV .[id number] [facility] Stop: 03/14/17 09:43 Last Admin: 03/13/17 11:19 Dose: 60 mls/hr Insulin Human Lispro (Humalog) 0 units SC ACHS [facility] PRN Reason: Protocol Last Admin: 03/14/17 06:32 Dose: Not Given Lisinopril (Zestril) 10 mg PO DAILY [facility] Last Admin: 03/11/17 10:49 Dose: Not Given Loperamide HCl (Imodium) 2 mg PO Q6H PRN PRN Reason: Diarrhea Magnesium Hydroxide (Milk Of Magnesia) 30 ml PO HS PRN PRN Reason: Constipation Meclizine HCl (Antivert) 12.5 mg PO Q6H PRN PRN Reason: Dizziness Tiotropium [place] (Spiriva) 18 mcg IH DAILY [facility] Last Admin: 03/13/17 09:50 Dose: Not Given - Labs Labs: 03/14/17 08:00 03/13/17 05:30 - Constitutional Appears: Chronically Ill - Head Exam Head Exam: ATRAUMATIC, NORMAL INSPECTION, NORMOCEPHALIC - Eye Exam Eye Exam: EOMI, Normal appearance, PERRL Pupil Exam: NORMAL ACCOMODATION, PERRL - ENT Exam ENT Exam: Mucous Membranes Moist, Normal Exam - Neck Exam Neck Exam: Full ROM, Normal Inspection. absent: Lymphadenopathy - Respiratory Exam Respiratory Exam: Decreased Breath Sounds, Rales - Cardiovascular Exam Cardiovascular Exam: REGULAR RHYTHM, +S1, +S2. absent: Murmur - GI/Abdominal Exam GI & Abdominal Exam: Soft, Normal Bowel Sounds. absent: Tenderness - Rectal Exam Rectal Exam: NORMAL INSPECTION - Extremities Exam Extremities Exam: Full ROM, Normal Capillary Refill, Normal Inspection, Pedal Edema. absent: Joint Swelling - Back Exam Back Exam: NORMAL INSPECTION - Skin Skin Exam: Dry, Intact, Normal Color, Warm Assessment and Plan - Assessment and Plan (Free Text) Assessment: CHF PNEUMONIA Plan: CONTINUE PRESENT RX REPEAT CXR
[2017-03-14 09:11] LABS: CHLORIDE 114 mmol/L (98-107); SODIUM 143 mmol/l (132-148)
[2017-03-14 09:12] LABS: POTASSIUM 4.3 MMOL/L (3.6-5.0)
[2017-03-14 09:14] LABS: CARBON DIOXIDE 31 mmol/L (22-30); GFR AFRICAN-AMERICAN > 60
[2017-03-14 09:15] LABS: BLOOD UREA NITROGEN 28 mg/dl (7-17); CALCIUM 7.8 mg/dL (8.4-10.2); GLUCOSE,RANDOM 125 mg/dL (65-105)
[2017-03-14] MEDS: Potassium Chl 20mEq & D5W 1,000 ML IV SCH (09:48)
[2017-03-14] MEDS: Tiotropium 18 mcg Cap For Inhalation IH SCH (09:48)
[2017-03-14] MEDS: Azithromycin 500 MG in Sodium Chloride 0.9% 250 ML IVPB SCH (09:49)
[2017-03-14] MEDS ORDERED: Potassium Chl 20mEq & D5W 1,000 ML IV SCH (11:15)
--- NOTE | 2017-03-14 12:00 | RAD ---
PROCEDURE: CHEST RADIOGRAPH, 1 VIEW HISTORY: PNEUMONIA COMPARISON: 03/11/2017 FINDINGS: LUNGS: No pulmonary infiltrate PLEURA: Opacity at both costophrenic angles may reflect small pleural effusions. No pneumothorax. CARDIOVASCULAR: Normal heart size. Mild congestive change. Status post CABG. OSSEOUS STRUCTURES: No significant abnormalities. VISUALIZED UPPER ABDOMEN: Normal. OTHER FINDINGS: None. IMPRESSION: Possible small bilateral pleural effusion. Congestive change. No infiltrate.
--- NOTE | 2017-03-14 16:03 | PN ---
CRITICAL CARE PROGRESS NOTE DATE OF SERVICE: 03/14/2017 LOCATION: The patient is in ICU, bed #425. TIME SPENT: 35 minutes. HISTORY OF PRESENT ILLNESS: The patient is seen and evaluated at the bedside. Events since admission were reviewed. Past medical, surgical, and social history were review. This is a 76-year-old female with medical history significant for chronic obstructive pulmonary disease, pneumonia, diabetes mellitus type 2, cellulitis, admitted through emergency room complaining of cough productive of yellowish sputum, [facility] resident, treated for pneumonia and CHF, remains less wakeful, opens eyes on calling her names but remains nonverbal, not interactive, on high-flow nasal oxygen 40 L, 50%, saturating over 94%, normotensive, afebrile. PHYSICAL EXAMINATION: VITAL SIGNS: Temperature 99.8, heart rate 90, respiratory rate 21 to 24, thoraco dominant, blood pressure 100/59, intake 2340, output 1000, positive fluid balance 1340, weight 200 pounds. HEENT: Pupils are reactive, conjunctivae pink, sclerae white. NECK: Supple, on high-flow nasal oxygen. CHEST: Bilateral breath sounds present, diminished in intensity, scattered rhonchi. HEART: Rhythm regular. S1, S2 normal in intensity. No S3, S4, or gallop. No audible murmur. ABDOMEN: Bowel sounds present, soft. Liver and spleen are nonpalpable. Bladder is not distended. EXTREMITIES: 1+ edema. Peripheral pulses are present, reduced in intensity, amputated right big toe. NEUROLOGIC: Remains lethargic, opens eyes, nonverbal, not interactive. MEDICATIONS: Current medications include Tylenol 650 q. 4 p.r.n., acyclovir 500 mg IV q. 12 hours, albuterol inhalation 2.5 mg q. 6 hours, aspirin 325 mg p.o. daily, Lipitor 80 mg p.o. daily, azithromycin 500 mg IV daily, meropenem 500 mg IV q. 6, vancomycin 1 gram IV daily, tiotropium 18 mcg inhalation daily, Antivert 12.5 mg p.o. q. 6 hours, Imodium 2 mg p.o. q. 6 p.r.n., Zestril 10 mg p.o. daily, Accu-Chek with regular insulin coverage, lisinopril 10 mg p.o. daily, heparin 5000 units subcutaneous q. 12, ferrous sulfate 300 mg p.o. daily, Coreg 3.125 mg b.i.d., Pulmicort 0.5 mg twice daily. LABORATORY DATA: WBC 15.6, hemoglobin 13.5, hematocrit 41.5, platelet count 223. ABG, pH 7.57, pCO2 44, pO2 60, oxygen saturation 94.6 on FiO2 45%. SMA-7, sodium 143, potassium 4.3, chloride 114, CO2 31, blood urea nitrogen 28, creatinine 0.8, calcium 7.8, vancomycin trough level 14. Hepatitis A, B, and C antibody negative. Urine legionella antigen not detected. Microbiology: MRSA nasal smear negative. Urine culture no growth. Blood culture no growth. Sputum culture normal clara. Head CT dated 03/08/2017, no mass effect or edema, mildly to moderately diffuse atrophy consistent with the patient's age, extensive white matter ischemic change, old left cerebellar hemispheric infarct extending to left cerebellar peduncle. Chest x-ray, persistent right apical opacity and new right basilar opacity, probable small right pleural effusion. Echocardiogram, left ventricle is normal in size, mildly concentric left ventricular hypertrophy, left ventricular function is normal, left ventricular ejection fraction is within normal range, mild mitral regurgitation, mild pulmonary hypertension. CT head suggesting; 1. Infarction of the left cerebellum with extension to left peduncle. 2. Septic/metabolic encephalopathy secondary to frequent fluctuations in blood sugar. ASSESSMENT AND PLAN: 1. Cardiac, normal left ventricular function. 2. Pulmonary, right lower and left apical pneumonia, suspect aspiration. 3. Gastrointestinal, maintain nothing by mouth. 4. Percutaneous endoscopic gastrostomy insertion. Gastroenterology consulted. Renal function stable. 5. Endocrine, history of diabetes mellitus type 2, fluctuation in blood sugar. Closely monitor blood sugar, keep it below 180 mg. 6. Infectious disease, pneumonia, currently on vancomycin, meropenem, and azithromycin. Continue deep vein thrombosis and gastrointestinal prophylaxis. Maintain intravenous fluid D5W with 20 of KCl at 60 mL per hour. Neville Amador MD
--- NOTE | 2017-03-14 20:34 | CP.PCM.PN ---
Subjective - Date & Time of Evaluation Date of Evaluation: 03/14/17 Time of Evaluation: 09:00 - Subjective Subjective: events noted iv rx in progress cultures negative family wants everything done Objective - Vital Signs/Intake and Output Vital Signs (last 24 hours): Temp Pulse Resp BP Pulse Ox 97.1 F L 89 23 90/65 L 100 03/14/17 20:00 03/14/17 20:00 03/14/17 20:00 03/14/17 20:00 03/14/17 20:00 Intake and Output: 03/14/17 03/15/17 18:59 06:59 Intake Total 1520 Output Total 400 Balance 1120 - Medications Medications: Current Medications Acetaminophen (Tylenol 325mg Tab) 650 mg PO Q4H PRN PRN Reason: Temp 101 and above Last Admin: 03/10/17 11:44 Dose: 650 mg Acetaminophen (Tylenol 650 Mg Supp) 650 mg [place] Q4 PRN PRN Reason: Fever >100.4 F Last Admin: 03/12/17 19:45 Dose: 650 mg Albuterol Sulfate (Albuterol 0.083% Inhal [place] (2.5 Mg/3 Ml) Ud) 2.5 mg IH Q6H PRN PRN Reason: Shortness of Breath Last Admin: 03/07/17 21:53 Dose: 2.5 mg Albuterol/Ipratropium (Duoneb 3 Mg/0.5 Mg (3 Ml) Ud) 3 ml INH RTID [facility] Last Admin: 03/14/17 19:43 Dose: 3 ml Aspirin (Aspirin) 325 mg PO DAILY [facility] Last Admin: 03/11/17 10:44 Dose: Not Given Atorvastatin Calcium (Lipitor) 80 mg PO DAILY [facility] Last Admin: 03/11/17 10:47 Dose: Not Given Budesonide (Pulmicort Respules) 0.5 mg IH RBID [facility] Last Admin: 03/14/17 07:50 Dose: 0.5 mg Carvedilol (Coreg) 3.125 mg PO BID [facility] Last Admin: 03/11/17 10:44 Dose: Not Given Ferrous Sulfate (Feosol Liq) 300 mg PO DAILY [facility] Last Admin: 03/11/17 10:45 Dose: Not Given Heparin Sodium (Porcine) (Heparin) 5,000 units SC Q12 [facility] PRN Reason: Protocol Last Admin: 03/14/17 12:18 Dose: 5,000 units Home Med (Arformoterol [Brovana]) 15 mcg IH Q12H [facility] Home Med (Phenyleph/Mineral Oil/Petrolat [Preparation H Ointment]) 1 appl [place] TID PRN PRN Reason: Hemorrhoids Vancomycin HCl 1 gm/ Sodium (Chloride) 250 mls @ 166.667 mls/hr IVPB DAILY [facility] Last Admin: 03/14/17 09:48 Dose: 166.667 mls/hr Meropenem 500 mg/ Sodium (Chloride) 100 mls @ 100 mls/hr IVPB Q6 [facility] Last Admin: 03/14/17 16:35 Dose: 100 mls/hr Acyclovir 500 mg/ Sodium (Chloride) 100 mls @ 100 mls/hr IVPB Q12H [facility] Last Admin: 03/14/17 16:36 Dose: 100 mls/hr Azithromycin 500 mg/ Sodium (Chloride) 250 mls @ 250 mls/hr IVPB DAILY [facility] Last Admin: 03/14/17 09:49 Dose: 250 mls/hr Potassium Chloride/Dextrose (Potassium Chl 20 Meq In D5w) 1,000 mls @ 49.505 mls/hr IV .[id number] [facility] Stop: 03/15/17 10:53 Insulin Human Lispro (Humalog) 0 units SC ACHS [facility] PRN Reason: Protocol Last Admin: 03/14/17 16:34 Dose: Not Given Lisinopril (Zestril) 10 mg PO DAILY [facility] Last Admin: 03/11/17 10:49 Dose: Not Given Loperamide HCl (Imodium) 2 mg PO Q6H PRN PRN Reason: Diarrhea Magnesium Hydroxide (Milk Of Magnesia) 30 ml PO HS PRN PRN Reason: Constipation Meclizine HCl (Antivert) 12.5 mg PO Q6H PRN PRN Reason: Dizziness Tiotropium [place] (Spiriva) 18 mcg IH DAILY [facility] Last Admin: 03/14/17 09:48 Dose: Not Given - Labs Labs: 03/14/17 08:00 03/14/17 08:00 - Constitutional Appears: Confused - Head Exam Head Exam: NORMOCEPHALIC - Eye Exam Eye Exam: PERRL - ENT Exam ENT Exam: Mucous Membranes Dry - Neck Exam Neck Exam: absent: Lymphadenopathy - Respiratory Exam Respiratory Exam: Decreased Breath Sounds, Rhonchi - Cardiovascular Exam Cardiovascular Exam: REGULAR RHYTHM, +S1, +S2 - GI/Abdominal Exam GI & Abdominal Exam: Distended, Soft, Diminished Bowel Sounds - Rectal Exam Rectal Exam: Deferred - Back Exam Back Exam: absent: CVA tenderness (L), CVA tenderness (R) - Neurological Exam Neurological Exam: Altered Assessment and Plan (1) CHF (congestive heart failure) Status: Acute (2) COPD exacerbation Status: Acute (3) Pneumonia Status: Acute - Assessment and Plan (Free Text) Assessment: cont iv rx neuro re-eval iv antiviral and antibiotics may need PEG
--- NOTE | 2017-03-14 22:35 | PN ---
ENDO FOLLOWUP NOTE ROOM: 425 ICU. This a 76-year-old female with recent acute pneumonitis, and undergoing IV antibiotic management and has remained hypersomnolence and lethargic and has been transferred to ICU for closure hemodynamic monitoring as noted thereof. Her glucose values are fluctuating, but improved and has been taken off all the basal and bolus insulin regimen as previously given. Her latest glucose levels today have ranged from 98 to 128 and 153 mg/DL. Her latest chemistry showed a BUN of 28, sodium 143, potassium 4.3, chloride 114, CO2 31, glucose 125, and creatinine 0.8. So at this time, we will continue only the low dose correction scale using Humalog insulin to be given only for glucose levels above 300 mg/DL. We have held off on any kind of basal insulin for now. We will concur with the present medical management as given and undertaken. We will obtain serial chemistry and supplement accordingly as needed. We will follow. Oma Martines MD
[2017-03-15] MEDS: Acyclovir 500 MG in Sodium Chloride 0.9% 100 ML IVPB SCH ×2 (01:55→17:05)
[2017-03-15] MEDS: Meropenem 500 MG in Sodium Chloride 0.9% 100 ML IVPB SCH ×3 (04:14→17:04)
--- NOTE | 2017-03-15 04:51 | PN ---
CRITICAL CARE PROGRESS NOTE DATE: March 14, 2017. Patient in ICU bed 425. Time spent 35 minutes. HISTORY: A 76-year-old female with medical history significant for chronic obstructive pulmonary disease, diabetes mellitus type 2, hypertension, hyperlipidemia, CHF, admitted with fever, chills, not noted to have pneumonia, on vanco and Zosyn. Remained some lethargic, but responds to verbal commands, opens her eyes on calling her names. PHYSICAL EXAMINATION: VITAL SIGNS: Temperature 98.5, heart rate of 90, respiratory rate 22, blood pressure 110/68, pulse oximetry 100% on high-flow nasal oxygen at 50%. Intake 2340, output 1000, positive balance 1340. Weight 200 pounds. HEENT: Atraumatic and normocephalic. Pupils are reactive. Conjunctivae are pink. Sclerae are white. NECK: Supple. CHEST: Bilateral breath sounds. Clear to auscultation. HEART: Rhythm regular. S1 and S2, normal intensity. No audible murmur. ABDOMEN: Bowel sounds present and soft. EXTREMITIES: No clubbing, no cyanosis, no edema. NEUROLOGIC: Cranial nerves intact. Remains lethargic, but arousable. Does not follow any of the commands appropriately. CURRENT MEDICATIONS: Include Tylenol 650 q.4 h. p.r.n., acyclovir 500 mg IV q.12 h., DuoNeb 2.5 mg via nebulize q.6 h. p.r.n., albuterol and Atrovent 3 mL three times a day, aspirin 325 mg p.o. daily, Lipitor 80 mg daily, azithromycin 500 mg IV daily, Pulmicort 0.5 mg twice daily, Lipitor 80 mg daily, Coreg 3.125 mg twice daily, ferrous sulfate 300 mg daily, heparin 5000 units subcu q.12 h., Accu-Chek with regular insulin coverage, Zestril 10 mg p.o. daily, Imodium 2 mg p.o. q.6 h. p.r.n., milk of magnesia 30 mL at bedtime p.r.n., Antivert 12.5 mg q.6 h., potassium chloride 20 mEq x1, vancomycin 1 g IV daily. IMPRESSION: 1. Neuro. Remains lethargic, fluctuations of hyper and hypoglycemia noted. No acute cerebrovascular accident. 2. Cardiac: Normotensive. 3. Pulmonary: Small bilateral pleural effusion, congestive changes. 4. Hematology: Leukocytosis secondary to pneumonia and sacral decubitus ulcer. 5. Renal: Renal function appears normal with GFR more than 60, BUN 28 and creatinine 0.8. 6. Infectious disease: Pneumonia along with sacral decubitus ulcer, followed by infectious consult. Continue current antibiotics. Maintain n.p.o. until PEG is inserted, agreed with family, seen by GI consult, awaiting for PEG insertion. 7. Continue deep vein thrombosis and gastrointestinal prophylaxis. Head of bed 30 degree up to avoid aspiration. on heparin 5000 units subcu q.12 h. Neville Amador MD MTDD
[2017-03-15 05:33] LABS: CHLORIDE 113 mmol/L (98-107); POTASSIUM 4.2 MMOL/L (3.6-5.0); SODIUM 144 mmol/l (132-148)
[2017-03-15 05:36] LABS: BLOOD UREA NITROGEN 29 mg/dl (7-17); CARBON DIOXIDE 29 mmol/L (22-30); GFR AFRICAN-AMERICAN > 60; GLUCOSE,RANDOM 199 mg/dL (65-105)
[2017-03-15 05:37] LABS: CALCIUM 7.6 mg/dL (8.4-10.2)
[2017-03-15 05:49] LABS: HEMATOCRIT 38.8 % (34.0-47.0); MEAN CELL VOLUME 90.6 fl (81.0-99.0); MEAN CORPUSCULAR HEMOGLOBIN 29.3 pg (27.0-31.0); MEAN CORPUSCULAR HGB CONC 32.3 g/dL (33.0-37.0); WHITE BLOOD COUNT 12.6 K/uL (4.8-10.8)
[2017-03-15] MEDS: Insulin Lispro (humaLOG) 100 Units/ml Inj SC SCH ×4 (06:30→21:11)
[2017-03-15] MEDS: Budesonide 0.5 mg/2 ml Inhal Susp UD IH SCH ×2 (07:35→19:04)
[2017-03-15] MEDS: Albuterol-Ipratrop 3 mg / 0.5 (3 ml) UD INH SCH ×3 (07:35→19:04)
--- NOTE | 2017-03-15 08:17 | CP.PCM.PN ---
Subjective - Date & Time of Evaluation Date of Evaluation: 03/15/17 Time of Evaluation: 08:15 - Subjective Subjective: pt in icu bed, no distres, nsr on monitor, vs stable, bw noted. all consults noted. prognosis poor. no f/c, n/v/d. pt slightly more repsonive trying to pull of nebulizer today. for swallow eval and possible peg as family wants "everything". for peg then ltach placement as pt still requires high flow nasal o2 for saturation above 95%. Objective - Vital Signs/Intake and Output Vital Signs (last 24 hours): Temp Pulse Resp BP Pulse Ox 98.4 F 97 H 20 110/66 100 03/15/17 08:00 03/15/17 08:00 03/15/17 08:00 03/15/17 08:00 03/15/17 08:00 Intake and Output: 03/15/17 03/15/17 06:59 18:59 Intake Total 700 Output Total 300 Balance 400 - Medications Medications: Current Medications Acetaminophen (Tylenol 325mg Tab) 650 mg PO Q4H PRN PRN Reason: Temp 101 and above Last Admin: 03/10/17 11:44 Dose: 650 mg Acetaminophen (Tylenol 650 Mg Supp) 650 mg [place] Q4 PRN PRN Reason: Fever >100.4 F Last Admin: 03/12/17 19:45 Dose: 650 mg Albuterol Sulfate (Albuterol 0.083% Inhal Suzan (2.5 Mg/3 Ml) Ud) 2.5 mg IH Q6H PRN PRN Reason: Shortness of Breath Last Admin: 03/07/17 21:53 Dose: 2.5 mg Albuterol/Ipratropium (Duoneb 3 Mg/0.5 Mg (3 Ml) Ud) 3 ml INH RTID [facility] Last Admin: 03/15/17 07:35 Dose: 3 ml Aspirin (Aspirin) 325 mg PO DAILY [facility] Last Admin: 03/11/17 10:44 Dose: Not Given Atorvastatin Calcium (Lipitor) 80 mg PO DAILY [facility] Last Admin: 03/11/17 10:47 Dose: Not Given Budesonide (Pulmicort Respules) 0.5 mg IH RBID [facility] Last Admin: 03/15/17 07:35 Dose: 0.5 mg Carvedilol (Coreg) 3.125 mg PO BID [facility] Last Admin: 03/11/17 10:44 Dose: Not Given Ferrous Sulfate (Feosol Liq) 300 mg PO DAILY [facility] Last Admin: 03/11/17 10:45 Dose: Not Given Heparin Sodium (Porcine) (Heparin) 5,000 units SC Q12 [facility] PRN Reason: Protocol Last Admin: 03/14/17 21:29 Dose: 5,000 units Home Med (Arformoterol [Brovana]) 15 mcg IH Q12H [facility] Home Med (Phenyleph/Mineral Oil/Petrolat [Preparation H Ointment]) 1 appl [place] TID PRN PRN Reason: Hemorrhoids Vancomycin HCl 1 gm/ Sodium (Chloride) 250 mls @ 166.667 mls/hr IVPB DAILY [facility] Last Admin: 03/14/17 09:48 Dose: 166.667 mls/hr Meropenem 500 mg/ Sodium (Chloride) 100 mls @ 100 mls/hr IVPB Q6 [facility] Last Admin: 03/15/17 04:14 Dose: 100 mls/hr Acyclovir 500 mg/ Sodium (Chloride) 100 mls @ 100 mls/hr IVPB Q12H [facility] Last Admin: 03/15/17 01:55 Dose: 100 mls/hr Azithromycin 500 mg/ Sodium (Chloride) 250 mls @ 250 mls/hr IVPB DAILY [facility] Last Admin: 03/14/17 09:49 Dose: 250 mls/hr Potassium Chloride/Dextrose (Potassium Chl 20 Meq In D5w) 1,000 mls @ 49.505 mls/hr IV .[id number] [facility] Stop: 03/15/17 10:53 Insulin Human Lispro (Humalog) 0 units SC ACHS [facility] PRN Reason: Protocol Last Admin: 03/15/17 06:30 Dose: Not Given Lisinopril (Zestril) 10 mg PO DAILY [facility] Last Admin: 03/11/17 10:49 Dose: Not Given Loperamide HCl (Imodium) 2 mg PO Q6H PRN PRN Reason: Diarrhea Magnesium Hydroxide (Milk Of Magnesia) 30 ml PO HS PRN PRN Reason: Constipation Meclizine HCl (Antivert) 12.5 mg PO Q6H PRN PRN Reason: Dizziness Tiotropium [place] (Spiriva) 18 mcg IH DAILY [facility] Last Admin: 03/14/17 09:48 Dose: Not Given - Labs Labs: 03/15/17 04:20 03/15/17 04:20 - Constitutional Appears: Non-toxic, No Acute Distress, Chronically Ill - Head Exam Head Exam: ATRAUMATIC, NORMAL INSPECTION, NORMOCEPHALIC - Eye Exam Eye Exam: EOMI, Normal appearance, PERRL Pupil Exam: NORMAL ACCOMODATION, PERRL - ENT Exam ENT Exam: Mucous Membranes Moist, Normal Exam - Neck Exam Neck Exam: Full ROM, Normal Inspection. absent: Lymphadenopathy - Respiratory Exam Respiratory Exam: Clear to Ausculation Bilateral, NORMAL BREATHING PATTERN - Cardiovascular Exam Cardiovascular Exam: REGULAR RHYTHM, RRR, +S1, +S2. absent: Murmur - GI/Abdominal Exam GI & Abdominal Exam: Soft, Normal Bowel Sounds. absent: Tenderness - Extremities Exam Extremities Exam: Full ROM, Normal Capillary Refill, Normal Inspection. absent : Joint Swelling, Pedal Edema - Back Exam Back Exam: NORMAL INSPECTION - Neurological Exam Neurological Exam: CN II-XII Intact - Psychiatric Exam Psychiatric exam: Normal Affect, Normal Mood - Skin Skin Exam: Dry, Intact, Normal Color, Warm Assessment and Plan (1) CHF (congestive heart failure) Assessment & Plan: cont cardio, lasix echo noted Status: Acute (2) COPD exacerbation Assessment & Plan: pulm high flow o2 nebs all sputum c/s negative Status: Acute (3) Pneumonia Assessment & Plan: id consult, pulm consult cont vanc, zithromax, merrem, acyclovir flu negative Status: Acute (4) DVT prophylaxis Assessment & Plan: scd and aehose heparin Status: Acute (5) Type 2 diabetes mellitus with hyperglycemia Assessment & Plan: riss, home meds, fsbg endo consult Status: Acute (6) CVA (cerebral vascular accident) Assessment & Plan: neuro consult pr asa mri noted monitor neuro status Status: Acute (7) Dysphagia Assessment & Plan: swallow eval peg gi Status: Acute (8) Lethargy Assessment & Plan: per neuro, r/t toxic metabolic shock,cva, pna pt has periods of lethargy, periods of semi responsiveness for peg insertion, swallow eval Status: Acute (9) Elevated LFTs Assessment & Plan: abd us noted gi consult Status: Acute
[2017-03-15] MEDS: Azithromycin 500 MG in Sodium Chloride 0.9% 250 ML IVPB SCH (09:43)
--- NOTE | 2017-03-15 10:05 | CP.PCM.PN ---
Subjective - Date & Time of Evaluation Date of Evaluation: 03/15/17 Time of Evaluation: 10:00 - Subjective Subjective: no overnight events Objective - Vital Signs/Intake and Output Vital Signs (last 24 hours): Temp Pulse Resp BP Pulse Ox 98.4 F 97 H 20 110/66 100 03/15/17 08:00 03/15/17 08:00 03/15/17 08:00 03/15/17 08:00 03/15/17 08:00 Intake and Output: 03/15/17 03/15/17 06:59 18:59 Intake Total 700 Output Total 300 Balance 400 - Medications Medications: Current Medications Acetaminophen (Tylenol 325mg Tab) 650 mg PO Q4H PRN PRN Reason: Temp 101 and above Last Admin: 03/10/17 11:44 Dose: 650 mg Acetaminophen (Tylenol 650 Mg Supp) 650 mg [place] Q4 PRN PRN Reason: Fever >100.4 F Last Admin: 03/12/17 19:45 Dose: 650 mg Albuterol Sulfate (Albuterol 0.083% Inhal Suzan (2.5 Mg/3 Ml) Ud) 2.5 mg IH Q6H PRN PRN Reason: Shortness of Breath Last Admin: 03/07/17 21:53 Dose: 2.5 mg Albuterol/Ipratropium (Duoneb 3 Mg/0.5 Mg (3 Ml) Ud) 3 ml INH RTID [facility] Last Admin: 03/15/17 07:35 Dose: 3 ml Aspirin (Aspirin) 325 mg PO DAILY [facility] Last Admin: 03/11/17 10:44 Dose: Not Given Atorvastatin Calcium (Lipitor) 80 mg PO DAILY [facility] Last Admin: 03/11/17 10:47 Dose: Not Given Budesonide (Pulmicort Respules) 0.5 mg IH RBID [facility] Last Admin: 03/15/17 07:35 Dose: 0.5 mg Carvedilol (Coreg) 3.125 mg PO BID [facility] Last Admin: 03/11/17 10:44 Dose: Not Given Ferrous Sulfate (Feosol Liq) 300 mg PO DAILY [facility] Last Admin: 03/11/17 10:45 Dose: Not Given Heparin Sodium (Porcine) (Heparin) 5,000 units SC Q12 [facility] PRN Reason: Protocol Last Admin: 03/14/17 21:29 Dose: 5,000 units Home Med (Arformoterol [Brovana]) 15 mcg IH Q12H [facility] Home Med (Phenyleph/Mineral Oil/Petrolat [Preparation H Ointment]) 1 appl [place] TID PRN PRN Reason: Hemorrhoids Vancomycin HCl 1 gm/ Sodium (Chloride) 250 mls @ 166.667 mls/hr IVPB DAILY [facility] Last Admin: 03/15/17 09:44 Dose: 166.667 mls/hr Meropenem 500 mg/ Sodium (Chloride) 100 mls @ 100 mls/hr IVPB Q6 [facility] Last Admin: 03/15/17 09:43 Dose: 100 mls/hr Acyclovir 500 mg/ Sodium (Chloride) 100 mls @ 100 mls/hr IVPB Q12H [facility] Last Admin: 03/15/17 01:55 Dose: 100 mls/hr Azithromycin 500 mg/ Sodium (Chloride) 250 mls @ 250 mls/hr IVPB DAILY [facility] Last Admin: 03/15/17 09:43 Dose: 250 mls/hr Potassium Chloride/Dextrose (Potassium Chl 20 Meq In D5w) 1,000 mls @ 49.505 mls/hr IV .[id number] [facility] Stop: 03/15/17 10:53 Insulin Human Lispro (Humalog) 0 units SC ACHS [facility] PRN Reason: Protocol Last Admin: 03/15/17 06:30 Dose: Not Given Lisinopril (Zestril) 10 mg PO DAILY [facility] Last Admin: 03/11/17 10:49 Dose: Not Given Loperamide HCl (Imodium) 2 mg PO Q6H PRN PRN Reason: Diarrhea Magnesium Hydroxide (Milk Of Magnesia) 30 ml PO HS PRN PRN Reason: Constipation Meclizine HCl (Antivert) 12.5 mg PO Q6H PRN PRN Reason: Dizziness Tiotropium [place] (Spiriva) 18 mcg IH DAILY [facility] Last Admin: 03/14/17 09:48 Dose: Not Given - Labs Labs: 03/15/17 04:20 03/15/17 04:20 - GI/Abdominal Exam GI & Abdominal Exam: Soft, Normal Bowel Sounds Assessment and Plan - Assessment and Plan (Free Text) Assessment: 76 yo female with FTT plan for peg in am
--- NOTE | 2017-03-15 10:05 | CP.PCM.PN ---
Subjective - Date & Time of Evaluation Date of Evaluation: 03/14/17 Time of Evaluation: 15:00 - Subjective Subjective: not eating Objective - Vital Signs/Intake and Output Vital Signs (last 24 hours): Temp Pulse Resp BP Pulse Ox 98.4 F 97 H 20 110/66 100 03/15/17 08:00 03/15/17 08:00 03/15/17 08:00 03/15/17 08:00 03/15/17 08:00 Intake and Output: 03/15/17 03/15/17 06:59 18:59 Intake Total 700 Output Total 300 Balance 400 - Medications Medications: Current Medications Acetaminophen (Tylenol 325mg Tab) 650 mg PO Q4H PRN PRN Reason: Temp 101 and above Last Admin: 03/10/17 11:44 Dose: 650 mg Acetaminophen (Tylenol 650 Mg Supp) 650 mg [place] Q4 PRN PRN Reason: Fever >100.4 F Last Admin: 03/12/17 19:45 Dose: 650 mg Albuterol Sulfate (Albuterol 0.083% Inhal Suzan (2.5 Mg/3 Ml) Ud) 2.5 mg IH Q6H PRN PRN Reason: Shortness of Breath Last Admin: 03/07/17 21:53 Dose: 2.5 mg Albuterol/Ipratropium (Duoneb 3 Mg/0.5 Mg (3 Ml) Ud) 3 ml INH RTID [facility] Last Admin: 03/15/17 07:35 Dose: 3 ml Aspirin (Aspirin) 325 mg PO DAILY [facility] Last Admin: 03/11/17 10:44 Dose: Not Given Atorvastatin Calcium (Lipitor) 80 mg PO DAILY [facility] Last Admin: 03/11/17 10:47 Dose: Not Given Budesonide (Pulmicort Respules) 0.5 mg IH RBID [facility] Last Admin: 03/15/17 07:35 Dose: 0.5 mg Carvedilol (Coreg) 3.125 mg PO BID [facility] Last Admin: 03/11/17 10:44 Dose: Not Given Ferrous Sulfate (Feosol Liq) 300 mg PO DAILY [facility] Last Admin: 03/11/17 10:45 Dose: Not Given Heparin Sodium (Porcine) (Heparin) 5,000 units SC Q12 [facility] PRN Reason: Protocol Last Admin: 03/14/17 21:29 Dose: 5,000 units Home Med (Arformoterol [Brovana]) 15 mcg IH Q12H [facility] Home Med (Phenyleph/Mineral Oil/Petrolat [Preparation H Ointment]) 1 appl [place] TID PRN PRN Reason: Hemorrhoids Vancomycin HCl 1 gm/ Sodium (Chloride) 250 mls @ 166.667 mls/hr IVPB DAILY [facility] Last Admin: 03/15/17 09:44 Dose: 166.667 mls/hr Meropenem 500 mg/ Sodium (Chloride) 100 mls @ 100 mls/hr IVPB Q6 [facility] Last Admin: 03/15/17 09:43 Dose: 100 mls/hr Acyclovir 500 mg/ Sodium (Chloride) 100 mls @ 100 mls/hr IVPB Q12H [facility] Last Admin: 03/15/17 01:55 Dose: 100 mls/hr Azithromycin 500 mg/ Sodium (Chloride) 250 mls @ 250 mls/hr IVPB DAILY [facility] Last Admin: 03/15/17 09:43 Dose: 250 mls/hr Potassium Chloride/Dextrose (Potassium Chl 20 Meq In D5w) 1,000 mls @ 49.505 mls/hr IV .[id number] [facility] Stop: 03/15/17 10:53 Insulin Human Lispro (Humalog) 0 units SC ACHS [facility] PRN Reason: Protocol Last Admin: 03/15/17 06:30 Dose: Not Given Lisinopril (Zestril) 10 mg PO DAILY [facility] Last Admin: 03/11/17 10:49 Dose: Not Given Loperamide HCl (Imodium) 2 mg PO Q6H PRN PRN Reason: Diarrhea Magnesium Hydroxide (Milk Of Magnesia) 30 ml PO HS PRN PRN Reason: Constipation Meclizine HCl (Antivert) 12.5 mg PO Q6H PRN PRN Reason: Dizziness Tiotropium [place] (Spiriva) 18 mcg IH DAILY [facility] Last Admin: 03/14/17 09:48 Dose: Not Given - Labs Labs: 03/15/17 04:20 03/15/17 04:20 - GI/Abdominal Exam GI & Abdominal Exam: Soft, Normal Bowel Sounds Assessment and Plan - Assessment and Plan (Free Text) Assessment: 76 yo female with failure to take PO will discuss with family re: PEG
--- NOTE | 2017-03-15 17:14 | CP.CCUPN ---
CCU Subjective - Physician Review Events Since Last Encounter (Free Text): 03/15/17 17:16 The patient was Seen and examined by me at the bedside, Medical records reviewed and Management issues were discussed and formulated with the house staff. Clinically improving, more awake and responsive, tolerating PO diet but poor PO intake. Afebrile. Scheduled for PEG tube tomorrow Was taken off HFNC, now on 3L NC saturating 95% Labs reviewed, K 4.2, BG better. CCU Objective - Vital Signs / Intake & Output Vital Signs (Last 4 hours): Vital Signs Temp Pulse Resp BP Pulse Ox 03/15/17 16:00 99.2 F 92 H 18 92/53 L 98 03/15/17 14:00 103 H 12 88/62 L 97 Intake and Output (Last 8hrs): Intake & Output 03/15/17 03/15/17 03/15/17 06:59 14:59 22:59 Intake Total 700 600 Output Total 300 Balance 400 600 Intake: IV 400 Intake, Piggyback 300 600 Output: Urine 300 Urethral (Sanders) 300 - Physical Exam Head: Positive for: Normocephalic Pupils: Positive for: PERRL, Other Extroacular Muscles: Positive for: EOMI. Negative for: Gaze Palsy Conjunctiva: Negative for: Injected, Icteric Ears: Positive for: Normal Mouth: Positive for: Moist Mucous Membranes Pharnyx: Positive for: Normal Neck: Positive for: Normal Range of Motion. Negative for: Meningeal Signs, JVD , Lymphadenopathy Respiratory/Chest: Positive for: Decreased Breath Sounds. Negative for: Wheezes , Rhonchi Cardiovascular: Positive for: Regular Rate and Rhythm. Negative for: Murmurs, Rub Abdomen: Positive for: Normal Bowel Sounds. Negative for: Tenderness, Distention Upper Extremity: Positive for: Normal Inspection, Edema Lower Extremity: Positive for: Edema (+2), NORMAL PULSES. Negative for: CALF TENDERNESS (GCS= 5 (E1 V1 M3)), Cyanosis Skin: Positive for: Warm. Negative for: Rashes Psychiatric: Positive for: Lethargic - Medications Active Medications: Active Medications Generic Name Dose Route Start Last Admin Trade Name Freq PRN Reason Stop Dose Admin Acetaminophen 650 mg 03/04/17 15:46 03/10/17 11:44 Tylenol 325mg Tab PO 650 mg Q4H PRN Administration Temp 101 and above Acetaminophen 650 mg 07/22/17 20:03 03/12/17 19:45 Tylen[address] 650 mg Q4 PRN Administration Fever >100.4 F Albuterol Sulfate 2.5 mg 03/04/17 23:53 03/07/17 21:53 Albuterol 0.083% Inhal Suzan (2.5 Mg/3 Ml) Ud IH 2.5 mg Q6H PRN Administration Shortness of Breath Albuterol/Ipratropium 3 ml 03/04/17 20:00 03/15/17 13:04 Duoneb 3 Mg/0.5 Mg (3 Ml) Ud INH 3 ml RTID [facility] Administration Aspirin 325 mg 03/10/17 10:00 03/11/17 10:44 Aspirin PO Not Given DAILY [facility] Atorvastatin Calcium 80 mg 03/05/17 09:00 03/11/17 10:47 Lipitor PO Not Given DAILY [facility] Budesonide 0.5 mg 03/05/17 08:00 03/15/17 07:35 Pulmicort Respules IH 0.5 mg RBID [facility] Administration Carvedilol 3.125 mg 03/04/17 17:00 03/11/17 10:44 Coreg PO Not Given BID [facility] Ferrous Sulfate 300 mg 03/10/17 10:15 03/11/17 10:45 Feosol Liq PO Not Given DAILY [facility] Home Med 15 mcg 03/04/17 23:45 Arformoterol [Brovana] IH Q12H [facility] Home Med 1 appl 03/04/17 23:53 Phenyleph/Mineral Oil/Petrolat [Preparation H Ointment] CT TID PRN Hemorrhoids Acyclovir 500 mg/ Sodium 100 mls @ 100 mls/hr 03/11/17 14:00 03/15/17 17:05 Chloride IVPB 100 mls/hr Q12H [facility] Administration Azithromycin 500 mg/ Sodium 250 mls @ 250 mls/hr 03/11/17 14:00 03/15/17 09: 43 Chloride IVPB 250 mls/hr DAILY [facility] Administration Cefazolin Sodium 1 gm/ Sodium 100 mls @ 100 mls/hr 03/16/17 09:00 Chloride IVPB 03/16/17 09:59 ONCE ONE Insulin Human Lispro 0 units 03/05/17 16:30 03/15/17 17:02 Humalog SC Not Given ACHS [facility] Protocol Lisinopril 10 mg 03/06/17 11:30 03/11/17 10:49 Zestril PO Not Given DAILY [facility] Loperamide HCl 2 mg 03/05/17 00:01 Imodium PO Q6H PRN Diarrhea Magnesium Hydroxide 30 ml 03/04/17 23:53 Milk Of Magnesia PO HS PRN Constipation Meclizine HCl 12.5 mg 03/04/17 15:46 Antivert PO Q6H PRN Dizziness Tiotropium [place] 18 mcg 03/05/17 09:00 03/14/17 09:48 Spiriva IH Not Given DAILY [facility] - Patient Studies Lab Studies: Microbiology Studies 03/10/17 03:10 Blood Culture - Final Blood NO GROWTH AFTER 5 DAYS Gram Stain - Final 03/10/17 02:45 Blood Culture - Final Blood NO GROWTH AFTER 5 DAYS Gram Stain - Final TEST NOT PERFORMED 03/13/17 07:15 Gram Stain - Final Sputum Sputum Culture - Final Yeast Species Lab Studies 03/15/17 03/15/17 03/15/17 Range/Units 16:08 11:39 06:17 WBC (4.8-10.8) K/uL RBC (3.80-5.20) Mil/uL Hgb (12.0-16.0) g/dL Hct (34.0-47.0) % MCV (81.0-99.0) fl MCH (27.0-31.0) pg MCHC (33.0-37.0) g/dL RDW (11.5-14.5) % Plt Count (130-400) K/uL Sodium (132-148) mmol/l Potassium (3.6-5.0) MMOL/L Chloride (98-107) mmol/L Carbon Dioxide (22-30) mmol/L Anion Gap (10-20) BUN (7-17) mg/dl Creatinine (0.7-1.2) mg/dL Est GFR ( Amer) Est GFR (Non-Af Amer) POC Glucose (mg/dL) 222 H 234 H 282 H (65-110) mg/dL Random Glucose (65-105) mg/dL Calcium (8.4-10.2) mg/dL HIV 1&2 Antibody Screen (NEGATIVE) 03/15/17 03/15/1703/15/17 Range/Units 04:20 04:20 04:20 WBC 12.6 H (4.8-10.8) K/uL RBC 4.28 (3.80-5.20) Mil/uL Hgb 12.5 (12.0-16.0) g/dL Hct 38.8 (34.0-47.0) % MCV 90.6 (81.0-99.0) fl MCH 29.3 (27.0-31.0) pg MCHC 32.3 L (33.0-37.0) g/dL RDW 16.0 H (11.5-14.5) % Plt Count 198 (130-400) K/uL Sodium 144 (132-148) mmol/l Potassium 4.2 (3.6-5.0) MMOL/L Chloride 113 H (98-107) mmol/L Carbon Dioxide 29 (22-30) mmol/L Anion Gap 6 L (10-20) BUN 29 H (7-17) mg/dl Creatinine 0.8 (0.7-1.2) mg/dL Est GFR ( Amer) > 60 Est GFR (Non-Af Amer) > 60 POC Glucose (mg/dL) (65-110) mg/dL Random Glucose 199 H (65-105) mg/dL Calcium 7.6 L (8.4-10.2) mg/dL HIV 1&2 Antibody Screen Negative (NEGATIVE) 03/14/17 Range/Units 21:03 WBC (4.8-10.8) K/uL RBC (3.80-5.20) Mil/uL Hgb (12.0-16.0) g/dL Hct (34.0-47.0) % MCV (81.0-99.0) fl MCH (27.0-31.0) pg MCHC (33.0-37.0) g/dL RDW (11.5-14.5) % Plt Count (130-400) K/uL Sodium (132-148) mmol/l Potassium (3.6-5.0) MMOL/L Chloride (98-107) mmol/L Carbon Dioxide (22-30) mmol/L Anion Gap (10-20) BUN (7-17) mg/dl Creatinine (0.7-1.2) mg/dL Est GFR ( Amer) Est GFR (Non-Af Amer) POC Glucose (mg/dL) 176 H (65-110) mg/dL Random Glucose (65-105) mg/dL Calcium (8.4-10.2) mg/dL HIV 1&2 Antibody Screen (NEGATIVE) Laboratory Results - last 24 hr 03/14/17 03/15/17 03/15/17 21:03 04:20 04:20 WBC RBC Hgb Hct MCV MCH MCHC RDW Plt Count Sodium 144 Potassium 4.2 Chloride 113 H Carbon Dioxide 29 Anion Gap 6 L BUN 29 H Creatinine 0.8 Est GFR ( Amer) > 60 Est GFR (Non-Af Amer) > 60 POC Glucose (mg/dL) 176 H Random Glucose 199 H Calcium 7.6 L HIV 1&2 Antibody Screen Negative 03/15/17 03/15/17 03/15/17 04:20 06:17 11:39 WBC 12.6 H RBC 4.28 Hgb 12.5 Hct 38.8 MCV 90.6 MCH 29.3 MCHC 32.3 L RDW 16.0 H Plt Count 198 Sodium Potassium Chloride Carbon Dioxide Anion Gap BUN Creatinine Est GFR ( Amer) Est GFR (Non-Af Amer) POC Glucose (mg/dL) 282 H 234 H Random Glucose Calcium HIV 1&2 Antibody Screen 03/15/17 16:08 WBC RBC Hgb Hct MCV MCH MCHC RDW Plt Count Sodium Potassium Chloride Carbon Dioxide Anion Gap BUN Creatinine Est GFR ( Amer) Est GFR (Non-Af Amer) POC Glucose (mg/dL) 222 H Random Glucose Calcium HIV 1&2 Antibody Screen Fingerstick Blood Sugar Results: 222 Review of Systems - Review of Systems Systems not reviewed;Unavailable: Altered Mental Status Critical Care Progress Note - Nutrition Nutrition: Nutrition Category Date Time Status Dysphagia/Modified Consistency Diet [DIET] Diets 03/15/17 Dinner Active Assessment/Plan (1) CVA (cerebral vascular accident) Current Visit: Yes Status: Acute Comment: Frequent Neurochecks PT/OT Aspirations and seizure precutions (2) Sepsis Current Visit: Yes Status: Acute Comment: Continue current IV antiviral and antibiotics (3) CHF (congestive heart failure) Current Visit: Yes Status: Acute Comment: Continue current cardiac Meds Diuresis Strict I&O (4) COPD exacerbation Current Visit: Yes Status: Acute Comment: Suplemetal Oxygen bronchodilators (5) Pneumonia Current Visit: Yes Status: Acute Comment: Continue IV Vanco, zithromax, Meropenem and Acyclovir (6) Coronary artery disease Current Visit: No Status: Acute Comment: stable without evidence of ischemia. (7) DVT prophylaxis Current Visit: No Status: Acute (8) Diabetes mellitus Current Visit: No Status: Acute
[2017-03-16] MEDS ORDERED: Sodium Chloride 0.9% 500 ML IV ONE (00:29)
[2017-03-16] MEDS: Acyclovir 500 MG in Sodium Chloride 0.9% 100 ML IVPB SCH ×2 (02:00→14:50)
[2017-03-16] MEDS ORDERED: DOPamine 400mg/250ml D5W IV ONE (03:30)
[2017-03-16] MEDS ORDERED: DOPamine 400mg/250ml D5W 400 MG/250 ML BAG IV ONE ×2 (03:46→05:14)
--- NOTE | 2017-03-16 05:24 | PN ---
ENDOCRINOLOGY FOLLOWUP NOTE LOCATION: Room 425, ICU. SUBJECTIVE: This is a 76-year-old female with recent uncontrolled type 2 insulin requiring diabetes, now taken off of insulin therapy and only on the low-dose correction scale using Humalog insulin as given. LABORATORY DATA: Her latest chemistry showed a BUN of 28, sodium 143, potassium 4.3, chloride 114, CO2 of 31, glucose 125, and creatinine 0.8. Her glucose levels have ranged from 98 to 128 and 163 mg/dL. ASSESSMENT AND PLAN: So at this time, we will continue the low-dose correction scale using Humalog insulin as given and hold off any long-acting basal insulin for now. We will follow and advise accordingly. Oma Martines MD
[2017-03-16] MEDS: Insulin Lispro (humaLOG) 100 Units/ml Inj SC SCH (06:49)
--- NOTE | 2017-03-16 07:24 | CP.PCM.PN ---
Subjective - Date & Time of Evaluation Date of Evaluation: 03/16/17 Time of Evaluation: 07:24 - Subjective Subjective: pt arousable only to painful stimuli. bp 60s/40s after 250ml bolus. spoke to son shayne who wants "everyting done". spoke to icu attending dr berman who will place central line and start dopamine. minimal incr in bp w/ fluids nad dopamine. multifocal pvc noted on monitor. yeaqst in sputum c/s-to start diflucan Objective - Vital Signs/Intake and Output Vital Signs (last 24 hours): Temp Pulse Resp BP Pulse Ox 98.2 F 108 H 20 114/76 96 03/16/17 04:00 03/16/17 06:42 03/16/17 06:42 03/16/17 06:42 03/16/17 06:42 Intake and Output: 03/16/17 03/16/17 06:59 18:59 Intake Total 1256 Output Total 300 Balance 956 - Medications Medications: Current Medications Acetaminophen (Tylenol 325mg Tab) 650 mg PO Q4H PRN PRN Reason: Temp 101 and above Last Admin: 03/10/17 11:44 Dose: 650 mg Acetaminophen (Tylenol 650 Mg Supp) 650 mg [place] Q4 PRN PRN Reason: Fever >100.4 F Last Admin: 03/12/17 19:45 Dose: 650 mg Albuterol Sulfate (Albuterol 0.083% Inhal Suzan (2.5 Mg/3 Ml) Ud) 2.5 mg IH Q6H PRN PRN Reason: Shortness of Breath Last Admin: 03/07/17 21:53 Dose: 2.5 mg Albuterol/Ipratropium (Duoneb 3 Mg/0.5 Mg (3 Ml) Ud) 3 ml INH RTID [facility] [place] Last Admin: 03/15/17 19:04 Dose: 3 ml Aspirin (Aspirin) 325 mg PO DAILY [facility] [place] Last Admin: 03/11/17 10:44 Dose: Not Given Atorvastatin Calcium (Lipitor) 80 mg PO DAILY [facility] [place] Last Admin: 03/11/17 10:47 Dose: Not Given Budesonide (Pulmicort Respules) 0.5 mg IH RBID [facility] [place] Last Admin: 03/15/17 19:04 Dose: 0.5 mg Carvedilol (Coreg) 3.125 mg PO BID [facility] [place] Last Admin: 03/11/17 10:44 Dose: Not Given Ferrous Sulfate (Feosol Liq) 300 mg PO DAILY [facility] [place] Last Admin: 03/11/17 10:45 Dose: Not Given Home Med (Arformoterol [Brovana]) 15 mcg IH Q12H [facility] [place] Home Med (Phenyleph/Mineral Oil/Petrolat [Preparation H Ointment]) 1 appl [place] TID PRN PRN Reason: Hemorrhoids Acyclovir 500 mg/ Sodium (Chloride) 100 mls @ 100 mls/hr IVPB Q12H [facility] [place] Last Admin: 03/16/17 02:00 Dose: 100 mls/hr Azithromycin 500 mg/ Sodium (Chloride) 250 mls @ 250 mls/hr IVPB DAILY [facility] [place] Last Admin: 03/15/17 09:43 Dose: 250 mls/hr Cefazolin Sodium 1 gm/ Sodium (Chloride) 100 mls @ 100 mls/hr IVPB ONCE ONE Stop: 03/16/17 09:59 Insulin Human Lispro (Humalog) 0 units SC ACHS [facility] [place] PRN Reason: Protocol Last Admin: 03/16/17 06:49 Dose: 3 units Lisinopril (Zestril) 10 mg PO DAILY [facility] [place] Last Admin: 03/11/17 10:49 Dose: Not Given Loperamide HCl (Imodium) 2 mg PO Q6H PRN PRN Reason: Diarrhea Magnesium Hydroxide (Milk Of Magnesia) 30 ml PO HS PRN PRN Reason: Constipation Meclizine HCl (Antivert) 12.5 mg PO Q6H PRN PRN Reason: Dizziness Tiotropium [place] (Spiriva) 18 mcg IH DAILY [facility] [place] Last Admin: 03/14/17 09:48 Dose: Not Given - Labs Labs: 03/15/17 04:20 03/15/17 04:20 - Constitutional Appears: No Acute Distress, Chronically Ill - Head Exam Head Exam: ATRAUMATIC, NORMAL INSPECTION, NORMOCEPHALIC - Eye Exam Eye Exam: EOMI, Normal appearance, PERRL Pupil Exam: NORMAL ACCOMODATION, PERRL - ENT Exam ENT Exam: Mucous Membranes Moist, Normal Exam - Neck Exam Neck Exam: Full ROM, Normal Inspection. absent: Lymphadenopathy - Respiratory Exam Respiratory Exam: Clear to Ausculation Bilateral, NORMAL BREATHING PATTERN - Cardiovascular Exam Cardiovascular Exam: REGULAR RHYTHM, RRR, +S1, +S2. absent: Murmur - GI/Abdominal Exam GI & Abdominal Exam: Distended, Soft, Hypoactive Bowel Sounds. absent: Tenderness - Extremities Exam Extremities Exam: Full ROM, Normal Capillary Refill, Normal Inspection. absent : Joint Swelling, Pedal Edema - Back Exam Back Exam: NORMAL INSPECTION - Neurological Exam Neurological Exam: Alert, Awake, CN II-XII Intact, Normal Gait, Oriented x3 - Psychiatric Exam Psychiatric exam: Normal Affect, Normal Mood - Skin Skin Exam: Dry, Intact, Normal Color, Warm Assessment and Plan (1) CHF (congestive heart failure) Status: Acute (2) COPD exacerbation Status: Acute (3) Pneumonia Status: Acute (4) DVT prophylaxis Status: Acute (5) Type 2 diabetes mellitus with hyperglycemia Status: Acute (6) CVA (cerebral vascular accident) Status: Acute (7) Dysphagia Status: Acute (8) Lethargy Status: Acute (9) Elevated LFTs Status: Acute - Assessment and Plan (Free Text) Assessment: (1) CHF (congestive heart failure) Assessment & Plan: cont cardio, lasix echo noted Status: Acute (2) COPD exacerbation Assessment & Plan: pulm high flow o2 nebs all sputum c/s negative Status: Acute (3) Pneumonia Assessment & Plan: id consult, pulm consult cont vanc, zithromax, merrem, acyclovir flu negative Status: Acute (4) DVT prophylaxis Assessment & Plan: scd and aehose heparin Status: Acute (5) Type 2 diabetes mellitus with hyperglycemia Assessment & Plan: riss, home meds, fsbg endo consult Status: Acute (6) CVA (cerebral vascular accident) Assessment & Plan: neuro consult pr asa mri noted monitor neuro status Status: Acute (7) Dysphagia Assessment & Plan: swallow eval peg gi Status: Acute (8) Lethargy Assessment & Plan: per neuro, r/t toxic metabolic shock,cva, pna pt has periods of lethargy, periods of semi responsiveness for peg insertion, swallow eval Status: Acute (9) Elevated LFTs Assessment & Plan: abd us noted gi consult Status: Acute 10hypotension-unkn etiology-start dopamine by icu attending. spoke to son shayne who wants"everything done." central line to be placed, titrate dopamine, ivf bolus, albumin, ct head, sylvia knutson/brain made aware
[2017-03-16] MEDS ORDERED: Albumin Human 5% (12.5 gm/250 ml) IV STA (07:32)
[2017-03-16] MEDS ORDERED: Lidocaine 1% Inj (20ml) ONE (08:10)
[2017-03-16] MEDS: Budesonide 0.5 mg/2 ml Inhal Susp UD IH SCH ×2 (08:33→19:21)
[2017-03-16] MEDS: Albuterol-Ipratrop 3 mg / 0.5 (3 ml) UD INH SCH ×3 (08:33→19:20)
[2017-03-16] MEDS ORDERED: ceFAZolin 1 GM in Sodium Chloride 0.9% 100 ML IVPB ONE ×2 (09:00→10:36)
--- NOTE | 2017-03-16 09:07 | CP.PCM.PN ---
Subjective - Date & Time of Evaluation Date of Evaluation: 03/16/17 Time of Evaluation: 09:09 - Subjective Subjective: HYPOTENSIVE RESPONDS ONLY TO DEEP PAINFUL STIMULI Objective - Vital Signs/Intake and Output Vital Signs (last 24 hours): Temp Pulse Resp BP Pulse Ox 99.9 F H 131 H 21 67/53 L 99 03/16/17 08:00 03/16/17 08:00 03/16/17 08:54 03/16/17 08:00 03/16/17 08:00 Intake and Output: 03/16/17 03/16/17 06:59 18:59 Intake Total 1256 0 Output Total 300 Balance 956 0 - Medications Medications: Current Medications Acetaminophen (Tylenol 325mg Tab) 650 mg PO Q4H PRN PRN Reason: Temp 101 and above Last Admin: 03/10/17 11:44 Dose: 650 mg Acetaminophen (Tylenol 650 Mg Supp) 650 mg [place] Q4 PRN PRN Reason: Fever >100.4 F Last Admin: 03/12/17 19:45 Dose: 650 mg Albuterol Sulfate (Albuterol 0.083% Inhal Suzan (2.5 Mg/3 Ml) Ud) 2.5 mg IH Q6H PRN PRN Reason: Shortness of Breath Last Admin: 03/07/17 21:53 Dose: 2.5 mg Albuterol/Ipratropium (Duoneb 3 Mg/0.5 Mg (3 Ml) Ud) 3 ml INH RTID [facility] Last Admin: 03/16/17 08:33 Dose: 3 ml Aspirin (Aspirin) 325 mg PO DAILY [facility] Last Admin: 03/11/17 10:44 Dose: Not Given Atorvastatin Calcium (Lipitor) 80 mg PO DAILY [facility] Last Admin: 03/11/17 10:47 Dose: Not Given Budesonide (Pulmicort Respules) 0.5 mg IH RBID [facility] Last Admin: 03/16/17 08:33 Dose: 0.5 mg Carvedilol (Coreg) 3.125 mg PO BID [facility] Last Admin: 03/11/17 10:44 Dose: Not Given Ferrous Sulfate (Feosol Liq) 300 mg PO DAILY [facility] Last Admin: 03/11/17 10:45 Dose: Not Given Home Med (Arformoterol [Brovana]) 15 mcg IH Q12H [facility] Home Med (Phenyleph/Mineral Oil/Petrolat [Preparation H Ointment]) 1 appl [place] TID PRN PRN Reason: Hemorrhoids Acyclovir 500 mg/ Sodium (Chloride) 100 mls @ 100 mls/hr IVPB Q12H [facility] Last Admin: 03/16/17 02:00 Dose: 100 mls/hr Azithromycin 500 mg/ Sodium (Chloride) 250 mls @ 250 mls/hr IVPB DAILY [facility] Last Admin: 03/15/17 09:43 Dose: 250 mls/hr Cefazolin Sodium 1 gm/ Sodium (Chloride) 100 mls @ 100 mls/hr IVPB ONCE ONE Stop: 03/16/17 09:59 Norepinephrine Bitartrate 4 mg (/ Dextrose) 254 mls @ 9.52 mls/hr IV .Q24H [facility] ; 2.5 MCG/MIN PRN Reason: Protocol Insulin Human Lispro (Humalog) 0 units SC ACHS [facility] PRN Reason: Protocol Last Admin: 03/16/17 06:49 Dose: 3 units Lisinopril (Zestril) 10 mg PO DAILY [facility] Last Admin: 03/11/17 10:49 Dose: Not Given Loperamide HCl (Imodium) 2 mg PO Q6H PRN PRN Reason: Diarrhea Magnesium Hydroxide (Milk Of Magnesia) 30 ml PO HS PRN PRN Reason: Constipation Meclizine HCl (Antivert) 12.5 mg PO Q6H PRN PRN Reason: Dizziness Tiotropium [place] (Spiriva) 18 mcg IH DAILY [facility] Last Admin: 03/14/17 09:48 Dose: Not Given - Labs Labs: 03/15/17 04:20 03/15/17 04:20 - Constitutional Appears: Chronically Ill - Head Exam Head Exam: ATRAUMATIC, NORMAL INSPECTION, NORMOCEPHALIC - Eye Exam Eye Exam: PERRL - ENT Exam ENT Exam: Mucous Membranes Moist, Normal Exam - Neck Exam Neck Exam: Full ROM, Normal Inspection. absent: Lymphadenopathy - Respiratory Exam Respiratory Exam: Prolonged Expiratory Phase, Rales Additional comments: ON HIGH FLOW 02 - Cardiovascular Exam Cardiovascular Exam: REGULAR RHYTHM, +S1, +S2. absent: Murmur - GI/Abdominal Exam GI & Abdominal Exam: Soft, Normal Bowel Sounds. absent: Tenderness - Rectal Exam Rectal Exam: NORMAL INSPECTION - Extremities Exam Extremities Exam: Full ROM, Normal Capillary Refill, Normal Inspection, Pedal Edema. absent: Joint Swelling - Back Exam Back Exam: NORMAL INSPECTION - Skin Skin Exam: Dry, Intact, Normal Color, Warm Assessment and Plan - Assessment and Plan (Free Text) Assessment: SEPSIS CHF PNEUMONIA HX OF CVA MULTIORGAN FAILURE Plan: CONTINUE HIGH FLOW O2 AND ANTIBIOTICS PT IS ON PRESSORS PROGNOSIS IS POOR
[2017-03-16 09:10] LABS: VENOUS BLOOD GAS BASE EXCESS 3.8 mmol/L (0.0-2.0); VENOUS BLOOD GAS PCO2 46 mmHg (40-60); VENOUS BLOOD PH 7.41 (7.32-7.43)
[2017-03-16 09:37] LABS: ALKALINE PHOSPHATASE 194 U/L (38-126); ALT/SGPT 121 U/L (9-52); AST/SGOT 91 U/L (14-36); BILIRUBIN,TOTAL 0.5 mg/dl (0.2-1.3); BLOOD UREA NITROGEN 28 mg/dl (7-17); CARBON DIOXIDE 27 mmol/L (22-30); CHLORIDE 111 mmol/L (98-107); GFR AFRICAN-AMERICAN > 60; POTASSIUM 3.7 MMOL/L (3.6-5.0); SODIUM 147 mmol/l (132-148); TOTAL PROTEIN 4.5 G/DL (6.3-8.2)
[2017-03-16 09:49] LABS: GLUCOSE,RANDOM 435 mg/dL (65-105); PARTIAL THROMBOPLASTIN TIME 22.3 Seconds (25.6-37.1)
[2017-03-16 09:56] LABS: BASO % 0.2 % (0.0-2.0); EOS % 0.3 % (0.0-4.0); HEMATOCRIT 37.9 % (34.0-47.0); LYMPH # 0.7 K/uL (1.0-4.3); LYMPH % 4.7 % (20.0-40.0); MEAN CELL VOLUME 90.1 fl (81.0-99.0); MEAN CORPUSCULAR HEMOGLOBIN 28.8 pg (27.0-31.0); MEAN CORPUSCULAR HGB CONC 31.9 g/dL (33.0-37.0); MEAN PLATELET VOLUME 9.9 fl (7.2-11.7); MONO # 0.6 K/uL (0.0-0.8); MONO % 4.2 % (0.0-10.0); NEUT # 13.7 K/uL (1.8-7.0); NEUT % 90.6 % (50.0-75.0); PLATELET COUNT 242 K/uL (130-400); RED CELL DISTRIBUTION WIDTH 15.7 % (11.5-14.5); WHITE BLOOD COUNT 15.1 K/uL (4.8-10.8)
--- NOTE | 2017-03-16 10:06 | CP.PCM.PN ---
Subjective - Date & Time of Evaluation Date of Evaluation: 03/16/17 Time of Evaluation: 10:00 - Subjective Subjective: pt hypotensive and started on pressors Objective - Vital Signs/Intake and Output Vital Signs (last 24 hours): Temp Pulse Resp BP Pulse Ox 99.9 F H 131 H 21 67/53 L 99 03/16/17 08:00 03/16/17 08:00 03/16/17 08:54 03/16/17 08:00 03/16/17 08:00 Intake and Output: 03/16/17 03/16/17 06:59 18:59 Intake Total 1256 0 Output Total 300 Balance 956 0 - Medications Medications: Current Medications Acetaminophen (Tylenol 325mg Tab) 650 mg PO Q4H PRN PRN Reason: Temp 101 and above Last Admin: 03/10/17 11:44 Dose: 650 mg Acetaminophen (Tylenol 650 Mg Supp) 650 mg [place] Q4 PRN PRN Reason: Fever >100.4 F Last Admin: 03/12/17 19:45 Dose: 650 mg Albuterol Sulfate (Albuterol 0.083% Inhal Suzan (2.5 Mg/3 Ml) Ud) 2.5 mg IH Q6H PRN PRN Reason: Shortness of Breath Last Admin: 03/07/17 21:53 Dose: 2.5 mg Albuterol/Ipratropium (Duoneb 3 Mg/0.5 Mg (3 Ml) Ud) 3 ml INH RTID [facility] Last Admin: 03/16/17 08:33 Dose: 3 ml Aspirin (Aspirin) 325 mg PO DAILY [facility] Last Admin: 03/11/17 10:44 Dose: Not Given Atorvastatin Calcium (Lipitor) 80 mg PO DAILY [facility] Last Admin: 03/11/17 10:47 Dose: Not Given Budesonide (Pulmicort Respules) 0.5 mg IH RBID [facility] Last Admin: 03/16/17 08:33 Dose: 0.5 mg Carvedilol (Coreg) 3.125 mg PO BID [facility] Last Admin: 03/11/17 10:44 Dose: Not Given Ferrous Sulfate (Feosol Liq) 300 mg PO DAILY [facility] Last Admin: 03/11/17 10:45 Dose: Not Given Home Med (Arformoterol [Brovana]) 15 mcg IH Q12H [facility] Home Med (Phenyleph/Mineral Oil/Petrolat [Preparation H Ointment]) 1 appl [place] TID PRN PRN Reason: Hemorrhoids Acyclovir 500 mg/ Sodium (Chloride) 100 mls @ 100 mls/hr IVPB Q12H [facility] Last Admin: 03/16/17 02:00 Dose: 100 mls/hr Azithromycin 500 mg/ Sodium (Chloride) 250 mls @ 250 mls/hr IVPB DAILY [facility] Last Admin: 03/15/17 09:43 Dose: 250 mls/hr Norepinephrine Bitartrate 4 mg (/ Dextrose) 254 mls @ 9.52 mls/hr IV .Q24H [facility] ; 2.5 MCG/MIN PRN Reason: Protocol Last Admin: 03/16/17 08:20 Dose: 2.5 mcg/min, 9.52 mls/hr Insulin Human Lispro (Humalog) 0 units SC ACHS [facility] PRN Reason: Protocol Last Admin: 03/16/17 06:49 Dose: 3 units Lisinopril (Zestril) 10 mg PO DAILY [facility] Last Admin: 03/11/17 10:49 Dose: Not Given Loperamide HCl (Imodium) 2 mg PO Q6H PRN PRN Reason: Diarrhea Magnesium Hydroxide (Milk Of Magnesia) 30 ml PO HS PRN PRN Reason: Constipation Meclizine HCl (Antivert) 12.5 mg PO Q6H PRN PRN Reason: Dizziness Tiotropium [place] (Spiriva) 18 mcg IH DAILY [facility] Last Admin: 03/14/17 09:48 Dose: Not Given - Labs Labs: 03/16/17 09:00 03/16/17 09:00 PT 10.6 Seconds (9.8-13.1) 03/16/17 09:00 INR 0.9 (0.9-1.2) 03/16/17 09:00 APTT 22.3 Seconds (25.6-37.1) L 03/16/17 09:00 - GI/Abdominal Exam GI & Abdominal Exam: Soft, Normal Bowel Sounds Assessment and Plan - Assessment and Plan (Free Text) Assessment: 76 yo female with FTT cancelled peg today bc pt on pressors once pt more stable will revisit peg
--- NOTE | 2017-03-16 10:18 | PCM.PROC ---
Procedures Attestation:: I certify that I have explained the specified Operation(s) or Procedure(s), risks, benefits and reasonable alternatives to the Patient and/or other person responsible. The opportunity was given to ask questions and all questions answered - Central Line Placement Left Subclavian Aseptic technique was employed throughout the procedure: Hand Hygiene done prior to procedure, Full sterile barriers (mask, hair cover, sterile gown, sterile gloves), Full body sterile drape, Chloraprep Antiseptic: 30 second prep for IJ or SC sites CVP Time Out Performed: Yes Pt. Placed on Pulse Ox Monitor: Yes Central Line Prep: Chlorhexidine-Alcohol Combination Local Anesthesia Used: Lidocaine 1% Amount of Anesthesia Used (mls): 5 Ultrasound Used for Placement: No Central Line Lumen Inserted: triple Central Line Length: 16 cm Post Procedure: Sutured in Place, Good Blood Return, All Ports Aspirated, Flushed, Capped, Sterile Dressing Applied Secured by: Suture Post procedure dressing: Chlorhexidine disc (Biopatch) Post Procedure X-Ray: Yes Patient Tolerated Procedure: Well Immediate Complications: None Additional Comments: Procedure performed under emergent conditions in ICU for vasopressor infusion due to refractory shock. Son has verbally spoken to Dr. Hwang remarking that all aggressive interventions be performed to maintain life support. Post-procedure CXR shows satisfactory tip placement of TLC in distal SVC. No PTX seen.
[2017-03-16] MEDS ORDERED: Insulin Regular 100 units/ml SC ONE ×2 (10:32→10:36)
[2017-03-16] MEDS ORDERED: [UNRECOGNIZED DRUG - OTHER] PR PRN (10:36)
[2017-03-16] MEDS ORDERED: Albuterol 0.083% Inhal Sol (2.5 mg/3 mL) UD IH PRN (10:36)
[2017-03-16] MEDS ORDERED: Magnesium Hydroxide Susp 30 ml UD PO PRN (10:36)
[2017-03-16] MEDS ORDERED: PHENYLEPH PR PRN (10:36)
[2017-03-16] MEDS ORDERED: MINERAL OIL PR PRN (10:36)
[2017-03-16 10:50] LABS: ABG ALLEN TEST YES; ARTERIAL BLOOD GAS HCO3 29.3 mmol/L (21-28); ARTERIAL BLOOD GAS O2 CAPACITY 15.9 mL/dL (16-24); ARTERIAL BLOOD GAS O2 CONTENT 14.1 ML/dL (15-23); ARTERIAL BLOOD GAS PH 7.49 (7.35-7.45); ARTERIAL BLOOD GAS PO2 49 mm/Hg (80-100); ARTERIAL BLOOD HGB O2 SAT 85.8 % (95.0-98.0); CARBOXYHEMOGLOBIN 1.8 % (0.5-1.5); HHB 10.7 % (0.0-5.0); METHEMOGLOBIN 1.7 % (0.0-3.0)
[2017-03-16 11:22] LABS: EOSINOPHIL 1 % (0-7); NEUTROPHIL 91 % (42-75); TOTAL CELLS COUNTED 100
[2017-03-16] MEDS ORDERED: Insulin Lispro (humaLOG) 100 Units/ml Inj SC SCH (11:30)
[2017-03-16] MEDS: Azithromycin 500 MG in Sodium Chloride 0.9% 250 ML IVPB SCH (12:24)
--- NOTE | 2017-03-16 13:22 | CP.CCUPN ---
CCU Subjective - Physician Review Subjective (Free Text): Remains obtunded this am, only grimaces to deep painful stimulus, on HFNC with SPo2 99%, no obvious resp distress nor labored breathing, became hypotensive overnight and started on Dopamine, now switched to Levophed after TLC placed. Volume infusion ordered as well. ROS: unobtainable for reasons above. Other PMSFH: All recent nursing and physician documentation reviewed and no new information noted relevant to current problems. MAJOR IMPRESSIONS / PLAN: 1. AMS 2 Metabolic encephalopathy, r/o Acute CVA 2. Acute Resp insuff 2 Hypercarbia and Pneumonia 3. Dehydration 4. Uncontrolled DM II 5. h/o Dementia with hyperactive psychomotor activity- none manifest now. PLAN: 1. Neurochecks, seizure precautions. Neurology F/U. Consider repeat CT Brain imaging. 2. Hyperglycemia still rampant, will start insulin drip for definitive control. 3. [place] MV support for airway protection. Too lethargic for BiPAP. Will continue with HFNC support. 4. Stopped Lexapro and Seroquel; Gabapentin. 5. Lactates are normal. 6. Yeast in sputum may be contamination. CXR shows increasing haziness, monie R base. May need CT chest to further evaluate, will discuss with Pulm. Temps mostly 99, but no fever spikes. Now only see Acycolvir and Azithromycin active , Vanco and Merrem appear to have . 7. Son wishes to maintain all aggressive intervention despite poor prognosis. CCU Objective - Vital Signs / Intake & Output Vital Signs (Last 4 hours): Vital Signs Temp Pulse Resp BP Pulse Ox 03/16/17 12:00 99.1 F 105 H 23 91/56 L 99 03/16/17 11:27 24 03/16/17 10:00 93 H 21 122/80 99 Intake and Output (Last 8hrs): Intake & Output 03/15/17 03/16/17 03/16/17 22:59 06:59 14:59 Intake Total 700 1106 0 Output Total 600 300 Balance 100 806 0 Intake: IV 500 550 0 Intake, Piggyback 200 556 Oral 0 0 Output: Urine 600 300 Urethral (Sanders) 600 300 Other: # Bowel Movements 1 - Physical Exam Head: Positive for: Normocephalic Pupils: Positive for: PERRL, Sluggish, Other Extroacular Muscles: Positive for: EOMI. Negative for: Gaze Palsy Conjunctiva: Negative for: Injected, Icteric Ears: Positive for: Normal Mouth: Positive for: Moist Mucous Membranes Pharnyx: Positive for: Normal Neck: Positive for: Normal Range of Motion. Negative for: Meningeal Signs, JVD , Lymphadenopathy Respiratory/Chest: Positive for: Decreased Breath Sounds. Negative for: Wheezes , Rhonchi Cardiovascular: Positive for: Regular Rate and Rhythm. Negative for: Murmurs, Rub Abdomen: Positive for: Normal Bowel Sounds. Negative for: Tenderness, Distention Upper Extremity: Positive for: Normal Inspection, Edema Lower Extremity: Positive for: Edema (+2), NORMAL PULSES. Negative for: CALF TENDERNESS (GCS= 5 (E1 V1 M3)), Cyanosis Neurological: Positive for: Other (Flaccid on Left, + tone in RUE and RLE.) Skin: Positive for: Warm. Negative for: Rashes Psychiatric: Positive for: Lethargic - Medications Active Medications: Active Medications Generic Name Dose Route Start Last Admin Trade Name Freq PRN Reason Stop Dose Admin Acetaminophen 650 mg 03/16/17 10:36 Tylenol 325mg Tab PO Q4H PRN Temp 101 and above Acetaminophen 650 mg 03/16/17 10:36 Tylenol 650 Mg Supp IN Q4 PRN Fever >100.4 F Albuterol Sulfate 2.5 mg 03/16/17 10:36 Albuterol 0.083% Inhal Suzan (2.5 Mg/3 Ml) Ud IH RQ6 PRN Shortness of Breath Albuterol/Ipratropium 3 ml 03/16/17 14:00 Duoneb 3 Mg/0.5 Mg (3 Ml) Ud INH RTID [facility]ERR[facility] Aspirin 325 mg 03/17/17 09:00 Aspirin PO DAILY [facility] Atorvastatin Calcium 80 mg 03/17/17 22:00 Lipitor PO HS [facility] Budesonide 0.5 mg 03/16/17 20:00 Pulmicort Respules IH RBID [facility] Carvedilol 3.125 mg 03/16/17 17:00 Coreg PO BID@0500,1700 [facility] Home Med 15 mcg 03/16/17 11:45 Arformoterol [Brovana] IH Q12H [facility] Home Med 1 appl 03/16/17 10:36 Phenyleph/Mineral Oil/Petrolat [Preparation H Ointment] IN TID PRN Hemorrhoids Norepinephrine Bitartrate 4 mg 254 mls @ 9.52 mls/hr 03/16/17 10:36 03/16/17 08:25 / Dextrose IV 2.5 mcg/min .Q24H TERRANCE 9.52 mls/hr Protocol Administration 2.5 MCG/MIN Azithromycin 500 mg/ Sodium 250 mls @ 250 mls/hr 03/17/17 09:00 03/16/17 12: 24 Chloride IVPB 250 mls/hr DAILY T[facility] Administration Acyclovir 500 mg/ Sodium 100 mls @ 100 mls/hr 03/16/17 14:00 Chloride IVPB Q12H [facility] Insulin Human Lispro 0 units 03/16/17 11:30 03/16/17 12:19 Humalog SC 3 units ACHS TERRANCE Administration Protocol Lisinopril 10 mg 03/17/17 09:00 Zestril PO DAILY [facility] Loperamide HCl 2 mg 03/16/17 10:36 Imodium PO Q6H PRN Diarrhea Magnesium Hydroxide 30 ml 03/16/17 10:36 Milk Of Magnesia PO HS PRN Constipation Meclizine HCl 12.5 mg 03/16/17 10:36 Antivert PO Q6H PRN Dizziness Tiotropium [place] 18 mcg 03/17/17 09:00 Spiriva IH DAILY [facility] - Patient Studies Lab Studies: Microbiology Studies 03/10/17 03:10 Blood Culture - Final Blood NO GROWTH AFTER 5 DAYS Gram Stain - Final 03/10/17 02:45 Blood Culture - Final Blood NO GROWTH AFTER 5 DAYS Gram Stain - Final TEST NOT PERFORMED 03/13/17 07:15 Gram Stain - Final Sputum Sputum Culture - Final Yeast Species Lab Studies 03/16/17 03/16/17 03/16/17 Range/Units 11:28 10:43 09:00 WBC (4.8-10.8) K/uL RBC (3.80-5.20) Mil/uL Hgb (12.0-16.0) g/dL Hct (34.0-47.0) % MCV (81.0-99.0) fl MCH (27.0-31.0) pg MCHC (33.0-37.0) g/dL RDW (11.5-14.5) % Plt Count (130-400) K/uL MPV (7.2-11.7) fl Neut % (Auto) (50.0-75.0) % Lymph % (Auto) (20.0-40.0) % [place] % (Auto) (0.0-10.0) % Eos % (Auto) (0.0-4.0) % Baso % (Auto) (0.0-2.0) % Neut # (1.8-7.0) K/uL Lymph # (1.0-4.3) K/uL [place] # (0.0-0.8) K/uL Eos # (0.0-0.7) K/uL Baso # (0.0-0.2) K/uL Neutrophils % (Manual) (42-75) % Lymphocytes % (Manual) (20-50) % Monocytes % (Manual) (0-10) % Eosinophils % (Manual) (0-7) % Platelet Estimate (NORMAL) Anisocytosis (manual) Ovalocytes PT (9.8-13.1) Seconds INR (0.9-1.2) APTT (25.6-37.1) Seconds pCO2 39 (35-45) mm/Hg pO2 49 L (30-55) mm/Hg HCO3 29.3 H (21-28) mmol/L ABG pH 7.49 H (7.35-7.45) ABG Total CO2 30.9 H (22-28) mmol/L ABG O2 Saturation 88.9 L (95-98) % ABG O2 Content 14.1 L (15-23) ML/dL ABG Base Excess 5.9 H (-2.0-3.0) mmol/L ABG Hemoglobin 11.7 (11.7-17.4) g/dL ABG Carboxyhemoglobin 1.8 H (0.5-1.5) % POC ABG HHb (Measured) 10.7 H (0.0-5.0) % ABG Methemoglobin 1.7 (0.0-3.0) % ABG O2 Capacity 15.9 L (16-24) mL/dL Rock Test Yes VBG pH (7.32-7.43) VBG pCO2 (40-60) mmHg VBG HCO3 mmol/L VBG Total CO2 (22-28) mmol/L VBG O2 Sat (Calc) (40-65) % VBG Base Excess (0.0-2.0) mmol/L VBG Potassium (3.6-5.2) mmol/L A-a O2 Difference 259.0 mm/Hg Hgb O2 Saturation 85.8 L (95.0-98.0) % Sodium 147 (132-148) mmol/L Chloride 111 H (98-107) mmol/L Glucose (65-105) mg/dL Lactate (0.7-2.1) mmol/L FiO2 50.0 % Crit Value Called To Crit Value Called By Crit Value Read Back Blood Gas Notified Time Potassium 3.7 (3.6-5.0) MMOL/L Carbon Dioxide 27 (22-30) mmol/L Anion Gap 13 (10-20) BUN 28 H (7-17) mg/dl Creatinine 1.0 (0.7-1.2) mg/dL Est GFR ( Amer) > 60 Est GFR (Non-Af Amer) 54 POC Glucose (mg/dL) 337 H (65-110) mg/dL Random Glucose 435 H* D (65-105) mg/dL Calcium 8.0 L (8.4-10.2) mg/dL Total Bilirubin 0.5 (0.2-1.3) mg/dl AST 91 H D (14-36) U/L ALT 121 H (9-52) U/L Alkaline Phosphatase 194 H (38-126) U/L Total Protein 4.5 L (6.3-8.2) G/DL Albumin 2.3 L D (3.5-5.0) g/dL Globulin 2.2 (2.2-3.9) gm/dL Albumin/Globulin Ratio 1.0 (1.0-2.1) Venous Blood Potassium (3.6-5.2) mmol/L 03/16/17 03/16/17 03/16/17 Range/Units 09:00 09:00 08:55 WBC 15.1 H (4.8-10.8) K/uL RBC 4.21 (3.80-5.20) Mil/uL Hgb 12.1 (12.0-16.0) g/dL Hct 37.9 (34.0-47.0) % MCV 90.1 (81.0-99.0) fl MCH 28.8 (27.0-31.0) pg MCHC 31.9 L (33.0-37.0) g/dL RDW 15.7 H (11.5-14.5) % Plt Count 242 (130-400) K/uL MPV 9.9 (7.2-11.7) fl Neut % (Auto) 90.6 H (50.0-75.0) % Lymph % (Auto) 4.7 L (20.0-40.0) % [place] % (Auto) 4.2 (0.0-10.0) % Eos % (Auto) 0.3 (0.0-4.0) % Baso % (Auto) 0.2 (0.0-2.0) % Neut # 13.7 H (1.8-7.0) K/uL Lymph # 0.7 L (1.0-4.3) K/uL [place] # 0.6 (0.0-0.8) K/uL Eos # 0.0 (0.0-0.7) K/uL Baso # 0.0 (0.0-0.2) K/uL Neutrophils % (Manual) 91 H (42-75) % Lymphocytes % (Manual) 2 L (20-50) % Monocytes % (Manual) 6 (0-10) % Eosinophils % (Manual) 1 (0-7) % Platelet Estimate Normal (NORMAL) Anisocytosis (manual) Slight Ovalocytes Slight PT 10.6 (9.8-13.1) Seconds INR 0.9 (0.9-1.2) APTT 22.3 L (25.6-37.1) Seconds pCO2 (35-45) mm/Hg pO2 39 (30-55) mm/Hg HCO3 (21-28) mmol/L ABG pH (7.35-7.45) ABG Total CO2 (22-28) mmol/L ABG O2 Saturation (95-98) % ABG O2 Content (15-23) ML/dL ABG Base Excess (-2.0-3.0) mmol/L ABG Hemoglobin (11.7-17.4) g/dL ABG Carboxyhemoglobin (0.5-1.5) % POC ABG HHb (Measured) (0.0-5.0) % ABG Methemoglobin (0.0-3.0) % ABG O2 Capacity (16-24) mL/dL Rock Test VBG pH 7.41 (7.32-7.43) VBG pCO2 46 (40-60) mmHg VBG HCO3 27.3 mmol/L VBG Total CO2 30.6 H (22-28) mmol/L VBG O2 Sat (Calc) 77.7 H (40-65) % VBG Base Excess 3.8 H (0.0-2.0) mmol/L VBG Potassium 3.6 (3.6-5.2) mmol/L A-a O2 Difference mm/Hg Hgb O2 Saturation (95.0-98.0) % Sodium 146.0 (132-148) mmol/L Chloride 110.0 H (98-107) mmol/L Glucose 450 H* D (65-105) mg/dL Lactate 1.6 (0.7-2.1) mmol/L FiO2 50.0 % Crit Value Called To Charis pastrana Crit Value Called By Ms Crit Value Read Back Y Blood Gas Notified Time 906 Potassium (3.6-5.0) MMOL/L Carbon Dioxide (22-30) mmol/L Anion Gap (10-20) BUN (7-17) mg/dl Creatinine (0.7-1.2) mg/dL Est GFR ( Amer) Est GFR (Non-Af Amer) POC Glucose (mg/dL) (65-110) mg/dL Random Glucose (65-105) mg/dL Calcium (8.4-10.2) mg/dL Total Bilirubin (0.2-1.3) mg/dl AST (14-36) U/L ALT (9-52) U/L Alkaline Phosphatase (38-126) U/L Total Protein (6.3-8.2) G/DL Albumin (3.5-5.0) g/dL Globulin (2.2-3.9) gm/dL Albumin/Globulin Ratio (1.0-2.1) Venous Blood Potassium 3.6 (3.6-5.2) mmol/L 03/16/17 03/16/17 03/16/17 Range/Units 05:21 05:21 05:19 WBC (4.8-10.8) K/uL RBC (3.80-5.20) Mil/uL Hgb (12.0-16.0) g/dL Hct (34.0-47.0) % MCV (81.0-99.0) fl MCH (27.0-31.0) pg MCHC (33.0-37.0) g/dL RDW (11.5-14.5) % Plt Count (130-400) K/uL MPV (7.2-11.7) fl Neut % (Auto) (50.0-75.0) % Lymph % (Auto) (20.0-40.0) % [place] % (Auto) (0.0-10.0) % Eos % (Auto) (0.0-4.0) % Baso % (Auto) (0.0-2.0) % Neut # (1.8-7.0) K/uL Lymph # (1.0-4.3) K/uL [place] # (0.0-0.8) K/uL Eos # (0.0-0.7) K/uL Baso # (0.0-0.2) K/uL Neutrophils % (Manual) (42-75) % Lymphocytes % (Manual) (20-50) % Monocytes % (Manual) (0-10) % Eosinophils % (Manual) (0-7) % Platelet Estimate (NORMAL) Anisocytosis (manual) Ovalocytes PT (9.8-13.1) Seconds INR (0.9-1.2) APTT (25.6-37.1) Seconds pCO2 (35-45) mm/Hg pO2 (30-55) mm/Hg HCO3 (21-28) mmol/L ABG pH (7.35-7.45) ABG Total CO2 (22-28) mmol/L ABG O2 Saturation (95-98) % ABG O2 Content (15-23) ML/dL ABG Base Excess (-2.0-3.0) mmol/L ABG Hemoglobin (11.7-17.4) g/dL ABG Carboxyhemoglobin (0.5-1.5) % POC ABG HHb (Measured) (0.0-5.0) % ABG Methemoglobin (0.0-3.0) % ABG O2 Capacity (16-24) mL/dL Rock Test VBG pH (7.32-7.43) VBG pCO2 (40-60) mmHg VBG HCO3 mmol/L VBG Total CO2 (22-28) mmol/L VBG O2 Sat (Calc) (40-65) % VBG Base Excess (0.0-2.0) mmol/L VBG Potassium (3.6-5.2) mmol/L A-a O2 Difference mm/Hg Hgb O2 Saturation (95.0-98.0) % Sodium (132-148) mmol/L Chloride (98-107) mmol/L Glucose (65-105) mg/dL Lactate (0.7-2.1) mmol/L FiO2 % Crit Value Called To Crit Value Called By Crit Value Read Back Blood Gas Notified Time Potassium (3.6-5.0) MMOL/L Carbon Dioxide (22-30) mmol/L Anion Gap (10-20) BUN (7-17) mg/dl Creatinine (0.7-1.2) mg/dL Est GFR ( Amer) Est GFR (Non-Af Amer) POC Glucose (mg/dL) 384 H 384 H 417 H* (65-110) mg/dL Random Glucose (65-105) mg/dL Calcium (8.4-10.2) mg/dL Total Bilirubin (0.2-1.3) mg/dl AST (14-36) U/L ALT (9-52) U/L Alkaline Phosphatase (38-126) U/L Total Protein (6.3-8.2) G/DL Albumin (3.5-5.0) g/dL Globulin (2.2-3.9) gm/dL Albumin/Globulin Ratio (1.0-2.1) Venous Blood Potassium (3.6-5.2) mmol/L 03/15/17 03/15/17 Range/Units 20:52 16:08 WBC (4.8-10.8) K/uL RBC (3.80-5.20) Mil/uL Hgb (12.0-16.0) g/dL Hct (34.0-47.0) % MCV (81.0-99.0) fl MCH (27.0-31.0) pg MCHC (33.0-37.0) g/dL RDW (11.5-14.5) % Plt Count (130-400) K/uL MPV (7.2-11.7) fl Neut % (Auto) (50.0-75.0) % Lymph % (Auto) (20.0-40.0) % [place] % (Auto) (0.0-10.0) % Eos % (Auto) (0.0-4.0) % Baso % (Auto) (0.0-2.0) % Neut # (1.8-7.0) K/uL Lymph # (1.0-4.3) K/uL [place] # (0.0-0.8) K/uL Eos # (0.0-0.7) K/uL Baso # (0.0-0.2) K/uL Neutrophils % (Manual) (42-75) % Lymphocytes % (Manual) (20-50) % Monocytes % (Manual) (0-10) % Eosinophils % (Manual) (0-7) % Platelet Estimate (NORMAL) Anisocytosis (manual) Ovalocytes PT (9.8-13.1) Seconds INR (0.9-1.2) APTT (25.6-37.1) Seconds pCO2 (35-45) mm/Hg pO2 (30-55) mm/Hg HCO3 (21-28) mmol/L ABG pH (7.35-7.45) ABG Total CO2 (22-28) mmol/L ABG O2 Saturation (95-98) % ABG O2 Content (15-23) ML/dL ABG Base Excess (-2.0-3.0) mmol/L ABG Hemoglobin (11.7-17.4) g/dL ABG Carboxyhemoglobin (0.5-1.5) % POC ABG HHb (Measured) (0.0-5.0) % ABG Methemoglobin (0.0-3.0) % ABG O2 Capacity (16-24) mL/dL Rock Test VBG pH (7.32-7.43) VBG pCO2 (40-60) mmHg VBG HCO3 mmol/L VBG Total CO2 (22-28) mmol/L VBG O2 Sat (Calc) (40-65) % VBG Base Excess (0.0-2.0) mmol/L VBG Potassium (3.6-5.2) mmol/L A-a O2 Difference mm/Hg Hgb O2 Saturation (95.0-98.0) % Sodium (132-148) mmol/L Chloride (98-107) mmol/L Glucose (65-105) mg/dL Lactate (0.7-2.1) mmol/L FiO2 % Crit Value Called To Crit Value Called By Crit Value Read Back Blood Gas Notified Time Potassium (3.6-5.0) MMOL/L Carbon Dioxide (22-30) mmol/L Anion Gap (10-20) BUN (7-17) mg/dl Creatinine (0.7-1.2) mg/dL Est GFR ( Amer) Est GFR (Non-Af Amer) POC Glucose (mg/dL) 329 H 222 H (65-110) mg/dL Random Glucose (65-105) mg/dL Calcium (8.4-10.2) mg/dL Total Bilirubin (0.2-1.3) mg/dl AST (14-36) U/L ALT (9-52) U/L Alkaline Phosphatase (38-126) U/L Total Protein (6.3-8.2) G/DL Albumin (3.5-5.0) g/dL Globulin (2.2-3.9) gm/dL Albumin/Globulin Ratio (1.0-2.1) Venous Blood Potassium (3.6-5.2) mmol/L Laboratory Results - last 24 hr 03/15/17 03/15/17 03/16/17 16:08 20:52 05:19 WBC RBC Hgb Hct MCV MCH MCHC RDW Plt Count MPV Neut % (Auto) Lymph % (Auto) [place] % (Auto) Eos % (Auto) Baso % (Auto) Neut # Lymph # [place] # Eos # Baso # Neutrophils % (Manual) Lymphocytes % (Manual) Monocytes % (Manual) Eosinophils % (Manual) Platelet Estimate Anisocytosis (manual) Ovalocytes PT INR APTT pCO2 pO2 HCO3 ABG pH ABG Total CO2 ABG O2 Saturation ABG O2 Content ABG Base Excess ABG Hemoglobin ABG Carboxyhemoglobin POC ABG HHb (Measured) ABG Methemoglobin ABG O2 Capacity Rock Test VBG pH VBG pCO2 VBG HCO3 VBG Total CO2 VBG O2 Sat (Calc) VBG Base Excess VBG Potassium A-a O2 Difference Hgb O2 Saturation Sodium Chloride Glucose Lactate FiO2 Crit Value Called To Crit Value Called By Crit Value Read Back Blood Gas Notified Time Potassium Carbon Dioxide Anion Gap BUN Creatinine Est GFR ( Amer) Est GFR (Non-Af Amer) POC Glucose (mg/dL) 222 H 329 H 417 H* Random Glucose Calcium Total Bilirubin AST ALT Alkaline Phosphatase Total Protein Albumin Globulin Albumin/Globulin Ratio Venous Blood Potassium 03/16/17 03/16/17 03/16/17 05:21 05:21 08:55 WBC RBC Hgb Hct MCV MCH MCHC RDW Plt Count MPV Neut % (Auto) Lymph % (Auto) [place] % (Auto) Eos % (Auto) Baso % (Auto) Neut # Lymph # [place] # Eos # Baso # Neutrophils % (Manual) Lymphocytes % (Manual) Monocytes % (Manual) Eosinophils % (Manual) Platelet Estimate Anisocytosis (manual) Ovalocytes PT INR APTT pCO2 pO2 39 HCO3 ABG pH ABG Total CO2 ABG O2 Saturation ABG O2 Content ABG Base Excess ABG Hemoglobin ABG Carboxyhemoglobin POC ABG HHb (Measured) ABG Methemoglobin ABG O2 Capacity Rock Test VBG pH 7.41 VBG pCO2 46 VBG HCO3 27.3 VBG Total CO2 30.6 H VBG O2 Sat (Calc) 77.7 H VBG Base Excess 3.8 H VBG Potassium 3.6 A-a O2 Difference Hgb O2 Saturation Sodium 146.0 Chloride 110.0 H Glucose 450 H* D Lactate 1.6 FiO2 50.0 Crit Value Called To Charis pastrana Crit Value Called By Ms Crit Value Read Back Y Blood Gas Notified Time 906 Potassium Carbon Dioxide Anion Gap BUN Creatinine Est GFR ( Amer) Est GFR (Non-Af Amer) POC Glucose (mg/dL) 384 H 384 H Random Glucose Calcium Total Bilirubin AST ALT Alkaline Phosphatase Total Protein Albumin Globulin Albumin/Globulin Ratio Venous Blood Potassium 3.6 03/16/17 03/16/17 03/16/17 09:00 09:00 09:00 WBC 15.1 H RBC 4.21 Hgb 12.1 Hct 37.9 MCV 90.1 MCH 28.8 MCHC 31.9 L RDW 15.7 H Plt Count 242 MPV 9.9 Neut % (Auto) 90.6 H Lymph % (Auto) 4.7 L [place] % (Auto) 4.2 Eos % (Auto) 0.3 Baso % (Auto) 0.2 Neut # 13.7 H Lymph # 0.7 L [place] # 0.6 Eos # 0.0 Baso # 0.0 Neutrophils % (Manual) 91 H Lymphocytes % (Manual) 2 L Monocytes % (Manual) 6 Eosinophils % (Manual) 1 Platelet Estimate Normal Anisocytosis (manual) Slight Ovalocytes Slight PT 10.6 INR 0.9 APTT 22.3 L pCO2 pO2 HCO3 ABG pH ABG Total CO2 ABG O2 Saturation ABG O2 Content ABG Base Excess ABG Hemoglobin ABG Carboxyhemoglobin POC ABG HHb (Measured) ABG Methemoglobin ABG O2 Capacity Rock Test VBG pH VBG pCO2 VBG HCO3 VBG Total CO2 VBG O2 Sat (Calc) VBG Base Excess VBG Potassium A-a O2 Difference Hgb O2 Saturation Sodium 147 Chloride 111 H Glucose Lactate FiO2 Crit Value Called To Crit Value Called By Crit Value Read Back Blood Gas Notified Time Potassium 3.7 Carbon Dioxide 27 Anion Gap 13 BUN 28 H Creatinine 1.0 Est GFR ( Amer) > 60 Est GFR (Non-Af Amer) 54 POC Glucose (mg/dL) Random Glucose 435 H* D Calcium 8.0 L Total Bilirubin 0.5 AST 91 H D ALT 121 H Alkaline Phosphatase 194 H Total Protein 4.5 L Albumin 2.3 L D Globulin 2.2 Albumin/Globulin Ratio 1.0 Venous Blood Potassium 03/16/17 03/16/17 10:43 11:28 WBC RBC Hgb Hct MCV MCH MCHC RDW Plt Count MPV Neut % (Auto) Lymph % (Auto) [place] % (Auto) Eos % (Auto) Baso % (Auto) Neut # Lymph # [place] # Eos # Baso # Neutrophils % (Manual) Lymphocytes % (Manual) Monocytes % (Manual) Eosinophils % (Manual) Platelet Estimate Anisocytosis (manual) Ovalocytes PT INR APTT pCO2 39 pO2 49 L HCO3 29.3 H ABG pH 7.49 H ABG Total CO2 30.9 H ABG O2 Saturation 88.9 L ABG O2 Content 14.1 L ABG Base Excess 5.9 H ABG Hemoglobin 11.7 ABG Carboxyhemoglobin 1.8 H POC ABG HHb (Measured) 10.7 H ABG Methemoglobin 1.7 ABG O2 Capacity 15.9 L Rock Test Yes VBG pH VBG pCO2 VBG HCO3 VBG Total CO2 VBG O2 Sat (Calc) VBG Base Excess VBG Potassium A-a O2 Difference 259.0 Hgb O2 Saturation 85.8 L Sodium Chloride Glucose Lactate FiO2 50.0 Crit Value Called To Crit Value Called By Crit Value Read Back Blood Gas Notified Time Potassium Carbon Dioxide Anion Gap BUN Creatinine Est GFR ( Amer) Est GFR (Non-Af Amer) POC Glucose (mg/dL) 337 H Random Glucose Calcium Total Bilirubin AST ALT Alkaline Phosphatase Total Protein Albumin Globulin Albumin/Globulin Ratio Venous Blood Potassium Fingerstick Blood Sugar Results: 337 Critical Care Progress Note - Nutrition Nutrition: Nutrition Category Date Time Status Dysphagia/Modified Consistency Diet [DIET] Diets 03/15/17 Dinner Active
--- NOTE | 2017-03-16 14:01 | CP.PCM.PN ---
Subjective - Date & Time of Evaluation Date of Evaluation: 03/16/17 Time of Evaluation: 08:00 - Subjective Subjective: HYPOTENSIVE ON PRESSORS GI ON BOARD Objective - Vital Signs/Intake and Output Vital Signs (last 24 hours): Temp Pulse Resp BP Pulse Ox 99.1 F 105 H 23 91/56 L 99 03/16/17 12:00 03/16/17 12:00 03/16/17 12:00 03/16/17 12:00 03/16/17 12:00 Intake and Output: 03/16/17 03/16/17 06:59 18:59 Intake Total 1256 0 Output Total 300 Balance 956 0 - Medications Medications: Current Medications Acetaminophen (Tylenol 325mg Tab) 650 mg PO Q4H PRN PRN Reason: Temp 101 and above Acetaminophen (Tylenol 650 Mg Supp) 650 mg CO Q4 PRN PRN Reason: Fever >100.4 F Albuterol Sulfate (Albuterol 0.083% Inhal Suzan (2.5 Mg/3 Ml) Ud) 2.5 mg IH RQ6 PRN PRN Reason: Shortness of Breath Albuterol/Ipratropium (Duoneb 3 Mg/0.5 Mg (3 Ml) Ud) 3 ml INH RTID [facility] Last Admin: 03/16/17 13:27 Dose: 3 ml Aspirin (Aspirin) 325 mg PO DAILY [facility] Atorvastatin Calcium (Lipitor) 80 mg PO HS [facility] Budesonide (Pulmicort Respules) 0.5 mg IH RBID [facility] Carvedilol (Coreg) 3.125 mg PO BID@0500,1700 [facility] Home Med (Arformoterol [Brovana]) 15 mcg IH Q12H [facility] Home Med (Phenyleph/Mineral Oil/Petrolat [Preparation H Ointment]) 1 appl CO TID PRN PRN Reason: Hemorrhoids Norepinephrine Bitartrate 4 mg (/ Dextrose) 254 mls @ 9.52 mls/hr IV .Q24H [facility] ; 2.5 MCG/MIN PRN Reason: Protocol Last Admin: 03/16/17 08:25 Dose: 2.5 mcg/min, 9.52 mls/hr Azithromycin 500 mg/ Sodium (Chloride) 250 mls @ 250 mls/hr IVPB DAILY [facility] Last Admin: 03/16/17 12:24 Dose: 250 mls/hr Acyclovir 500 mg/ Sodium (Chloride) 100 mls @ 100 mls/hr IVPB Q12H [facility] Insulin Human Lispro (Humalog) 0 units SC ACHS [facility] PRN Reason: Protocol Last Admin: 03/16/17 12:19 Dose: 3 units Lisinopril (Zestril) 10 mg PO DAILY [facility] Loperamide HCl (Imodium) 2 mg PO Q6H PRN PRN Reason: Diarrhea Magnesium Hydroxide (Milk Of Magnesia) 30 ml PO HS PRN PRN Reason: Constipation Meclizine HCl (Antivert) 12.5 mg PO Q6H PRN PRN Reason: Dizziness Tiotropium [place] (Spiriva) 18 mcg IH DAILY [facility] - Labs Labs: 03/16/17 09:00 03/16/17 09:00 PT 10.6 Seconds (9.8-13.1) 03/16/17 09:00 INR 0.9 (0.9-1.2) 03/16/17 09:00 APTT 22.3 Seconds (25.6-37.1) L 03/16/17 09:00 - Constitutional Appears: Confused - Head Exam Head Exam: NORMOCEPHALIC - Eye Exam Eye Exam: absent: Nystagmus - ENT Exam ENT Exam: Mucous Membranes Dry - Neck Exam Neck Exam: absent: Lymphadenopathy - Respiratory Exam Respiratory Exam: Decreased Breath Sounds - Cardiovascular Exam Cardiovascular Exam: REGULAR RHYTHM - GI/Abdominal Exam GI & Abdominal Exam: Distended Assessment and Plan (1) CHF (congestive heart failure) Status: Acute (2) COPD exacerbation Status: Acute (3) Pneumonia Status: Acute - Assessment and Plan (Free Text) Plan: POOR PROGNOSIS
--- NOTE | 2017-03-16 14:56 | RAD ---
HISTORY: Central line placement COMPARISON: Comparison made with prior chest radiograph 03/14/2017 Kwame L ow are FINDINGS: LUNGS: There appears to be a persistent mild pulmonary vascular congestion asymmetrically more prominent on the right than left with bilateral lower lobe atelectatic and or infiltrate changes and bilateral effusions. PLEURA: As above. No pneumothorax apparent. CARDIOVASCULAR: Heart size difficult to assess due to silhouetting of both cardiac borders right greater than left. . Sternotomy wires again noted OSSEOUS STRUCTURES: No significant abnormalities. VISUALIZED UPPER ABDOMEN: Normal. OTHER FINDINGS: None. IMPRESSION: There appears to be a persistent mild pulmonary vascular congestion asymmetrically more prominent on the right than left with bilateral lower lobe atelectatic and or infiltrate changes and bilateral effusions.
--- NOTE | 2017-03-16 16:15 | PN ---
CHIEF COMPLAINT: Fall and altered mental status. SUBJECTIVE: The patient seen and examined at bedside. Her blood pressure systolic and diastolic at lower side, 67/53. She is currently on Levophed. She is also having hyperglycemic accelerations with blood glucose level of 35. The patient is drowsy, but withdraws to deep brain stimulus. No obvious bleeding. REVIEW OF SYSTEMS: A 14-point review of systems is negative except per the HPI. PAST MEDICAL HISTORY: COPD, hypertension, dyslipidemia, coronary artery disease, type 2 diabetes mellitus, CHF, pneumonia. FAMILY HISTORY: Noncontributory. MEDICATIONS: Reviewed by nurse per reconciliation sheet. ALLERGIES: NO KNOWN DRUG ALLERGIES. PHYSICAL EXAMINATION VITAL SIGNS: Temperature of 99, pulse rate of 105, blood pressure 91/56, respiratory rate of 23, oxygen saturations 99% via high-flow. GENERAL: The patient is obtunded and drowsy, in no acute distress. HEENT: Atraumatic, normocephalic. PERRLA. Extraocular muscles intact. NECK: Supple. No JVD. No adenopathy noted. LUNGS: Decreased breath sounds bilaterally. HEART: S1 and S2, mildly tachycardic. No murmur, rubs, or gallops. ABDOMEN: Soft, nontender, nondistended. Bowel sounds present. EXTREMITIES: No clubbing. No cyanosis. Peripheral pulses 2+ felt bilaterally. NEUROLOGIC: The patient is drowsy, obtunded. Speech is more of a dysarthric, but no aphasia noted. She is hard of hearing at baseline. Cranial nerves II through XII are intact. Motor exam: Spontaneous movements of all extremities are noted, slightly decreased in terms of left compared to the right. Sensory exam: Withdraws to localized noxious stimulus. Light touch and pinprick is decreased at the calves bilaterally. DTRs are 1+ throughout and absent at the knees and ankles. Coordination and gait deferred for now. LABORATORY DATA: Sodium is 147, potassium 3.6, chloride of 111, carbon dioxide 27, BUN of 28, creatinine 1, random glucose 135. ASSESSMENT AND PLAN: This is a 76-year-old woman with history of coronary artery disease, hypertension, dyslipidemia, congestive heart failure, uncontrolled diabetes, history of pneumonia, history of chronic obstructive pulmonary disease, presented initially to the hospital for shortness of breath, productive yellow sputum, multifocal pneumonia, especially on the right upper lobe, on antibiotics, found to have transient hypoglycemic events with transient hyperglycemic accelerations and also found to have small, tiny, acute, lacunar infarct in the left temporoparietal region and the left lateral ventricle. She is obtunded, even more with superimposed on underlying hyperglycemic accelerations. Altered mental status is mostly secondary to metabolic encephalopathy superimposed underlying hypoperfusion to the brain, underlying dehydration along with hypercarbia and underlying pneumonia. At this time, I recommend: 1. Get the blood pressure up above 130 systolic. 2. Monitor glucose and keep her blood sugars between 140 to 180 and avoid hypoglycemic events and hyperglycemic accelerations. 3. Avoid all sedative medications and avoid nighttime interruptions. Continue current present medical management as per ICU team. Ronald Monroe MD
--- NOTE | 2017-03-16 17:33 | CP.PCM.PN ---
Subjective - Date & Time of Evaluation Date of Evaluation: 03/16/17 Time of Evaluation: 17:00 - Subjective Subjective: patient was started on pressors due to hypotension. daughter is at the bedside Objective - Vital Signs/Intake and Output Vital Signs (last 24 hours): Temp Pulse Resp BP Pulse Ox 99.1 F 90 26 H 91/64 L 100 03/16/17 12:00 03/16/17 14:00 03/16/17 16:06 03/16/17 14:00 03/16/17 14:00 Intake and Output: 03/16/17 03/16/17 06:59 18:59 Intake Total 1256 550 Output Total 300 Balance 956 550 - Medications Medications: Current Medications Acetaminophen (Tylenol 325mg Tab) 650 mg PO Q4H PRN PRN Reason: Temp 101 and above Acetaminophen (Tylenol 650 Mg Supp) [address] Q4 PRN PRN Reason: Fever >100.4 F Albuterol Sulfate (Albuterol 0.083% Inhal Suzan (2.5 Mg/3 Ml) Ud) 2.5 mg IH RQ6 PRN PRN Reason: Shortness of Breath Albuterol/Ipratropium (Duoneb 3 Mg/0.5 Mg (3 Ml) Ud) 3 ml INH RTID [facility] Last Admin: 03/16/17 13:27 Dose: 3 ml Aspirin (Aspirin) 325 mg PO DAILY [facility] Atorvastatin Calcium (Lipitor) 80 mg PO HS [facility] Budesonide (Pulmicort Respules) 0.5 mg IH RBID [facility] Carvedilol (Coreg) 3.125 mg PO BID@0500,1700 [facility] Home Med (Arformoterol [Brovana]) 15 mcg IH Q12H [facility] Home Med (Phenyleph/Mineral Oil/Petrolat [Preparation H Ointment]) [address] TID PRN PRN Reason: Hemorrhoids Norepinephrine Bitartrate 4 mg (/ Dextrose) 254 mls @ 9.52 mls/hr IV .Q24H [facility] ; 2.5 MCG/MIN PRN Reason: Protocol Last Titration: 03/16/17 14:20 Dose: 10 mcg/min, 38.1 mls/hr Azithromycin 500 mg/ Sodium (Chloride) 250 mls @ 250 mls/hr IVPB DAILY [facility] Last Admin: 03/16/17 12:24 Dose: 250 mls/hr Acyclovir 500 mg/ Sodium (Chloride) 100 mls @ 100 mls/hr IVPB Q12H [facility] Last Admin: 03/16/17 14:50 Dose: 100 mls/hr Meropenem 500 mg/ Sodium (Chloride) 100 mls @ 100 mls/hr IVPB Q8 [facility] Insulin Human Regular 100 (units/ Sodium Chloride) 101 mls @ 5.05 mls/hr IV .Q20H [facility]; 5 UNITS/HR PRN Reason: Protocol Last Titration: 03/16/17 17:16 Dose: 4 units/hr, 4.04 mls/hr Vancomycin HCl 750 mg/ Sodium (Chloride) 250 mls @ 166.667 mls/hr IVPB DAILY [facility] Insulin Detemir (Levemir) 20 units SC HS [facility] Insulin Human Lispro (Humalog) 0 units SC ACHS [facility] PRN Reason: Protocol Last Admin: 03/16/17 12:19 Dose: 3 units Insulin Human Lispro (Humalog) 8 units SC AC [facility] Loperamide HCl (Imodium) 2 mg PO Q6H PRN PRN Reason: Diarrhea Magnesium Hydroxide (Milk Of Magnesia) 30 ml PO HS PRN PRN Reason: Constipation Meclizine HCl (Antivert) 12.5 mg PO Q6H PRN PRN Reason: Dizziness Tiotropium [place] (Spiriva) 18 mcg IH DAILY [facility] - Labs Labs: 03/16/17 09:00 03/16/17 09:00 PT 10.6 Seconds (9.8-13.1) 03/16/17 09:00 INR 0.9 (0.9-1.2) 03/16/17 09:00 APTT 22.3 Seconds (25.6-37.1) L 03/16/17 09:00 - Constitutional Appears: Toxic - Head Exam Head Exam: NORMAL INSPECTION - Eye Exam Eye Exam: Normal appearance - ENT Exam ENT Exam: Mucous Membranes Moist - Neck Exam Neck Exam: Normal Inspection - Respiratory Exam Respiratory Exam: Decreased Breath Sounds - Cardiovascular Exam Cardiovascular Exam: REGULAR RHYTHM - GI/Abdominal Exam GI & Abdominal Exam: Normal Bowel Sounds - Rectal Exam Rectal Exam: Deferred - Extremities Exam Extremities Exam: Pedal Edema - Skin Skin Exam: Normal Color Assessment and Plan (1) CHF (congestive heart failure) Status: Acute (2) Coronary artery disease Status: Acute (3) Diabetes mellitus Status: Acute
[2017-03-16] MEDS: Lactated Ringer's 1,000 ML IV SCH (17:58)
[2017-03-16 18:59] LABS: WNV AB IGG 0.1
[2017-03-16] MEDS: Meropenem 500 MG in Sodium Chloride 0.9% 100 ML IVPB SCH (19:43)
[2017-03-16 20:58] LABS: WNV AB IGM 0.03
[2017-03-16] MEDS ORDERED: Insulin Detemir 100 Units/ml Inj SC SCH (22:00)
[2017-03-17] MEDS: Acyclovir 500 MG in Sodium Chloride 0.9% 100 ML IVPB SCH ×2 (01:06→17:30)
[2017-03-17] MEDS: Meropenem 500 MG in Sodium Chloride 0.9% 100 ML IVPB SCH ×3 (01:07→17:28)
--- NOTE | 2017-03-17 02:16 | PN ---
ENDOCRINOLOGY FOLLOWUP NOTE LOCATION: ICU room 425. SUBJECTIVE: This is a 76-year-old female with recent uncontrolled type 2 insulin-requiring diabetes, now with supervening hyperglycemic accelerations overnight as noted and today's glucose values have ranged from 282 to 337 mg/dL. The latest chemistries showed a BUN of 28, sodium 147, potassium 3.7, chloride 111, CO2 of 27, glucose 435, and creatinine 1.0. So at this time, we will modify once again her basal and bolus insulin regimen and actually resume the aforementioned regimen, which was discontinued because of very nil and suboptimal oral intake. For now, we will resume a combination of both Levemir given as 20 unit subcutaneously at bedtime daily to start tonight. We will also add Humalog given as 8 units subcutaneously t.i.d. before meals as ordered. We will modify the coverage scale to *------* hypoglycemia and detailed orders have been given. We will follow her and advise accordingly. Oma Martines MD
[2017-03-17] MEDS ORDERED: Norepinephrine 8 MG in Dextrose 5% In Water 500 ML IV SCH (04:45)
[2017-03-17 05:36] LABS: BASO # 0.1 K/uL (0.0-0.2); BASO % 0.3 % (0.0-2.0); EOS # 0.1 K/uL (0.0-0.7); EOS % 0.4 % (0.0-4.0); LYMPH # 1.2 K/uL (1.0-4.3); LYMPH % 6.5 % (20.0-40.0); MEAN CELL VOLUME 88.4 fl (81.0-99.0); MEAN CORPUSCULAR HEMOGLOBIN 28.9 pg (27.0-31.0); MEAN CORPUSCULAR HGB CONC 32.7 g/dL (33.0-37.0); MEAN PLATELET VOLUME 9.5 fl (7.2-11.7); MONO % 5.4 % (0.0-10.0); NEUT # 16.4 K/uL (1.8-7.0); NEUT % 87.4 % (50.0-75.0); RED CELL DISTRIBUTION WIDTH 15.6 % (11.5-14.5); WHITE BLOOD COUNT 18.8 K/uL (4.8-10.8)
[2017-03-17 05:48] LABS: ALKALINE PHOSPHATASE 177 U/L (38-126); ALT/SGPT 112 U/L (9-52); AST/SGOT 119 U/L (14-36); BILIRUBIN,TOTAL 0.4 mg/dl (0.2-1.3); BLOOD UREA NITROGEN 24 mg/dl (7-17); CARBON DIOXIDE 32 mmol/L (22-30); CHLORIDE 114 mmol/L (98-107); GFR AFRICAN-AMERICAN > 60; GLUCOSE,RANDOM 117 mg/dL (65-105); POTASSIUM 3.2 MMOL/L (3.6-5.0); SODIUM 147 mmol/l (132-148); TOTAL PROTEIN 4.4 G/DL (6.3-8.2)
[2017-03-17] MEDS ORDERED: Insulin Lispro (humaLOG) 100 Units/ml Inj SC SCH (07:30)
--- NOTE | 2017-03-17 07:54 | CP.PCM.PN ---
Subjective - Date & Time of Evaluation Date of Evaluation: 03/17/17 Time of Evaluation: 07:51 - Subjective Subjective: pt still unresponsive, periods of lucidity. glucose elevating and wb spiked to 18.8 yesterday. no fevers. bp 88 systolic this am w/ 15mcg of levophed. case d/c w/ dr berman. will attempt nutrition-ngt, tpn, ward culture, and id sources of this change in pts condition. pt remains full code. am labs noted w/ elev wbc-unkn source multiple attempts to contact son went unanswered until 1455 when he called back and stated he wanted to keep mother comfortable but would not provider further answers until talking to sisters. multiple conversations w/ laney may and rj who want comfort measures for mother multiple conversations w/ dr berman icu attending-hold ward cultures, ngt/tpn r/t pts conditions. pt max levophed and started on neosynephrine gtt. living will found in [employer] EMR approx 1000 this am. states no cpr if she is out for a long time, pt does not want MV, intubation, dialysis. would not want tube feedings if only was a temporary measure. daughters advised tube feedings would be a long term care social worker measure at this time based upon pts current situation. Objective - Vital Signs/Intake and Output Vital Signs (last 24 hours): Temp Pulse Resp BP Pulse Ox 99.7 F H 101 H 22 88/67 L 100 03/17/17 04:00 03/17/17 06:58 03/17/17 06:58 03/17/17 06:58 03/17/17 06:58 Intake and Output: 03/17/17 03/17/17 06:59 18:59 Intake Total 1684 Output Total 475 Balance 1209 - Medications Medications: Current Medications Acetaminophen (Tylenol 325mg Tab) 650 mg PO Q4H PRN PRN Reason: Temp 101 and above Acetaminophen (Tylenol 650 Mg Supp) 650 mg [place] Q4 PRN PRN Reason: Fever >100.4 F Albuterol Sulfate (Albuterol 0.083% Inhal Suzan (2.5 Mg/3 Ml) Ud) 2.5 mg IH RQ6 PRN PRN Reason: Shortness of Breath Albuterol/Ipratropium (Duoneb 3 Mg/0.5 Mg (3 Ml) Ud) 3 ml INH RTID [facility] Last Admin: 03/16/17 19:20 Dose: 3 ml Aspirin (Aspirin) 325 mg PO DAILY [facility] Atorvastatin Calcium (Lipitor) 80 mg PO HS [facility] Budesonide (Pulmicort Respules) 0.5 mg IH RBID [facility] Last Admin: 03/16/17 19:21 Dose: 0.5 mg Home Med (Arformoterol [Brovana]) 15 mcg IH Q12H [facility] Home Med (Phenyleph/Mineral Oil/Petrolat [Preparation H Ointment]) 1 appl [place] TID PRN PRN Reason: Hemorrhoids Azithromycin 500 mg/ Sodium (Chloride) 250 mls @ 250 mls/hr IVPB DAILY [facility] Last Admin: 03/16/17 12:24 Dose: 250 mls/hr Acyclovir 500 mg/ Sodium (Chloride) 100 mls @ 100 mls/hr IVPB Q12H [facility] Last Admin: 03/17/17 01:06 Dose: 100 mls/hr Meropenem 500 mg/ Sodium (Chloride) 100 mls @ 100 mls/hr IVPB Q8 [facility] Last Admin: 03/17/17 01:07 Dose: 100 mls/hr Insulin Human Regular 100 (units/ Sodium Chloride) 101 mls @ 5.05 mls/hr IV .Q20H [facility]; 5 UNITS/HR PRN Reason: Protocol Last Titration: 03/17/17 01:03 Dose: 2 units/hr, 2.02 mls/hr Lactated Ringer's (Lactated Ringer's) 1,000 mls @ 75 mls/hr IV .[id number] [facility] Last Admin: 03/16/17 17:58 Dose: 75 mls/hr Vancomycin HCl 750 mg/ Sodium (Chloride) 250 mls @ 166.667 mls/hr IVPB DAILY@ 2000 [facility] Norepinephrine Bitartrate 8 mg (/ Dextrose) 508 mls @ 57.15 mls/hr IV .[id number] [facility]; 15 MCG/MIN PRN Reason: Protocol Last Admin: 03/17/17 05:13 Dose: 15 mcg/min, 57.15 mls/hr Magnesium Hydroxide (Milk Of Magnesia) 30 ml PO HS PRN PRN Reason: Constipation Tiotropium [place] (Spiriva) 18 mcg IH DAILY [facility] - Labs Labs: 03/17/17 05:05 03/17/17 05:05 PT 10.6 Seconds (9.8-13.1) 03/16/17 09:00 INR 0.9 (0.9-1.2) 03/16/17 09:00 APTT 22.3 Seconds (25.6-37.1) L 03/16/17 09:00 - Constitutional Appears: No Acute Distress, Chronically Ill - Head Exam Head Exam: ATRAUMATIC, NORMAL INSPECTION, NORMOCEPHALIC - Eye Exam Eye Exam: EOMI, Normal appearance, PERRL Pupil Exam: NORMAL ACCOMODATION, PERRL - ENT Exam ENT Exam: Mucous Membranes Moist, Normal Exam - Neck Exam Neck Exam: Full ROM, Normal Inspection. absent: Lymphadenopathy - Respiratory Exam Respiratory Exam: Rhonchi, NORMAL BREATHING PATTERN - Cardiovascular Exam Cardiovascular Exam: REGULAR RHYTHM, RRR, +S1, +S2. absent: Murmur - GI/Abdominal Exam GI & Abdominal Exam: Distended, Soft, Normal Bowel Sounds. absent: Tenderness - Extremities Exam Extremities Exam: Full ROM, Normal Capillary Refill, Normal Inspection, Pedal Edema. absent: Joint Swelling - Back Exam Back Exam: NORMAL INSPECTION - Neurological Exam Neurological Exam: CN II-XII Intact - Psychiatric Exam Psychiatric exam: Normal Affect, Normal Mood - Skin Skin Exam: Dry, Intact, Normal Color, Warm Assessment and Plan (1) CHF (congestive heart failure) Status: Acute (2) COPD exacerbation Status: Acute (3) Pneumonia Status: Acute (4) DVT prophylaxis Status: Acute (5) Type 2 diabetes mellitus with hyperglycemia Status: Acute (6) CVA (cerebral vascular accident) Status: Acute (7) Dysphagia Status: Acute (8) Lethargy Status: Acute (9) Elevated LFTs Status: Acute - Assessment and Plan (Free Text) Assessment: (1) CHF (congestive heart failure) Assessment & Plan: cont cardio, lasix echo noted albumin cautious fluid bolus for hypovolemia Status: Acute (2) COPD exacerbation Assessment & Plan: pulm high flow o2 nebs Status: Acute (3) Pneumonia Assessment & Plan: id consult, pulm consult cont vanc, zithromax, merrem, acyclovir flu/[place] negative Status: Acute (4) DVT prophylaxis Assessment & Plan: scd and aehose lovenox Status: Acute (5) Type 2 diabetes mellitus with hyperglycemia Assessment & Plan: riss, home meds, fsbg endo consult insulin gtt initiated yesterday Status: Acute (6) CVA (cerebral vascular accident) Assessment & Plan: neuro consult pr asa mri noted monitor neuro status repeat ct head unable to be completed r/t pts instability Status: Acute (7) Dysphagia Assessment & Plan: swallow eval peg gi Status: Acute (8) Lethargy Assessment & Plan: per neuro, r/t toxic metabolic shock,cva, pna pt has periods of lethargy, periods of semi responsiveness for peg insertion, swallow eval Status: Acute (9) Elevated LFTs Assessment & Plan: abd us noted gi consult Status: Acute 10hypotension-unkn etiology-likely septic in origin w/ hypovolemia. d/c in detail w/ laney hua-oxana and rj and after multiple attempts-antoine BABB. pt is on 20mcg of levophed and neosynephrine. pt remains low. pt was agitated and pulling at central line-mso4 given w/ relief of agitation. family at bedside. spoke w/ daughters multiple times who want comfort, however, antoine is health care surrogate Antoine returned call approx [phone] and states DNR/DNI. comfort measures only. did not give answer about keeping/dc pressors. states wishes to talk to sisters prior to answering. pts children all made aware of grave prognosis and likelihood of pts mortality.
[2017-03-17] MEDS: Albuterol-Ipratrop 3 mg / 0.5 (3 ml) UD INH SCH ×3 (07:58→19:39)
[2017-03-17] MEDS: Budesonide 0.5 mg/2 ml Inhal Susp UD IH SCH ×2 (07:58→19:39)
[2017-03-17] MEDS: Lactated Ringer's 1,000 ML IV SCH (09:36)
[2017-03-17] MEDS: Tiotropium 18 mcg Cap For Inhalation IH SCH (09:39)
[2017-03-17] MEDS: Azithromycin 500 MG in Sodium Chloride 0.9% 250 ML IVPB SCH (09:40)
--- NOTE | 2017-03-17 09:56 | PQF GENQUE ---
This form is a permanent part of the medical record 03/17/17 Dvaid Hwang APN, After workup would you please clarify the possible etiology of the Hypotension if known. Treatment includes IVF and Levofed. Clarification of your documentation is requested to better reflect the severity of illness and intensity of treatment of your patient. PHYSICIAN'S RESPONSE Based on your medical judgment of the clinical indicators outlined above please clarify the following: [] Practitioner response unkn, presumed hypovolemia r/t ?? sepsis [] If unable to determine, please check the box, sign and date. Present On Admission (POA) Indicator: [] Present at the time of admission [] Not present at the time of admission [] Clinically Undetermined In responding to this query, please exercise your independent professional judgment. The fact that a question is asked does not imply that any particular answer is desired or expected. Thank you for your clarification on this documentation. If you have any questions please call:ext [phone] Medical Records Dept * Thank you, Keshia Vasquez RN [facility]
[2017-03-17] MEDS ORDERED: Lactated Ringer's 1,000 ML IV SCH (10:45)
[2017-03-17] MEDS ORDERED: Morphine 4 MG/ML VIAL IVP PRN (12:46)
[2017-03-17] MEDS: Norepinephrine 8 MG in Dextrose 5% In Water 500 ML IV SCH ×2 (13:21→20:26)
--- NOTE | 2017-03-17 13:52 | CP.CCUPN ---
CCU Subjective - Physician Review Subjective (Free Text): Remains obtunded, now Day #7 in ICU. Addl vasopressor support started this AM with Neosnephrine. Primary Attending has now discovered copies of a Living Will with Advance Directives. Discussed with daughters and will follow the directives. Son remains unreachable and not returning any calls to either siblings, ICU and Primary Attending. ROS: unobtainable for reasons above. Other PMSFH: All recent nursing and physician documentation reviewed and no new information noted relevant to current problems. MAJOR IMPRESSIONS / PLAN: 1. AMS 2 Metabolic encephalopathy, r/o Acute CVA 2. Acute Resp insuff 2 Hypercarbia and Pneumonia with septic shock physiology 3. Dehydration 4. Uncontrolled DM II 5. h/o Dementia with hyperactive psychomotor activity- none manifest now. PLAN: 1. Attempts ongoing to contact Son by multiple parties including siblings, ICU staff and physician, and primary attending. Advance Directives noted. Patients overall prognosis remains extremely poor no expected survival. Currently, she is in refractory shock despite 2 vasopressors and demonstrates acute renal failure despite volume loading. Overall, patient has been unresponsive to aggressive interventions as a temporizing measure to maintain stability. Given this fact, DNR and DNI orders have been placed according to her wishes as she remains in a irreversible physical condition. 2. Morphine prn ordered to ensure patient comfort. CCU Objective - Vital Signs / Intake & Output Vital Signs (Last 4 hours): Vital Signs Temp Pulse Resp BP Pulse Ox 03/17/17 13:00 105 H 21 95/29 L 100 03/17/17 12:00 98.3 F 115 H 28 H 59/21 L 98 03/17/17 11:59 114 H 55/22 L 03/17/17 11:28 18 03/17/17 11:00 112 H 31 H 82/60 L 99 03/17/17 10:00 104 H 22 76/57 L 98 Intake and Output (Last 8hrs): Intake & Output 03/16/17 03/17/17 03/17/17 22:59 06:59 14:59 Intake Total 1719 032 6889 Output Total 400 475 Balance 3050 309 9927 Intake: IV 0734 310 4750 Intake, Piggyback 450 350 Output: Urine 400 475 Urethral (Sanders) 400 475 Other: # Bowel Movements 1 1 - Physical Exam Head: Positive for: Normocephalic Pupils: Positive for: PERRL, Sluggish, Other Extroacular Muscles: Positive for: EOMI. Negative for: Gaze Palsy Conjunctiva: Negative for: Injected, Icteric Ears: Positive for: Normal Mouth: Positive for: Moist Mucous Membranes Pharnyx: Positive for: Normal Neck: Positive for: Normal Range of Motion. Negative for: Meningeal Signs, JVD , Lymphadenopathy Respiratory/Chest: Positive for: Decreased Breath Sounds. Negative for: Wheezes , Rhonchi Cardiovascular: Positive for: Regular Rate and Rhythm. Negative for: Murmurs, Rub Abdomen: Positive for: Normal Bowel Sounds. Negative for: Tenderness, Distention Upper Extremity: Positive for: Edema Lower Extremity: Positive for: Edema (+2), NORMAL PULSES. Negative for: CALF TENDERNESS (GCS= 5 (E1 V1 M3)), Cyanosis Neurological: Positive for: Other (Flaccid on Left, + tone in RUE and RLE.) Skin: Positive for: Warm. Negative for: Rashes Psychiatric: Positive for: Lethargic - Medications Active Medications: Active Medications Generic Name Dose Route Start Last Admin Trade Name Freq PRN Reason Stop Dose Admin Acetaminophen 650 mg 03/16/17 10:36 Tylenol 325mg Tab PO Q4H PRN Temp 101 and above Acetaminophen 650 mg 03/16/17 10:36 Tylenol 650 Mg Supp NV Q4 PRN Fever >100.4 F Albuterol Sulfate 2.5 mg 03/16/17 10:36 Albuterol 0.083% Inhal Suzan (2.5 Mg/3 Ml) Ud IH RQ6 PRN Shortness of Breath Albuterol/Ipratropium 3 ml 03/16/17 14:00 03/17/17 13:20 Duoneb 3 Mg/0.5 Mg (3 Ml) Ud INH 3 ml RTID [facility] Administration Aspirin 325 mg 03/17/17 09:00 03/17/17 09:35 Aspirin PO Not Given DAILY [facility] Atorvastatin Calcium 80 mg 03/17/17 22:00 Lipitor PO HS [facility] Budesonide 0.5 mg 03/16/17 20:00 03/17/17 07:58 Pulmicort Respules IH 0.5 mg RBID [facility] Administration Enoxaparin Sodium 40 mg 03/17/17 10:45 Lovenox SC DAILY [facility] Protocol Home Med 15 mcg 03/16/17 11:45 Arformoterol [Brovana] IH Q12H [facility] Home Med 1 appl 03/16/17 10:36 Phenyleph/Mineral Oil/Petrolat [Preparation H Ointment] NV TID PRN Hemorrhoids Azithromycin 500 mg/ Sodium 250 mls @ 250 mls/hr 03/17/17 09:00 03/17/17 09: 40 Chloride IVPB 250 mls/hr DAILY [facility] Administration Acyclovir 500 mg/ Sodium 100 mls @ 100 mls/hr 03/16/17 14:00 03/17/17 01:06 Chloride IVPB 100 mls/hr Q12H [facility] Administration Meropenem 500 mg/ Sodium 100 mls @ 100 mls/hr 03/16/17 17:00 03/17/17 09:38 Chloride IVPB 100 mls/hr Q8 [facility] Administration Insulin Human Regular 100 101 mls @ 5.05 mls/hr 03/16/17 14:15 03/17/17 13:23 units/ Sodium Chloride IV 2 units/hr .Q20H [facility] 2.02 mls/hr Protocol Titration 5 UNITS/HR Lactated Ringer's 1,000 mls @ 75 mls/hr 03/16/17 18:00 03/17/17 09:36 Lactated Ringer's IV 75 mls/hr .[id number] [facility] Administration Vancomycin HCl 750 mg/ Sodium 250 mls @ 166.667 mls/hr 03/17/17 20:00 Chloride IVPB DAILY@2000 [facility] Phenylephrine HCl 10 mg/ 251 mls @ 30.12 mls/hr 03/17/17 10:45 03/17/17 11:59 Sodium Chloride IV 20 mcg/min .Q8H20M [facility] 30.12 mls/hr Protocol Administration 20 MCG/MIN Norepinephrine Bitartrate 8 mg 508 mls @ 76.2 mls/hr 03/17/17 10:38 03/17/17 13:21 / Dextrose IV 20 mcg/min .Q6H40M TERR[facility] 76.2 mls/hr Protocol Administration 20 MCG/MIN Magnesium Hydroxide 30 ml 03/16/17 10:36 Milk Of Magnesia PO HS PRN Constipation Morphine Sulfate 4 mg 03/17/17 13:15 Morphine IVP Q4 PRN Pain, Mild (1-3) Tiotropium [place] 18 mcg 07/27/17 09:00 03/17/17 09:39 Spiriva IH Not Given DAILY [facility] - Patient Studies Lab Studies: Lab Studies 03/17/17 03/17/17 03/17/17 Range/Units 10:57 09:06 06:56 WBC (4.8-10.8) K/uL RBC (3.80-5.20) Mil/uL Hgb (12.0-16.0) g/dL Hct (34.0-47.0) % MCV (81.0-99.0) fl MCH (27.0-31.0) pg MCHC (33.0-37.0) g/dL RDW (11.5-14.5) % Plt Count (130-400) K/uL MPV (7.2-11.7) fl Neut % (Auto) (50.0-75.0) % Lymph % (Auto) (20.0-40.0) % Wagoner % (Auto) (0.0-10.0) % Eos % (Auto) (0.0-4.0) % Baso % (Auto) (0.0-2.0) % Neut # (1.8-7.0) K/uL Lymph # (1.0-4.3) K/uL Wagoner # (0.0-0.8) K/uL Eos # (0.0-0.7) K/uL Baso # (0.0-0.2) K/uL Sodium (132-148) mmol/l Potassium (3.6-5.0) MMOL/L Chloride (98-107) mmol/L Carbon Dioxide (22-30) mmol/L Anion Gap (10-20) BUN (7-17) mg/dl Creatinine (0.7-1.2) mg/dL Est GFR ( Amer) Est GFR (Non-Af Amer) POC Glucose (mg/dL) 249 H 223 H 157 H (65-110) mg/dL Random Glucose (65-105) mg/dL Serum Osmolality (272-300) mosm/kg Calcium (8.4-10.2) mg/dL Total Bilirubin (0.2-1.3) mg/dl AST (14-36) U/L ALT (9-52) U/L Alkaline Phosphatase (38-126) U/L Total Protein (6.3-8.2) G/DL Albumin (3.5-5.0) g/dL Globulin (2.2-3.9) gm/dL Albumin/Globulin Ratio (1.0-2.1) West Nile Virus IgG Ab West Nile Virus IgM Ab 03/17/17 03/17/17 03/17/17 Range/Units 05:05 05:05 05:05 WBC 18.8 H (4.8-10.8) K/uL RBC 4.53 (3.80-5.20) Mil/uL Hgb 13.1 (12.0-16.0) g/dL Hct 40.0 (34.0-47.0) % MCV 88.4 (81.0-99.0) fl MCH 28.9 (27.0-31.0) pg MCHC 32.7 L (33.0-37.0) g/dL RDW 15.6 H (11.5-14.5) % Plt Count 227 (130-400) K/uL MPV 9.5 (7.2-11.7) fl Neut % (Auto) 87.4 H (50.0-75.0) % Lymph % (Auto) 6.5 L (20.0-40.0) % Wagoner % (Auto) 5.4 (0.0-10.0) % Eos % (Auto) 0.4 (0.0-4.0) % Baso % (Auto) 0.3 (0.0-2.0) % Neut # 16.4 H (1.8-7.0) K/uL Lymph # 1.2 (1.0-4.3) K/uL Wagoner # 1.0 H (0.0-0.8) K/uL Eos # 0.1 (0.0-0.7) K/uL Baso # 0.1 (0.0-0.2) K/uL Sodium 147 (132-148) mmol/l Potassium 3.2 L (3.6-5.0) MMOL/L Chloride 114 H (98-107) mmol/L Carbon Dioxide 32 H (22-30) mmol/L Anion Gap 4 L (10-20) BUN 24 H (7-17) mg/dl Creatinine 0.8 (0.7-1.2) mg/dL Est GFR ( Amer) > 60 Est GFR (Non-Af Amer) > 60 POC Glucose (mg/dL) (65-110) mg/dL Random Glucose 117 H (65-105) mg/dL Serum Osmolality 321 H (272-300) mosm/kg Calcium 8.0 L (8.4-10.2) mg/dL Total Bilirubin 0.4 (0.2-1.3) mg/dl AST 119 H D (14-36) U/L ALT 112 H (9-52) U/L Alkaline Phosphatase 177 H (38-126) U/L Total Protein 4.4 L (6.3-8.2) G/DL Albumin 2.2 L (3.5-5.0) g/dL Globulin 2.2 (2.2-3.9) gm/dL Albumin/Globulin Ratio 1.0 (1.0-2.1) West Nile Virus IgG Ab West Nile Virus IgM Ab 03/17/17 03/17/17 03/17/17 Range/Units 04:51 03:00 00:55 WBC (4.8-10.8) K/uL RBC (3.80-5.20) Mil/uL Hgb (12.0-16.0) g/dL Hct (34.0-47.0) % MCV (81.0-99.0) fl MCH (27.0-31.0) pg MCHC (33.0-37.0) g/dL RDW (11.5-14.5) % Plt Count (130-400) K/uL MPV (7.2-11.7) fl Neut % (Auto) (50.0-75.0) % Lymph % (Auto) (20.0-40.0) % Wagoner % (Auto) (0.0-10.0) % Eos % (Auto) (0.0-4.0) % Baso % (Auto) (0.0-2.0) % Neut # (1.8-7.0) K/uL Lymph # (1.0-4.3) K/uL Wagoner # (0.0-0.8) K/uL Eos # (0.0-0.7) K/uL Baso # (0.0-0.2) K/uL Sodium (132-148) mmol/l Potassium (3.6-5.0) MMOL/L Chloride (98-107) mmol/L Carbon Dioxide (22-30) mmol/L Anion Gap (10-20) BUN (7-17) mg/dl Creatinine (0.7-1.2) mg/dL Est GFR ( Amer) Est GFR (Non-Af Amer) POC Glucose (mg/dL) 155 H 200 H 154 H (65-110) mg/dL Random Glucose (65-105) mg/dL Serum Osmolality (272-300) mosm/kg Calcium (8.4-10.2) mg/dL Total Bilirubin (0.2-1.3) mg/dl AST (14-36) U/L ALT (9-52) U/L Alkaline Phosphatase (38-126) U/L Total Protein (6.3-8.2) G/DL Albumin (3.5-5.0) g/dL Globulin (2.2-3.9) gm/dL Albumin/Globulin Ratio (1.0-2.1) West Nile Virus IgG Ab West Nile Virus IgM Ab 03/16/17 03/16/17 03/16/17 Range/Units 22:58 21:08 19:07 WBC (4.8-10.8) K/uL RBC (3.80-5.20) Mil/uL Hgb (12.0-16.0) g/dL Hct (34.0-47.0) % MCV (81.0-99.0) fl MCH (27.0-31.0) pg MCHC (33.0-37.0) g/dL RDW (11.5-14.5) % Plt Count (130-400) K/uL MPV (7.2-11.7) fl Neut % (Auto) (50.0-75.0) % Lymph % (Auto) (20.0-40.0) % Wagoner % (Auto) (0.0-10.0) % Eos % (Auto) (0.0-4.0) % Baso % (Auto) (0.0-2.0) % Neut # (1.8-7.0) K/uL Lymph # (1.0-4.3) K/uL Wagoner # (0.0-0.8) K/uL Eos # (0.0-0.7) K/uL Baso # (0.0-0.2) K/uL Sodium (132-148) mmol/l Potassium (3.6-5.0) MMOL/L Chloride (98-107) mmol/L Carbon Dioxide (22-30) mmol/L Anion Gap (10-20) BUN (7-17) mg/dl Creatinine (0.7-1.2) mg/dL Est GFR ( Amer) Est GFR (Non-Af Amer) POC Glucose (mg/dL) 201 H 147 H 212 H (65-110) mg/dL Random Glucose (65-105) mg/dL Serum Osmolality (272-300) mosm/kg Calcium (8.4-10.2) mg/dL Total Bilirubin (0.2-1.3) mg/dl AST (14-36) U/L ALT (9-52) U/L Alkaline Phosphatase (38-126) U/L Total Protein (6.3-8.2) G/DL Albumin (3.5-5.0) g/dL Globulin (2.2-3.9) gm/dL Albumin/Globulin Ratio (1.0-2.1) West Nile Virus IgG Ab West Nile Virus IgM Ab 03/16/17 03/16/17 03/11/17 Range/Units 17:11 15:00 14:42 WBC (4.8-10.8) K/uL RBC (3.80-5.20) Mil/uL Hgb (12.0-16.0) g/dL Hct (34.0-47.0) % MCV (81.0-99.0) fl MCH (27.0-31.0) pg MCHC (33.0-37.0) g/dL RDW (11.5-14.5) % Plt Count (130-400) K/uL MPV (7.2-11.7) fl Neut % (Auto) (50.0-75.0) % Lymph % (Auto) (20.0-40.0) % Wagoner % (Auto) (0.0-10.0) % Eos % (Auto) (0.0-4.0) % Baso % (Auto) (0.0-2.0) % Neut # (1.8-7.0) K/uL Lymph # (1.0-4.3) K/uL Wagoner # (0.0-0.8) K/uL Eos # (0.0-0.7) K/uL Baso # (0.0-0.2) K/uL Sodium (132-148) mmol/l Potassium (3.6-5.0) MMOL/L Chloride (98-107) mmol/L Carbon Dioxide (22-30) mmol/L Anion Gap (10-20) BUN (7-17) mg/dl Creatinine (0.7-1.2) mg/dL Est GFR ( Amer) Est GFR (Non-Af Amer) POC Glucose (mg/dL) 237 H 282 H (65-110) mg/dL Random Glucose (65-105) mg/dL Serum Osmolality (272-300) mosm/kg Calcium (8.4-10.2) mg/dL Total Bilirubin (0.2-1.3) mg/dl AST (14-36) U/L ALT (9-52) U/L Alkaline Phosphatase (38-126) U/L Total Protein (6.3-8.2) G/DL Albumin (3.5-5.0) g/dL Globulin (2.2-3.9) gm/dL Albumin/Globulin Ratio (1.0-2.1) West Nile Virus IgG Ab 0.10 West Nile Virus IgM Ab 0.03 Laboratory Results - last 24 hr 03/11/17 03/16/17 03/16/17 14:42 15:00 17:11 WBC RBC Hgb Hct MCV MCH MCHC RDW Plt Count MPV Neut % (Auto) Lymph % (Auto) Wagoner % (Auto) Eos % (Auto) Baso % (Auto) Neut # Lymph # Wagoner # Eos # Baso # Sodium Potassium Chloride Carbon Dioxide Anion Gap BUN Creatinine Est GFR ( Amer) Est GFR (Non-Af Amer) POC Glucose (mg/dL) 282 H 237 H Random Glucose Serum Osmolality Calcium Total Bilirubin AST ALT Alkaline Phosphatase Total Protein Albumin Globulin Albumin/Globulin Ratio West Nile Virus IgG Ab 0.10 West Nile Virus IgM Ab 0.03 03/16/17 03/16/17 03/16/17 19:07 21:08 22:58 WBC RBC Hgb Hct MCV MCH MCHC RDW Plt Count MPV Neut % (Auto) Lymph % (Auto) Wagoner % (Auto) Eos % (Auto) Baso % (Auto) Neut # Lymph # Wagoner # Eos # Baso # Sodium Potassium Chloride Carbon Dioxide Anion Gap BUN Creatinine Est GFR ( Amer) Est GFR (Non-Af Amer) POC Glucose (mg/dL) 212 H 147 H 201 H Random Glucose Serum Osmolality Calcium Total Bilirubin AST ALT Alkaline Phosphatase Total Protein Albumin Globulin Albumin/Globulin Ratio West Nile Virus IgG Ab West Nile Virus IgM Ab 03/17/17 03/17/17 03/17/17 00:55 03:00 04:51 WBC RBC Hgb Hct MCV MCH MCHC RDW Plt Count MPV Neut % (Auto) Lymph % (Auto) Wagoner % (Auto) Eos % (Auto) Baso % (Auto) Neut # Lymph # Wagoner # Eos # Baso # Sodium Potassium Chloride Carbon Dioxide Anion Gap BUN Creatinine Est GFR ( Amer) Est GFR (Non-Af Amer) POC Glucose (mg/dL) 154 H 200 H 155 H Random Glucose Serum Osmolality Calcium Total Bilirubin AST ALT Alkaline Phosphatase Total Protein Albumin Globulin Albumin/Globulin Ratio West Nile Virus IgG Ab West Nile Virus IgM Ab 03/17/17 03/17/17 03/17/17 05:05 05:05 05:05 WBC 18.8 H RBC 4.53 Hgb 13.1 Hct 40.0 MCV 88.4 MCH 28.9 MCHC 32.7 L RDW 15.6 H Plt Count 227 MPV 9.5 Neut % (Auto) 87.4 H Lymph % (Auto) 6.5 L Wagoner % (Auto) 5.4 Eos % (Auto) 0.4 Baso % (Auto) 0.3 Neut # 16.4 H Lymph # 1.2 Wagoner # 1.0 H Eos # 0.1 Baso # 0.1 Sodium 147 Potassium 3.2 L Chloride 114 H Carbon Dioxide 32 H Anion Gap 4 L BUN 24 H Creatinine 0.8 Est GFR ( Amer) > 60 Est GFR (Non-Af Amer) > 60 POC Glucose (mg/dL) Random Glucose 117 H Serum Osmolality 321 H Calcium 8.0 L Total Bilirubin 0.4 AST 119 H D ALT 112 H Alkaline Phosphatase 177 H Total Protein 4.4 L Albumin 2.2 L Globulin 2.2 Albumin/Globulin Ratio 1.0 West Nile Virus IgG Ab West Nile Virus IgM Ab 03/17/17 03/17/17 03/17/17 06:56 09:06 10:57 WBC RBC Hgb Hct MCV MCH MCHC RDW Plt Count MPV Neut % (Auto) Lymph % (Auto) Wagoner % (Auto) Eos % (Auto) Baso % (Auto) Neut # Lymph # Wagoner # Eos # Baso # Sodium Potassium Chloride Carbon Dioxide Anion Gap BUN Creatinine Est GFR ( Amer) Est GFR (Non-Af Amer) POC Glucose (mg/dL) 157 H 223 H 249 H Random Glucose Serum Osmolality Calcium Total Bilirubin AST ALT Alkaline Phosphatase Total Protein Albumin Globulin Albumin/Globulin Ratio West Nile Virus IgG Ab West Nile Virus IgM Ab Fingerstick Blood Sugar Results: 153 Critical Care Progress Note - Extremities/Vascular Does the Patient have a Central Venous Catheter?: Yes Insertion Site: Subclavian Vein Does the Patient need a Central Venous Catheter?: Yes Does the Patient have a Sanders Catheter?: Yes Does the Patient need a Sanders Catheter?: Yes Catheter Insertion Criteria: Need for accurate measurement of output in critically ill patient - Prophylaxis GI Prophylaxis GI: Not Indicated - Prophylaxis DVT Prophylaxis DVT: Lovenox - Nutrition Nutrition: Nutrition Category Date Time Status NPO Diet [DIET] Diets 03/17/17 Lunch Active
[2017-03-17] MEDS ORDERED: Chlorhexidine Gluconate 1 APPL/PKT TP ONE (14:06)
--- NOTE | 2017-03-17 17:20 | PN ---
ICU room #425. This is a 76-year-old female with recent uncontrolled type 2 insulin requiring diabetes now actually restarted back on the basal and bolus insulin regimen as given. Her glycemic levels are fluctuating but improved and today's glucose values have ranged from 146 to 153 and 249 mg/dL. Her latest chemistry shows a BUN of 24, sodium 147, potassium 3.2, chloride 114, CO2 of 32, glucose 117 and creatinine 0.8. Her liver function studies are elevated as noted. Her serum osmolality is 321 with a calcium of 8.0, so at this time we will continue the same basal and bolus insulin regimen to allow for dose equilibration and keep her on the Levemir given as 20 units subQ at bedtime daily as given. We will also continue the Humalog given as 8 units subQ t.i.d. before meals as ordered. We will titrate incremental as indicated to optimize metabolic control. We will follow with you. Oma Martines MD
[2017-03-17] MEDS: Enoxaparin 40 mg Syringe SC SCH (17:28)
[2017-03-17] MEDS: Morphine 100 MG in Sodium Chloride 0.9% 100 ML IVPB SCH (17:43)
[2017-03-18] MEDS: Meropenem 500 MG in Sodium Chloride 0.9% 100 ML IVPB SCH ×3 (00:10→16:18)
[2017-03-18] MEDS: Acyclovir 500 MG in Sodium Chloride 0.9% 100 ML IVPB SCH ×2 (01:20→13:18)
[2017-03-18] MEDS: Lactated Ringer's 1,000 ML IV SCH (06:13)
[2017-03-18] MEDS: Albuterol-Ipratrop 3 mg / 0.5 (3 ml) UD INH SCH ×3 (07:37→19:09)
[2017-03-18] MEDS: Budesonide 0.5 mg/2 ml Inhal Susp UD IH SCH ×2 (07:37→19:09)
[2017-03-18] MEDS: Enoxaparin 40 mg Syringe SC SCH (08:32)
[2017-03-18] MEDS: Tiotropium 18 mcg Cap For Inhalation IH SCH (08:34)
[2017-03-18] MEDS: Norepinephrine 8 MG in Dextrose 5% In Water 500 ML IV SCH ×3 (08:38→16:19)
[2017-03-18] MEDS: Azithromycin 500 MG in Sodium Chloride 0.9% 250 ML IVPB SCH (08:59)
--- NOTE | 2017-03-18 11:43 | CP.PCM.PN ---
Subjective - Date & Time of Evaluation Date of Evaluation: 03/18/17 Time of Evaluation: 11:43 - Subjective Subjective: pt still lethargic. nonresponsive, even to deep painful stimuli. still on anamaria and levophed gtt as well as morphine gtt for comfort. no distress atp resent. no moaning. further titrationa dna greesive measures were dc yesterday in accordance w/ the pts living will and family request. prognosis poor Objective - Vital Signs/Intake and Output Vital Signs (last 24 hours): Temp Pulse Resp BP Pulse Ox 98.5 F 94 H 12 65/53 L 98 03/18/17 07:50 03/18/17 11:00 03/18/17 11:00 03/18/17 11:00 03/18/17 11:00 Intake and Output: 03/18/17 03/18/17 06:59 18:59 Intake Total 2824 1441 Output Total 1100 0 Balance 1724 1441 - Medications Medications: Current Medications Acetaminophen (Tylenol 325mg Tab) 650 mg PO Q4H PRN PRN Reason: Temp 101 and above Acetaminophen (Tylenol 650 Mg Supp) 650 mg SC Q4 PRN PRN Reason: Fever >100.4 F Albuterol Sulfate (Albuterol 0.083% Inhal Suzan (2.5 Mg/3 Ml) Ud) 2.5 mg IH RQ6 PRN PRN Reason: Shortness of Breath Albuterol/Ipratropium (Duoneb 3 Mg/0.5 Mg (3 Ml) Ud) 3 ml INH RTID [facility] Last Admin: 03/18/17 07:37 Dose: 3 ml Aspirin (Aspirin) 325 mg PO DAILY [facility] Last Admin: 03/18/17 08:32 Dose: Not Given Atorvastatin Calcium (Lipitor) 80 mg PO HS [facility] Last Admin: 03/17/17 22:00 Dose: Not Given Budesonide (Pulmicort Respules) 0.5 mg IH RBID [facility] Last Admin: 03/18/17 07:37 Dose: 0.5 mg Enoxaparin Sodium (Lovenox) 40 mg SC DAILY [facility] PRN Reason: Protocol Last Admin: 03/18/17 08:32 Dose: 40 mg Home Med (Arformoterol [Brovana]) 15 mcg IH Q12H [facility] Home Med (Phenyleph/Mineral Oil/Petrolat [Preparation H Ointment]) 1 appl SC TID PRN PRN Reason: Hemorrhoids Azithromycin 500 mg/ Sodium (Chloride) 250 mls @ 250 mls/hr IVPB DAILY [facility] Last Admin: 03/18/17 08:59 Dose: 250 mls/hr Acyclovir 500 mg/ Sodium (Chloride) 100 mls @ 100 mls/hr IVPB Q12H [facility] Last Admin: 03/18/17 01:20 Dose: 100 mls/hr Meropenem 500 mg/ Sodium (Chloride) 100 mls @ 100 mls/hr IVPB Q8 [facility] Last Admin: 03/18/17 08:33 Dose: 100 mls/hr Lactated Ringer's (Lactated Ringer's) 1,000 mls @ 75 mls/hr IV .[id number] [facility] Last Admin: 03/18/17 06:13 Dose: 75 mls/hr Vancomycin HCl 750 mg/ Sodium (Chloride) 250 mls @ 166.667 mls/hr IVPB DAILY@ 2000 [facility] Last Admin: 03/17/17 19:46 Dose: 166.667 mls/hr Phenylephrine HCl 10 mg/ (Sodium Chloride) 251 mls @ 30.12 mls/hr IV .Q8H20M TERRANCE; 20 MCG/MIN PRN Reason: Protocol Last Admin: 03/18/17 04:10 Dose: 20 mcg/min, 30.12 mls/hr Norepinephrine Bitartrate 8 mg (/ Dextrose) 508 mls @ 76.2 mls/hr IV .Q6H40M TERRANCE; 20 MCG/MIN PRN Reason: Protocol Last Admin: 03/18/17 10:48 Dose: 20 mcg/min, 76.2 mls/hr Morphine Sulfate 100 mg/ (Sodium Chloride) 104 mls @ 2.08 mls/hr IVPB .Q24H TERRANCE ; 2 MG/HR PRN Reason: Protocol Last Admin: 03/17/17 17:43 Dose: 2.08 mls/hr Magnesium Hydroxide (Milk Of Magnesia) 30 ml PO HS PRN PRN Reason: Constipation Morphine Sulfate (Morphine) 4 mg IVP Q4 PRN PRN Reason: Pain, Mild (1-3) Tiotropium [place] (Spiriva) 18 mcg IH DAILY [facility] Last Admin: 03/18/17 08:34 Dose: Not Given - Labs Labs: 03/17/17 05:05 03/17/17 05:05 PT 10.6 Seconds (9.8-13.1) 03/16/17 09:00 INR 0.9 (0.9-1.2) 03/16/17 09:00 APTT 22.3 Seconds (25.6-37.1) L 03/16/17 09:00 - Constitutional Appears: No Acute Distress, Chronically Ill - Head Exam Head Exam: ATRAUMATIC, NORMAL INSPECTION, NORMOCEPHALIC - Eye Exam Eye Exam: EOMI, Normal appearance, PERRL Pupil Exam: NORMAL ACCOMODATION, PERRL - ENT Exam ENT Exam: Mucous Membranes Moist, Normal Exam - Neck Exam Neck Exam: Full ROM, Normal Inspection. absent: Lymphadenopathy - Respiratory Exam Respiratory Exam: Rhonchi, NORMAL BREATHING PATTERN - Cardiovascular Exam Cardiovascular Exam: REGULAR RHYTHM, RRR, +S1, +S2. absent: Murmur - GI/Abdominal Exam GI & Abdominal Exam: Distended, Soft, Hypoactive Bowel Sounds. absent: Tenderness - Extremities Exam Extremities Exam: Pedal Edema. absent: Joint Swelling - Back Exam Back Exam: NORMAL INSPECTION - Neurological Exam Neurological Exam: CN II-XII Intact - Psychiatric Exam Psychiatric exam: Normal Affect, Normal Mood - Skin Skin Exam: Dry, Intact, Normal Color, Warm Assessment and Plan (1) CHF (congestive heart failure) Status: Acute (2) COPD exacerbation Status: Acute (3) Pneumonia Status: Acute (4) DVT prophylaxis Status: Acute (5) Type 2 diabetes mellitus with hyperglycemia Status: Acute (6) CVA (cerebral vascular accident) Status: Acute (7) Dysphagia Status: Acute (8) Lethargy Status: Acute (9) Elevated LFTs Status: Acute - Assessment and Plan (Free Text) Assessment: (1) CHF (congestive heart failure) Assessment & Plan: cont cardio, lasix echo noted albumin cautious fluid bolus for hypovolemia Status: Acute (2) COPD exacerbation Assessment & Plan: pulm high flow o2 nebs Status: Acute (3) Pneumonia Assessment & Plan: id consult, pulm consult cont vanc, zithromax, merrem, acyclovir flu/[place] negative Status: Acute (4) DVT prophylaxis Assessment & Plan: scd and aehose lovenox Status: Acute (5) Type 2 diabetes mellitus with hyperglycemia Assessment & Plan: riss, home meds, fsbg endo consult insulin gtt initiated yesterday Status: Acute (6) CVA (cerebral vascular accident) Assessment & Plan: neuro consult pr asa mri noted monitor neuro status repeat ct head unable to be completed r/t pts instability Status: Acute (7) Dysphagia Assessment & Plan: swallow eval peg gi Status: Acute (8) Lethargy Assessment & Plan: per neuro, r/t toxic metabolic shock,cva, pna pt has periods of lethargy, periods of semi responsiveness for peg insertion, swallow eval Status: Acute (9) Elevated LFTs Assessment & Plan: abd us noted gi consult Status: Acute 10hypotension-unkn etiology-likely septic in origin w/ hypovolemia. d/c in detail w/ laney hua-december and rj and after multiple attempts-shayne BABB. pt is on 20mcg of levophed and neosynephrine- no further titration. pt bpremains low. comortable on ms02 gtt will cont ot care for pt in accordance ofher sahu and per family wishes
--- NOTE | 2017-03-18 11:54 | CP.PCM.PN ---
Subjective - Date & Time of Evaluation Date of Evaluation: 03/18/17 Time of Evaluation: 11:55 - Subjective Subjective: LETHARGIC NO RESPONSE TO PAINFUL STIMULI HYPOTENSIVE --ON PRESSORS STILL ON HIGH FLOW 02 AT 50% FIO2 Objective - Vital Signs/Intake and Output Vital Signs (last 24 hours): Temp Pulse Resp BP Pulse Ox 98.5 F 96 H 13 71/55 L 99 03/18/17 07:50 03/18/17 11:30 03/18/17 11:30 03/18/17 11:30 03/18/17 11:30 Intake and Output: 03/18/17 03/18/17 06:59 18:59 Intake Total 2824 1441 Output Total 1100 0 Balance 1724 1441 - Medications Medications: Current Medications Acetaminophen (Tylenol 325mg Tab) 650 mg PO Q4H PRN PRN Reason: Temp 101 and above Acetaminophen (Tylenol 650 Mg Supp) 650 mg [place] Q4 PRN PRN Reason: Fever >100.4 F Albuterol Sulfate (Albuterol 0.083% Inhal Suzan (2.5 Mg/3 Ml) Ud) 2.5 mg IH RQ6 PRN PRN Reason: Shortness of Breath Albuterol/Ipratropium (Duoneb 3 Mg/0.5 Mg (3 Ml) Ud) [address] [facility] Last Admin: 03/18/17 07:37 Dose: 3 ml Aspirin (Aspirin) [address] [facility] Last Admin: 03/18/17 08:32 Dose: Not Given Atorvastatin Calcium (Lipitor) [address] [facility] Last Admin: 03/17/17 22:00 Dose: Not Given Budesonide (Pulmicort Respules) 0.[address] [facility] Last Admin: 03/18/17 07:37 Dose: 0.5 mg Enoxaparin Sodium (Lovenox) [address] [facility] PRN Reason: Protocol Last Admin: 03/18/17 08:32 Dose: 40 mg Home Med (Arformoterol [Brovana]) [address] [facility] Home Med (Phenyleph/Mineral Oil/Petrolat [Preparation H Ointment]) 1 appl [place] TID PRN PRN Reason: Hemorrhoids Azithromycin 500 mg/ Sodium (Chloride) 250 mls @ 250 mls/hr IVPB DAILY [facility] Last Admin: 03/18/17 08:59 Dose: 250 mls/hr Acyclovir 500 mg/ Sodium (Chloride) 100 mls @ 100 mls/hr IVPB Q12H [facility] Last Admin: 03/18/17 01:20 Dose: 100 mls/hr Meropenem 500 mg/ Sodium (Chloride) 100 mls @ 100 mls/hr IVPB Q8 [facility] Last Admin: 03/18/17 08:33 Dose: 100 mls/hr Lactated Ringer's (Lactated Ringer's) 1,000 mls @ 75 mls/hr IV .[id number] [facility] Last Admin: 03/18/17 06:13 Dose: 75 mls/hr Vancomycin HCl 750 mg/ Sodium (Chloride) 250 mls @ 166.667 mls/hr IVPB DAILY@ 2000 [facility] Last Admin: 03/17/17 19:46 Dose: 166.667 mls/hr Phenylephrine HCl 10 mg/ (Sodium Chloride) 251 mls @ 30.12 mls/hr IV .Q8H20M [facility]; 20 MCG/MIN PRN Reason: Protocol Last Admin: 03/18/17 04:10 Dose: 20 mcg/min, 30.12 mls/hr Norepinephrine Bitartrate 8 mg (/ Dextrose) 508 mls @ 76.2 mls/hr IV .Q6H40M [facility]; 20 MCG/MIN PRN Reason: Protocol Last Admin: 03/18/17 10:48 Dose: 20 mcg/min, 76.2 mls/hr Morphine Sulfate 100 mg/ (Sodium Chloride) 104 mls @ 2.08 mls/hr IVPB .Q24H [facility] ; 2 MG/HR PRN Reason: Protocol Last Admin: 03/17/17 17:43 Dose: 2.08 mls/hr Magnesium Hydroxide (Milk Of Magnesia) 30 ml PO HS PRN PRN Reason: Constipation Morphine Sulfate (Morphine) 4 mg IVP Q4 PRN PRN Reason: Pain, Mild (1-3) Tiotropium [place] (Spiriva) [address] [facility] Last Admin: 03/18/17 08:34 Dose: Not Given - Labs Labs: 03/17/17 05:05 03/17/17 05:05 PT 10.6 Seconds (9.8-13.1) 03/16/17 09:00 INR 0.9 (0.9-1.2) 03/16/17 09:00 APTT 22.3 Seconds (25.6-37.1) L 03/16/17 09:00 - Constitutional Appears: Chronically Ill - Head Exam Head Exam: ATRAUMATIC, NORMAL INSPECTION, NORMOCEPHALIC - Eye Exam Eye Exam: EOMI, Normal appearance, PERRL Pupil Exam: NORMAL ACCOMODATION, PERRL - ENT Exam ENT Exam: Mucous Membranes Moist, Normal Exam - Neck Exam Neck Exam: Full ROM, Normal Inspection. absent: Lymphadenopathy - Respiratory Exam Respiratory Exam: Decreased Breath Sounds, Rales - Cardiovascular Exam Cardiovascular Exam: REGULAR RHYTHM, +S1, +S2. absent: Murmur - GI/Abdominal Exam GI & Abdominal Exam: Soft, Normal Bowel Sounds. absent: Tenderness - Rectal Exam Rectal Exam: NORMAL INSPECTION - Extremities Exam Extremities Exam: Pedal Edema. absent: Joint Swelling - Neurological Exam Neurological Exam: CN II-XII Intact - Skin Skin Exam: Dry, Intact, Normal Color, Warm Assessment and Plan - Assessment and Plan (Free Text) Assessment: MULTI-ORGAN FAILURE Plan: CONTINUE SAME RX PROGNOSIS IS POOR
--- NOTE | 2017-03-18 12:22 | CP.PCM.PN ---
Subjective - Date & Time of Evaluation Date of Evaluation: 03/17/17 Time of Evaluation: 11:00 - Subjective Subjective: still hypotensive Objective - Vital Signs/Intake and Output Vital Signs (last 24 hours): Temp Pulse Resp BP Pulse Ox 98.5 F 96 H 13 71/55 L 99 03/18/17 07:50 03/18/17 11:30 03/18/17 11:30 03/18/17 11:30 03/18/17 11:30 Intake and Output: 03/18/17 03/18/17 06:59 18:59 Intake Total 2824 1441 Output Total 1100 0 Balance 1724 1441 - Medications Medications: Current Medications Acetaminophen (Tylenol 325mg Tab) 650 mg PO Q4H PRN PRN Reason: Temp 101 and above Acetaminophen (Tylenol 650 Mg Supp) 650 mg [place] Q4 PRN PRN Reason: Fever >100.4 F Albuterol Sulfate (Albuterol 0.083% Inhal Suzan (2.5 Mg/3 Ml) Ud) 2.5 mg IH RQ6 PRN PRN Reason: Shortness of Breath Albuterol/Ipratropium (Duoneb 3 Mg/0.5 Mg (3 Ml) Ud) 3 ml INH RTID [facility] Last Admin: 03/18/17 07:37 Dose: 3 ml Aspirin (Aspirin) 325 mg PO DAILY [facility] Last Admin: 03/18/17 08:32 Dose: Not Given Atorvastatin Calcium (Lipitor) 80 mg PO HS [facility] Last Admin: 03/17/17 22:00 Dose: Not Given Budesonide (Pulmicort Respules) 0.5 mg IH RBID [facility] Last Admin: 03/18/17 07:37 Dose: 0.5 mg Enoxaparin Sodium (Lovenox) 40 mg SC DAILY [facility] PRN Reason: Protocol Last Admin: 03/18/17 08:32 Dose: 40 mg Home Med (Arformoterol [Brovana]) 15 mcg IH Q12H [facility] Home Med (Phenyleph/Mineral Oil/Petrolat [Preparation H Ointment]) 1 appl [place] TID PRN PRN Reason: Hemorrhoids Azithromycin 500 mg/ Sodium (Chloride) 250 mls @ 250 mls/hr IVPB DAILY [facility] Last Admin: 03/18/17 08:59 Dose: 250 mls/hr Acyclovir 500 mg/ Sodium (Chloride) 100 mls @ 100 mls/hr IVPB Q12H [facility] Last Admin: 03/18/17 01:20 Dose: 100 mls/hr Meropenem 500 mg/ Sodium (Chloride) 100 mls @ 100 mls/hr IVPB Q8 [facility] Last Admin: 03/18/17 08:33 Dose: 100 mls/hr Lactated Ringer's (Lactated Ringer's) 1,000 mls @ 75 mls/hr IV .[id number] [facility] Last Admin: 03/18/17 06:13 Dose: 75 mls/hr Vancomycin HCl 750 mg/ Sodium (Chloride) 250 mls @ 166.667 mls/hr IVPB DAILY@ 2000 [facility] Last Admin: 03/17/17 19:46 Dose: 166.667 mls/hr Phenylephrine HCl 10 mg/ (Sodium Chloride) 251 mls @ 30.12 mls/hr IV .Q8H20M [facility]; 20 MCG/MIN PRN Reason: Protocol Last Admin: 03/18/17 04:10 Dose: 20 mcg/min, 30.12 mls/hr Norepinephrine Bitartrate 8 mg (/ Dextrose) 508 mls @ 76.2 mls/hr IV .Q6H40M [facility]; 20 MCG/MIN PRN Reason: Protocol Last Admin: 03/18/17 10:48 Dose: 20 mcg/min, 76.2 mls/hr Morphine Sulfate 100 mg/ (Sodium Chloride) 104 mls @ 2.08 mls/hr IVPB .Q24H [facility] ; 2 MG/HR PRN Reason: Protocol Last Admin: 03/17/17 17:43 Dose: 2.08 mls/hr Magnesium Hydroxide (Milk Of Magnesia) 30 ml PO HS PRN PRN Reason: Constipation Morphine Sulfate (Morphine) 4 mg IVP Q4 PRN PRN Reason: Pain, Mild (1-3) Tiotropium [place] (Spiriva) 18 mcg IH DAILY [facility] Last Admin: 03/18/17 08:34 Dose: Not Given - Labs Labs: 03/17/17 05:05 03/17/17 05:05 PT 10.6 Seconds (9.8-13.1) 03/16/17 09:00 INR 0.9 (0.9-1.2) 03/16/17 09:00 APTT 22.3 Seconds (25.6-37.1) L 03/16/17 09:00 - GI/Abdominal Exam GI & Abdominal Exam: Soft, Normal Bowel Sounds Assessment and Plan - Assessment and Plan (Free Text) Assessment: 76 yo female with FTT still on pressors and hytpotensive poor prognosis hold off on peg until goals of care clarified
--- NOTE | 2017-03-18 13:02 | CP.PCM.PN ---
Subjective - Date & Time of Evaluation Date of Evaluation: 03/18/17 Time of Evaluation: 09:00 - Subjective Subjective: events noted hypotensive/ hyoxemic iv rx in progress all cultures so far negative Objective - Vital Signs/Intake and Output Vital Signs (last 24 hours): Temp Pulse Resp BP Pulse Ox 98.5 F 96 H 13 71/55 L 99 03/18/17 07:50 03/18/17 11:30 03/18/17 11:30 03/18/17 11:30 03/18/17 11:30 Intake and Output: 03/18/17 03/18/17 06:59 18:59 Intake Total 2824 1441 Output Total 1100 0 Balance 1724 1441 - Medications Medications: Current Medications Acetaminophen (Tylenol 325mg Tab) 650 mg PO Q4H PRN PRN Reason: Temp 101 and above Acetaminophen (Tylenol 650 Mg Supp) 650 mg [place] Q4 PRN PRN Reason: Fever >100.4 F Albuterol Sulfate (Albuterol 0.083% Inhal Suzan (2.5 Mg/3 Ml) Ud) 2.5 mg IH RQ6 PRN PRN Reason: Shortness of Breath Albuterol/Ipratropium (Duoneb 3 Mg/0.5 Mg (3 Ml) Ud) 3 ml INH RTID [facility] Last Admin: 03/18/17 07:37 Dose: 3 ml Aspirin (Aspirin) 325 mg PO DAILY [facility] Last Admin: 03/18/17 08:32 Dose: Not Given Atorvastatin Calcium (Lipitor) 80 mg PO HS [facility] Last Admin: 03/17/17 22:00 Dose: Not Given Budesonide (Pulmicort Respules) 0.5 mg IH RBID [facility] Last Admin: 03/18/17 07:37 Dose: 0.5 mg Enoxaparin Sodium (Lovenox) 40 mg SC DAILY [facility] PRN Reason: Protocol Last Admin: 03/18/17 08:32 Dose: 40 mg Home Med (Arformoterol [Brovana]) 15 mcg IH Q12H [facility] Home Med (Phenyleph/Mineral Oil/Petrolat [Preparation H Ointment]) 1 appl [place] TID PRN PRN Reason: Hemorrhoids Azithromycin 500 mg/ Sodium (Chloride) 250 mls @ 250 mls/hr IVPB DAILY [facility] Last Admin: 03/18/17 08:59 Dose: 250 mls/hr Acyclovir 500 mg/ Sodium (Chloride) 100 mls @ 100 mls/hr IVPB Q12H [facility] Last Admin: 03/18/17 01:20 Dose: 100 mls/hr Meropenem 500 mg/ Sodium (Chloride) 100 mls @ 100 mls/hr IVPB Q8 [facility] Last Admin: 03/18/17 08:33 Dose: 100 mls/hr Lactated Ringer's (Lactated Ringer's) 1,000 mls @ 75 mls/hr IV .[id number] [facility] Last Admin: 03/18/17 06:13 Dose: 75 mls/hr Vancomycin HCl 750 mg/ Sodium (Chloride) 250 mls @ 166.667 mls/hr IVPB DAILY@ 2000 [facility] Last Admin: 03/17/17 19:46 Dose: 166.667 mls/hr Phenylephrine HCl 10 mg/ (Sodium Chloride) 251 mls @ 30.12 mls/hr IV .Q8H20M [facility]; 20 MCG/MIN PRN Reason: Protocol Last Admin: 03/18/17 04:10 Dose: 20 mcg/min, 30.12 mls/hr Norepinephrine Bitartrate 8 mg (/ Dextrose) 508 mls @ 76.2 mls/hr IV .Q6H40M [facility]; 20 MCG/MIN PRN Reason: Protocol Last Admin: 03/18/17 10:48 Dose: 20 mcg/min, 76.2 mls/hr Morphine Sulfate 100 mg/ (Sodium Chloride) 104 mls @ 2.08 mls/hr IVPB .Q24H [facility] ; 2 MG/HR PRN Reason: Protocol Last Admin: 03/17/17 17:43 Dose: 2.08 mls/hr Magnesium Hydroxide (Milk Of Magnesia) 30 ml PO HS PRN PRN Reason: Constipation Morphine Sulfate (Morphine) 4 mg IVP Q4 PRN PRN Reason: Pain, Mild (1-3) Tiotropium [place] (Spiriva) 18 mcg IH DAILY [facility] Last Admin: 03/18/17 08:34 Dose: Not Given - Labs Labs: 03/17/17 05:05 03/17/17 05:05 PT 10.6 Seconds (9.8-13.1) 03/16/17 09:00 INR 0.9 (0.9-1.2) 03/16/17 09:00 APTT 22.3 Seconds (25.6-37.1) L 03/16/17 09:00 - Constitutional Appears: Chronically Ill - Head Exam Head Exam: NORMOCEPHALIC - Eye Exam Eye Exam: absent: Scleral icterus - ENT Exam ENT Exam: Mucous Membranes Dry - Neck Exam Neck Exam: absent: Lymphadenopathy - Respiratory Exam Respiratory Exam: Decreased Breath Sounds, Rhonchi - Cardiovascular Exam Cardiovascular Exam: REGULAR RHYTHM - GI/Abdominal Exam GI & Abdominal Exam: Distended, Soft - Rectal Exam Rectal Exam: Deferred - Exam Exam: NORMAL INSPECTION - Extremities Exam Extremities Exam: absent: Pedal Edema - Back Exam Back Exam: absent: CVA tenderness (L), CVA tenderness (R) - Neurological Exam Neurological Exam: Altered - Psychiatric Exam Psychiatric exam: Depressed Assessment and Plan (1) CHF (congestive heart failure) Status: Acute (2) COPD exacerbation Status: Acute (3) Pneumonia Status: Acute - Assessment and Plan (Free Text) Plan: will renew iv rx
--- NOTE | 2017-03-18 16:31 | CP.CCUPN ---
CCU Subjective - Physician Review Subjective (Free Text): Remains obtunded, on Morphine drip at 2 mg/hr, DNR status requested by all 3 children. Remains on both García and Levo. Oliguric, SPO2 96% on HFNC. ROS: unobtainable for reasons above. Other PMSFH: All recent nursing and physician documentation reviewed and no new information noted relevant to current problems. MAJOR IMPRESSIONS / PLAN: 1. AMS 2 Metabolic encephalopathy, r/o Acute CVA 2. Acute Resp insuff 2 Hypercarbia and Pneumonia with septic shock physiology 3. Dehydration 4. Uncontrolled DM II 5. h/o Dementia with hyperactive psychomotor activity- none manifest now. PLAN: 1. Care now directed towards patients comfort level, she appears peaceful and non-distressed at this moment. 2. No further bloodwork. 3. Would not titrate vasopressors further. CCU Objective - Vital Signs / Intake & Output Vital Signs (Last 4 hours): Vital Signs Temp Pulse Resp BP Pulse Ox 03/18/17 16:22 103 H 15 113/92 H 100 03/18/17 16:00 99.2 F 105 H 22 71/23 L 98 03/18/17 15:30 11 L 03/18/17 15:00 104 H 11 L 87/42 L 97 03/18/17 14:21 18 03/18/17 14:00 101 H 10 L 72/50 L 100 03/18/17 13:00 97 H 15 79/55 L 99 Intake and Output (Last 8hrs): Intake & Output 03/18/17 03/18/17 03/18/17 06:59 14:59 22:59 Intake Total 1233 2092 225 Output Total 1100 0 Balance 133 2092 225 Weight 240 lb Intake: IV 1033 1642 225 Intake, Piggyback 200 450 Output: Urine 1100 0 Urethral (Sanders) 1100 0 - Physical Exam Head: Positive for: Normocephalic Pupils: Positive for: PERRL, Sluggish, Other Extroacular Muscles: Positive for: EOMI. Negative for: Gaze Palsy Conjunctiva: Negative for: Injected, Icteric Ears: Positive for: Normal Mouth: Positive for: Moist Mucous Membranes Pharnyx: Positive for: Normal Neck: Positive for: Normal Range of Motion. Negative for: Meningeal Signs, JVD , Lymphadenopathy Respiratory/Chest: Positive for: Decreased Breath Sounds. Negative for: Wheezes , Rhonchi Cardiovascular: Positive for: Regular Rate and Rhythm. Negative for: Murmurs, Rub Abdomen: Positive for: Normal Bowel Sounds. Negative for: Tenderness, Distention Upper Extremity: Positive for: Edema Lower Extremity: Positive for: Edema (+2), NORMAL PULSES. Negative for: CALF TENDERNESS (GCS= 5 (E1 V1 M3)), Cyanosis Neurological: Positive for: Other (Flaccid on Left, + tone in RUE and RLE.) Skin: Positive for: Warm. Negative for: Rashes Psychiatric: Positive for: Lethargic - Medications Active Medications: Active Medications Generic Name Dose Route Start Last Admin Trade Name Freq PRN Reason Stop Dose Admin Acetaminophen 650 mg 03/16/17 10:36 Tylenol 325mg Tab PO Q4H PRN Temp 101 and above Acetaminophen 650 mg 03/16/17 10:36 Tylenol 650 Mg Supp [place] Q4 PRN Fever >100.4 F Albuterol Sulfate 2.5 mg 03/16/17 10:36 Albuterol 0.083% Inhal Suzan (2.5 Mg/3 Ml) Ud IH RQ6 PRN Shortness of Breath Albuterol/Ipratropium 3 ml 03/16/17 14:00 03/18/17 13:37 Duoneb 3 Mg/0.5 Mg (3 Ml) Ud INH 3 ml RTID [facility] Administration Aspirin 325 mg 03/17/17 09:00 03/18/17 08:32 Aspirin PO Not Given DAILY [facility] Atorvastatin Calcium 80 mg 03/17/17 22:00 03/17/17 22:00 Lipitor PO Not Given HS [facility] Budesonide 0.5 mg 03/16/17 20:00 03/18/17 07:37 Pulmicort Respules IH 0.5 mg RBID [facility] Administration Enoxaparin Sodium 40 mg 03/17/17 10:45 03/18/17 08:32 Lovenox SC 40 mg DAILY [facility] Administration Protocol Home Med 15 mcg 03/16/17 11:45 Arformoterol [Brovana] IH Q12H [facility] Home Med 1 appl 03/16/17 10:36 Phenyleph/Mineral Oil/Petrolat [Preparation H Ointment] NV TID PRN Hemorrhoids Azithromycin 500 mg/ Sodium 250 mls @ 250 mls/hr 03/17/17 09:00 07/28/17 08: 59 Chloride IVPB 250 mls/hr DAILY [facility] Administration Acyclovir 500 mg/ Sodium 100 mls @ 100 mls/hr 03/16/17 14:00 03/18/17 13:18 Chloride IVPB 100 mls/hr Q12H [facility] Administration Meropenem 500 mg/ Sodium 100 mls @ 100 mls/hr 03/16/17 17:00 03/18/17 16:18 Chloride IVPB 100 mls/hr Q8 [facility] Administration Lactated Ringer's 1,000 mls @ 75 mls/hr 03/16/17 18:00 03/18/17 06:13 Lactated Ringer's IV 75 mls/hr .[id number] [facility] Administration Vancomycin HCl 750 mg/ Sodium 250 mls @ 166.667 mls/hr 03/17/17 20:00 19:46 Chloride IVPB 166.667 mls/hr DAILY@2000 [facility] Administration Phenylephrine HCl 10 mg/ 251 mls @ 30.12 mls/hr 03/17/17 10:45 03/18/17 13:19 Sodium Chloride IV 20 mcg/min .Q8H20M [facility] 30.12 mls/hr Protocol Administration 20 MCG/MIN Norepinephrine Bitartrate 8 mg 508 mls @ 76.2 mls/hr 03/17/17 10:38 03/18/17 16:19 / Dextrose IV 20 mcg/min .Q6H40M [facility] 76.2 mls/hr Protocol Administration 20 MCG/MIN Morphine Sulfate 100 mg/ 104 mls @ 2.08 mls/hr 03/17/17 16:30 03/17/17 17:43 Sodium Chloride IVPB 2.08 mls/hr .Q24H [facility] Administration Protocol 2 MG/HR Magnesium Hydroxide 30 ml 03/16/17 10:36 Milk Of Magnesia PO HS PRN Constipation Morphine Sulfate 4 mg 03/17/17 13:15 Morphine IVP Q4 PRN Pain, Mild (1-3) Tiotropium [place] 18 mcg 03/17/17 09:00 03/18/17 08:34 Spiriva IH Not Given DAILY [facility] - Patient Studies Lab Studies: Lab Studies 03/11/17 Range/Units 13:08 Urine Legionella Ag Not detected (Not Detected) Laboratory Results - last 24 hr 03/11/17 13:08 Urine Legionella Ag Not detected Fingerstick Blood Sugar Results: 153 Critical Care Progress Note - Nutrition Nutrition: Nutrition Category Date Time Status NPO Diet [DIET] Diets 03/17/17 Lunch Active
--- NOTE | 2017-03-18 20:38 | PN ---
ENDO FOLLOWUP NOTE LOCATION: In room 425, ICU. SUBJECTIVE: This is a 76-year-old female with recent uncontrolled type 2 insulin requiring diabetes, now being followed closely for metabolic management. Her glycemic levels are fluctuating and the glucose values have ranged from 146 to 153 and 249 mg/dL. Her latest chemistry showed a BUN of 24, sodium 147, potassium 3.2, chloride 114, CO2 of 32, glucose 117, creatinine 0.8. At this time, she is clinically and neurologically deteriorated and remains obtunded, currently on a morphine drip infusion as noted. Her family has requested . We will continue the low-dose correction scale using Humalog insulin as given. She has been taken off all the insulin regimen as previously ordered. Oma Martines MD
[2017-03-19] MEDS: Norepinephrine 8 MG in Dextrose 5% In Water 500 ML IV SCH ×4 (00:50→21:29)
[2017-03-19] MEDS: Acyclovir 500 MG in Sodium Chloride 0.9% 100 ML IVPB SCH ×2 (01:00→13:06)
[2017-03-19] MEDS: Lactated Ringer's 1,000 ML IV SCH ×2 (04:15→23:11)
[2017-03-19] MEDS: Morphine 100 MG in Sodium Chloride 0.9% 100 ML IVPB SCH (06:21)
[2017-03-19] MEDS: Albuterol-Ipratrop 3 mg / 0.5 (3 ml) UD INH SCH ×3 (07:04→19:02)
[2017-03-19] MEDS: Budesonide 0.5 mg/2 ml Inhal Susp UD IH SCH ×2 (07:04→19:02)
[2017-03-19] MEDS: Meropenem 500 MG in Sodium Chloride 0.9% 100 ML IVPB SCH ×3 (08:29→16:17)
[2017-03-19] MEDS: Tiotropium 18 mcg Cap For Inhalation IH SCH (08:32)
[2017-03-19] MEDS: Enoxaparin 40 mg Syringe SC SCH (08:33)
[2017-03-19] MEDS: Azithromycin 500 MG in Sodium Chloride 0.9% 250 ML IVPB SCH (08:50)
--- NOTE | 2017-03-19 10:55 | CP.PCM.PN ---
Subjective - Date & Time of Evaluation Date of Evaluation: 03/19/17 Time of Evaluation: 10:52 - Subjective Subjective: pt remains as assessed. no new complaints. still on 2x pressors and morphine gtt. bp remains low and pt remains unresponsive. Objective - Vital Signs/Intake and Output Vital Signs (last 24 hours): Temp Pulse Resp BP Pulse Ox 98.9 F 114 H 32 H 60/48 L 100 03/19/17 08:00 03/19/17 10:00 03/19/17 10:00 03/19/17 10:00 03/19/17 10:00 Intake and Output: 03/19/17 03/19/17 06:59 18:59 Intake Total 1734 826 Output Total 300 Balance 1434 826 - Medications Medications: Current Medications Acetaminophen (Tylenol 325mg Tab) 650 mg PO Q4H PRN PRN Reason: Temp 101 and above Acetaminophen (Tylenol 650 Mg Supp) 650 mg [place] Q4 PRN PRN Reason: Fever >100.4 F Last Admin: 03/18/17 21:08 Dose: 650 mg Albuterol Sulfate (Albuterol 0.083% Inhal Suzan (2.5 Mg/3 Ml) Ud) 2.5 mg IH RQ6 PRN PRN Reason: Shortness of Breath Albuterol/Ipratropium (Duoneb 3 Mg/0.5 Mg (3 Ml) Ud) 3 ml INH RTID [facility] Last Admin: 03/19/17 07:04 Dose: 3 ml Aspirin (Aspirin) 325 mg PO DAILY [facility] Last Admin: 03/19/17 08:32 Dose: Not Given Atorvastatin Calcium (Lipitor) 80 mg PO HS [facility] Last Admin: 03/18/17 22:00 Dose: Not Given Budesonide (Pulmicort Respules) 0.5 mg IH RBID [facility] Last Admin: 03/19/17 07:04 Dose: 0.5 mg Enoxaparin Sodium (Lovenox) 40 mg SC DAILY [facility] PRN Reason: Protocol Last Admin: 03/19/17 08:33 Dose: 40 mg Home Med (Arformoterol [Brovana]) 15 mcg IH Q12H [facility] Home Med (Phenyleph/Mineral Oil/Petrolat [Preparation H Ointment]) 1 appl [place] TID PRN PRN Reason: Hemorrhoids Azithromycin 500 mg/ Sodium (Chloride) 250 mls @ 250 mls/hr IVPB DAILY [facility] Last Admin: 03/19/17 08:50 Dose: 250 mls/hr Acyclovir 500 mg/ Sodium (Chloride) 100 mls @ 100 mls/hr IVPB Q12H [facility] Last Admin: 03/19/17 01:00 Dose: 100 mls/hr Meropenem 500 mg/ Sodium (Chloride) 100 mls @ 100 mls/hr IVPB Q8 [facility] Last Admin: 03/19/17 08:29 Dose: 100 mls/hr Lactated Ringer's (Lactated Ringer's) 1,000 mls @ 75 mls/hr IV .[id number] [facility] Last Admin: 03/19/17 04:15 Dose: 75 mls/hr Vancomycin HCl 750 mg/ Sodium (Chloride) 250 mls @ 166.667 mls/hr IVPB DAILY@ 2000 [facility] Last Admin: 03/18/17 20:12 Dose: 166.667 mls/hr Phenylephrine HCl 10 mg/ (Sodium Chloride) 251 mls @ 30.12 mls/hr IV .Q8H20M [facility]; 20 MCG/MIN PRN Reason: Protocol Last Admin: 03/19/17 07:47 Dose: 20 mcg/min, 30.12 mls/hr Norepinephrine Bitartrate 8 mg (/ Dextrose) 508 mls @ 76.2 mls/hr IV .Q6H40M [facility]; 20 MCG/MIN PRN Reason: Protocol Last Admin: 03/19/17 07:45 Dose: 20 mcg/min, 76.2 mls/hr Morphine Sulfate 100 mg/ (Sodium Chloride) 104 mls @ 2.08 mls/hr IVPB .Q24H [facility] ; 2 MG/HR PRN Reason: Protocol Last Admin: 03/19/17 06:21 Dose: 2.08 mls/hr Magnesium Hydroxide (Milk Of Magnesia) 30 ml PO HS PRN PRN Reason: Constipation Morphine Sulfate (Morphine) 4 mg IVP Q4 PRN PRN Reason: Pain, Mild (1-3) Tiotropium [place] (Spiriva) 18 mcg IH DAILY [facility] Last Admin: 03/19/17 08:32 Dose: Not Given - Labs Labs: 03/17/17 05:05 03/17/17 05:05 PT 10.6 Seconds (9.8-13.1) 07/26/17 09:00 INR 0.9 (0.9-1.2) 03/16/17 09:00 APTT 22.3 Seconds (25.6-37.1) L 03/16/17 09:00 - Constitutional Appears: No Acute Distress, Chronically Ill - Head Exam Head Exam: ATRAUMATIC, NORMAL INSPECTION, NORMOCEPHALIC - Eye Exam Eye Exam: EOMI, Normal appearance, PERRL Pupil Exam: NORMAL ACCOMODATION, PERRL - ENT Exam ENT Exam: Mucous Membranes Moist, Normal Exam - Neck Exam Neck Exam: Full ROM, Normal Inspection. absent: Lymphadenopathy - Respiratory Exam Respiratory Exam: Rhonchi, NORMAL BREATHING PATTERN - Cardiovascular Exam Cardiovascular Exam: Tachycardia, REGULAR RHYTHM, +S1, +S2. absent: Murmur - GI/Abdominal Exam GI & Abdominal Exam: Soft, Normal Bowel Sounds. absent: Tenderness - Extremities Exam Extremities Exam: Pedal Edema - Back Exam Back Exam: NORMAL INSPECTION - Psychiatric Exam Psychiatric exam: Normal Affect, Normal Mood - Skin Skin Exam: Dry, Intact, Normal Color, Warm Assessment and Plan (1) CHF (congestive heart failure) Status: Acute (2) COPD exacerbation Status: Acute (3) Pneumonia Status: Acute (4) DVT prophylaxis Status: Acute (5) Type 2 diabetes mellitus with hyperglycemia Status: Acute (6) CVA (cerebral vascular accident) Status: Acute (7) Dysphagia Status: Acute (8) Lethargy Status: Acute (9) Elevated LFTs Status: Acute - Assessment and Plan (Free Text) Assessment: (1) CHF (congestive heart failure) Assessment & Plan: cont cardio, lasix echo noted albumin lr 75ml/hr Status: Acute (2) COPD exacerbation Assessment & Plan: pulm high flow o2 nebs Status: Acute (3) Pneumonia Assessment & Plan: id consult, pulm consult cont vanc, zithromax, merrem, acyclovir-son does not wish to dc despite comfort measures dnr/dni flu/[place] negative Status: Acute (4) DVT prophylaxis Assessment & Plan: scd and aehose lovenox Status: Acute (5) Type 2 diabetes mellitus with hyperglycemia Assessment & Plan: riss, home meds, fsbg endo consult insulin gtt initiated yesterday Status: Acute (6) CVA (cerebral vascular accident) Assessment & Plan: neuro consult pr asa Status: Acute (7) Dysphagia Assessment & Plan: comfort measure, lr npo Status: Acute (8) Lethargy Assessment & Plan: per neuro, r/t toxic metabolic shock,cva, pna pt has periods of lethargy, periods of semi responsiveness for peg insertion, swallow eval pt is on comfort measures per living will and family Status: Acute (9) Elevated LFTs Assessment & Plan: abd us noted gi consult Status: Acute 10hypotension-unkn etiology-likely septic in origin w/ hypovolemia. d/c in detail w/ laney hua-december and rj and after multiple attempts-shayne BABB. pt is on 20mcg of levophed and neosynephrine- no further titration. pt bpremains low. comortable on ms04 gtt will cont to care for pt in accordance of her livingwill and per family wishes
--- NOTE | 2017-03-19 14:33 | PN ---
ENDOCRINOLOGY FOLLOWUP NOTE LOCATION: Room 425, ICU. SUBJECTIVE: This is a 76-year-old female with metabolic encephalopathy and progressive clinical and neurologic deterioration and is now being followed closely for metabolic management. Her glycemic levels have remained near optimal after being taken off all basal and bolus insulin regimen as previously given. Her latest glucose levels have ranged from 146 to 153 mg/dL. Her latest chemistry showed a BUN of 24, sodium 147, potassium 3.2, chloride 114, CO2 of 32, glucose 117 and creatinine 0.8. She remains unresponsive and obtunded at this time. Still on IV pressors and morphine drip as noted. She has been allowed DNR by her family's request. The lab testing has been stopped at this time. Oma Martines MD
[2017-03-20] MEDS: Meropenem 500 MG in Sodium Chloride 0.9% 100 ML IVPB SCH ×2 (00:04→09:28)
--- NOTE | 2017-03-20 00:52 | PN ---
DATE: 03/19/2017 SUBJECTIVE: The patient in ICU bed 425. Time spent 25 minutes. The patient seen, examined at the bedside. A 76-year-old female with history significant for chronic obstructive pulmonary disease, diabetes mellitus type 2, hypertension, hyperlipidemia, CHF, admitted with pneumonia, treated with vancomycin and Zosyn, remained lethargic. Overnight made DNR/DNI as per family request and on morphine drip for comfort care, on pressors to maintain blood pressure at the request of family and to continue antibiotics. Discussed with PMD, requested to continue the same. PHYSICAL EXAMINATION GENERAL: Text. VITAL SIGNS: Temperature 99, heart 112 and regular, respiratory 20 to 23, blood pressure 58/48, mean arterial pressure 51, saturation 100%. FiO2 of 50%. Intake 4301 and output 600, positive balance 3701. Weight 231 pounds. HEAD, EYES, EARS, NOSE, AND THROAT: Pupils are 2 to 3 mm reactive. NECK: Supple. CHEST: Bilateral breath sounds, diminished in intensity. HEART: Rhythm regular. S1, S2, normal. No audible murmur. ABDOMEN: Bowel sounds present, soft. EXTREMITIES: Dependent edema, 1+. NEUROLOGIC: Sedated on morphine drip. No distress noted. Does not follow verbal commands. Responds to painful stimuli. CURRENT MEDICATIONS: Reviewed include Tylenol 650 q.4 p.r.n., acyclovir 500 mg q.12, DuoNeb 2.5 mg q.6, aspirin 325 mg daily, Lipitor 80 mg daily, azithromycin 500mg IV daily, Pulmicort 0.5 mg twice daily, Lovenox 40 subcu daily, Ringer's lactate at 75 mL per hour, meropenem 500 mg IV q.8 hours, morphine sulfate 2 mg per hour, norepinephrine 8 mg in 500 at 76 mL at 20 mcg/kg, phenylephrine at 20 mcg per minute, vancomycin 750 IV q.12 hours. Admitted with pneumonia, sacral decubitus ulcer. The patient is at risk for aspiration, currently on antibiotics, pressors, and IV hydration, DVT and GI prophylaxis. The patient is currently made DNI and DNR at the request of the family, request morphine drip for comfort care, however, would like to continue recurrent treatment with antibiotics, pressors. We will honor the family wish, however, the prognosis remains guarded, impending demise is expected. Keep head off bed 30 degrees up and comfort care. Neville Amador MD
[2017-03-20] MEDS: Acyclovir 500 MG in Sodium Chloride 0.9% 100 ML IVPB SCH ×2 (01:03→16:54)
[2017-03-20] MEDS: Norepinephrine 8 MG in Dextrose 5% In Water 500 ML IV SCH ×2 (04:55→12:11)
[2017-03-20] MEDS: Albuterol-Ipratrop 3 mg / 0.5 (3 ml) UD INH SCH ×3 (07:09→19:29)
[2017-03-20] MEDS: Budesonide 0.5 mg/2 ml Inhal Susp UD IH SCH ×2 (07:09→19:28)
[2017-03-20] MEDS: Enoxaparin 40 mg Syringe SC SCH (09:27)
[2017-03-20] MEDS: Tiotropium 18 mcg Cap For Inhalation IH SCH (09:29)
[2017-03-20] MEDS: Azithromycin 500 MG in Sodium Chloride 0.9% 250 ML IVPB SCH (09:30)
--- NOTE | 2017-03-20 10:27 | CP.PCM.PN ---
Subjective - Date & Time of Evaluation Date of Evaluation: 03/20/17 Time of Evaluation: 10:25 - Subjective Subjective: pt remains as assessed. more edematous however. bp and hr remains the same. 2x pressors-levophed and neosynephrine the same. morphine gtt the sven. no distress no f/c, n/v/d. case d/c w/ nicole trivedi and dr carmona . left vmail for son. Objective - Vital Signs/Intake and Output Vital Signs (last 24 hours): Temp Pulse Resp BP Pulse Ox 99.7 F H 101 H 10 L 76/43 L 100 03/20/17 08:00 03/20/17 10:00 03/20/17 10:00 03/20/17 10:00 03/20/17 10:00 Intake and Output: 03/20/17 03/20/17 06:59 18:59 Intake Total 2242 601 Output Total 650 Balance 1592 601 - Medications Medications: Current Medications Acetaminophen (Tylenol 325mg Tab) 650 mg PO Q4H PRN PRN Reason: Temp 101 and above Acetaminophen (Tylenol 650 Mg Supp) 650 mg [place] Q4 PRN PRN Reason: Fever >100.4 F Last Admin: 03/18/17 21:08 Dose: 650 mg Albuterol Sulfate (Albuterol 0.083% Inhal Suzan (2.5 Mg/3 Ml) Ud) 2.5 mg IH RQ6 PRN PRN Reason: Shortness of Breath Albuterol/Ipratropium (Duoneb 3 Mg/0.5 Mg (3 Ml) Ud) 3 ml INH RTID [facility] Last Admin: 03/20/17 07:09 Dose: 3 ml Aspirin (Aspirin) 325 mg PO DAILY [facility] Last Admin: 03/20/17 09:26 Dose: Not Given Atorvastatin Calcium (Lipitor) 80 mg PO HS [facility] Last Admin: 03/19/17 22:00 Dose: Not Given Budesonide (Pulmicort Respules) 0.5 mg IH RBID [facility] Last Admin: 03/20/17 07:09 Dose: 0.5 mg Enoxaparin Sodium (Lovenox) 40 mg SC DAILY [facility] PRN Reason: Protocol Last Admin: 03/20/17 09:27 Dose: 40 mg Home Med (Arformoterol [Brovana]) 15 mcg IH Q12H [facility] Home Med (Phenyleph/Mineral Oil/Petrolat [Preparation H Ointment]) 1 appl [place] TID PRN PRN Reason: Hemorrhoids Azithromycin 500 mg/ Sodium (Chloride) 250 mls @ 250 mls/hr IVPB DAILY [facility] Last Admin: 03/20/17 09:30 Dose: 250 mls/hr Acyclovir 500 mg/ Sodium (Chloride) 100 mls @ 100 mls/hr IVPB Q12H [facility] Last Admin: 03/20/17 01:03 Dose: 100 mls/hr Meropenem 500 mg/ Sodium (Chloride) 100 mls @ 100 mls/hr IVPB Q8 [facility] Last Admin: 03/20/17 09:28 Dose: 100 mls/hr Lactated Ringer's (Lactated Ringer's) 1,000 mls @ 75 mls/hr IV .[id number] [facility] Last Admin: 03/19/17 23:11 Dose: 75 mls/hr Vancomycin HCl 750 mg/ Sodium (Chloride) 250 mls @ 166.667 mls/hr IVPB DAILY@ 2000 [facility] Last Admin: 03/19/17 19:30 Dose: 166.667 mls/hr Phenylephrine HCl 10 mg/ (Sodium Chloride) 251 mls @ 30.12 mls/hr IV .Q8H20M [facility]; 20 MCG/MIN PRN Reason: Protocol Last Admin: 03/20/17 09:28 Dose: 20 mcg/min, 30.12 mls/hr Norepinephrine Bitartrate 8 mg (/ Dextrose) 508 mls @ 76.2 mls/hr IV .Q6H40M [facility]; 20 MCG/MIN PRN Reason: Protocol Last Admin: 03/20/17 04:55 Dose: 20 mcg/min, 76.2 mls/hr Morphine Sulfate 100 mg/ (Sodium Chloride) 104 mls @ 2.08 mls/hr IVPB .Q24H [facility] ; 2 MG/HR PRN Reason: Protocol Last Admin: 03/19/17 06:21 Dose: 2.08 mls/hr Magnesium Hydroxide (Milk Of Magnesia) 30 ml PO HS PRN PRN Reason: Constipation Morphine Sulfate (Morphine) 4 mg IVP Q4 PRN PRN Reason: Pain, Mild (1-3) Tiotropium [place] (Spiriva) 18 mcg IH DAILY [facility] Last Admin: 03/20/17 09:29 Dose: Not Given - Labs Labs: 03/17/17 05:05 03/17/17 05:05 PT 10.6 Seconds (9.8-13.1) 03/16/17 09:00 INR 0.9 (0.9-1.2) 03/16/17 09:00 APTT 22.3 Seconds (25.6-37.1) L 03/16/17 09:00 - Constitutional Appears: No Acute Distress, Chronically Ill - Head Exam Head Exam: ATRAUMATIC, NORMAL INSPECTION, NORMOCEPHALIC - Eye Exam Eye Exam: EOMI, Normal appearance, PERRL Pupil Exam: NORMAL ACCOMODATION, PERRL - ENT Exam ENT Exam: Mucous Membranes Moist, Normal Exam - Neck Exam Neck Exam: Full ROM, Normal Inspection. absent: Lymphadenopathy - Respiratory Exam Respiratory Exam: Rhonchi, NORMAL BREATHING PATTERN - Cardiovascular Exam Cardiovascular Exam: REGULAR RHYTHM, +S1, +S2. absent: Murmur - GI/Abdominal Exam GI & Abdominal Exam: Soft, Normal Bowel Sounds. absent: Tenderness - Extremities Exam Extremities Exam: Full ROM, Normal Capillary Refill, Normal Inspection, Pedal Edema. absent: Joint Swelling - Back Exam Back Exam: NORMAL INSPECTION - Psychiatric Exam Psychiatric exam: Normal Affect, Normal Mood - Skin Skin Exam: Dry, Intact, Normal Color, Warm Assessment and Plan (1) CHF (congestive heart failure) Status: Acute (2) COPD exacerbation Status: Acute (3) Pneumonia Status: Acute (4) DVT prophylaxis Status: Acute (5) Type 2 diabetes mellitus with hyperglycemia Status: Acute (6) CVA (cerebral vascular accident) Status: Acute (7) Dysphagia Status: Acute (8) Lethargy Status: Acute (9) Elevated LFTs Status: Acute - Assessment and Plan (Free Text) Assessment: (1) CHF (congestive heart failure) Assessment & Plan: cont cardio, lasix echo noted albumin lr 75ml/hr Status: Acute (2) COPD exacerbation Assessment & Plan: pulm high flow o2 nebs Status: Acute (3) Pneumonia Assessment & Plan: id consult, pulm consult cont vanc, zithromax, merrem, acyclovir-son does not wish to dc despite comfort measures dnr/dni flu/[place] negative Status: Acute (4) DVT prophylaxis Assessment & Plan: scd and aehose lovenox Status: Acute (5) Type 2 diabetes mellitus with hyperglycemia Assessment & Plan: riss, home meds, fsbg endo consult Status: Acute (6) CVA (cerebral vascular accident) Assessment & Plan: neuro consult pr asa Status: Acute (7) Dysphagia Assessment & Plan: comfort measure, lr npo Status: Acute (8) Lethargy Assessment & Plan: per neuro, r/t toxic metabolic shock,cva, pna pt has periods of lethargy, periods of semi responsiveness for peg insertion, swallow eval pt is on comfort measures per living will and family Status: Acute (9) Elevated LFTs Assessment & Plan: abd us noted gi consult Status: Acute 10hypotension-unkn etiology-likely septic in origin w/ hypovolemia. d/c in detail w/ laney hua-december and rj and after multiple attempts-shayne BABB. pt is on 20mcg of levophed and neosynephrine- no further titration. pt bpremains low. comortable on ms04 gtt will cont to care for pt in accordance of her livingwill and per family wishes son does not wish to dc pressors at this point no changes to plan. cont comfort
--- NOTE | 2017-03-20 13:35 | CP.PCM.PN ---
Subjective - Date & Time of Evaluation Date of Evaluation: 03/20/17 Time of Evaluation: 10:00 - Subjective Subjective: still on pressors all cultures neg to date obtunded on morphine drip palliative care Objective - Vital Signs/Intake and Output Vital Signs (last 24 hours): Temp Pulse Resp BP Pulse Ox 100 F H 99 H 11 L 88/53 L 100 03/20/17 12:00 03/20/17 12:00 03/20/17 12:00 03/20/17 12:00 03/20/17 12:00 Intake and Output: 03/20/17 03/20/17 06:59 18:59 Intake Total 2242 1109 Output Total 650 Balance 1592 1109 - Medications Medications: Current Medications Acetaminophen (Tylenol 325mg Tab) 650 mg PO Q4H PRN PRN Reason: Temp 101 and above Acetaminophen (Tylenol 650 Mg Supp) 650 mg [place] Q4 PRN PRN Reason: Fever >100.4 F Last Admin: 03/18/17 21:08 Dose: 650 mg Albuterol Sulfate (Albuterol 0.083% Inhal Suzan (2.5 Mg/3 Ml) Ud) 2.5 mg IH RQ6 PRN PRN Reason: Shortness of Breath Albuterol/Ipratropium (Duoneb 3 Mg/0.5 Mg (3 Ml) Ud) 3 ml INH RTID [facility] Last Admin: 03/20/17 13:10 Dose: 3 ml Aspirin (Aspirin) 325 mg PO DAILY [facility] Last Admin: 03/20/17 09:26 Dose: Not Given Atorvastatin Calcium (Lipitor) 80 mg PO HS [facility] Last Admin: 03/19/17 22:00 Dose: Not Given Budesonide (Pulmicort Respules) 0.5 mg IH RBID [facility] Last Admin: 03/20/17 07:09 Dose: 0.5 mg Home Med (Arformoterol [Brovana]) 15 mcg IH Q12H [facility] Home Med (Phenyleph/Mineral Oil/Petrolat [Preparation H Ointment]) 1 appl [place] TID PRN PRN Reason: Hemorrhoids Azithromycin 500 mg/ Sodium (Chloride) 250 mls @ 250 mls/hr IVPB DAILY [facility] Last Admin: 03/20/17 09:30 Dose: 250 mls/hr Acyclovir 500 mg/ Sodium (Chloride) 100 mls @ 100 mls/hr IVPB Q12H [facility] Last Admin: 03/20/17 01:03 Dose: 100 mls/hr Meropenem 500 mg/ Sodium (Chloride) 100 mls @ 100 mls/hr IVPB Q8 [facility] Last Admin: 03/20/17 09:28 Dose: 100 mls/hr Lactated Ringer's (Lactated Ringer's) 1,000 mls @ 75 mls/hr IV .[id number] [facility] Last Admin: 03/19/17 23:11 Dose: 75 mls/hr Vancomycin HCl 750 mg/ Sodium (Chloride) 250 mls @ 166.667 mls/hr IVPB DAILY@ 2000 [facility] Last Admin: 03/19/17 19:30 Dose: 166.667 mls/hr Phenylephrine HCl 10 mg/ (Sodium Chloride) 251 mls @ 30.12 mls/hr IV .Q8H20M [facility]; 20 MCG/MIN PRN Reason: Protocol Last Admin: 03/20/17 09:28 Dose: 20 mcg/min, 30.12 mls/hr Morphine Sulfate 100 mg/ (Sodium Chloride) 104 mls @ 2.08 mls/hr IVPB .Q24H [facility] ; 2 MG/HR PRN Reason: Protocol Last Admin: 03/19/17 06:21 Dose: 2.08 mls/hr Magnesium Hydroxide (Milk Of Magnesia) 30 ml PO HS PRN PRN Reason: Constipation Morphine Sulfate (Morphine) 4 mg IVP Q4 PRN PRN Reason: Pain, Mild (1-3) Tiotropium [place] (Spiriva) 18 mcg IH DAILY [facility] Last Admin: 03/20/17 09:29 Dose: Not Given - Labs Labs: 03/17/17 05:05 03/17/17 05:05 PT 10.6 Seconds (9.8-13.1) 03/16/17 09:00 INR 0.9 (0.9-1.2) 03/16/17 09:00 APTT 22.3 Seconds (25.6-37.1) L 03/16/17 09:00 - Constitutional Appears: Confused, Chronically Ill - Head Exam Head Exam: NORMOCEPHALIC - ENT Exam ENT Exam: Mucous Membranes Dry, Normal External Ear Exam - Neck Exam Neck Exam: absent: Lymphadenopathy - Respiratory Exam Respiratory Exam: Decreased Breath Sounds, Rhonchi - Cardiovascular Exam Cardiovascular Exam: REGULAR RHYTHM - GI/Abdominal Exam GI & Abdominal Exam: Distended, Soft - Rectal Exam Rectal Exam: Deferred - Extremities Exam Extremities Exam: Pedal Edema - Back Exam Back Exam: absent: CVA tenderness (L), CVA tenderness (R) - Neurological Exam Neurological Exam: Altered Assessment and Plan (1) CHF (congestive heart failure) Status: Acute (2) COPD exacerbation Status: Acute (3) Pneumonia Status: Acute - Assessment and Plan (Free Text) Assessment: cont supportive care
--- NOTE | 2017-03-20 14:08 | PN ---
This is a 76-year-old female with multiorgan failure and presenting here with acute pneumonitis with respiratory insufficiency and hypoxemia and hypotension and is now being followed closely for metabolic management. Her glycemic levels have been fluctuating, but near optimal at this time and today's glucose values done a few days ago have ranged from 146 to 153 mg/dL. They have stopped all the fingerstick glucose testing and also the laboratory testing at this time. She has been placed DNR by her family as noted. We will sign off the endocrine care at this time. Oma Martines MD
--- NOTE | 2017-03-20 16:23 | PN ---
CRITICAL CARE PROGRESS NOTE DATE: 03/20/2017 SUBJECTIVE: The patient in ICU bed 425. Time spent 25 minutes. The patient Is seen, examined at the bedside. EVENTS SINCE ADMISSION AND CLINICAL COURSE REVIEW: A 76-year-old female with history significant for chronic obstructive pulmonary disease, diabetes mellitus type 2, hypertension, hyperlipidemia, CHF, admitted with pneumonia, treated with vancomycin and Zosyn, remained lethargic, legally blind as per PMD. Currently DNR/DNI as per family request, also on morphine drip 2 mg per hour for comfort care. Continue on pressors to maintain blood pressure and antibiotics as per request of patient's son. Discussed with PMD at length, put a call to son waiting to talk to him for further plan of his mom's care. Remains lethargic. Telemetry, sinus rhythm. PHYSICAL EXAMINATION: VITAL SIGNS: Temperature 99.7, heart rate of 101, respiratory rate on 8 to 10, blood pressure of 76/43, mean arterial pressure 54, on Levophed and García-Synephrine, saturating 100% on high-flow nasal oxygen 40 L, 50%. Intake 4227 and output 850, positive balance 3377. Weight 238 pounds and 8 ounce. HEAD, EYES, EARS, NOSE, MOUTH, THROAT: Pupils are 2 to 3 mm reactive. No nystagmus. Conjunctivae are pink. corneal reflex present. Conjunctival reflex present. Gag reflex in mouth present. CHEST: Bilateral breath sounds, diminished in intensity. Clear to auscultation anteriorly and laterally. HEART: Rhythm regular. S1, S2, rapid. No S3 or S4 gallop. No audible murmur. ABDOMEN: Bowel sounds present, soft. No distension. EXTREMITIES: 1+ edema. NEUROLOGIC: Sedated on morphine drip. Responds to painful stimuli. CURRENT MEDICATIONS: Tylenol 650 p.o. q. 4 hours p.r.n., acyclovir 500 mg IV q. 12 hours, albuterol 2.5 mg q. 6 hours p.r.n. DuoNeb 3 mL 3 times daily, aspirin 325 mg daily, Lipitor 80 mg p.o. at bedtime, Zithromax 500 mg IV daily, Pulmicort 0.5 mg twice daily, Lovenox 40 subQ daily, magnesium hydroxide 30 mL p.o. at bedtime p.r.n., meropenem 500 mg q. 8 hours, Lipitor 80 mg subQ daily, phenylephrine at 20 mcg per minute, tiotropium bromide 1 inhalation daily on hold, vancomycin 750 mg IV push daily. LABORATORY DATA: No new lab data, stopped as per family request. Previous blood culture no growth reported. Sputum culture shows yeast species. IMPRESSION: 1. Neuro: Altered mental status with minimal response to painful stimuli, sedated on morphine drip for comfort care, 2. Pulmonary: Pneumonia, on antibiotics vancomycin and azithromycin. Continue bronchodilator. 3. Cardiac: Hypertension, on phenylephrine and Levophed. 4. Gastrointestinal: Nothing by mouth, at risk for aspiration given the mental status, on IV fluid. 5. Hematology: Leukocytosis, secondary to pneumonia. 6. Endocrine: History of diabetes mellitus, type 2, currently blood sugar is in 153 range. No further labs to assess the current status. PLAN: Continue comfort care, impending demise is excepted. Continue antibiotics, pressors, and oxygen supplement at the request of patient's son who is the power of patent prosecution attorney. Comfort care is being offered. Neville Amador MD
[2017-03-20] MEDS: Cefepime 1 GM in Sodium Chloride 0.9% 100 ML IVPB SCH (16:53)
[2017-03-20] MEDS: Lactated Ringer's 1,000 ML IV SCH ×2 (17:47→21:44)
[2017-03-20] MEDS: Norepinephrine 8 MG in Dextrose 5% In Water 500 ML IV ONE (17:47)
[2017-03-21] MEDS: Cefepime 1 GM in Sodium Chloride 0.9% 100 ML IVPB SCH ×3 (00:17→17:17)
[2017-03-21] MEDS: Acyclovir 500 MG in Sodium Chloride 0.9% 100 ML IVPB SCH ×2 (01:04→17:18)
[2017-03-21] MEDS: Norepinephrine 8 MG in Dextrose 5% In Water 500 ML IV ONE (01:58)
[2017-03-21] MEDS ORDERED: Norepinephrine 8 MG in Dextrose 5% In Water 500 ML IV SCH (06:15)
[2017-03-21] MEDS: Morphine 100 MG in Sodium Chloride 0.9% 100 ML IVPB SCH ×2 (06:44→06:46)
--- NOTE | 2017-03-21 07:16 | CP.PCM.PN ---
Subjective - Date & Time of Evaluation Date of Evaluation: 03/21/17 Time of Evaluation: 07:15 - Subjective Subjective: pt gasping and resps approx 10. bp unmeasurable. hr st at 110. left vmails for son-shayne and daughter rj. no f/c, n/v/d. remains on pressors and morphine gtt Objective - Vital Signs/Intake and Output Vital Signs (last 24 hours): Temp Pulse Resp BP Pulse Ox 99.6 F 111 H 16 66/43 L 100 03/21/17 04:00 03/21/17 06:00 03/21/17 06:00 03/21/17 06:00 03/21/17 06:00 Intake and Output: 03/21/17 03/21/17 06:59 18:59 Intake Total 1726 Output Total 680 Balance 1046 - Medications Medications: Current Medications Acetaminophen (Tylenol 325mg Tab) 650 mg PO Q4H PRN PRN Reason: Temp 101 and above Acetaminophen (Tylenol 650 Mg Supp) 650 mg GA Q4 PRN PRN Reason: Fever >100.4 F Last Admin: 03/18/17 21:08 Dose: 650 mg Albuterol Sulfate (Albuterol 0.083% Inhal Suzan (2.5 Mg/3 Ml) Ud) 2.5 mg IH RQ6 PRN PRN Reason: Shortness of Breath Last Admin: 03/21/17 06:22 Dose: 2.5 mg Albuterol/Ipratropium (Duoneb 3 Mg/0.5 Mg (3 Ml) Ud) 3 ml INH RTID [facility] Last Admin: 03/20/17 19:29 Dose: 3 ml Aspirin (Aspirin) 325 mg PO DAILY [facility] Last Admin: 03/20/17 09:26 Dose: Not Given Atorvastatin Calcium (Lipitor) 80 mg PO HS [facility] Last Admin: 03/20/17 22:00 Dose: Not Given Budesonide (Pulmicort Respules) 0.5 mg IH RBID [facility] Last Admin: 03/20/17 19:28 Dose: 0.5 mg Home Med (Arformoterol [Brovana]) 15 mcg IH Q12H [facility] Home Med (Phenyleph/Mineral Oil/Petrolat [Preparation H Ointment]) 1 appl GA TID PRN PRN Reason: Hemorrhoids Azithromycin 500 mg/ Sodium (Chloride) 250 mls @ 250 mls/hr IVPB DAILY [facility] Last Admin: 03/20/17 09:30 Dose: 250 mls/hr Acyclovir 500 mg/ Sodium (Chloride) 100 mls @ 100 mls/hr IVPB Q12H [facility] Last Admin: 03/21/17 01:04 Dose: 100 mls/hr Lactated Ringer's (Lactated Ringer's) 1,000 mls @ 75 mls/hr IV .[id number] [facility] Last Admin: 03/20/17 21:44 Dose: 75 mls/hr Vancomycin HCl 750 mg/ Sodium (Chloride) 250 mls @ 166.667 mls/hr IVPB DAILY@ 2000 [facility] Last Admin: 03/20/17 19:29 Dose: 166.667 mls/hr Phenylephrine HCl 10 mg/ (Sodium Chloride) 251 mls @ 30.12 mls/hr IV .Q8H20M [facility]; 20 MCG/MIN PRN Reason: Protocol Last Admin: 03/21/17 02:00 Dose: 20 mcg/min, 30.12 mls/hr Morphine Sulfate 100 mg/ (Sodium Chloride) 104 mls @ 2.08 mls/hr IVPB .Q24H [facility] ; 2 MG/HR PRN Reason: Protocol Last Admin: 03/21/17 06:46 Dose: 2.08 mls/hr Cefepime HCl 1 gm/ Sodium (Chloride) 100 mls @ 100 mls/hr IVPB Q8 [facility] Last Admin: 03/21/17 00:17 Dose: 100 mls/hr Norepinephrine Bitartrate 8 mg (/ Dextrose) 508 mls @ 76.2 mls/hr IV .Q6H40M [facility] PRN Reason: 20 MCG/MIN Magnesium Hydroxide (Milk Of Magnesia) 30 ml PO HS PRN PRN Reason: Constipation Morphine Sulfate (Morphine) 4 mg IVP Q4 PRN PRN Reason: Pain, Mild (1-3) Tiotropium [place] (Spiriva) 18 mcg IH DAILY [facility] Last Admin: 03/20/17 09:29 Dose: Not Given - Labs Labs: 03/17/17 05:05 03/17/17 05:05 PT 10.6 Seconds (9.8-13.1) 03/16/17 09:00 INR 0.9 (0.9-1.2) 03/16/17 09:00 APTT 22.3 Seconds (25.6-37.1) L 03/16/17 09:00 - Constitutional Appears: Chronically Ill - Head Exam Head Exam: ATRAUMATIC, NORMAL INSPECTION, NORMOCEPHALIC - Eye Exam Eye Exam: EOMI, Normal appearance, PERRL Pupil Exam: NORMAL ACCOMODATION, PERRL - ENT Exam ENT Exam: Mucous Membranes Moist, Normal Exam - Neck Exam Neck Exam: Full ROM, Normal Inspection. absent: Lymphadenopathy - Respiratory Exam Respiratory Exam: Rhonchi, NORMAL BREATHING PATTERN - Cardiovascular Exam Cardiovascular Exam: REGULAR RHYTHM, +S1, +S2. absent: Murmur - GI/Abdominal Exam GI & Abdominal Exam: Soft, Normal Bowel Sounds. absent: Tenderness - Extremities Exam Extremities Exam: Full ROM, Normal Capillary Refill, Normal Inspection, Pedal Edema. absent: Joint Swelling - Back Exam Back Exam: NORMAL INSPECTION - Skin Skin Exam: Dry, Intact, Normal Color, Warm Assessment and Plan (1) CHF (congestive heart failure) Status: Acute (2) COPD exacerbation Status: Acute (3) Pneumonia Status: Acute (4) DVT prophylaxis Status: Acute (5) Type 2 diabetes mellitus with hyperglycemia Status: Acute (6) CVA (cerebral vascular accident) Status: Acute (7) Dysphagia Status: Acute (8) Lethargy Status: Acute (9) Elevated LFTs Status: Acute - Assessment and Plan (Free Text) Assessment: (1) CHF (congestive heart failure) Assessment & Plan: cont cardio, lasix echo noted albumin lr 75ml/hr Status: Acute (2) COPD exacerbation Assessment & Plan: pulm high flow o2 nebs Status: Acute (3) Pneumonia Assessment & Plan: id consult, pulm consult cont vanc, zithromax, merrem, acyclovir-son does not wish to dc despite comfort measures dnr/dni flu/[place] negative Status: Acute (4) DVT prophylaxis Assessment & Plan: scd and aehose lovenox Status: Acute (5) Type 2 diabetes mellitus with hyperglycemia Assessment & Plan: riss, home meds, fsbg endo consult Status: Acute (6) CVA (cerebral vascular accident) Assessment & Plan: neuro consult pr asa Status: Acute (7) Dysphagia Assessment & Plan: comfort measure, lr npo Status: Acute (8) Lethargy Assessment & Plan: per neuro, r/t toxic metabolic shock,cva, pna pt has periods of lethargy, periods of semi responsiveness for peg insertion, swallow eval pt is on comfort measures per living will and family Status: Acute (9) Elevated LFTs Assessment & Plan: abd us noted gi consult Status: Acute 10hypotension-unkn etiology-likely septic in origin w/ hypovolemia. d/c in detail w/ laney hua-december and rj and after multiple attempts-shayne BABB. pt is on 20mcg of levophed and neosynephrine- no further titration. pt bpremains low. comortable on ms04 gtt will cont to care for pt in accordance of her livingwill and per family wishes son does not wish to dc pressors at this point no changes to plan. cont comfort son called back approx 0930 and updated on situation. no changes
[2017-03-21] MEDS: Albuterol-Ipratrop 3 mg / 0.5 (3 ml) UD INH SCH ×3 (08:01→19:21)
[2017-03-21] MEDS: Budesonide 0.5 mg/2 ml Inhal Susp UD IH SCH ×2 (08:01→19:35)
[2017-03-21] MEDS: Norepinephrine 8 MG in Dextrose 5% In Water 500 ML IV SCH (09:11)
[2017-03-21] MEDS: Tiotropium 18 mcg Cap For Inhalation IH SCH (09:16)
[2017-03-21] MEDS: Azithromycin 500 MG in Sodium Chloride 0.9% 250 ML IVPB SCH (09:17)
--- NOTE | 2017-03-21 09:27 | CP.PCM.PN ---
Subjective - Date & Time of Evaluation Date of Evaluation: 03/21/17 Time of Evaluation: 09:27 - Subjective Subjective: UNRESPONSIVE HYPOTENSIVE PROGNOSIS IS POOR CONTINUE SUPPORTIVE CARE NO FURTHER PULMONARY INTERVENTION FOR NOW Objective - Vital Signs/Intake and Output Vital Signs (last 24 hours): Temp Pulse Resp BP Pulse Ox 99.7 F H 109 H 9 L 58/51 L 100 03/21/17 08:00 03/21/17 09:00 03/21/17 09:00 03/21/17 09:00 03/21/17 08:00 Intake and Output: 03/21/17 03/21/17 06:59 18:59 Intake Total 1726 601 Output Total 680 Balance 1046 601 - Medications Medications: Current Medications Acetaminophen (Tylenol 325mg Tab) 650 mg PO Q4H PRN PRN Reason: Temp 101 and above Acetaminophen (Tylenol 650 Mg Supp) 650 mg [place] Q4 PRN PRN Reason: Fever >100.4 F Last Admin: 03/18/17 21:08 Dose: 650 mg Albuterol Sulfate (Albuterol 0.083% Inhal Suzan (2.5 Mg/3 Ml) Ud) 2.5 mg IH RQ6 PRN PRN Reason: Shortness of Breath Last Admin: 03/21/17 06:22 Dose: 2.5 mg Albuterol/Ipratropium (Duoneb 3 Mg/0.5 Mg (3 Ml) Ud) 3 ml INH RTID [facility] Last Admin: 03/21/17 08:01 Dose: 3 ml Aspirin (Aspirin) 325 mg PO DAILY [facility] Last Admin: 03/21/17 09:13 Dose: Not Given Atorvastatin Calcium (Lipitor) 80 mg PO HS [facility] Last Admin: 03/20/17 22:00 Dose: Not Given Budesonide (Pulmicort Respules) 0.5 mg IH RBID [facility] Last Admin: 03/21/17 08:01 Dose: 0.5 mg Home Med (Arformoterol [Brovana]) 15 mcg IH Q12H [facility] Home Med (Phenyleph/Mineral Oil/Petrolat [Preparation H Ointment]) 1 appl LA TID PRN PRN Reason: Hemorrhoids Azithromycin 500 mg/ Sodium (Chloride) 250 mls @ 250 mls/hr IVPB DAILY [facility] Last Admin: 03/21/17 09:17 Dose: 250 mls/hr Acyclovir 500 mg/ Sodium (Chloride) 100 mls @ 100 mls/hr IVPB Q12H [facility] Last Admin: 03/21/17 01:04 Dose: 100 mls/hr Lactated Ringer's (Lactated Ringer's) 1,000 mls @ 75 mls/hr IV .[id number] [facility] Last Admin: 03/20/17 21:44 Dose: 75 mls/hr Vancomycin HCl 750 mg/ Sodium (Chloride) 250 mls @ 166.667 mls/hr IVPB DAILY@ 2000 [facility] Last Admin: 03/20/17 19:29 Dose: 166.667 mls/hr Phenylephrine HCl 10 mg/ (Sodium Chloride) 251 mls @ 30.12 mls/hr IV .Q8H20M [facility]; 20 MCG/MIN PRN Reason: Protocol Last Admin: 03/21/17 09:15 Dose: 20 mcg/min, 30.12 mls/hr Morphine Sulfate 100 mg/ (Sodium Chloride) 104 mls @ 2.08 mls/hr IVPB .Q24H [facility] ; 2 MG/HR PRN Reason: Protocol Last Admin: 03/21/17 06:46 Dose: 2.08 mls/hr Cefepime HCl 1 gm/ Sodium (Chloride) 100 mls @ 100 mls/hr IVPB Q8 [facility] Last Admin: 03/21/17 09:13 Dose: 100 mls/hr Norepinephrine Bitartrate 8 mg (/ Dextrose) 508 mls @ 76.2 mls/hr IV .Q6H40M [facility] PRN Reason: 20 MCG/MIN Magnesium Hydroxide (Milk Of Magnesia) 30 ml PO HS PRN PRN Reason: Constipation Morphine Sulfate (Morphine) 4 mg IVP Q4 PRN PRN Reason: Pain, Mild (1-3) Tiotropium [place] (Spiriva) 18 mcg IH DAILY [facility] Last Admin: 03/21/17 09:16 Dose: Not Given - Labs Labs: 03/17/17 05:05 03/17/17 05:05 PT 10.6 Seconds (9.8-13.1) 03/16/17 09:00 INR 0.9 (0.9-1.2) 03/16/17 09:00 APTT 22.3 Seconds (25.6-37.1) L 03/16/17 09:00
--- NOTE | 2017-03-21 13:06 | CP.PCM.PN ---
Subjective - Date & Time of Evaluation Date of Evaluation: 03/21/17 Time of Evaluation: 08:00 - Subjective Subjective: UNRESPONSIVE- on bipap HYPOTENSIVE PROGNOSIS IS POOR Objective - Vital Signs/Intake and Output Vital Signs (last 24 hours): Temp Pulse Resp BP Pulse Ox 98.9 F 110 H 11 L 55/40 L 100 03/21/17 12:00 03/21/17 12:00 03/21/17 12:00 03/21/17 11:00 03/21/17 12:00 Intake and Output: 03/21/17 03/21/17 06:59 18:59 Intake Total 1726 601 Output Total 680 Balance 1046 601 - Medications Medications: Current Medications Acetaminophen (Tylenol 325mg Tab) 650 mg PO Q4H PRN PRN Reason: Temp 101 and above Acetaminophen (Tylenol 650 Mg Supp) 650 mg AL Q4 PRN PRN Reason: Fever >100.4 F Last Admin: 03/18/17 21:08 Dose: 650 mg Albuterol Sulfate (Albuterol 0.083% Inhal Suzan (2.5 Mg/3 Ml) Ud) 2.5 mg IH RQ6 PRN PRN Reason: Shortness of Breath Last Admin: 03/21/17 06:22 Dose: 2.5 mg Albuterol/Ipratropium (Duoneb 3 Mg/0.5 Mg (3 Ml) Ud) 3 ml INH RTID [facility] Last Admin: 03/21/17 08:01 Dose: 3 ml Aspirin (Aspirin) 325 mg PO DAILY [facility] Last Admin: 03/21/17 09:13 Dose: Not Given Atorvastatin Calcium (Lipitor) 80 mg PO HS [facility] Last Admin: 03/20/17 22:00 Dose: Not Given Budesonide (Pulmicort Respules) 0.5 mg IH RBID [facility] Last Admin: 03/21/17 08:01 Dose: 0.5 mg Home Med (Arformoterol [Brovana]) 15 mcg IH Q12H [facility] Home Med (Phenyleph/Mineral Oil/Petrolat [Preparation H Ointment]) 1 appl AL TID PRN PRN Reason: Hemorrhoids Azithromycin 500 mg/ Sodium (Chloride) 250 mls @ 250 mls/hr IVPB DAILY [facility] Last Admin: 03/21/17 09:17 Dose: 250 mls/hr Acyclovir 500 mg/ Sodium (Chloride) 100 mls @ 100 mls/hr IVPB Q12H [facility] Last Admin: 03/21/17 01:04 Dose: 100 mls/hr Lactated Ringer's (Lactated Ringer's) 1,000 mls @ 75 mls/hr IV .[id number] [facility] Last Admin: 03/20/17 21:44 Dose: 75 mls/hr Vancomycin HCl 750 mg/ Sodium (Chloride) 250 mls @ 166.667 mls/hr IVPB DAILY@ 2000 [facility] Last Admin: 03/20/17 19:29 Dose: 166.667 mls/hr Phenylephrine HCl 10 mg/ (Sodium Chloride) 251 mls @ 30.12 mls/hr IV .Q8H20M [facility]; 20 MCG/MIN PRN Reason: Protocol Last Admin: 03/21/17 09:15 Dose: 20 mcg/min, 30.12 mls/hr Morphine Sulfate 100 mg/ (Sodium Chloride) 104 mls @ 2.08 mls/hr IVPB .Q24H [facility] ; 2 MG/HR PRN Reason: Protocol Last Admin: 03/21/17 06:46 Dose: 2.08 mls/hr Cefepime HCl 1 gm/ Sodium (Chloride) 100 mls @ 100 mls/hr IVPB Q8 [facility] Last Admin: 03/21/17 09:13 Dose: 100 mls/hr Norepinephrine Bitartrate 8 mg (/ Dextrose) 508 mls @ 76.2 mls/hr IV .Q6H40M [facility] PRN Reason: 20 MCG/MIN Magnesium Hydroxide (Milk Of Magnesia) 30 ml PO HS PRN PRN Reason: Constipation Morphine Sulfate (Morphine) 4 mg IVP Q4 PRN PRN Reason: Pain, Mild (1-3) Tiotropium [place] (Spiriva) 18 mcg IH DAILY [facility] Last Admin: 03/21/17 09:16 Dose: Not Given - Labs Labs: 03/17/17 05:05 03/17/17 05:05 PT 10.6 Seconds (9.8-13.1) 03/16/17 09:00 INR 0.9 (0.9-1.2) 03/16/17 09:00 APTT 22.3 Seconds (25.6-37.1) L 03/16/17 09:00 - Constitutional Appears: Toxic - Head Exam Head Exam: NORMOCEPHALIC - Eye Exam Eye Exam: absent: Scleral icterus - ENT Exam ENT Exam: Mucous Membranes Dry - Neck Exam Neck Exam: absent: Lymphadenopathy - Respiratory Exam Respiratory Exam: Decreased Breath Sounds, Rhonchi - Cardiovascular Exam Cardiovascular Exam: REGULAR RHYTHM - GI/Abdominal Exam GI & Abdominal Exam: Distended, Soft Assessment and Plan (1) CHF (congestive heart failure) Status: Acute (2) COPD exacerbation Status: Acute (3) Pneumonia Status: Acute - Assessment and Plan (Free Text) Assessment: poor prognosis
--- NOTE | 2017-03-21 15:45 | PN ---
DATE: 03/21/2017 LOCATION: The patient in ICU, bed 425. SUBJECTIVE: The patient is seen and examined at the bedside. The management was discussed in a.m. rounds with multidisciplinary team. A 76-year-old female with history significant for chronic obstructive pulmonary disease, diabetes mellitus type 2, hypertension, hyperlipidemia, CHF, admitted with pneumonia, treated with vancomycin and Zosyn, remained lethargic. The patient is legally blind as per discussion with PMD. Currently DNR/DNI as per family request; on morphine drip at 2 mg per hour for comfort care. The patient has been on pressors with García-Synephrine and Levophed. Overnight remains lethargic, hardly arousable. This morning much more lethargic. Blood pressure is lower, pressor is not being titrated as per previous discussion with family. PHYSICAL EXAMINATION: VITAL SIGNS: Temperature 99.7, heart rate 109 regular, blood pressure , mean arterial pressure 53, respiratory rate 9, on high flow . Intake 5992, output 1030, positive balance 4962, weight 248 pounds. HEAD, EYES, EARS, NOSE AND THROAT: Pupils are 2 to 3 mm poorly reactive. Conjunctivae are diffuse. Trachea is center. CHEST: Bilateral breath sounds, diminished in intensity. Expiration prolonged. HEART: Rhythm regular. S1 and S2 normal intensity. No S3, S4 gallop. ABDOMEN: Obese; bowel sounds present. Soft. EXTREMITIES: Dependant edema, bilateral boots present on lower extremities. NEUROLOGIC: Hardly arousable secondary to sedation for morphine drip. LABORATORY DATA: No new lab data. CURRENT MEDICATIONS: Acyclovir 500 mg IV q. 12 hours; DuoNeb 2.5 mg q. 6 hours; aspirin 325 mg daily, Lipitor 80 mg at night; azithromycin 500 mg IV daily; Pulmicort 0.5 mg twice daily; cefepime 1 g q. 8 hours; Ringer's lactate at 75 mL per hour; magnesium hydroxide 30 mL p.o. at bedtime p.r.n., Levophed at 20 mcg per minute; phenylephrine at 20 mcg per minute; vancomycin 750 mg IV daily. IMPRESSION: Admitted with pneumonia, sacral decubitus ulcer. The patient at high risk for aspiration. Currently on antibiotics, pressors and IV hydration. Deep vein thrombosis and gastrointestinal prophylaxis. Currently DNI/DNR at the request of the family. Requesting morphine drip for comfort care; however, I would like to continue treatment with antibiotics and pressors. We will honor the family wish; however, the prognosis remains some guarded, impending demise is expected. Continue comfort measures. Neville Amador MD
[2017-03-21] MEDS: Lactated Ringer's 1,000 ML IV SCH (17:15)
[2017-03-21 20:04] VITALS: BP 72/30; TEMP 99.2
--- NOTE | 2017-03-21 22:29 | CP.PCM.PRO ---
Pronouncement of Note - Clinical Findings Physical Exam: No Response Verbal/Painful Stimuli, Absent Peripheral Pulses{ Carotid & Femoral}, Absent Heart & Breath Sounds, No Pupillary Light Reflex, No Corneal Reflex, Pupils Fixed & Dilated, Absence of Vital Signs - Pronouncement Time Time of Pronouncement of : 22:05 - Notifications Pronouncement Notifications: Family Notified, Atending Notified Breast Worker Notified: No - Autopsy Autopsy Requested: No - [place] [id number] Additional Comments: The patient was DNR/DNI
[2017-03-21 23:37] VITALS: PULSE 43; RESP 8; O2SAT 68
--- NOTE | 2017-03-22 06:17 | CP.PCM.DIS ---
Provider - Provider Date of Admission: 03/04/17 11:49 Attending physician: Carri Zapata MD Time Spent in preparation of Discharge (in minutes): 5 Diagnosis - Discharge Diagnosis (1) CHF (congestive heart failure) Status: Acute (2) COPD exacerbation Status: Acute (3) Pneumonia Status: Acute (4) DVT prophylaxis Status: Acute (5) Type 2 diabetes mellitus with hyperglycemia Status: Acute (6) CVA (cerebral vascular accident) Status: Acute (7) Dysphagia Status: Acute (8) Lethargy Status: Acute (9) Elevated LFTs Status: Acute Hospital Course - Lab Results Lab Results: Micro Results 03/10/17 03:10 Blood Blood Culture - Final NO GROWTH AFTER 5 DAYS 03/10/17 03:10 Blood Gram Stain - Final 03/10/17 02:45 Blood Blood Culture - Final NO GROWTH AFTER 5 DAYS 03/10/17 02:45 Blood Gram Stain - Final TEST NOT PERFORMED 03/13/17 07:15 Sputum Gram Stain - Final 03/13/17 07:15 Sputum Sputum Culture - Final Yeast Species 03/10/17 18:50 Nose MRSA Culture (Admit) - Final MRSA NOT DETECTED 03/10/17 18:19 Urine,Sanders Urine Culture - Final No Growth (<1,000 CFU/ML) 03/04/17 12:05 Blood-Venous Blood Culture - Final NO GROWTH AFTER 5 DAYS 03/04/17 12:05 Blood-Venous Gram Stain - Final TEST NOT PERFORMED 03/05/17 21:23 Sputum Gram Stain - Final 03/05/17 21:23 Sputum Sputum Culture - Final NORMAL ORAL SAMIR 03/04/17 13:54 Urine,Catheterized Urine Culture - Final No Growth (<1,000 CFU/ML) Most Recent Lab Values WBC 18.8 K/uL (4.8-10.8) H 03/17/17 05:05 RBC 4.53 Mil/uL (3.80-5.20) 03/17/17 05:05 Hgb 13.1 g/dL (12.0-16.0) 03/17/17 05:05 Hct 40.0 % (34.0-47.0) 03/17/17 05:05 MCV 88.4 fl (81.0-99.0) 03/17/17 05:05 MCH 28.9 pg (27.0-31.0) 03/17/17 05:05 MCHC 32.7 g/dL (33.0-37.0) L 03/17/17 05:05 RDW 15.6 % (11.5-14.5) H 03/17/17 05:05 Plt Count 227 K/uL (130-400) 03/17/17 05:05 MPV 9.5 fl (7.2-11.7) 03/17/17 05:05 Neut % (Auto) 87.4 % (50.0-75.0) H 03/17/17 05:05 Lymph % (Auto) 6.5 % (20.0-40.0) L 03/17/17 05:05 [place] % (Auto) 5.4 % (0.0-10.0) 03/17/17 05:05 Eos % (Auto) 0.4 % (0.0-4.0) 03/17/17 05:05 Baso % (Auto) 0.3 % (0.0-2.0) 03/17/17 05:05 Neut # 16.4 K/uL (1.8-7.0) H 03/17/17 05:05 Lymph # 1.2 K/uL (1.0-4.3) 03/17/17 05:05 [place] # 1.0 K/uL (0.0-0.8) H 03/17/17 05:05 Eos # 0.1 K/uL (0.0-0.7) 03/17/17 05:05 Baso # 0.1 K/uL (0.0-0.2) 03/17/17 05:05 Neutrophils % (Manual) 91 % (42-75) H 03/16/17 09:00 Band Neutrophils % 1 % (0-2) 03/12/17 06:56 Lymphocytes % (Manual) 2 % (20-50) L 03/16/17 09:00 Monocytes % (Manual) 6 % (0-10) 03/16/17 09:00 Eosinophils % (Manual) 1 % (0-7) 03/16/17 09:00 Toxic Granulation Present 03/09/17 06:50 Platelet Estimate Normal (NORMAL) 03/16/17 09:00 Large Platelets Present 03/04/17 11:15 Hypochromasia (manual) Slight 03/08/17 05:10 Anisocytosis (manual) Slight 03/16/17 09:00 Microcytosis (manual) Slight 03/04/17 11:15 Tear Drop Cells Slight 03/04/17 11:15 Ovalocytes Slight 03/16/17 09:00 PT 10.6 Seconds (9.8-13.1) 03/16/17 09:00 INR 0.9 (0.9-1.2) 03/16/17 09:00 APTT 22.3 Seconds (25.6-37.1) L 03/16/17 09:00 pCO2 39 mm/Hg (35-45) 03/16/17 10:43 pO2 49 mm/Hg (80-100) L 03/16/17 10:43 HCO3 29.3 mmol/L (21-28) H 03/16/17 10:43 ABG pH 7.49 (7.35-7.45) H 03/16/17 10:43 ABG Total CO2 30.9 mmol/L (22-28) H 03/16/17 10:43 ABG O2 Saturation 88.9 % (95-98) L 03/16/17 10:43 ABG O2 Content 14.1 ML/dL (15-23) L 03/16/17 10:43 ABG Base Excess 5.9 mmol/L (-2.0-3.0) H 03/16/17 10:43 ABG Hemoglobin 11.7 g/dL (11.7-17.4) 03/16/17 10:43 ABG Carboxyhemoglobin 1.8 % (0.5-1.5) H 03/16/17 10:43 POC ABG HHb (Measured) 10.7 % (0.0-5.0) H 03/16/17 10:43 ABG Methemoglobin 1.7 % (0.0-3.0) 03/16/17 10:43 ABG O2 Capacity 15.9 mL/dL (16-24) L 03/16/17 10:43 Rock Test Yes 03/16/17 10:43 ABG Potassium 3.2 mmol/L (3.6-5.2) L 03/12/17 04:28 VBG pH 7.41 (7.32-7.43) 03/16/17 08:55 VBG pCO2 46 mmHg (40-60) 03/16/17 08:55 VBG HCO3 27.3 mmol/L 03/16/17 08:55 VBG Total CO2 30.6 mmol/L (22-28) H 03/16/17 08:55 VBG O2 Sat (Calc) 77.7 % (40-65) H 03/16/17 08:55 VBG Base Excess 3.8 mmol/L (0.0-2.0) H 03/16/17 08:55 VBG Potassium 3.6 mmol/L (3.6-5.2) 03/16/17 08:55 A-a O2 Difference 259.0 mm/Hg 03/16/17 10:43 Hgb O2 Saturation 85.8 % (95.0-98.0) L 03/16/17 10:43 Sodium 146.0 mmol/L (132-148) 03/16/17 08:55 Chloride 110.0 mmol/L (98-107) H 03/16/17 08:55 Glucose 450 mg/dL (65-105) H* D 03/16/17 08:55 Lactate 1.6 mmol/L (0.7-2.1) 03/16/17 08:55 Liter Flow 40 03/11/17 05:34 Vent Mode High flow lpm 03/12/17 04:28 Mechanical Rate 18 03/10/17 16:13 FiO2 50.0 % 03/16/17 10:43 Inspiratory BiPAP 12 03/10/17 16:13 Expiratory BiPAP 6 03/10/17 16:13 Blood Gas Comments Hand delivered 03/10/17 17:10 Crit Value Called To Charis pastrana 03/16/17 08:55 Crit Value Called By Ms 03/16/17 08:55 Crit Value Read Back Y 03/16/17 08:55 Blood Gas Notified Time 906 03/16/17 08:55 Sodium 147 mmol/l (132-148) 03/17/17 05:05 Potassium 3.2 MMOL/L (3.6-5.0) L 03/17/17 05:05 Chloride 114 mmol/L (98-107) H 03/17/17 05:05 Carbon Dioxide 32 mmol/L (22-30) H 03/17/17 05:05 Anion Gap 4 (10-20) L 03/17/17 05:05 BUN 24 mg/dl (7-17) H 03/17/17 05:05 Creatinine 0.8 mg/dL (0.7-1.2) 03/17/17 05:05 Est GFR ( Amer) > 60 03/17/17 05:05 Est GFR (Non-Af Amer) > 60 03/17/17 05:05 POC Glucose (mg/dL) 146 mg/dL (65-110) H 03/17/17 14:58 Random Glucose 117 mg/dL (65-105) H 03/17/17 05:05 Hemoglobin A1c 8.8 % (4.2-6.5) H 03/06/17 06:00 Serum Osmolality 321 mosm/kg (272-300) H 03/17/17 05:05 Lactic Acid 1.0 MMOL/L (0.7-2.1) 03/11/17 04:40 Calcium 8.0 mg/dL (8.4-10.2) L 03/17/17 05:05 Magnesium 2.2 MG/DL (1.6-2.3) 03/06/17 05:30 Total Bilirubin 0.4 mg/dl (0.2-1.3) 03/17/17 05:05 AST 119 U/L (14-36) H D 03/17/17 05:05 ALT 112 U/L (9-52) H 03/17/17 05:05 Alkaline Phosphatase 177 U/L (38-126) H 03/17/17 05:05 Ammonia 21 umo/L (11-51) 03/11/17 14:42 NT-Pro-B Natriuret Pep 5550 pg/ml (0-900) H 03/07/17 09:30 Total Protein 4.4 G/DL (6.3-8.2) L 03/17/17 05:05 Albumin 2.2 g/dL (3.5-5.0) L 03/17/17 05:05 Globulin 2.2 gm/dL (2.2-3.9) 03/17/17 05:05 Albumin/Globulin Ratio 1.0 (1.0-2.1) 03/17/17 05:05 Triglycerides 130 mg/DL (0-149) 03/06/17 05:30 Cholesterol 121 mg/dL (0-199) 03/06/17 05:30 LDL Cholesterol Direct 44 mg/dL (0-129) 03/06/17 05:30 HDL Cholesterol 44 MG/DL (30-70) 03/06/17 05:30 Procalcitonin 0.42 NG/ML (0.19-0.49) 03/11/17 16:35 TSH 3rd Generation 0.96 mIU/ML (0.46-4.68) 03/08/17 08:59 Arterial Blood Potassium 3.2 mmol/L (3.6-5.2) L 03/12/17 04:28 Venous Blood Potassium 3.6 mmol/L (3.6-5.2) 03/16/17 08:55 Vancomycin Trough 14.0 ug/mL (5.0-10.0) H 03/12/17 06:56 West Nile Virus IgG Ab 0.10 03/11/17 14:42 West Nile Virus IgM Ab 0.03 03/11/17 14:42 Hepatitis A IgM Ab Negative (NEGATIVE) 03/06/17 16:00 Hep Bs Antigen Negative (NEGATIVE) 03/06/17 16:00 Hep B Core IgM Ab Negative (NEGATIVE) 03/06/17 16:00 Hepatitis C Antibody Negative (NEGATIVE) 03/06/17 16:00 HIV 1&2 Antibody Screen Negative (NEGATIVE) 03/15/17 04:20 Influenza Typ A,B (EIA) Negative for flu a/b (NEGATIVE) 03/11/17 13:17 Urine Legionella Ag Not detected (Not Detected) 03/11/17 13:08 Discharge Exam - Head Exam Head Exam: NORMOCEPHALIC Discharge Plan - Follow Up Plan Condition: Disposition: WITH WITHOUT AUTOPSY Additional Instructions: pt was pronounced last night 2205. pt was dnr/dni and on comfort measures. support to be offered to all family. final dx-pna, cva, toxic encephalitis, dm2, pvd, cad
[2017-03-22] MEDS ORDERED: Fluconazole IV 200mg/100 ml NS 100 ML IVPB SCH (09:00)
== END 2017-03-21 22:05 | DRG 291 ==
LOC: H.ER 10:47 → H.ERHOLD 11:49 → H.TEL 14:40 → H.ICU/CCU 03-10 18:03
PROVIDERS: ADMIT Family Medicine; ATTEND Family Medicine
PROC: 3E0F73Z Introduction of Anti-inflammatory into Respiratory Tract, Via Natural or Artificial Opening (ICD-10-PCS; principal; 2017-03-16)
PROC: 02HV33Z Insertion of Infusion Device into Superior Vena Cava, Percutaneous Approach (ICD-10-PCS; 2017-03-16)
DX: I11.0 Hypertensive heart disease with heart failure (principal); A41.9 Sepsis, unspecified organism; R65.21 Severe sepsis with septic shock; J96.91 Respiratory failure, unspecified with hypoxia; I63.9 Cerebral infarction, unspecified; G92 Toxic encephalopathy; J18.9 Pneumonia, unspecified organism; L89.159 Pressure ulcer of sacral region, unspecified stage; J44.0 Chronic obstructive pulmonary disease with (acute) lower respiratory infection; J90 Pleural effusion, not elsewhere classified; L03.115 Cellulitis of right lower limb; L03.116 Cellulitis of left lower limb; J44.1 Chronic obstructive pulmonary disease with (acute) exacerbation; I50.33 Acute on chronic diastolic (congestive) heart failure; R13.10 Dysphagia, unspecified; E11.42 Type 2 diabetes mellitus with diabetic polyneuropathy; F03.90 Unspecified dementia, unspecified severity, without behavioral disturbance, psychotic disturbance, mood disturbance, and anxiety; E11.649 Type 2 diabetes mellitus with hypoglycemia without coma; E11.65 Type 2 diabetes mellitus with hyperglycemia; E86.0 Dehydration; I25.5 Ischemic cardiomyopathy; E87.6 Hypokalemia; E11.319 Type 2 diabetes mellitus with unspecified diabetic retinopathy without macular edema; I25.10 Atherosclerotic heart disease of native coronary artery without angina pectoris; R41.82 Altered mental status, unspecified; T42.75XA Adverse effect of unspecified antiepileptic and sedative-hypnotic drugs, initial encounter; I95.89 Other hypotension; J45.909 Unspecified asthma, uncomplicated; I73.9 Peripheral vascular disease, unspecified; M19.90 Unspecified osteoarthritis, unspecified site; H54.8 Legal blindness, as defined in USA; Z66 Do not resuscitate; Z51.5 Encounter for palliative care; E78.5 Hyperlipidemia, unspecified; E78.00 Pure hypercholesterolemia, unspecified; E66.9 Obesity, unspecified; Z68.39 Body mass index [BMI] 39.0-39.9, adult; Z95.1 Presence of aortocoronary bypass graft; Z95.5 Presence of coronary angioplasty implant and graft; Z79.4 Long term (current) use of insulin; Z74.01 Bed confinement status; Z87.891 Personal history of nicotine dependence; Z86.73 Personal history of transient ischemic attack (TIA), and cerebral infarction without residual deficits; Z87.01 Personal history of pneumonia (recurrent); Z91.013 Allergy to seafood; Z79.82 Long term (current) use of aspirin; Y92.239 Unspecified place in hospital as the place of occurrence of the external cause